=== PATIENT | male | born 1950 | race Caucasian/White ===

== ENCOUNTER → 2017-11-11 13:17 | Outpatient (CLI) | payer MEDICARE, SELFPAY ==
--- NOTE | 2017-11-11 13:42 | RAD_ITS ---
STUDY: X-RAY CHEST REASON FOR EXAM: Male, 67 years old. Persistent cough. TECHNIQUE: Frontal and lateral views of the chest. COMPARISON: 08/29/2015. FINDINGS: There is increased interstitial prominence bilaterally, particularly in the mid and lower lung diaz. There is no demonstrated focal pulmonary infiltrate. there are small bilateral pleural effusions. Normal size heart. Normal mediastinum and gurvinder. Normal visualized pulmonary arteries. Normal visualized aortic arch and descending thoracic aorta. There are no visualized acute osseous abnormalities. There is no demonstrated abnormality of the visualized soft tissue structures of the upper abdomen. RAD/Chest PA and Lateral IMPRESSION: Increased interstitial prominence bilaterally, probably representing an inflammatory or atypical infectious process. CHF is thought to be less likely, but is not excluded. Small bilateral pleural effusions. Electronically Signed: Juan Jay MD at 3:32 EDT , Service support ,
== END ==
DX: R05 Cough (principal)
CPT/HCPCS: 71046

== ENCOUNTER 2017-11-16 13:56 | Inpatient (IN) | payer MEDICARE, SELFPAY ==
[2017-11-16] VITALS (13 sets, daily range): BP systolic 132–160; BP diastolic 77–107; PULSE 71–118; RESP 18–24; TEMP 36.1–36.8; O2SAT 94–98; BMI 46.3; BMI 46.4; BMI 45.1
--- NOTE | 2017-11-16 14:13 | EKG12_ITS ---
Test Reason : SOB Blood Pressure : / mmHG Vent. Rate : 095 BPM Atrial Rate : 089 BPM P-R Int : 000 ms QRS Dur : 080 ms QT Int : 462 ms P-R-T Axes : 000 042 092 degrees QTc Int : 580 ms Atrial fibrillation with premature ventricular or aberrantly conducted complexes Nonspecific ST and T wave abnormality Abnormal ECG Confirmed by CORONA RAMOS, JENNIFER ([id number]), assistant production editor MARIA A NOVOA ([id number] on 11/18/2017 2:12:11 PM Referred By: Jaclyn Trujillo Confirmed By:JENNIFER JETER MD
[2017-11-16 14:38] LABS: Absolute Lymphocyte Count 1.19 X10^3/ul (0.83-4.51); Absolute Neutrophil Count 4.2 X10^3/uL (2.0-7.7); Basophil# 0.03 X10^3/uL; Basophil% 0.5 % (0-1); Eosinophils% 3.3 % (0-5); Hematocrit 39.2 % (40-54); Hemoglobin 13.1 g/dl (13.0-16.5); Lymphocyte # 1.19 X10^3/ul (4.0); Lymphocyte % 19.8 % (19-41); Mean Corp Hgb Conc 33.4 g/gl (32-36); Mean Corpuscular Volume 89.7 fL (80-94); Mean Platelet Vol. 8.9 fl (6.2-12.0); Monocyte# 0.36 X10^3/uL; Neutrophil # 4.22 X10^3/uL (2.7-7.7); Neutrophil % 70.4 % (47-70); POSITIVE COUNT NO; POSITIVE DIFFERENTIAL NO; POSITIVE MORPHOLOGY NO; Platelet Count 245 K/mm3 (150-450); RBC Distribution Width CV 13.6 % (11.6-14.6); RBC Distribution Width SD 44.6 fl (35.1-43.9); Red Blood Count 4.37 M/mm3 (4.6-6.2)
[2017-11-16 14:44] LABS: Prothrombin Time (Protime)PT. 13.4 SECONDS (11.7-14.9)
--- NOTE | 2017-11-16 14:44 | RAD_ITS ---
STUDY: X-RAY CHEST REASON FOR EXAM: Male, 67 years old. Shortness of breath and cough TECHNIQUE: PA and lateral views of the chest. COMPARISON: 11/11/2017 FINDINGS: Cardiac monitoring leads overlie the chest. The interstitial markings again appear prominent, and may represent mild interstitial edema. There is a small left pleural effusion. There is mild cardiac enlargement. Normal mediastinum and gurvinder. Normal visualized pulmonary arteries. There is atherosclerotic calcification of the aortic arch with tortuosity. There are diffuse degenerative changes of the visualized thoracic spine. Normal visualized ribs, clavicles, and shoulders. There is no demonstrated abnormality of the visualized soft tissue structures of the upper abdomen. RAD/Chest PA and Lateral IMPRESSION: Mild interstitial edema. Small left pleural effusion. Electronically Signed: Rosalio Fierro DO at 15:07 EDT Tel , Service support ,
[2017-11-16 14:45] LABS: Partial Thromboplast Time 29.7 Seconds (24.1-36.2)
[2017-11-16 14:54] LABS: ALB/GLOB Ratio 0.8 RATIO (0.9-2.4); AST(SGOT) 18 U/L (15-37); Alanine Aminotransfer ALT/SGPT 19 U/L (16-61); Albumin, Serum 2.8 g/dL (3.2-5.0); Alkaline Phosphatase 66 U/L (45-117); Anion Gap 9 (5-15); BUN 6 mg/dL (7-18); Calcium,Total 8.1 mg/dL (8.5-10.1); Chloride 103 mmol/L (98-107); Creatinine, Serum 0.67 mg/dL (0.70-1.30); EST Glomerular Filtration Rate 126 mL/min (>60); Est Glom Filt Rate - Afr Amer 152 mL/min (>60); Estimated Creatinine Clearance 76.52 ml/min; Globulin 3.6 g/dL (2.2-4.2); Glucose 219 mg/dL (74-106); Potassium 3.3 mmol/L (3.5-5.1); Protein, Total 6.4 g/dL (6.4-8.2); Sodium Level 137 mmol/L (136-145)
[2017-11-16 15:03] LABS: Lactic Acid 1.4 mmol/L (0.4-2.0)
--- NOTE | 2017-11-16 15:24 | CM.ED ---
CM INITIAL ASSESSMENT: Patient is in the ED at this time. at bedside. Home: Patient lives in a one-story home with , Natalia. HHS/Aides: Denies. DME: Patient states he occasionally uses a cane. He states that he has a rope from the front of the house to the back of the house that he uses to balance as he walks. Patient's states this rope is very secure and that the home is not large. Patient feels he may benefit from a shower chair. He states he had a fall, in June 2017, after showering while drying his feet. Oxygen: Patient states he uses a BiPAP machine at night. No oxygen during the day. Pharmacy: [facility] Advance Directives: Patient denies having advance directives. He does state interest in having a social media analyst assist with this process. PCP: Jaclyn Arvizu at [facility] Specialists: None. Patient states he saw Dr. Stacy 5 or 6 years ago for removal of a portion of his kidney due to cancer. Patient admits that he stopped talking medications and seeing his doctor due to cost and convenience. He states that they always told him his insurance wouldn't cover the visit and he always had to wait an hour. Patient states Nathalie, at [facility], recently assisted him with applying for further insurance. ED registration searched to see if patient has any active form of medicaid and nothing appeared. I left a voicemail with the [facility] requesting that Nathalie call me back regarding insurance application. Social work referral made for assistance with advance directives. DC Plan: Anticipate return to home, with . Case management and social work will continue to follow for safe and effective discharging needs.
--- NOTE | 2017-11-16 15:37 | NURSING ---
DR ROSETTE JORGENSEN
--- NOTE | 2017-11-16 15:39 | NURSING ---
DR DINERO IN WITH PATIENT
--- NOTE | 2017-11-16 15:40 | ED.VISSUMM ---
- ER Visit Summary Date of Service: 11/16/17 Chief Complaint: Shortness of breath History of Present Illness: The patient is a 67 M presenting for evaluation secondary to shortness of breath. Patient states that over the course of the last month he has been feeling ill. This is been associated with nausea vomiting and diarrhea and progressively worsening shortness of breath. Patient states that he has a cough that is productive of sputum and runny nose. Patient states that over the last 3-4 days been getting significantly worse and he has exertional dyspnea even with walking short distances. Denies any presence of chest pain. Patient does have an underlying history of diabetes hypertension and a cardiac arrhythmia, but took himself off of all of his medications a year ago. Patient was being seen at the [facility], and was recommended to come to the emergency department. Physical Examination: Vital signs notable for tachycardia with a rate of 118, respiratory rate 22, pulse ox 95% on room air. Obese male no acute distress. Moist mucous membranes. Neck supple. Heart was tachycardic and regular no murmurs. Lungs sounds were clear without any rhonchi rales or wheezes, but there was tachypnea noted. Abdomen was soft and nontender. There is trace peripheral edema bilaterally with chronic skin changes noted over the anterior portion of the patient's tibias bilaterally. No lateralizing neurological deficits. Test Results: Atrial fibrillation with a rate of 95 nonspecific T-wave flattening and frequent PVCs noted. CBC unremarkable, chemistry shows hyperglycemia to 19 with a potassium 3.3, troponin negative, lactic acid negative. BNP is pending. Chest x-ray shows bilateral interstitial infiltrates unchanged from last week Emergency Department Course and Treatment: Patient presented for evaluation secondary to shortness of breath. Patient's workup shows evidence of atrial fibrillation with frequent ventricular ectopy. Chest x-ray shows interstitial infiltrates. Troponin was found to be negative. Patient was ambulated on room air in the emergency department and was significantly symptomatic and desaturated to 88%. Also while in the emergency department on telemetry the patient had a 4 beat run of nonsustained ventricular tachycardia. He denies any chest pain. Patient really gives more of an infectious prodrome to all of this, and I believe that he likely has an element of an atypical pneumonia. Patient was administered aspirin, he also was administered Rocephin and azithromycin in the emergency department. Patient will be admitted to the PCU Disposition: Admission Impression: 1. Atypical pneumonia 2. Nonsustained ventricular tachycardia 3. Hypoxia This note was generated with [employer] dictation software. It may contain incorrect words, spelling, and punctuation that were not noted in review of the chart prior to signing ED Disposition - Plan for ED Patient: Chief Complaint: Shortness of Breath Referrals: Roula Dubon [Primary Care Provider] -
[2017-11-16] MEDS: Aspirin 81 MG TAB.CHEW 324 MG PO (15:52)
[2017-11-16] MEDS: Ceftriaxone 1 GM/50 ML BAG IV (15:52)
[2017-11-16 15:53] LABS: BNP,B-Type NATRIURETIC PEPTIDE 193.5 pg/mL (0-100)
--- NOTE | 2017-11-16 16:00 | PCM.HP.STD ---
Problem List (1) Acute respiratory failure with hypoxia Status: Acute (2) COPD with acute exacerbation Status: Acute (3) CHF exacerbation Status: Acute (4) PVC's (premature ventricular contractions) Status: Acute (5) Diabetes mellitus type 2, uncontrolled, without complications Status: Chronic (6) HTN (hypertension) Status: Chronic (7) History of atrial fibrillation Status: Chronic (8) Morbid obesity Status: Chronic (9) HOLGER (obstructive sleep apnea) Status: Chronic History of Present Illness Date of Admission: 11/16/17 Chief Complaint: shortness of breath. The patient is a 67 year old M presents with shortness of breath is been going on for months. Patient has dyspnea on exertion. Patient has been coughing but is nonproductive. Given that it has been going on for so long patient has not gotten better patient sought attention in the emergency room. Emergency room their concern about pneumonia based on his chest x-ray and patient received Rocephin and azithromycin. BNP came back at 195. Patient did have some PVCs and did have 4 beat run of sustained ventricular tachycardia. Patient was noted to be 88% on room air. Patient is not on oxygen at home. [] Past Medical History Past Medical History (Chronic Problems): Chronic Problems HOLGER (obstructive sleep apnea) (Chronic) Morbid obesity (Chronic) HTN (hypertension) (Chronic) Diabetes mellitus type 2, uncontrolled, without complications (Chronic) History of atrial fibrillation (Chronic) Allergies No Known Allergies Allergy (Verified 11/16/17 13:58) Home Medications: Ambulatory Orders Medication Instructions Recorded NK [NK] 11/16/17 Surgical History: tonsillectomy Psychiatric History: No pertinent psych hx Lives: Spouse/ Significant Other Smoking Status: Former smoker Tobacco Use: Non-smoker Alcohol: Rare Drugs: None - *Family History Paternal History Items: Diabetes Review of Systems Constitutional: Denies: Chills, Fever, Weight Change Eyes: Denies: Blurred vision, Double vision HEENT: Denies: Head Aches, Sinus Congestion, Sinus Drainage Cardiovascular: Reports: Edema - Improved from baseline. Patient has had a history of requiring lymphedema wraps.. Denies: Chest Pain Respiratory: Reports: Cough, Shortness of breath upon exertion. Denies: Sputum production Gastrointestinal: Denies: Abdominal Pain, Nausea, Vomiting Genitourinary: Denies: Dysuria Musculoskeletal: Denies: Joint Pain, Joint Tenderness Skin: Reports: - - Venous stasis dermatitis of lower extremities. Denies: Dryness, Jaundice Neurological: Denies: Numbness, Tingling, Focal weakness Psychiatric: Denies: Anxiety, Depression Hematologic/ Lymphatic: Denies: Easy Bruising, Easy Bleeding, Hx of blood clot VTE Information - Inpt Only VTE Present on Admission: No VTE Pharm Prophylaxis ordered?: Yes Patient Problems: Active and Suspected Problems Acute respiratory failure with hypoxia (Acute) COPD with acute exacerbation (Acute) CHF exacerbation (Acute) PVC's (premature ventricular contractions) (Acute) - Physical Exam General: Alert, Cooperative, No apparent distress HEENT: Atraumatic, Normocephalic Neck: No Nodes, Thyroid Normal Size and Texture Lungs: Clear to auscultation, No rhonchi, No wheeze, Diminished Cardiovascular: Regular rate, Regular Rhythm, Normal S1, Normal S2, No murmurs Abdomen: Bowel Sounds Present, Soft, Non Tender, Non-Distended, No Hepato-splenomegaly Extremities: No Calf Tenderness, Edema - Trace Skin: - - Venous stasis dermatitis of bilateral lower extremities with some superficial wounds without cellulitis on the anterior shins. Musculoskeletal: No Tenderness to Palpation of Joints or Extremities, No Muscle Wasting Neurological: Neuro grossly intact, Sensory exam intact to light touch and pain Psych/Mental Status: Normal Affect, Appropriate Vital Signs Temp Pulse Resp BP Pulse Ox 36.6 C 102 H 24 H 132/107 H 96 11/16/17 14:25 11/16/17 15:29 11/16/17 15:29 11/16/17 15:29 11/16/17 15:29 Oxygen Flow Rate (L/min) 2 Oxygen Delivery Method Nasal Cannula Weight: 155.129 kg Body Mass Index (BMI) 46.3 Laboratory Tests Past 24 Hrs 11/16/17 11/16/17 11/16/17 14:25 14:25 14:25 WBC 6.0 RBC 4.37 L Hgb 13.1 Hct 39.2 L MCV 89.7 MCH 30.0 MCHC 33.4 RDW 13.6 RDW Differential 44.6 H Plt Count 245 MPV 8.9 Immature Gran % (Auto) 0.000 Neut % (Auto) 70.4 H Lymph % (Auto) 19.8 [place] % (Auto) 6.0 Eos % (Auto) 3.3 Baso % (Auto) 0.5 Absolute Neuts (auto) 4.2 Absolute Lymphs (auto) 1.19 Total Counted Not Reportable PT 13.4 INR 1.0 APTT 29.7 Sodium 137 Potassium 3.3 L Chloride 103 Carbon Dioxide 25.0 Anion Gap 9 BUN 6 L Creatinine 0.67 L Estim Creat Clear Calc 76.52 Est GFR (MDRD) Af Amer 152 Est GFR (MDRD) Non-Af 126 BUN/Creatinine Ratio 9.0 L Glucose 219 H Lactic Acid Calcium 8.1 L Total Bilirubin 0.60 AST 18 ALT 19 Alkaline Phosphatase 66 Troponin I < 0.02 B-Natriuretic Peptide Total Protein 6.4 Albumin 2.8 L Globulin 3.6 Albumin/Globulin Ratio 0.8 L 11/16/17 11/16/17 14:25 14:25 WBC RBC Hgb Hct MCV MCH MCHC RDW RDW Differential Plt Count MPV Immature Gran % (Auto) Neut % (Auto) Lymph % (Auto) [place] % (Auto) Eos % (Auto) Baso % (Auto) Absolute Neuts (auto) Absolute Lymphs (auto) Total Counted PT INR APTT Sodium Potassium Chloride Carbon Dioxide Anion Gap BUN Creatinine Estim Creat Clear Calc Est GFR (MDRD) Af Amer Est GFR (MDRD) Non-Af BUN/Creatinine Ratio Glucose Lactic Acid 1.4 Calcium Total Bilirubin AST ALT Alkaline Phosphatase Troponin I B-Natriuretic Peptide 193.5 H Total Protein Albumin Globulin Albumin/Globulin Ratio EKG reviewed and showed normal sinus rhythm with no acute changes Chest x-ray reviewed and showed flattening of the diaphragms and appears to be some new pleural effusion. Assessment/Plan Active and Suspected Problems Acute respiratory failure with hypoxia (Acute) COPD with acute exacerbation (Acute) CHF exacerbation (Acute) PVC's (premature ventricular contractions) (Acute) 1. Acute hypoxic respiratory failure Is likely multifactorial, due to the patient's underlying sleep apnea, obesity hypoventilation, I feel the patient also has component of heart failure. Unclear the patient has right heart failure or not. Treat the underlying processes. Patient had been seeing Dr. thomas but due to personality conflicts he has not seen him for a year or 2. I recommend patient follow-up with pulmonology to have a pulmonary function test to see if patient does have underlying COPD which I am suspicious for given his flattening of diaphragms on the chest x-rays 2. Acute heart failure Unclear which type benefits preserved versus reduced ejection fraction Will check an echocardiogram to further elucidate this Patient will be on Lasix Hold off on beta blockers in acute heart failure. Concerned the patient may have some right heart failure as well in the echocardiogram could shed more light on that. The patient does have right heart failure that certainly complicating patient's overall picture. 3. PVCs Asymptomatic Potassium is low and that will be replaced. Will check a magnesium level. Patient will be monitored on the progressive care unit for now. 4. Obstructive sleep apnea Continue with BiPAP as patient takes at home. Patient stating that his not getting the pressure that he was before with his BiPAP. We will have respiratory evaluate and see if it is the machine itself or possibly his mask. 5. Diabetes mellitus type II Patient has taken himself off of medication Patient will be on sliding scale insulin 6. DVT prophylaxis: Patient is moderate risk. Patient will be on Lovenox. 7. Morbid obesity: Complicating care. Code Visit Inpatient E&M: 41060 Init Hosp L3
--- NOTE | 2017-11-16 16:02 | CM.ED ---
Nathalie, from [facility], returned my call and states that she did give the patient supplemental insurance information but states that no applications were completed with her. Nathalie states that, together with his , they make too much money to have medicaid.
--- NOTE | 2017-11-16 16:03 | NURSING ---
Lili ACUTE HYPOXIC RESP FAILURE ROSETTE
--- NOTE | 2017-11-16 16:09 | HP.PCM_ITS ---
Problem List (1) Acute respiratory failure with hypoxia Status: Acute (2) COPD with acute exacerbation Status: Acute (3) CHF exacerbation Status: Acute (4) PVC's (premature ventricular contractions) Status: Acute (5) Diabetes mellitus type 2, uncontrolled, without complications Status: Chronic (6) HTN (hypertension) Status: Chronic (7) History of atrial fibrillation Status: Chronic (8) Morbid obesity Status: Chronic (9) HOLGER (obstructive sleep apnea) Status: Chronic History of Present Illness Date of Admission: 11/16/17 Chief Complaint: shortness of breath. The patient is a 67 year old M presents with shortness of breath is been going on for months. Patient has dyspnea on exertion. Patient has been coughing but is nonproductive. Given that it has been going on for so long patient has not gotten better patient sought attention in the emergency room. Emergency room their concern about pneumonia based on his chest x-ray and patient received Rocephin and azithromycin. BNP came back at 195. Patient did have some PVCs and did have 4 beat run of sustained ventricular tachycardia. Patient was noted to be 88% on room air. Patient is not on oxygen at home. [] Past Medical History Past Medical History (Chronic Problems): Chronic Problems HOLGER (obstructive sleep apnea) (Chronic) Morbid obesity (Chronic) HTN (hypertension) (Chronic) Diabetes mellitus type 2, uncontrolled, without complications (Chronic) History of atrial fibrillation (Chronic) Allergies No Known Allergies Allergy (Verified 11/16/17 13:58) Home Medications: Ambulatory Orders Medication Instructions Recorded NK [NK] 11/16/17 Surgical History: tonsillectomy Psychiatric History: No pertinent psych hx Lives: Spouse/ Significant Other Smoking Status: Former smoker Tobacco Use: Non-smoker Alcohol: Rare Drugs: None - *Family History Paternal History Items: Diabetes Review of Systems Constitutional: Denies: Chills, Fever, Weight Change Eyes: Denies: Blurred vision, Double vision HEENT: Denies: Head Aches, Sinus Congestion, Sinus Drainage Cardiovascular: Reports: Edema - Improved from baseline. Patient has had a history of requiring lymphedema wraps.. Denies: Chest Pain Respiratory: Reports: Cough, Shortness of breath upon exertion. Denies: Sputum production Gastrointestinal: Denies: Abdominal Pain, Nausea, Vomiting Genitourinary: Denies: Dysuria Musculoskeletal: Denies: Joint Pain, Joint Tenderness Skin: Reports: - - Venous stasis dermatitis of lower extremities. Denies: Dryness, Jaundice Neurological: Denies: Numbness, Tingling, Focal weakness Psychiatric: Denies: Anxiety, Depression Hematologic/ Lymphatic: Denies: Easy Bruising, Easy Bleeding, Hx of blood clot VTE Information - Inpt Only VTE Present on Admission: No VTE Pharm Prophylaxis ordered?: Yes Patient Problems: Active and Suspected Problems Acute respiratory failure with hypoxia (Acute) COPD with acute exacerbation (Acute) CHF exacerbation (Acute) PVC's (premature ventricular contractions) (Acute) - Physical Exam General: Alert, Cooperative, No apparent distress HEENT: Atraumatic, Normocephalic Neck: No Nodes, Thyroid Normal Size and Texture Lungs: Clear to auscultation, No rhonchi, No wheeze, Diminished Cardiovascular: Regular rate, Regular Rhythm, Normal S1, Normal S2, No murmurs Abdomen: Bowel Sounds Present, Soft, Non Tender, Non-Distended, No Hepato- splenomegaly Extremities: No Calf Tenderness, Edema - Trace Skin: - - Venous stasis dermatitis of bilateral lower extremities with some superficial wounds without cellulitis on the anterior shins. Musculoskeletal: No Tenderness to Palpation of Joints or Extremities, No Muscle Wasting Neurological: Neuro grossly intact, Sensory exam intact to light touch and pain Psych/Mental Status: Normal Affect, Appropriate Vital Signs Temp Pulse Resp BP Pulse Ox 36.6 C 102 H 24 H 132/107 H 96 11/16/17 14:25 11/16/17 15:29 11/16/17 15:29 11/16/17 15:29 11/16/17 15:29 Oxygen Flow Rate (L/min) 2 Oxygen Delivery Method Nasal Cannula Weight: 155.129 kg Body Mass Index (BMI) 46.3 Laboratory Tests Past 24 Hrs 11/16/17 11/16/17 11/16/17 14:25 14:25 14:25 WBC 6.0 RBC 4.37 L Hgb 13.1 Hct 39.2 L MCV 89.7 MCH 30.0 MCHC 33.4 RDW 13.6 RDW Differential 44.6 H Plt Count 245 MPV 8.9 Immature Gran % (Auto) 0.000 Neut % (Auto) 70.4 H Lymph % (Auto) 19.8 [place] % (Auto) 6.0 Eos % (Auto) 3.3 Baso % (Auto) 0.5 Absolute Neuts (auto) 4.2 Absolute Lymphs (auto) 1.19 Total Counted Not Reportable PT 13.4 INR 1.0 APTT 29.7 Sodium 137 Potassium 3.3 L Chloride 103 Carbon Dioxide 25.0 Anion Gap 9 BUN 6 L Creatinine 0.67 L Estim Creat Clear Calc 76.52 Est GFR (MDRD) Af Amer 152 Est GFR (MDRD) Non-Af 126 BUN/Creatinine Ratio 9.0 L Glucose 219 H Lactic Acid Calcium 8.1 L Total Bilirubin 0.60 AST 18 ALT 19 Alkaline Phosphatase 66 Troponin I < 0.02 B-Natriuretic Peptide Total Protein 6.4 Albumin 2.8 L Globulin 3.6 Albumin/Globulin Ratio 0.8 L 11/16/17 11/16/17 14:25 14:25 WBC RBC Hgb Hct MCV MCH MCHC RDW RDW Differential Plt Count MPV Immature Gran % (Auto) Neut % (Auto) Lymph % (Auto) [place] % (Auto) Eos % (Auto) Baso % (Auto) Absolute Neuts (auto) Absolute Lymphs (auto) Total Counted PT INR APTT Sodium Potassium Chloride Carbon Dioxide Anion Gap BUN Creatinine Estim Creat Clear Calc Est GFR (MDRD) Af Amer Est GFR (MDRD) Non-Af BUN/Creatinine Ratio Glucose Lactic Acid 1.4 Calcium Total Bilirubin AST ALT Alkaline Phosphatase Troponin I B-Natriuretic Peptide 193.5 H Total Protein Albumin Globulin Albumin/Globulin Ratio EKG reviewed and showed normal sinus rhythm with no acute changes Chest x-ray reviewed and showed flattening of the diaphragms and appears to be some new pleural effusion. Assessment/Plan Active and Suspected Problems Acute respiratory failure with hypoxia (Acute) COPD with acute exacerbation (Acute) CHF exacerbation (Acute) PVC's (premature ventricular contractions) (Acute) 1. Acute hypoxic respiratory failure * Is likely multifactorial, due to the patient's underlying sleep apnea, obesity hypoventilation, I feel the patient also has component of heart failure. Unclear the patient has right heart failure or not. * Treat the underlying processes. * Patient had been seeing Dr. thomas but due to personality conflicts he has not seen him for a year or 2. I recommend patient follow-up with pulmonology to have a pulmonary function test to see if patient does have underlying COPD which I am suspicious for given his flattening of diaphragms on the chest x-rays 2. Acute heart failure * Unclear which type benefits preserved versus reduced ejection fraction * Will check an echocardiogram to further elucidate this * Patient will be on Lasix * Hold off on beta blockers in acute heart failure. * Concerned the patient may have some right heart failure as well in the echocardiogram could shed more light on that. The patient does have right heart failure that certainly complicating patient's overall picture. 3. PVCs * Asymptomatic * Potassium is low and that will be replaced. Will check a magnesium level. * Patient will be monitored on the progressive care unit for now. 4. Obstructive sleep apnea * Continue with BiPAP as patient takes at home. Patient stating that his not getting the pressure that he was before with his BiPAP. We will have respiratory evaluate and see if it is the machine itself or possibly his mask. 5. Diabetes mellitus type II * Patient has taken himself off of medication * Patient will be on sliding scale insulin 6. DVT prophylaxis: Patient is moderate risk. Patient will be on Lovenox. 7. Morbid obesity: Complicating care. Code Visit Inpatient E&M: 70730 Init Hosp L3
--- NOTE | 2017-11-16 17:23 | ECHOD_ITS ---
Reason For Study: CHF Procedure This was a 2D Doppler, Color Flow transthoracic echocardiogram. The exam was of poor technical quality due to body habitus. The study was technically difficult. Contrast injection was performed. Left Ventricle Normal LV size. Left ventricular systolic function is normal. The estimated ejection fraction is 65 %. Unable to assess diastolic dysfunction due to arrhythmia. No regional wall motion abnormalities noted. Right Ventricle Normal RV size. Normal systolic function. Atria The left atrium is mildly enlarged. The right atrium is mildly enlarged. No doppler evidence for ASD. Mitral Valve There is mild mitral annular calcification. Normal mitral valve. Trivial mitral valve insufficiency. Tricuspid Valve The tricuspid valve is not well visualized. Trivial tricuspid valve insufficiency. Unable to estimate RV systolic pressure/pulmonary artery pressure due to technically difficult study. Aortic Valve The aortic valve is not well visualized. Pulmonic Valve The pulmonic valve is not well visualized. Great Vessels The aortic root is not well visualized. Pericardium/Pleural Trivial pericardial effusion. There are no echocardiographic indications of cardiac tamponade. Medication Diluted definity 5ml given slow IV push to enhance endocardial definition. MMode/2D Measurements & Calculations LVIDd: 4.7 cm IVSd: 0.94 cm LVOT diam: 2.1 cm LVIDs: 3.5 cm LVPWd: 1.0 cm LVOT area: 3.6 cm2 RVDd: 4.4 cm FS: 25.1 % Ao root diam: 3.5 cm LAV(MOD-bp): 98.0 ml LA A4 area: 27.3 cm2 LA dimension: 4.6 cm LAV(MOD-bp) Indexed: 37.1 ml/m2 LAV(MOD-sp2): 106.6 ml LAV(MOD-sp4): 83.5 ml Doppler Measurements & Calculations MV E max angel: 114.0 cm/sec Ao V2 max: 138.6 cm/sec LV V1 max: 83.2 cm/sec Ao max P.8 mmHg LV V1 max P.8 mmHg FELIX(V,D): 2.1 cm2 Interpretation Summary The study was technically difficult. Contrast injection was performed. Left ventricular systolic function is normal. The estimated ejection fraction is 65 %. The left atrium is mildly enlarged. The right atrium is mildly enlarged. There is mild mitral annular calcification. Trivial mitral valve insufficiency. Trivial tricuspid valve insufficiency. Trivial pericardial effusion. There are no echocardiographic indications of cardiac tamponade. Unable to estimate RV systolic pressure/pulmonary artery pressure due to technically difficult study. Unable to assess diastolic dysfunction due to arrhythmia. Ordering Physician: Peter Aguirre Referring Physician: Jaclyn Trujillo Performed By: Dejah Wilcox, MARIA LCS, RVT
[2017-11-16] MEDS: predniSONE 20 MG Tablet 40 MG PO (18:10)
[2017-11-16 19:02] LABS: Magnesium 1.2 mg/dL (1.6-2.6); Thyroid Stim Hormone (TSH) 0.43 uIU/mL (0.358-3.74)
[2017-11-16] MEDS: Ipratropium/Albuterol Sulfate 3 ML AMPUL.NEB INHALATION (21:30)
[2017-11-16 23:16] LABS: Bedside Glucose 247 mg/dL (70-110)
[2017-11-17] VITALS (14 sets, daily range): BP systolic 141–160; BP diastolic 71–98; PULSE 62–126; RESP 16–18; TEMP 36.3–36.9; O2SAT 94–97
[2017-11-17] MEDS: Magnesium Oxide 400 MG Tablet PO (03:20)
[2017-11-17 06:10] LABS: Anion Gap 9 (5-15); BUN 7 mg/dL (7-18); BUN/Creat Ratio 9.9 RATIO (10-20); Calcium,Total 8.3 mg/dL (8.5-10.1); Chloride 102 mmol/L (98-107); Creatinine, Serum 0.71 mg/dL (0.70-1.30); EST Glomerular Filtration Rate 117 mL/min (>60); Est Glom Filt Rate - Afr Amer 142 mL/min (>60); Estimated Creatinine Clearance 76.52 ml/min; Glucose 254 mg/dL (74-106); Potassium 4.2 mmol/L (3.5-5.1); Sodium Level 138 mmol/L (136-145)
[2017-11-17 06:56] LABS: Bedside Glucose 253 mg/dL (70-110)
[2017-11-17] MEDS: predniSONE 20 MG Tablet 40 MG PO (07:55)
[2017-11-17] MEDS: Furosemide 40 MG/4 ML Vial IV (10:20)
[2017-11-17] MEDS: Enoxaparin 40 MG/0.4 ML Syringe SC (10:21)
[2017-11-17] MEDS: 0.9% NaCl Peripheral Flush Adult/Peds IV (10:21)
[2017-11-17 12:25] LABS: Bedside Glucose 292 mg/dL (70-110)
--- NOTE | 2017-11-17 12:25 | PCM.PROGNOTE ---
<Gerson Silverio - Last Filed: 11/17/17 12:25> Patient Problems: Active and Suspected Problems Acute respiratory failure with hypoxia (Acute) COPD with acute exacerbation (Acute) CHF exacerbation (Acute) PVC's (premature ventricular contractions) (Acute) Subjective: Pt reports improvement in SOB overnight. He denies swelling of his LE. He denies PND and orthopnea. He does report compliance at home with CPAP. 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 He admits to hx of Afib. The only medication he takes at home is sometimes he takes aspirin. 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 He also had right renal cancer, and had a partial nephrectomy. He reports no ongoing kidney issues. He denies CP or palp. No dizziness or LH. He states he used to be a smoker. He started at some point when he was a kid and smoked until sometime in his 30s. - Physical Exam General: Alert, Oriented x3, Cooperative HEENT: Atraumatic, PERRLA, EOMI, Normocephalic Neck: Supple, No JVD, Negative Carotid Bruits Lungs: Diminished, Rales - faint @ bases Cardiovascular: Regular rate, No murmurs Abdomen: Bowel Sounds Present, Soft, Non Tender Extremities: No edema, Capillary Refill Less than 3 Seconds Skin: No rashes, No breakdown Musculoskeletal: No Tenderness to Palpation of Joints or Extremities Neurological: Cranial nerves II-XII grossly intact Psych/Mental Status: Normal Affect, Appropriate Vital Signs Temp Pulse Resp BP Pulse Ox 98.4 F 108 H 18 141/93 H 94 11/17/17 09:26 11/17/17 11:04 11/17/17 09:26 11/17/17 09:26 11/17/17 11:01 Oxygen Flow Rate (L/min) 2 Oxygen Delivery Method Room Air Weight: 150.9 kg Body Mass Index (BMI) 45.1 Intake and Output for Last 24 Hours 11/15/17 11/16/17 11/17/17 23:59 23:59 23:59 Intake Total 623 / 623 220 / 220 Balance 623 / 623 220 / 220 Laboratory Tests Past 24 Hrs 11/17/17 11/17/17 05:35 05:35 Sodium 138 Potassium 4.2 Chloride 102 Carbon Dioxide 27.0 Anion Gap 9 BUN 7 Creatinine 0.71 Estim Creat Clear Calc 76.52 Est GFR (MDRD) Af Amer 142 Est GFR (MDRD) Non-Af 117 BUN/Creatinine Ratio 9.9 L Glucose 254 H Hemoglobin A1c Pending Calcium 8.3 L POC Glucose 11/17/17 11/17/17 11/16/17 12:22 06:46 23:03 POC Glucose 292 H 253 H 247 H Medical Necessity - Tobacco Use Smoking Status: Former smoker Tobacco Use: Non-smoker Assessment/Plan Active and Suspected Problems Acute respiratory failure with hypoxia (Acute) COPD with acute exacerbation (Acute) CHF exacerbation (Acute) PVC's (premature ventricular contractions) (Acute) 1. Acute CHF exacerbation - echo pending, type unclear. No prior hx. On IV lasix and improving. I have placed him on low dose ANUSHA-I and Beta enrike. He is mildly tachy. AF with PVCs on EKG/tele. Echo is pending. BNP was 193.5. TSH normal. CXR with chronic changes, mild interstitial edema, and small left pleural effusion. 2. COPD - no wheezing appreciated. Former smoker. No dx of COPD. Continue prednisone as there are significant chronic changes on CXR and part of this may be due to underlying COPD. He will need PFTs after DC and an outpatient rescue inhaler. Plan to continue prednisone for 5 days. 3. HOLGER - compliant with CPAP at home 4. Afib - states he has a hx of this but it is not treated and he does not follow cardiology. Mildly tachy this am. Start lopressor. Chadvasc score is 5, so he would benefit from outpatient anticoagulation. He will need outpatient follow up with cardiology. 5. Hypokalemia - improved. 6. Hyperglycemia - suspect DMt2 - A1C pending. Add sliding scale insulin. Will have diabetic education while here. Plan to DC on metformin and have him follow up with BRITTANY Hemphill. 7. Hx Renal cancer s/p partial nephrectomy (right) - renal function currently stable. 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 DVT ppx: lovenox DC planning: PTOT This patient was seen by Gerson Silverio PA-C under the supervision of Doctor Jeffrey. <Gael Murphy - Last Filed: 11/17/17 17:59> Subjective: Seen and examined Shortness of breath has improved. Denies chest pain - Physical Exam Lungs: Diminished, Rales Cardiovascular: Normal S1, Normal S2, No murmurs, Irregular Rate Vital Signs Temp Pulse Resp BP Pulse Ox 98.2 F 63 18 151/71 H 94 11/17/17 15:36 11/17/17 17:16 11/17/17 15:36 11/17/17 17:16 11/17/17 15:36 Oxygen Flow Rate (L/min) 2 Oxygen Delivery Method Room Air Weight: 332 lb 10.841 oz Body Mass Index (BMI) 45.1 Intake and Output for Last 24 Hours 11/15/17 11/16/17 11/17/17 23:59 23:59 23:59 Intake Total 623 / 623 1190 / 1190 Balance 623 / 623 1190 / 1190 Laboratory Tests Past 24 Hrs 11/17/17 11/17/17 05:35 05:35 Sodium 138 Potassium 4.2 Chloride 102 Carbon Dioxide 27.0 Anion Gap 9 BUN 7 Creatinine 0.71 Estim Creat Clear Calc 76.52 Est GFR (MDRD) Af Amer 142 Est GFR (MDRD) Non-Af 117 BUN/Creatinine Ratio 9.9 L Glucose 254 H Hemoglobin A1c 12.5 H Calcium 8.3 L POC Glucose 11/17/17 11/17/17 11/17/17 17:03 12:22 06:46 POC Glucose 298 H 292 H 253 H 11/16/17 23:03 POC Glucose 247 H Assessment/Plan This patient was seen in conjunction with Gerson SERRANO. I have independently interviewed and examined the patient and reviewed pertinent history, examination findings, laboratory and plan of management. I have reviewed the note and agree with the documented findings with the few additional points. In brief, patient is admitted for acute CHF exacerbation. On heart failure regimen. 2D echo was ordered. Patient also has other comorbidities including obstructive sleep apnea, COPD admission I have discussed my assessment with Gerson SERRANO and orders have been reviewed. Laboratory Results 11/16/17 14:25: Magnesium 1.2 L, TSH 0.43 11/16/17 23:03: POC Glucose 247 H 11/17/17 05:35: Sodium 138, Potassium 4.2, Chloride 102, Carbon Dioxide 27.0, Anion Gap 9, BUN 7, Creatinine 0.71, Estim Creat Clear Calc 76.52, Est GFR (MDRD) Af Amer 142, Est GFR (MDRD) Non-Af 117, BUN/Creatinine Ratio 9.9 L, Glucose 254 H, Calcium 8.3 L 11/17/17 05:35: Hemoglobin A1c 12.5 H 11/17/17 06:46: POC Glucose 253 H 11/17/17 12:22: POC Glucose 292 H 11/17/17 17:03: POC Glucose 298 H Code Visit Inpatient E&M: 10608 Subs Hosp L3
--- NOTE | 2017-11-17 12:34 | PN_ITS ---
<Gerson Silverio - Last Filed: 11/17/17 12:25> Patient Problems: Active and Suspected Problems Acute respiratory failure with hypoxia (Acute) COPD with acute exacerbation (Acute) CHF exacerbation (Acute) PVC's (premature ventricular contractions) (Acute) Subjective: Pt reports improvement in SOB overnight. He denies swelling of his LE. He denies PND and orthopnea. He does report compliance at home with CPAP. 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 He admits to hx of Afib. The only medication he takes at home is sometimes he takes aspirin. 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 He also had right renal cancer, and had a partial nephrectomy. He reports no ongoing kidney issues. He denies CP or palp. No dizziness or LH. He states he used to be a smoker. He started at some point when he was a kid and smoked until sometime in his 30s. - Physical Exam General: Alert, Oriented x3, Cooperative HEENT: Atraumatic, PERRLA, EOMI, Normocephalic Neck: Supple, No JVD, Negative Carotid Bruits Lungs: Diminished, Rales - faint @ bases Cardiovascular: Regular rate, No murmurs Abdomen: Bowel Sounds Present, Soft, Non Tender Extremities: No edema, Capillary Refill Less than 3 Seconds Skin: No rashes, No breakdown Musculoskeletal: No Tenderness to Palpation of Joints or Extremities Neurological: Cranial nerves II-XII grossly intact Psych/Mental Status: Normal Affect, Appropriate Vital Signs Temp Pulse Resp BP Pulse Ox 98.4 F 108 H 18 141/93 H 94 11/17/17 09:26 11/17/17 11:04 11/17/17 09:26 11/17/17 09:26 11/17/17 11:01 Oxygen Flow Rate (L/min) 2 Oxygen Delivery Method Room Air Weight: 150.9 kg Body Mass Index (BMI) 45.1 Intake and Output for Last 24 Hours 11/15/17 11/16/17 11/17/17 23:59 23:59 23:59 Intake Total 623 / 623 220 / 220 Balance 623 / 623 220 / 220 Laboratory Tests Past 24 Hrs 11/17/17 11/17/17 05:35 05:35 Sodium 138 Potassium 4.2 Chloride 102 Carbon Dioxide 27.0 Anion Gap 9 BUN 7 Creatinine 0.71 Estim Creat Clear Calc 76.52 Est GFR (MDRD) Af Amer 142 Est GFR (MDRD) Non-Af 117 BUN/Creatinine Ratio 9.9 L Glucose 254 H Hemoglobin A1c Pending Calcium 8.3 L POC Glucose 11/17/17 11/17/17 11/16/17 12:22 06:46 23:03 POC Glucose 292 H 253 H 247 H Medical Necessity - Tobacco Use Smoking Status: Former smoker Tobacco Use: Non-smoker Assessment/Plan Active and Suspected Problems Acute respiratory failure with hypoxia (Acute) COPD with acute exacerbation (Acute) CHF exacerbation (Acute) PVC's (premature ventricular contractions) (Acute) 1. Acute CHF exacerbation - echo pending, type unclear. No prior hx. On IV lasix and improving. I have placed him on low dose ANUSHA-I and Beta enrike. He is mildly tachy. AF with PVCs on EKG/tele. Echo is pending. BNP was 193.5. TSH normal. CXR with chronic changes, mild interstitial edema, and small left pleural effusion. 2. COPD - no wheezing appreciated. Former smoker. No dx of COPD. Continue prednisone as there are significant chronic changes on CXR and part of this may be due to underlying COPD. He will need PFTs after DC and an outpatient rescue inhaler. Plan to continue prednisone for 5 days. 3. HOLGER - compliant with CPAP at home 4. Afib - states he has a hx of this but it is not treated and he does not follow cardiology. Mildly tachy this am. Start lopressor. Chadvasc score is 5, so he would benefit from outpatient anticoagulation. He will need outpatient follow up with cardiology. 5. Hypokalemia - improved. 6. Hyperglycemia - suspect DMt2 - A1C pending. Add sliding scale insulin. Will have diabetic education while here. Plan to DC on metformin and have him follow up with BRITTANY Hemphill. 7. Hx Renal cancer s/p partial nephrectomy (right) - renal function currently stable. 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 DVT ppx: lovenox DC planning: PTOT This patient was seen by Gerson Silverio PA-C under the supervision of Doctor Jeffrey. <Gael Murphy - Last Filed: 11/17/17 17:59> Subjective: Seen and examined Shortness of breath has improved. Denies chest pain - Physical Exam Lungs: Diminished, Rales Cardiovascular: Normal S1, Normal S2, No murmurs, Irregular Rate Vital Signs Temp Pulse Resp BP Pulse Ox 98.2 F 63 18 151/71 H 94 11/17/17 15:36 11/17/17 17:16 11/17/17 15:36 11/17/17 17:16 11/17/17 15:36 Oxygen Flow Rate (L/min) 2 Oxygen Delivery Method Room Air Weight: 332 lb 10.841 oz Body Mass Index (BMI) 45.1 Intake and Output for Last 24 Hours 11/15/17 11/16/17 11/17/17 23:59 23:59 23:59 Intake Total 623 / 623 1190 / 1190 Balance 623 / 623 1190 / 1190 Laboratory Tests Past 24 Hrs 11/17/17 11/17/17 05:35 05:35 Sodium 138 Potassium 4.2 Chloride 102 Carbon Dioxide 27.0 Anion Gap 9 BUN 7 Creatinine 0.71 Estim Creat Clear Calc 76.52 Est GFR (MDRD) Af Amer 142 Est GFR (MDRD) Non-Af 117 BUN/Creatinine Ratio 9.9 L Glucose 254 H Hemoglobin A1c 12.5 H Calcium 8.3 L POC Glucose 11/17/17 11/17/17 11/17/17 17:03 12:22 06:46 POC Glucose 298 H 292 H 253 H 11/16/17 23:03 POC Glucose 247 H Assessment/Plan This patient was seen in conjunction with Gerson SERRANO. I have independently interviewed and examined the patient and reviewed pertinent history, examination findings, laboratory and plan of management. I have reviewed the note and agree with the documented findings with the few additional points. In brief, patient is admitted for acute CHF exacerbation. On heart failure regimen. 2D echo was ordered. Patient also has other comorbidities including obstructive sleep apnea, COPD admission I have discussed my assessment with Gerson SERRANO and orders have been reviewed. Laboratory Results 11/16/17 14:25: Magnesium 1.2 L, TSH 0.43 11/16/17 23:03: POC Glucose 247 H 11/17/17 05:35: Sodium 138, Potassium 4.2, Chloride 102, Carbon Dioxide 27.0, Anion Gap 9, BUN 7, Creatinine 0.71, Estim Creat Clear Calc 76.52, Est GFR (MDRD ) Af Amer 142, Est GFR (MDRD) Non-Af 117, BUN/Creatinine Ratio 9.9 L, Glucose 254 H, Calcium 8.3 L 11/17/17 05:35: Hemoglobin A1c 12.5 H 11/17/17 06:46: POC Glucose 253 H 11/17/17 12:22: POC Glucose 292 H 11/17/17 17:03: POC Glucose 298 H Code Visit Inpatient E&M: 31054 Subs Hosp L3
[2017-11-17 13:00] LABS: Hemoglobin A1c 12.5 % (4.2-6.3)
[2017-11-17] MEDS: Metoprolol Tartrate 25 MG Tablet 12.5 MG PO (17:16)
[2017-11-17 17:56] LABS: Bedside Glucose 298 mg/dL (70-110)
[2017-11-17 22:25] LABS: Bedside Glucose 254 mg/dL (70-110)
[2017-11-18] VITALS (9 sets, daily range): BP systolic 128–145; BP diastolic 64–92; PULSE 55–109; RESP 16; TEMP 36.6–37; O2SAT 92–97
[2017-11-18 07:01] LABS: Bedside Glucose 276 mg/dL (70-110)
[2017-11-18] MEDS: Magnesium Oxide 400 MG Tablet PO (08:11)
[2017-11-18] MEDS: predniSONE 20 MG Tablet 40 MG PO (08:12)
--- NOTE | 2017-11-18 10:03 | CASEMGMT ---
Addendum entered by Chloé Merritt 11/18/17 13:31: SW called [facility] and patient does have prescription coverage. His cost for Eliquis is $47, his Albuterol inhaler is $54.97, and his Symbicort inhaler is $47. All of the other medications that were sent were $1 or around there. The total cost for his meds is $155.97. SW spoke with patient and let him know he has prescription coverage and the total for all of his medications at [facility] right now $155.97. He said he could manage that cost. Plan: d/c home. He has prescription coverage, he must not of been aware of it. Chloé PETERSON Original Note: GLO spoke patient, introduced self and role at [facility]. Patient said he has not been getting his medications because he cannot afford them. He said he does not know if he has prescription coverage. He was on Levemir and it was $800. He said he gets $1525 per month and his gets around $800. GLO told him he is going to be d/c on several meds, but they will mostly be around $4 each. He said he can afford that. GLO told him SW will come back when his is here so SW can go over some possible assistance. Chloé PETERSON
[2017-11-18] MEDS: Furosemide 40 MG/4 ML Vial IV (11:29)
[2017-11-18] MEDS: Metoprolol Tartrate 25 MG Tablet 12.5 MG PO (11:30)
[2017-11-18] MEDS: Enoxaparin 40 MG/0.4 ML Syringe SC (11:31)
[2017-11-18] MEDS: 0.9% NaCl Peripheral Flush Adult/Peds IV (11:31)
--- NOTE | 2017-11-18 11:32 | PCM.DC ---
- Discharge Diagnoses Current Active Problems: Current Active and Chronic Problems Acute respiratory failure with hypoxia (Acute) COPD with acute exacerbation (Acute) CHF exacerbation (Acute) PVC's (premature ventricular contractions) (Acute) You will use the following diet at home:: Calorie/Carbohydrate Controlled (specify 1200, 1400, etc) - 1800 milton/day, Cardiac - <2g sodium daily Your food should be the consistency of: Regular Your liquids should be the consistency of: Regular/Thin Discharge Activity: Return to Normal Activity Allergies/Adverse Reactions: Allergies No Known Allergies Allergy (Verified 11/16/17 13:58) Medications to take at Discharge Albuterol IH (ProAir) [Proair Hfa] 1 puff INHALATION Q6H PRN PRN #1 inhaler 11/18/17 Apixaban [Eliquis] 5 mg PO BID #60 tab 11/18/17 Budesonide/Formoterol 80-4.5 [Symbicort 80-4.5 Mcg Inhaler] 2 puff INHALATION BID #1 inhaler 11/18/17 Furosemide [Lasix] 40 mg PO DAILY #30 tab 11/18/17 Lisinopril [Zestril] 5 mg PO DAILY #30 tab 11/18/17 Metformin HCl 500 mg PO BID #60 tab 11/18/17 Metoprolol Tartrate [Lopressor (beta enrike)] 12.5 mg PO BID #60 tab 11/18/17 Potassium Chloride [K-Dur] 20 meq PO DAILY #30 tab 11/18/17 Prednisone [Deltasone] 40 mg PO DAILY 3 Days #6 tab 11/18/17 The following prescriptions were given: Albuterol IH (ProAir) [Proair Hfa] 1 puff INHALATION Q6H PRN PRN #1 inhaler PRN Reason: Sob &/Or Wheezing Apixaban [Eliquis] 5 mg PO BID #60 tab Budesonide/Formoterol 80-4.5 [Symbicort 80-4.5 Mcg Inhaler] 2 puff INHALATION BID #1 inhaler Furosemide [Lasix] 40 mg PO DAILY #30 tab Lisinopril [Zestril] 5 mg PO DAILY #30 tab Metformin HCl 500 mg PO BID #60 tab Metoprolol Tartrate [Lopressor (beta enrike)] 12.5 mg PO BID #60 tab Potassium Chloride [K-Dur] 20 meq PO DAILY #30 tab Prednisone [Deltasone] 40 mg PO DAILY 3 Days #6 tab Primary Care Physician: Roula Dubon [Primary Care Provider] - Please follow up with your Primary Care Physician in: 1-2 weeks Please Follow Up With: Corey Montero MD When: 2 weeks Please Follow Up With: Rochelle Hemphill NP-C When: 2 weeks Proposed Discharge Date: 11/18/17
[2017-11-18] MEDS: Lisinopril 5 MG Tablet PO (11:42)
[2017-11-18 12:00] LABS: Bedside Glucose 351 mg/dL (70-110)
--- NOTE | 2017-11-18 15:32 | PCM.DC.SUM ---
<Gerson Silverio - Last Filed: 11/18/17 15:32> Discharge Date and Diagnosis - Problem List Patient Problems: Active and Suspected Problems Acute respiratory failure with hypoxia (Acute) COPD with acute exacerbation (Acute) CHF exacerbation (Acute) PVC's (premature ventricular contractions) (Acute) Date of Admission: 11/16/17 Date of Discharge: 11/18/17 - Primary Discharge Diagnosis Active and Suspected Problems Acute diastolic CHF exacerbation Acute COPD exaceration HOLGER Atrial fibrillation Hypokalemia DMt2, untreated Hx renal CA s/p partial nephrectomy (right) Noncompliance with medical therapy - Secondary Discharge Diagnosis Chronic Problems HOLGER (obstructive sleep apnea) (Chronic) Morbid obesity (Chronic) HTN (hypertension) (Chronic) Diabetes mellitus type 2, uncontrolled, without complications (Chronic) History of atrial fibrillation (Chronic) Hospital Course and Treatment Imaging Results: Echo: Interpretation Summary The study was technically difficult. Contrast injection was performed. Left ventricular systolic function is normal. The estimated ejection fraction is 65 %. The left atrium is mildly enlarged. The right atrium is mildly enlarged. There is mild mitral annular calcification. Trivial mitral valve insufficiency. Trivial tricuspid valve insufficiency. Trivial pericardial effusion. There are no echocardiographic indications of cardiac tamponade. Unable to estimate RV systolic pressure/pulmonary artery pressure due to technically difficult study. Unable to assess diastolic dysfunction due to arrhythmia. RAD/Chest PA and Lateral IMPRESSION: Mild interstitial edema. Small left pleural effusion. Operations: None Procedures: 2-D Echocardiogram Summary of Care Provided: Physical exam on day of discharge: General: Resting comfortably NAD Psych: A/Ox3 normal affect HEENT: PEARRLA AT PA, buffalo hump is present Neck: Supple NT CV: RRR no m/t/r/g/h Resp: Faint crackles bilateral lower diaz posteriorly Abd: [id number] Soft NT no guarding or rigidity, morbidly obese Ext: DP2+= no edema, anterior lower extremities, distal, with chronic venous changes and abrasions Skin: W/D normal turgor Lymph/Heme: No active bleeding or adenopathy Neuro: CN2-12 intact Hospital course: The patient is a 67 year old M with a history of diabetes, hypertension, atrial fibrillation, COPD, obstructive sleep apnea on CPAP at home, former smoker, morbid obesity who presented to the emergency room with increased shortness of breath especially with exertion and nonproductive cough. He had an elevated BNP and some congestion on his chest x-ray, frequent PVCs and 4 beats of V. tach on the monitor. He was felt to be an an acute exacerbation of congestive heart failure and possibly an acute COPD exacerbation. He was a former smoker and smoked heavily from childhood into his adult years, quit in his 30s. He was placed on IV Lasix, steroids, aerosol therapy, and admitted to the cardiac telemetry unit. It was discovered that the patient had a history of atrial fibrillation and diabetes, he had been taking no medications at all at home. He used to be prescribed many things but had taken himself off of these as he did not want to pay for them anymore. Telemetry demonstrated atrial fibrillation, without rapid ventricular response. He did have frequent PVCs and intermittent tachycardia at points, which improved with low-dose beta-enrike therapy. We obtained an echocardiogram which demonstrated a preserved ejection fraction at 65%. An A1c was checked which demonstrated very uncontrolled diabetes at 12.5. TSH was normal, troponin was negative. Multiple additions were made to his home-going medications. He was placed on Lasix, potassium, metoprolol, lisinopril, rescue inhaler, Symbicort, Eliquis (CHADVASC score 5), total of 5 days of prednisone, and Metformin. Patient was discussed with Dr. Montero from cardiology who agreed to see him as an outpatient. He was also advised to follow-up with his former PCP, and I advised him to follow-up with the endocrine nurse practitioner here, BRITTANY Hemphill. I advised him to have his BMP checked in 5 days as he is going home on Lasix and potassium. He was able to be weaned off oxygen. He remained in stable condition and was discharged home. This patient was seen by Gerson Silverio PA-C under the supervision of Doctor Murphy. [] Discharge Diet: Low fat/ Low Cholesterol, 1800 Calorie Control Diet, 2000 mg Sodium Diet Discharge Activity: Return to Normal Activity Home Medications: Medications to take at Discharge Albuterol IH (ProAir) [Proair Hfa] 1 puff INHALATION Q6H PRN PRN #1 inhaler 11/18/17 Apixaban [Eliquis] 5 mg PO BID #60 tab 11/18/17 Budesonide/Formoterol 80-4.5 [Symbicort 80-4.5 Mcg Inhaler] 2 puff INHALATION BID #1 inhaler 11/18/17 Furosemide [Lasix] 40 mg PO DAILY #30 tab 11/18/17 Lisinopril [Zestril] 5 mg PO DAILY #30 tab 11/18/17 Metformin HCl 500 mg PO BID #60 tab 11/18/17 Metoprolol Tartrate [Lopressor (beta enrike)] 12.5 mg PO BID #60 tab 11/18/17 Potassium Chloride [K-Dur] 20 meq PO DAILY #30 tab 11/18/17 Prednisone [Deltasone] 40 mg PO DAILY 3 Days #6 tab 11/18/17 Following Prescrptions Were Given to Patient: Albuterol IH (ProAir) [Proair Hfa] 1 puff INHALATION Q6H PRN PRN #1 inhaler PRN Reason: Sob &/Or Wheezing Apixaban [Eliquis] 5 mg PO BID #60 tab Budesonide/Formoterol 80-4.5 [Symbicort 80-4.5 Mcg Inhaler] 2 puff INHALATION BID #1 inhaler Furosemide [Lasix] 40 mg PO DAILY #30 tab Lisinopril [Zestril] 5 mg PO DAILY #30 tab Metformin HCl 500 mg PO BID #60 tab Metoprolol Tartrate [Lopressor (beta enrike)] 12.5 mg PO BID #60 tab Potassium Chloride [K-Dur] 20 meq PO DAILY #30 tab Prednisone [Deltasone] 40 mg PO DAILY 3 Days #6 tab Primary Care Physician: Roula Dubon [Primary Care Provider] - Please follow up with your Primary Care Physician in: 1-2 weeks Please Follow Up With: Corey Montero MD When: 2 weeks Please Follow Up With: Rochelle Hemphill NP-C When: 2 weeks (soonest avilable) Please Follow Up With: Roula Reyes When: 1-2 weeks Disposition: Home Minutes spent on discharge:: 35 Patient Condition:: Stable Medical Necessity - Tobacco Use Smoking Status: Former smoker Tobacco Use: Non-smoker Meaningful Use Info Meaningful Use Diagnoses (Choose all that apply): CHF - CHF ANUSHA/ARB ordered at discharge?: Yes Documented LVEF (%): 65 <Gael Murphy - Last Filed: 11/18/17 15:56> Discharge Date and Diagnosis - Primary Discharge Diagnosis Active and Suspected Problems Acute respiratory failure with hypoxia (Acute) COPD with acute exacerbation (Acute) CHF exacerbation (Acute) PVC's (premature ventricular contractions) (Acute) - Secondary Discharge Diagnosis Chronic Problems HOLGER (obstructive sleep apnea) (Chronic) Morbid obesity (Chronic) HTN (hypertension) (Chronic) Diabetes mellitus type 2, uncontrolled, without complications (Chronic) History of atrial fibrillation (Chronic) Hospital Course and Treatment Summary of Care Provided: [] This patient was seen in conjunction with Gerson SERRANO. I have independently interviewed and examined the patient and reviewed pertinent history, examination findings, laboratory and plan of management. I have reviewed the note and agree with the documented findings with the few additional points. In brief, patient is admitted for acute CHF exacerbation. On heart failure regimen. 2D echo was done and reviewed. EF 65%. Patient also has other comorbidities including obstructive sleep apnea, COPD admission. Patient was on heart failure regimen including Lasix, metoprolol, Eliquis as well as COPD exacerbation on bronchodilator, prednisone. With heart failure, patient was advised to follow with Dr. Montero and discussed with Dr. Montero regarding his clinical course. He agreed to see the patient as an outpatient discharge meds reconciliation done. Discharge instructions reviewed. Total time spent, exact 35 minutes on discharge meds reconciliation, examination, review of imaging and blood test and discussion with the patient on follow-up instructions. I have discussed my assessment with Gerson SERRANO and orders have been reviewed. Code Visit Inpatient E&M: 77743 Disch Hosp
--- NOTE | 2017-11-18 15:44 | DS.PCM_ITS ---
<Gerson Silverio - Last Filed: 11/18/17 15:32> Discharge Date and Diagnosis - Problem List Patient Problems: Active and Suspected Problems Acute respiratory failure with hypoxia (Acute) COPD with acute exacerbation (Acute) CHF exacerbation (Acute) PVC's (premature ventricular contractions) (Acute) Date of Admission: 11/16/17 Date of Discharge: 11/18/17 - Primary Discharge Diagnosis Active and Suspected Problems Acute diastolic CHF exacerbation Acute COPD exaceration HOLGER Atrial fibrillation Hypokalemia DMt2, untreated Hx renal CA s/p partial nephrectomy (right) Noncompliance with medical therapy - Secondary Discharge Diagnosis Chronic Problems HOLGER (obstructive sleep apnea) (Chronic) Morbid obesity (Chronic) HTN (hypertension) (Chronic) Diabetes mellitus type 2, uncontrolled, without complications (Chronic) History of atrial fibrillation (Chronic) Hospital Course and Treatment Imaging Results: Echo: Interpretation Summary The study was technically difficult. Contrast injection was performed. Left ventricular systolic function is normal. The estimated ejection fraction is 65 %. The left atrium is mildly enlarged. The right atrium is mildly enlarged. There is mild mitral annular calcification. Trivial mitral valve insufficiency. Trivial tricuspid valve insufficiency. Trivial pericardial effusion. There are no echocardiographic indications of cardiac tamponade. Unable to estimate RV systolic pressure/pulmonary artery pressure due to technically difficult study. Unable to assess diastolic dysfunction due to arrhythmia. RAD/Chest PA and Lateral IMPRESSION: Mild interstitial edema. Small left pleural effusion. Operations: None Procedures: 2-D Echocardiogram Summary of Care Provided: Physical exam on day of discharge: General: Resting comfortably NAD Psych: A/Ox3 normal affect HEENT: PEARRLA AT PR, buffalo hump is present Neck: Supple NT CV: RRR no m/t/r/g/h Resp: Faint crackles bilateral lower diaz posteriorly Abd: [id number] Soft NT no guarding or rigidity, morbidly obese Ext: DP2+= no edema, anterior lower extremities, distal, with chronic venous changes and abrasions Skin: W/D normal turgor Lymph/Heme: No active bleeding or adenopathy Neuro: CN2-12 intact Hospital course: The patient is a 67 year old M with a history of diabetes, hypertension, atrial fibrillation, COPD, obstructive sleep apnea on CPAP at home, former smoker, morbid obesity who presented to the emergency room with increased shortness of breath especially with exertion and nonproductive cough. He had an elevated BNP and some congestion on his chest x-ray, frequent PVCs and 4 beats of V. tach on the monitor. He was felt to be an an acute exacerbation of congestive heart failure and possibly an acute COPD exacerbation. He was a former smoker and smoked heavily from childhood into his adult years, quit in his 30s. He was placed on IV Lasix, steroids, aerosol therapy, and admitted to the cardiac telemetry unit. It was discovered that the patient had a history of atrial fibrillation and diabetes, he had been taking no medications at all at home. He used to be prescribed many things but had taken himself off of these as he did not want to pay for them anymore. Telemetry demonstrated atrial fibrillation , without rapid ventricular response. He did have frequent PVCs and intermittent tachycardia at points, which improved with low-dose beta-enrike therapy. We obtained an echocardiogram which demonstrated a preserved ejection fraction at 65%. An A1c was checked which demonstrated very uncontrolled diabetes at 12.5. TSH was normal, troponin was negative. Multiple additions were made to his home-going medications. He was placed on Lasix, potassium, metoprolol, lisinopril, rescue inhaler, Symbicort, Eliquis ( CHADVASC score 5), total of 5 days of prednisone, and Metformin. Patient was discussed with Dr. Montero from cardiology who agreed to see him as an outpatient. He was also advised to follow-up with his former PCP, and I advised him to follow-up with the endocrine nurse practitioner here, BRITTANY Hemphill. I advised him to have his BMP checked in 5 days as he is going home on Lasix and potassium. He was able to be weaned off oxygen. He remained in stable condition and was discharged home. This patient was seen by Gerson Silverio PA-C under the supervision of Doctor Murphy. [] Discharge Diet: Low fat/ Low Cholesterol, 1800 Calorie Control Diet, 2000 mg Sodium Diet Discharge Activity: Return to Normal Activity Home Medications: Medications to take at Discharge Albuterol IH (ProAir) [Proair Hfa] 1 puff INHALATION Q6H PRN PRN #1 inhaler 03/30 Apixaban [Eliquis] 5 mg PO BID #60 tab 11/18/17 Budesonide/Formoterol 80-4.5 [Symbicort 80-4.5 Mcg Inhaler] 2 puff INHALATION BID #1 inhaler 11/18/17 Furosemide [Lasix] 40 mg PO DAILY #30 tab 11/18/17 Lisinopril [Zestril] 5 mg PO DAILY #30 tab 11/18/17 Metformin HCl 500 mg PO BID #60 tab 11/18/17 Metoprolol Tartrate [Lopressor (beta enrike)] 12.5 mg PO BID #60 tab 11/18/17 Potassium Chloride [K-Dur] 20 meq PO DAILY #30 tab 11/18/17 Prednisone [Deltasone] 40 mg PO DAILY 3 Days #6 tab 11/18/17 Following Prescrptions Were Given to Patient: Albuterol IH (ProAir) [Proair Hfa] 1 puff INHALATION Q6H PRN PRN #1 inhaler PRN Reason: Sob &/Or Wheezing Apixaban [Eliquis] 5 mg PO BID #60 tab Budesonide/Formoterol 80-4.5 [Symbicort 80-4.5 Mcg Inhaler] 2 puff INHALATION BID #1 inhaler Furosemide [Lasix] 40 mg PO DAILY #30 tab Lisinopril [Zestril] 5 mg PO DAILY #30 tab Metformin HCl 500 mg PO BID #60 tab Metoprolol Tartrate [Lopressor (beta enrike)] 12.5 mg PO BID #60 tab Potassium Chloride [K-Dur] 20 meq PO DAILY #30 tab Prednisone [Deltasone] 40 mg PO DAILY 3 Days #6 tab Primary Care Physician: Roula Dubon [Primary Care Provider] - Please follow up with your Primary Care Physician in: 1-2 weeks Please Follow Up With: Corey Montero MD When: 2 weeks Please Follow Up With: Rochelle Hemphill NP-C When: 2 weeks (soonest avilable) Please Follow Up With: Roula Reyes When: 1-2 weeks Disposition: Home Minutes spent on discharge:: 35 Patient Condition:: Stable Medical Necessity - Tobacco Use Smoking Status: Former smoker Tobacco Use: Non-smoker Meaningful Use Info Meaningful Use Diagnoses (Choose all that apply): CHF - CHF ANUSHA/ARB ordered at discharge?: Yes Documented LVEF (%): 65 <Gael Murphy - Last Filed: 11/18/17 15:56> Discharge Date and Diagnosis - Primary Discharge Diagnosis Active and Suspected Problems Acute respiratory failure with hypoxia (Acute) COPD with acute exacerbation (Acute) CHF exacerbation (Acute) PVC's (premature ventricular contractions) (Acute) - Secondary Discharge Diagnosis Chronic Problems HOLGER (obstructive sleep apnea) (Chronic) Morbid obesity (Chronic) HTN (hypertension) (Chronic) Diabetes mellitus type 2, uncontrolled, without complications (Chronic) History of atrial fibrillation (Chronic) Hospital Course and Treatment Summary of Care Provided: [] This patient was seen in conjunction with Gerson SERRANO. I have independently interviewed and examined the patient and reviewed pertinent history, examination findings, laboratory and plan of management. I have reviewed the note and agree with the documented findings with the few additional points. In brief, patient is admitted for acute CHF exacerbation. On heart failure regimen. 2D echo was done and reviewed. EF 65%. Patient also has other comorbidities including obstructive sleep apnea, COPD admission. Patient was on heart failure regimen including Lasix, metoprolol, Eliquis as well as COPD exacerbation on bronchodilator, prednisone. With heart failure, patient was advised to follow with Dr. Montero and discussed with Dr. Montero regarding his clinical course. He agreed to see the patient as an outpatient discharge meds reconciliation done. Discharge instructions reviewed. Total time spent, exact 35 minutes on discharge meds reconciliation, examination , review of imaging and blood test and discussion with the patient on follow-up instructions. I have discussed my assessment with Gerson SERRANO and orders have been reviewed. Code Visit Inpatient E&M: 16871 Disch Hosp
--- NOTE | 2017-11-23 15:22 | CASEMGMT ---
JAKY LVEI DC phone call. Intro role of CM to pt. He states he is feeling much improved. No questions re: prescriptions or dc instructions. Pt has not made f/u appt with Dr. Montero. JAKY LEVI offered to assist and pt is agreeable. JAKY LEVI inquired re: suggestions- pt voiced that everyone was so nice and helpful. JAKY LEVI thanked him for using WC, and let him know either Dr. Montero's office adult protective caseworker CM will call him with appt. -JAKY LEVI called to Dr. Montero's payroll secretary- message left requesting appt be made for pt and to notify him of date/time. Call back information for JAKY LEVI also given if she needed to contact me. Shiela STARKEY BSN CM
== END 2017-11-18 15:54 | disposition home or self-care (01) | DRG 291 ==
LOC: ED 14:31 → PCU 16:06
PROVIDERS: Physician Assistant; Emergency Provider Emergency Medicine; Visit Provider Internal Medicine
DX: I11.0 Hypertensive heart disease with heart failure (principal); J96.01 Acute respiratory failure with hypoxia; J44.1 Chronic obstructive pulmonary disease with (acute) exacerbation; Z68.42 Body mass index [BMI] 45.0-49.9, adult; I47.2 Ventricular tachycardia; I50.31 Acute diastolic (congestive) heart failure; I49.3 Ventricular premature depolarization; E11.65 Type 2 diabetes mellitus with hyperglycemia; I48.91 Unspecified atrial fibrillation; E87.6 Hypokalemia; G47.33 Obstructive sleep apnea (adult) (pediatric); E66.01 Morbid (severe) obesity due to excess calories; Z79.01 Long term (current) use of anticoagulants; Z79.84 Long term (current) use of oral hypoglycemic drugs; Z79.52 Long term (current) use of systemic steroids; Z79.899 Other long term (current) drug therapy; Z91.19 Patient's noncompliance with other medical treatment and regimen; Z87.891 Personal history of nicotine dependence; Z90.5 Acquired absence of kidney; Z85.528 Personal history of other malignant neoplasm of kidney
CPT/HCPCS: 36415; 71046; 80048; 80053; 82962; 83036; 83605; 83735; 83880; 84443; 84484; 85025; 85610; 85730; 87040; 93005; 93306; 94640; 97802; 99285; J7050; Q9957; A4216; C8929; J1940

== ENCOUNTER → 2018-01-29 13:48 | Outpatient (CLI) | payer MEDICARE, SELFPAY ==
--- NOTE | 2018-01-29 13:55 | CT_ITS ---
STUDY: CT ABDOMEN AND PELVIS WITH CONTRAST REASON FOR EXAM: Male, 67 years old. General abdominal pain. History of diabetes, hypertension, partial right nephrectomy for cancer. RADIATION DOSAGE (If Supplied By Facility): CTDIvol = ( 20.39 ) mGy, DLP = ( 1389.93 ) mGycm TECHNIQUE: Transaxial images were obtained from the dome of the diaphragm to the symphysis pubis with oral contrast. 100mL ml of Isovue 300 contrast was administered. Sagittal and coronal images were reconstructed. Individualized dose optimization techniques were used for this CT. COMPARISON: CT abdomen and pelvis February 08, 2013. FINDINGS: The visualized lung bases are unremarkable. The heart size is within normal limits. There are atherosclerotic calcifications of the coronary arteries and distal descending thoracic aorta. Normal liver. The patent portal vein diameter 16.5 mm. Normal gallbladder and extrahepatic biliary system. The diameter of the common bile duct is 6 mm. Normal spleen. Normal pancreas. Normal bilateral adrenal glands. Normal right kidney. There is irregular, incompletely defined soft tissue stranding with occasional coarse calcifications in the lateral right perirenal soft tissues, likely postsurgical scarring. Normal left kidney. No hydronephrosis. Normal visualized stomach. Normal small intestine. There are several colonic diverticula consistent with diverticulosis. There is non-visualization of the appendix. There is diffuse atherosclerotic calcification of the abdominal aorta and iliofemoral arteries, without a demonstrated aneurysm. Normal inferior vena cava. Normal retroperitoneum. Normal urinary bladder. Mildly enlarged prostate gland measuring 4.2 x 3.8 x 5.0 cm (R42 cc). Normal abdominal wall. There are multilevel degenerative changes of the visualized spine, with disc height narrowing most severe at L2-3 and L4-5. Moderately defined 3.1 x 2.5 x 2.1 cm lucency with coarsened trabeculae in the T11 vertebra is consistent with a hemangioma. There is a 10 degree levoscoliosis centered at L2-3. Degenerative arthrosis of the bilateral sacroiliac joints also evident. CT/Abdomen/Pelvis WITH Contrast IMPRESSION: 1. Incompletely defined, irregular, chronic appearing soft tissue stranding with occasional coarse calcifications is now more prominent in the right perirenal soft tissues, presumably postsurgical scarring. No hydronephrosis. 2. There are several distal colonic diverticula without acute diverticulitis. No sign of bowel obstruction. The appendix is not visualized. 3. Atherosclerotic vascular calcifications noted. The aortic calcification, by itself, portends significant risk for future cardiovascular event, Abdominal Aortic Calcific Deposits Are an Important Predictor of Vascular Morbidity and Mortality; Ken Porter, et al. Circulation, 2001;103:[id number]. No demonstrated aneurysm. 4. Mildly enlarged prostate gland. 5. Stable degenerative changes of the spine and sacroiliac joints. Stable probable hemangioma in the T11 vertebra. Electronically Signed: Nitish Mejía MD at 19:58 EDT , Service support ,
== END ==
DX: R10.84 Generalized abdominal pain (principal)
CPT/HCPCS: 74177; Q9967

== ENCOUNTER → 2018-04-01 06:01 | Outpatient (CLI) | payer MEDICARE, SELFPAY ==
--- NOTE | 2018-04-01 20:47 | STRESSREP_ITS ---
Stress Test Report Date: 04/01/2018 Procedure: Pharmacologic stress nuclear imaging study Indications: Atrial fibrillation; shortness of breath/dyspnea Consent: Per the patient Procedure: The patient underwent pharmacologic (Regadenoson) evaluation with a peak heart rate of 110 beats per minute (72 predicted maximal heart rate) and a peak blood pressure of 134/80 mmHg. The baseline ECG demonstrated atrial fibrillation. The peak pharmacologic ECG demonstrated no obvious ECG changes. There were occasional PVCs pretest, during infusion, and recovery. There was no complaint of chest discomfort during pharmacologic infusion or recovery. The examination was discontinued secondary to completion of protocol. Impression: 1. Pharmacologic (Regadenoson) evaluation 2. Peak pharmacologic ECG with no obvious ECG changes. 3. There were occasional PVCs pretest, during infusion, and recovery 4. Nuclear images pending Myocardial perfusion imaging study: Technique: The patient was injected with 14.9 millicuries of technetium 99m Cardiolite and subsequently rest SPECT Cardiolite nuclear imaging was obtained in the horizontal long, vertical long, and short axis views. The patient underwent pharmacologic (Regadenoson) evaluation with a peak heart rate of 110 beats per minute (72 % percent predicted maximal heart rate) and a peak blood pressure of 134/80 mmHg. The patient was injected with 44.5 millicuries of technetium 99m Cardiolite and subsequently stress SPECT Cardiolite nuclear imaging was obtained in the horizontal long, vertical long, and short axis views. A gated Cardiolite study at peak stress was obtained. Interpretation: Rest and stress SPECT Cardiolite nuclear imaging status post realignment, normalization, and attenuation correction demonstrate at rest relative uniform tracer uptake. Status post stress there is notation of diminished tracer uptake in portions of the basal anterolateral segments extending toward the mid anterolateral segments as well as the distal anterior/anterior apical segments. There are similar type findings on the resting and stress polar map images. There is end systolic thickening and brightening. The gated Cardiolite study demonstrates myocardial thickening and inward wall motion. The reported LVEF is 48 %. Impression: 1. Rest and stress SPECT Cardiolite nuclear imaging demonstrate myocardial perfusion changes concerning for stress-induced myocardial ischemia involving portions of the basal to mid anterolateral segments and the distal anterior/ anterior apical segments. 2. The gated Cardiolite study reports an LVEF of 48 %. This note was generated with [employer] software. It may contain incorrect words, spelling, and punctuation that were not noted in checking the note before signing.
== END ==
PROVIDERS: Visit Provider Internal Medicine Cardiovascular Disease
DX: I48.1 Persistent atrial fibrillation (principal); I11.0 Hypertensive heart disease with heart failure; I50.32 Chronic diastolic (congestive) heart failure; I49.3 Ventricular premature depolarization
CPT/HCPCS: 78452; 93017; A9500; A4216; J2785

== ENCOUNTER → 2018-04-06 10:46 | Outpatient (CLI) | payer MEDICARE, SELFPAY ==
[2018-04-06 12:22] LABS: Hematocrit 41.3 % (40-54); Hemoglobin 13.9 g/dl (13.0-16.5); Mean Corp Hgb Conc 33.7 g/gl (32-36); Mean Corpuscular Hgb 30.3 pg (27.0-32.0); Mean Corpuscular Volume 90.2 fL (80-94); Mean Platelet Vol. 9.4 fl (6.2-12.0); Platelet Count 235 K/mm3 (150-450); RBC Distribution Width CV 12.8 % (11.6-14.6); RBC Distribution Width SD 41.9 fl (35.1-43.9); Red Blood Count 4.58 M/mm3 (4.6-6.2); White Blood Count 7.8 K/mm3 (4.4-11.0)
[2018-04-06 12:25] LABS: Scan Indicated on CBC? Y/N NO
[2018-04-06 12:32] LABS: International Normalized Ratio 1.3; Prothrombin Time (Protime)PT. 16.1 SECONDS (11.7-14.9)
[2018-04-06 12:33] LABS: Partial Thromboplast Time 34.5 Seconds (24.1-36.2)
[2018-04-06 12:43] LABS: Anion Gap 6 (5-15); BUN 13 mg/dL (7-18); BUN/Creat Ratio 13.7 RATIO (10-20); Calcium,Total 9.2 mg/dL (8.5-10.1); Chloride 98 mmol/L (98-107); Creatinine, Serum 0.95 mg/dL (0.70-1.30); EST Glomerular Filtration Rate 84 mL/min (>60); Est Glom Filt Rate - Afr Amer 101 mL/min (>60); Glucose 200 mg/dL (74-106); Potassium 3.9 mmol/L (3.5-5.1); Sodium Level 134 mmol/L (136-145)
== END ==
PROVIDERS: Referring Provider Internal Medicine Cardiovascular Disease; Visit Provider Internal Medicine Cardiovascular Disease
DX: I48.1 Persistent atrial fibrillation (principal); I10 Essential (primary) hypertension; R06.02 Shortness of breath; R94.39 Abnormal result of other cardiovascular function study
CPT/HCPCS: 36415; 80048; 85027; 85610; 85730

== ENCOUNTER 2018-04-20 07:56 | Day surgery (SDC) | payer MEDICARE, SELFPAY ==
[2018-04-19 08:00] VITALS: BMI 40.9
--- NOTE | 2018-04-20 08:27 | HP.PCM_ITS ---
History and Physical Date of Admission: 04/20/18 HPI HPI Details: MINOO CHEN, is a 68 M who presents to the catheterization lab for a left heart catheterization. He has a history of atrial fibrillation, a report of CHF, shortness of breath/dyspnea, and COPD. After last office visit he underwent a nuclear stress test to further assess coronary artery disease in the setting of congestive heart failure and ongoing dyspnea on exertion. This test was concerning for stress-induced myocardial ischemia. Because of this, he will undergo a left heart catheterization for further evaluation. Pt. denies chest, arm, jaw, or neck discomfort. His exercise tolerance is stable. Pt. denies symptoms of CHF, palpitations, lightheadedness, dizziness, near syncope, or syncopal episodes. Pt. denies edema or claudication issues. Pt. denies orthopnea, PND, fever, chills, blood in urine, blood in stool, myalgia, or unexplainable fatigue. He denies ongoing chest discomfort at this time. He is somewhat chronically short of breath and dyspneic especially with activity. He denies any acute symptoms of orthopnea or PND. He does have chronic lower extremity discoloration with trace bilateral ankle edema. There is been no near syncope or syncope. He states he has not necessarily been noting his ongoing heart rate or heartbeat abnormality. Intake Vital Signs 04/20/18 Height 6 ft 04/20/18 Weight: 302 lb 04/20/18 Body Mass Index (BMI) 40.9 04/20/18 Blood Pressure 142/71 H 04/20/18 Blood Pressure Location Rt brachial 04/20/18 Blood Pressure Position Semi-Fowlers 04/20/18 Respiratory Rate 18 04/20/18 Pulse Rate 55 L 04/20/18 Pulse Source Monitor 04/20/18 Pulse Ox 96 04/20/18 Oxygen Delivery Method room air Intake Visit Reasons: Amb Documentation Allergies No Known Allergies Allergy (Verified 03/12/18 09:44) Medications Albuterol IH (ProAir) [Proair Hfa] 1 puff INHALATION Q6H PRN PRN #1 inhaler 11/18/17 [Rx Confirmed 04/19/18] Apixaban [Eliquis] 5 mg PO BID #60 tab 11/18/17 [Rx Confirmed 04/20/18] Budesonide/Formoterol 80-4.5 [Symbicort 80-4.5 Mcg Inhaler] 2 puff INHALATION BID #1 inhaler 11/18/17 [Rx Confirmed 04/19/18] Furosemide [Lasix] 40 mg PO DAILY #30 tab 11/18/17 [Rx Confirmed 04/19/18] Lisinopril [Zestril] 5 mg PO DAILY #30 tab 11/18/17 [Rx Confirmed 04/19/18] Metoprolol Tartrate [Lopressor (beta enrike)] 12.5 mg PO BID #60 tab 11/18/17 [Rx Confirmed 04/19/18] Potassium Chloride [K-Dur] 20 meq PO DAILY #30 tab 11/18/17 [Rx Confirmed 04/19/18] glimepiride 2 mg tablet 2 mg PO QAM 03/12/18 [History Confirmed 04/19/18] metformin 500 mg tablet 1,000 mg PO BID tab 03/12/18 [History Confirmed 04/20/18] rosuvastatin 5 mg tablet 5 mg PO DAILY 03/12/18 [History Confirmed 04/19/18] aspirin 81 mg tablet,delayed release 81 mg PO DAILY 04/05/18 [History Confirmed 04/19/18] clopidogrel 75 mg tablet 75 mg PO DAILY #30 tab 04/06/18 [Rx Confirmed 04/19/18] PFSH Medical History Pure hypercholesterolemia (Chronic) Essential (primary) hypertension (Chronic) SOB (shortness of breath) on exertion (Acute) Abnormal stress test (Acute) Chronic diastolic heart failure (Chronic) Persistent atrial fibrillation (Chronic) COPD with acute exacerbation (Acute) PVC's (premature ventricular contractions) (Acute) HOLGER (obstructive sleep apnea) (Chronic) Morbid obesity (Chronic) Diabetes mellitus type 2, uncontrolled, without complications (Chronic) Acute respiratory failure with hypoxia (Resolved) CHF exacerbation (Resolved) Family History Mother CHF (congestive heart failure) Father Cancer Lung Social History Smoking Status: Former smoker alcohol intake: current details: Rare ROS Const Const: Positive for fatigue and weakness; negative for difficulty sleeping, frequent falls, excessive sweating or headache(s) Eyes Eyes: Negative for loss of peripheral vision, transient loss of vision, blurry vision, tunnel vision or double vision ENT ENT: Positive for balance problems; negative for headache(s) or dizziness Cardio Chest Pain: No Palpitations: No Edema: None Muscle aches with walking: None Resp Respiratory: Positive for SOB with activity; negative for SOB at rest, SOB orthopnea\SOB lying down, paroxysmal nocturnal dyspnea or Cough GI GI: Negative nausea, heartburn, black,tarry stools or vomiting : Negative for hematuria Musc Musc: Positive for balance problems and joint pain; negative for muscle aches/ myalgia or muscle weakness Skin Skin: Negative non-healing lesions, unusual bruising or rash Neuro Neuro: Positive for weakness; negative for frequent falls, headache(s), blurry vision, double vision, dizziness, lightheadedness, near syncope or syncope Claude Hematologic/Lymphatic: Negative for easy bruising or easy bleeding Endo Endo: Positive for fatigue; negative for excessive sweating Psych Psych: Negative for anxiety or depression Allergy Allergy/Immunology: Negative for rash Cardiology Exam Const Appearance: cooperative, comfortable, no acute distress and well groomed Nutritional Appearance: obese Orientation: alert, awake and oriented x3 Head Head: normal to inspection, normocephalic and atraumatic Ears: hearing grossly normal bilaterally Nose: external nose normal Face and Sinus: face symmetric Mouth: oral mucosae normal Eyes Eyelids: eyelids normal Conjunctivae: conjunctivae normal Pupils: PERRL EOM: EOM intact bilaterally Neck Neck: normal visual inspection, full ROM and no JVD Carotids: normal carotid upstroke Chest Chest inspection: normal inspection of the chest, symmetric chest movement and normal respiratory effort Auscultation: Bilateral: Clear to Auscultation Cardio Rhythm: irregular rhythm Heart sounds: S1 normal and S2 normal; negative rub, gallop or murmur Distant heart tones GI GI: obese and normal to inspection Neuro General: alert, awake, oriented x3 and moves all extremities Skin Skin: other (Bilateral lower extremity skin discoloration) Extremities Pulses: Normal: Right Posterior Tibial Pulse, Left Posterior Tibial Pulse, Right Radial Pulse, Left Radial Pulse Lower Extremity Edema: Trace: Bilateral Psych Psychological: normal affect Supplemental Info Transthoracic echocardiogram performed on 11/16/2017 showed his LVEF at 65% with mild biatrial enlargement, mild mitral calcification, trivial MR/TR, a trivial pericardial effusion with no cardiac tamponade physiology, unable to estimate RV systolic pressure due to a technically difficult study and unable to estimate diastolic dysfunction due to underlying arrhythmia. Stress test from March 2018 showed peak pharmacologic ECG with no obvious ECG changes and nuclear images demonstrate myocardial perfusion changes concerning for myocardial ischemia involving portions of the basal to mid anterolateral segments in the distal anterior/anterior apical segments with ejection fraction of 48%. He had a stress echocardiogram performed on 07/28/2011. This was a pharmacologic stress echocardiogram. Based upon the report it stated that he had a normal resting echo with Definity enhancement with an EF of 55% with a post stress echo with an EF of 75% with no ischemia noted, no ST or T-wave changes noted, and atrial fibrillation was noted. He believes he had additional noninvasive studies performed in the past. Based upon review of past medical records it appears he had a transthoracic echocardiogram on 03/17/2011. At that time his left ventricle was thought to be normal with an LVEF of 55% with mild biatrial enlargement and mild TR with an estimated RV systolic pressure of 35 mmHg. Assessment & Plan 1. Abnormal stress test R94.39 KAYDEN Grimm Patient's stress test in March 2018 was considered positive. He will undergo a left heart catheterization for further evaluation. Further recommendations will be made based on results of this test 2. Chronic diastolic heart failure I50.32 Plan KAYDEN Spencer His echocardiogram in November 2017 showed ejection fraction of 65% and was unable to estimate diastolic dysfunction due to underlying arrhythmia. He will continue current beta-enrike, ANUSHA inhibitor, and diuretic. We will continue to monitor this through history, exam, and repeat echocardiogram as needed. 3. Persistent atrial fibrillation I48.1 KAYDEN Grimm Patient's heart rate remains well controlled. He will continue with beta- enrike and factor Xa inhibitor. We will continue to monitor. 4. Essential (primary) hypertension I10 KAYDEN Grimm Patient's blood pressure is well-controlled today in the office. We will continue to monitor this. We will not make any medication regimen changes. 5. Pure hypercholesterolemia E78.00 KAYDEN Grimm He will continue with current statin medication. Plan Detail Additional Comments - KAYDEN Li Thank you for allowing us to participate in the patients plan of care, if you have any questions please do not hesitate to call. This note was generated using a voice recognition system and there may be incorrect words, spelling or punctuation that were not noted when reviewing the office note prior to saving. Coding Diagnoses Abnormal stress test R94.39 Chronic diastolic heart failure I50.32 Persistent atrial fibrillation I48.1 Essential (primary) hypertension I10 Pure hypercholesterolemia E78.00 Coding Diagnoses Abnormal stress test R94.39 Chronic diastolic heart failure I50.32 Persistent atrial fibrillation I48.1 Essential (primary) hypertension I10 Pure hypercholesterolemia E78.00
--- NOTE | 2018-04-20 17:20 | CL.D_ITS ---
Patient Name: MINOO CHEN Study Date: 04/20/2018 Performing: Corey Montero MD Ht: 72 inches 183 cm : 1950 Wt: 302.4 lbs 137 kg Age: 68 Gender: male BSA: 2.54 PROCEDURE(S) PERFORMED [id number]/COR CLINICAL PROFILE AND INDICATIONS Indications: Suspected CAD Heart Failure: None Stress/Imaging Stress Test w/SPECT MPI: Yes Result: PositiveStress Test with SPECT MPI: Positive Angina Classification Anginal Classification w/in 2 Weeks: CCS III CAD Presentations: Other: shortness of breath / dyspnea on exertion CONCLUSIONS [place] Multivessel CAD S/P LCA Intracoronary NTG (200 mcg x 1): no angiograhically significant change of the LCA system RECOMMENDATIONS Risk factor modification Medical therapy Surgery consult for coronary revascularization DESCRIPTION OF PROCEDURE The patient arrived to the procedure lab. The risks and benefits of the procedure as well as a full d escription of our services here and current unavailability of surgical backup were fully explained to the patient and/or their significant other prior to the catheterization. The Timeout was completed, verifying the correct patient and procedure. The patient's procedural site was prepped and draped in the usual fashion. Local anesthetic was given subcutaneously to right radial region with Lidocaine 2% . Using a modified Seldinger technique, arterial access was obtained via the right radial artery, a 6 Fr sheath was inserted. Left Coronary Artery selective angiography was performed in multiple views u sing a 5 Fr. 4.0 Burke catheter. Right Coronary Artery selective angiography was then performed in mu ltiple views using a 5 Fr. 4.0 Burke catheter.The arterial sheath was pulled and a TR Band was applie d for hemostasis. 16cc air inserted into band. CORONARY ANGIOGRAPHY DOMINANCE: Right Dominant LEFT HEART ASSESSMENT Left Ventricular Ejection Fraction: Not assessed LEFT MAIN: proximal: 50-75 % Stenosis LEFT ANTERIOR DECENDING ARTERY: Mild luminal irregularities PROX LAD: Mild calcification CIRCUMFLEX ARTERY: PROX CIRC: Mild calcification MID CIRC: Mild luminal irregularities OM 1: Proximal - Diffuse: Irregular: 50 % Stenosis, Mid - Diffuse: Irregular: 90 % Stenosis OM 3: Proximal - Eccentric: 50 % Stenosis, Mid - Eccentric: 85 % Stenosis RIGHT CORONARY ARTERY: Mild luminal irregularities PROX RCA: Mild calcification RT PDA: Distal - 75 % Stenosis COMPLICATIONS No Complications PROCEDURE MEDICATIONS Fentanyl 50 mcg IV Versed 1 mg IV Oxygen: 2 L/min via nasal cannula Nitro 200 mcg IC 04/20/2018 10:48:54 Plavix 75 mg PO 04/20/2018 08:17:12 SUMMARY OF HEMODYNAMIC DATA Time AIR REST ECG 10:11:23 AO 103/62 (77) SA 10:34:52 Signed By Corey Montero MD On 04/20/2018 15:41:33 Corey Montero MD
== END 2018-04-20 14:00 | disposition hospice, home (50) ==
LOC: CLSP 07:57
PROVIDERS: Referring Provider Internal Medicine Cardiovascular Disease; Visit Provider Internal Medicine Cardiovascular Disease
DX: I25.10 Atherosclerotic heart disease of native coronary artery without angina pectoris (principal); I11.0 Hypertensive heart disease with heart failure; I50.32 Chronic diastolic (congestive) heart failure; I48.1 Persistent atrial fibrillation; E11.65 Type 2 diabetes mellitus with hyperglycemia; I49.3 Ventricular premature depolarization; J44.9 Chronic obstructive pulmonary disease, unspecified; E78.00 Pure hypercholesterolemia, unspecified; G47.33 Obstructive sleep apnea (adult) (pediatric); R94.39 Abnormal result of other cardiovascular function study; E66.01 Morbid (severe) obesity due to excess calories; Z79.01 Long term (current) use of anticoagulants; Z79.84 Long term (current) use of oral hypoglycemic drugs; Z79.02 Long term (current) use of antithrombotics/antiplatelets; Z79.82 Long term (current) use of aspirin; Z79.899 Other long term (current) drug therapy
CPT/HCPCS: 93454; 99152; 99153; J7040; Q9967; C1769; C1894

== ENCOUNTER → 2018-04-23 08:58 | Outpatient (CLI) | payer MEDICARE, SELFPAY ==
[2018-04-23 10:19] LABS: Anion Gap 9 (5-15); BUN 11 mg/dL (7-18); BUN/Creat Ratio 12.8 RATIO (10-20); Calcium,Total 8.7 mg/dL (8.5-10.1); Chloride 100 mmol/L (98-107); Creatinine, Serum 0.86 mg/dL (0.70-1.30); EST Glomerular Filtration Rate 94 mL/min (>60); Est Glom Filt Rate - Afr Amer 114 mL/min (>60); Glucose 195 mg/dL (74-106); Potassium 3.7 mmol/L (3.5-5.1); Sodium Level 138 mmol/L (136-145)
== END ==
PROVIDERS: Referring Provider Internal Medicine Cardiovascular Disease; Visit Provider Internal Medicine Cardiovascular Disease
DX: E11.65 Type 2 diabetes mellitus with hyperglycemia (principal)
CPT/HCPCS: 36415; 80048

== ENCOUNTER 2018-10-01 15:23 | Emergency (ER) | payer MEDICARE, SELFPAY ==
[2018-10-01 15:25] VITALS: BP 136/77; PULSE 87; RESP 18; TEMP 35.9; O2SAT 99; BMI 39.3
--- NOTE | 2018-10-01 15:40 | CT_ITS ---
STUDY: CT BRAIN WITHOUT CONTRAST REASON FOR EXAM: Male, 68 years old. Headache RADIATION DOSAGE (If Supplied By Facility): CTDIvol = ( 44.99 ) mGy, DLP = ( 863.60 ) mGycm TECHNIQUE: Transaxial CT imaging of the brain was performed without administration of intravenous contrast material. Individualized dose optimization techniques were used for this CT. COMPARISON: None. FINDINGS: Normal soft tissue structures. Normal calvarium. There is mild cerebral atrophy with widening of the extra-axial spaces and ventricular dilatation. Normal white matter tracts of the cerebral hemispheres. Normal basal ganglia and thalami. Normal brainstem. Normal cerebellum. There is no intracranial hemorrhage. There are no findings of an acute ischemic infarction. Mild mucosal thickening and mucous retention in the left maxillary sinus. Opacification of numerous ethmoid air cells bilaterally. Mucosal thickening in the inferior frontal sinuses, left greater than right. Clear sphenoid sinus. Normal temporal bones. CT/Brain/Head without Contrast IMPRESSION: Mild involutional changes with no acute intracranial findings. Negative for hemorrhage, hematoma or mass density. Incidental sinus findings as described above. Substantial sinus disease in the frontal, ethmoid and left maxillary sinus. Electronically Signed: Desire Eid MD at 16:26 EDT , Service support ,
--- NOTE | 2018-10-01 15:41 | EKG12_ITS ---
Test Reason : DIZZY Blood Pressure : / mmHG Vent. Rate : 114 BPM Atrial Rate : 102 BPM P-R Int : 000 ms QRS Dur : 082 ms QT Int : 346 ms P-R-T Axes : 000 040 075 degrees QTc Int : 476 ms Atrial fibrillation with rapid ventricular response with premature ventricular or aberrantly conducte d complexes Abnormal ECG Confirmed by JO RAMOS, ALEX ([id number]), newspaper editor managing FAVIOLA CUNHA ([id number]) on 10/04/2018 11:18:39 AM Referred By: ROSIO Confirmed By:ALEX OSORIO MD
--- NOTE | 2018-10-01 15:41 | RAD_ITS ---
STUDY: X-RAY CHEST REASON FOR EXAM: Male, 68 years old. Cough. Chest discomfort. TECHNIQUE: PA and lateral views of the chest. COMPARISON: November 16, 2017. FINDINGS: Lungs well-expanded. There is chronic interstitial coarsening without new infiltrate or mass. There is no demonstrated pleural abnormality. Normal size heart. Normal mediastinum and gurvinder. Normal visualized pulmonary arteries. Normal visualized aortic arch and descending thoracic aorta. There are diffuse degenerative changes of the visualized thoracic spine. Normal visualized ribs, clavicles, and shoulders. There is no demonstrated abnormality of the visualized soft tissue structures of the upper abdomen. RAD/Chest PA and Lateral IMPRESSION: 1. Resolution of left pleural effusion seen on the prior study. 2. No acute cardiopulmonary disease or other interval change. Electronically Signed: Pollo Cavanaugh DO at 17:00 EDT Tel [phone], Service support ,
--- NOTE | 2018-10-01 15:46 | ED.DCSUM_ITS ---
History of Present Illness Chief Complaint: Dizziness Informant: Patient, Family Onset: Weeks Context: - - Onset abrupt Timing: Continuous Quality: Read narrative Location: Read narrative Current Severity: Mild Maximum Severity: Moderate Worsened by: Difficulty swallowing with gagging and vomiting Relieved by: Nothing Associated Symptoms: Weight loss, headache, dysphasia, disc comfort xiphoid region Narrative: Patient is an elderly male who is not a good informant. has noted significant change in the last 3 weeks which include change in mental status and memory, difficulty with swallowing and gagging and vomiting, 20 pound weight l oss, decreased appetite and generalized weakness with difficulty maintaining balance more so than normal past 3 weeks. He denies night sweats. He denies visual, ocular or auditory symptoms. He denies exertional chest discomfort. He does report exertional shortness of breath, which is a chronic issue for the past several years. states he has history of COPD. She states he is not very active. He does have peripheral arterial disease as a complication of diabetes. He denies change in color, consistency or caliber of his stool. informed him that/reminded him he had one loose stool prior to arrival. No blood or mucus noted. He denies dysuria, frequency, urgency or hematuria. Prior similar symptoms: No Recent Illness/Hospitalization: No - Past Medical History (1) Atherosclerotic heart disease of [place] coronary artery without angina pectoris Status: Chronic (2) Pure hypercholesterolemia Status: Chronic (3) Essential (primary) hypertension Status: Chronic (4) Chronic diastolic heart failure Status: Chronic (5) Persistent atrial fibrillation Status: Chronic (6) COPD with acute exacerbation Status: Acute (7) HOLGER (obstructive sleep apnea) Status: Chronic (8) Morbid obesity Status: Chronic (9) Diabetes mellitus type 2, uncontrolled, without complications Status: Chronic Past Medical History - Allergies and Home Meds Allergies/Adverse Reactions: Allergies No Known Allergies Allergy (Verified 10/01/18 15:29) Primary Care Physician: Roula Dubon [Primary Care Provider] - Prior records reviewed: Yes Surgical History: tonsillectomy Lives: Spouse/ Significant Other Smoking Status: Current every day smoker - Patient and states he does not smoke. He chews. Alcohol: None - Family History Paternal Family History: Family History (Last Reviewed 03/12/18 @ 09:44 by Deandra Blount) Mother CHF (congestive heart failure) Father Cancer Family History: Reports: Diabetes Review of Systems General: Reports: Malaise, Weight loss. Denies: Chills, Fever, Subjective Eyes: Denies: Visual changes - bilaterally, Diplopia ENT: Denies: Bilateral ear pain Cardiovascular: Reports: Chest pain - Points to the subxiphoid region. Respiratory: Reports: Dyspnea, Cough, Dyspnea on exertion Gastrointestinal: Reports: Abdominal pain - Reports right upper quadrant pain. Did not recall if he had a cholecystectomy. Large scar was noted., Nausea, - - informed me that he has no appetite and is not been eating much last 2-3 weeks. Genitourinary: Denies: Dysuria, Hematuria, Frequency Musculoskeletal: Reports: Swelling. Denies: Myalgias, Arthralgias, Neck pain, Back pain, Extremity Pain Skin: Denies: Rash Neurological: Reports: Headache, Weakness, Parasthesia - Lower extremity chronic Endocrine: Denies: Polyuria, Polydipsia Hematologic: Denies: Easy bruising Allergy: Denies: Uticaria Physical Exam Vital Signs/Narrative: Vital Signs Temp Pulse Resp BP Pulse Ox 10/01/18 15:25 96.6 F L 87 18 136/77 H 99 Inital Vital Signs reviewed: Yes General: Well nourished, Well developed, Obese, No Acute Distress Head: Normocephalic, Atraumatic. Negative for: Trauma, Tenderness Eyes: Perrl, EOMI. Negative for: Pale conjunctiva, Scleral icterus ENT: Moist mucous membranes, No rhinorrhea, TM's clear Neck: Supple, Nontender, No lymphadenopathy, No JVD Cardiovascular: Regular rate, Regular rhythm, No murmurs, Normal S1, Normal S2 Respiratory: No distress, CTA bilaterally, Chest nontender. Negative for: Rales, Rhonchi, Wheezing, Decreased Air Movement Abdomen: Soft, Nondistended, Normal bowel sounds, No masses, Tender - Tenderness right side of the abdomen. There is no guarding rebound tenderness. Scar noted secondary to cholecystectomy and appendectomy.. Negative for: Nontender - Great, Guarding, Rebound tenderness, Hyperactive bowel sounds, Hepatomegaly, Splenomegaly, Mass, Pulsatile mass Back: Nontender, Normal Inspection Extremities: Nontender, Edema, - - Is evidence of venous stasis dermatitis. There is an abrasion noted mid anterior left leg. Neurological: Alert, Oriented x3, Cranial nerves II-XII grossly intact, Normal Strength, Normal Sensation, Normal DTR, - - Patient had minimal slurring of words during the history and physical. informed me that he has been forgetful. Psychological: Normal affect Diagnostic/Tx/Re-eval Chest X-Ray - ED: 2 View, Read by ED Physician, Normal, Heart, Mediastinum, Bony Structures, No Acute Disease, Chronic Changes CT of the head without contrast reviewed by me. There is no evidence of epidural, subdural, subarachnoid hemorrhage or intraparenchymal bleed. There is mild atrophy noted. Awaiting formal interpretation by radiologist. 10/01/18 15:40 Brain/Head without Contrast [CT] Stat 10/01/18 15:41 Chest PA and Lateral [RAD] Stat Laboratory Results 10/01/18 15:57 WBC 8.5 RBC 4.69 Hgb 14.8 Hct 43.1 MCV 91.9 MCH 31.6 MCHC 34.3 RDW 13.2 RDW Differential 43.6 Plt Count 309 MPV 9.1 Immature Gran % (Auto) 0.200 Neut % (Auto) 66.4 Lymph % (Auto) 21.3 Major % (Auto) 7.7 Eos % (Auto) 3.9 Baso % (Auto) 0.5 Absolute Neuts (auto) 5.7 Absolute Lymphs (auto) 1.82 Total Counted Not Reportable CT report was read. Disagree with substantial sinus disease. There is minimal sinus disease noted. Electrolyte panel was remarkable for potassium of 3.1. states he would go to physical therapy at [facility]. Will write prescription for a walker. - Rhythm Strip Rhythm Strip: A-fib Rate: 110 Ectopy: PVC(s) - EKG Initial EKG Interpretation: Atrial Fibrillation - Ventricular rate 114. There are either premature ventricular beats or aberrant beats noted. QRS duration normal. QT interval normal. Norris is normal. The EKG is unchanged from November 16, 2017. Prior: Unchanged - Medical Decision Making With history of a abrupt change 3 weeks ago with mild headache, problems with balance, trouble with speech, swallowing suspect possible stroke. With 20 pound weight loss and history of smoking need to rule out malignancy. Since he is diabetic will obtain basic metabolic panel to assess electrolytes, glucose and renal function. CT of the head was obtained to evaluate for intracranial process. Because of chest pain and shortness of breath chest x-ray was obtained to evaluate for CAD CHF, pneumonia versus other cause. I was informed by nursing staff that patient passed his dysphagia screening test. ED Disposition - Plan for ED Patient: Disposition: Home or Assisted Living Diagnosis: HOLGER (obstructive sleep apnea) Instructions: ED Weakness UKO, ED Potassium Deficiency, ED Failure To Thrive Prescriptions: Potassium [place] Effervescent [Potassium Chl 25 Meq Eff (For Liquid)] 25 meq PO DAILY #30 tablet.eff Referrals: Free Mayi,Roula Reyes [Primary Care Provider] - 5-7 Days
[2018-10-01 16:13] LABS: Absolute Lymphocyte Count 1.82 X10^3/ul (0.83-4.51); Absolute Neutrophil Count 5.7 X10^3/uL (2.0-7.7); Basophil# 0.04 X10^3/uL; Basophil% 0.5 % (0-1); Eosinophil# 0.33 X10^3/uL; Eosinophils% 3.9 % (0-5); Hematocrit 43.1 % (40-54); Hemoglobin 14.8 g/dl (13.0-16.5); Lymphocyte # 1.82 X10^3/ul (4.0); Lymphocyte % 21.3 % (19-41); Mean Corp Hgb Conc 34.3 g/gl (32-36); Mean Corpuscular Hgb 31.6 pg (27.0-32.0); Mean Corpuscular Volume 91.9 fL (80-94); Mean Platelet Vol. 9.1 fl (6.2-12.0); Monocyte# 0.66 X10^3/uL; Monocyte% 7.7 % (0-10); Neutrophil # 5.67 X10^3/uL (2.7-7.7); Neutrophil % 66.4 % (47-70); Platelet Count 309 K/mm3 (150-450); RBC Distribution Width CV 13.2 % (11.6-14.6); RBC Distribution Width SD 43.6 fl (35.1-43.9); Red Blood Count 4.69 M/mm3 (4.6-6.2); White Blood Count 8.5 K/mm3 (4.4-11.0)
[2018-10-01 16:14] LABS: POSITIVE COUNT NO; POSITIVE DIFFERENTIAL NO; POSITIVE MORPHOLOGY NO
[2018-10-01 16:29] LABS: ALB/GLOB Ratio 0.9 RATIO (0.9-2.4); AST(SGOT) 16 U/L (15-37); Alanine Aminotransfer ALT/SGPT 20 U/L (16-61); Albumin, Serum 3.7 g/dL (3.2-5.0); Alkaline Phosphatase 75 U/L (45-117); Anion Gap 9 (5-15); BUN 8 mg/dL (7-18); BUN/Creat Ratio 7.5 RATIO (10-20); Calcium,Total 8.9 mg/dL (8.5-10.1); Chloride 100 mmol/L (98-107); Creatinine, Serum 1.06 mg/dL (0.70-1.30); EST Glomerular Filtration Rate 73 mL/min (>60); Est Glom Filt Rate - Afr Amer 89 mL/min (>60); Estimated Creatinine Clearance 69.06 ml/min; Globulin 4.1 g/dL (2.2-4.2); Glucose 164 mg/dL (74-106); Potassium 3.1 mmol/L (3.5-5.1); Protein, Total 7.8 g/dL (6.4-8.2); Sodium Level 136 mmol/L (136-145)
[2018-10-01 17:25] VITALS: PULSE 100; RESP 13; O2SAT 97
--- NOTE | 2018-10-01 18:35 | CASEMGMT ---
RN CM Assessment Introduced role of RN CM to patient and Natalia Fitch at bedside.? Patient is alert, oriented and able?to participate in RN CM Assessment. ?Care providers, pharmacy, and demographics verified. Presentation: Change in mental status last 3 wks, 20 lb loss in past couple weeks, decreased appetite, Generalized Weakness with falls. Re-Admit: No Barriers/Issues: Patient has made hanging ropes throughout the house to help him with balance. Does not want HH PT. States if feels need will s/w Luis Manuel who is in charge of Outpatient PT at [facility]. Cannot have things delivered to physical address at [facility]. Located at: [address] [place] [address], [phone] [facility], [address]. Pt ok with ordering walker. Per if she can strip picker from [employer] as they cannot deliver mail, etc to physical address and not sure about DME delivery. PCP: Millicent Arvizu NP at [facility] Specialists: None Preferred Pharmacy: [facility] Insurance: [facility] Rx Benefit:?Yes ?LNOK: Natalia Avalos Living Arrangements:? Lives with in a SS Home , 2 steps to bathroom, 1 step to bedroom. ADL?s: Ambulates with cane, Independent with ADL's. Transportation: Patient drives, to drive on [place]. DME: Cane, [facility], [employer] HHC: None SNF: None Goal: Home with no help. Ok with walker order. DC PLAN: Pending UA results, Home vs admission. GLO Nguyen made aware regarding walker to assist with order if needed. If DC from ED to home will try to coordinate walker and call [employer] in network to inquire about picking up. ALYSE Fuller
[2018-10-01 19:00] VITALS: BP 125/76; PULSE 87; O2SAT 99
--- NOTE | 2018-10-01 19:59 | CM.ED ---
SOCIAL WORK NOTE [facility] TO [facility] RADHA CISNEROS, SYSTEMS CONSULTANT, CAMOUFLAGE SPECIALIST.
[2018-10-01 20:19] VITALS: BP 128/78; PULSE 87; RESP 16; O2SAT 97
== END 2018-10-01 20:22 | disposition home or self-care (01) ==
PROVIDERS: Emergency Provider Emergency Medicine
DX: G47.33 Obstructive sleep apnea (adult) (pediatric) (principal); R07.9 Chest pain, unspecified; R10.11 Right upper quadrant pain; R13.10 Dysphagia, unspecified; I11.0 Hypertensive heart disease with heart failure; I50.32 Chronic diastolic (congestive) heart failure; I48.1 Persistent atrial fibrillation; I49.3 Ventricular premature depolarization; I25.10 Atherosclerotic heart disease of native coronary artery without angina pectoris; J44.1 Chronic obstructive pulmonary disease with (acute) exacerbation; E11.65 Type 2 diabetes mellitus with hyperglycemia; E78.00 Pure hypercholesterolemia, unspecified; I73.9 Peripheral vascular disease, unspecified; E66.01 Morbid (severe) obesity due to excess calories; Z79.01 Long term (current) use of anticoagulants; Z79.84 Long term (current) use of oral hypoglycemic drugs; Z79.82 Long term (current) use of aspirin; Z79.899 Other long term (current) drug therapy; Z90.49 Acquired absence of other specified parts of digestive tract
CPT/HCPCS: 70450; 71046; 80053; 81001; 85025; 93005; 99284; A4216

== ENCOUNTER → 2019-02-11 14:16 | Outpatient (CLI) | payer MEDICARE, SELFPAY ==
[2018-10-08 13:28] VITALS: BMI 39.3
--- NOTE | 2019-02-11 14:21 | RAD_ITS ---
STUDY: X-RAY - UNILATERAL RIBS ( RIGHT ) WITH CHEST REASON FOR EXAM: Male, 68 years old. Fall. Pain. TECHNIQUE - RIBS: 3 view(s) of the ribs. TECHNIQUE - CHEST: 10/01/2018 COMPARISON: None. FINDINGS - RIBS: Normal visualized ribs without a demonstrated fracture. FINDINGS - CHEST: The lungs are clear and expanded. There is no demonstrated pleural abnormality. Normal size heart. Normal mediastinum and gurvinder. Normal visualized pulmonary arteries. Normal visualized aortic arch and descending thoracic aorta. Normal visualized thoracic spine. There is degenerative osteoarthritis of the bilateral shoulders. There is no demonstrated abnormality of the visualized soft tissue structures of the upper abdomen. RAD/Ribs Uni Min 3V w/PA Chest IMPRESSION: RIBS: Normal x-ray examination of the ribs. CHEST: No acute chest disease. Electronically Signed: Luis Manuel Brewster MD at 18:40 EDT , Service support ,
== END ==
PROVIDERS: Referring Provider Nurse Practitioner Family; Visit Provider Nurse Practitioner Family
DX: R07.81 Pleurodynia (principal)
CPT/HCPCS: 71101

== ENCOUNTER 2019-05-04 10:01 | Emergency (ER) | payer MEDICARE, SELFPAY ==
[2018-10-08 13:28] VITALS: BMI 39.3
[2019-05-04 10:02] VITALS: BP 159/97; PULSE 66; RESP 16; TEMP 36.7; O2SAT 100; BMI 35.9
--- NOTE | 2019-05-04 10:31 | CT_ITS ---
STUDY: CT BRAIN WITHOUT CONTRAST REASON FOR EXAM: Male, 69 years old. Abrasions to the back of head following a fall. RADIATION DOSAGE (If Supplied By Facility): CTDIvol = ( 44.99 ) mGy, DLP = ( 812.98 ) mGycm TECHNIQUE: Transaxial CT imaging of the brain was performed without administration of intravenous contrast material. Individualized dose optimization techniques were used for this CT. COMPARISON: Comparison is made with prior study dated October 01, 2018. FINDINGS: Normal soft tissue structures. Normal calvarium. There is mild cerebral atrophy with widening of the extra-axial spaces and ventricular dilatation. Normal white matter tracts of the cerebral hemispheres. Normal basal ganglia and thalami. Normal brainstem. Normal cerebellum. There is no intracranial hemorrhage. There are no findings of an acute ischemic infarction. Atherosclerotic calcification of the cavernous aspects of the carotid arteries bilaterally. Partial opacification of the left maxillary sinus as well as the ethmoid sinuses. Nasal septal deviation towards the left side of the midline. CT/Brain/Head without Contrast IMPRESSION: Chronic involutional changes of the brain. Sinusitis. Electronically Signed: Ryan Sood, at 12:05 EDT , Service support ,
[2019-05-04 10:54] LABS: Absolute Lymphocyte Count 1.33 X10^3/uL (0.83-4.51); Basophil# 0.07 X10^3/uL; Basophil% 0.8 % (0-1); Eosinophil# 0.38 X10^3/uL; Eosinophils% 4.6 % (0-5); Hemoglobin 13.7 g/dL (13.0-16.5); Lymphocyte # 1.33 X10^3/ul (4.0); Lymphocyte % 15.9 % (19-41); Mean Corp Hgb Conc 33.4 g/dL (32-36); Mean Corpuscular Hgb 32.2 pg (27.0-32.0); Mean Corpuscular Volume 96.5 fL (80-94); Mean Platelet Vol. 8.7 fl (6.2-12.0); NRBC Flagged by Analyzer 0 % (0-5); Neutrophil # 6.03 X10^3/uL (2.7-7.7); Neutrophil % 72.3 % (47-70); Platelet Count 250 K/mm3 (150-450); RBC Distribution Width CV 13.8 % (11.6-14.6); RBC Distribution Width SD 48.8 fl (35.1-43.9); Red Blood Count 4.25 M/mm3 (4.6-6.2); White Blood Count 8.3 K/mm3 (4.4-11.0)
[2019-05-04 11:01] VITALS: BP 174/80; PULSE 67; RESP 18; O2SAT 98
[2019-05-04 11:11] LABS: Anion Gap 5 (5-15); BUN 13 mg/dL (7-18); BUN/Creat Ratio 17.7 RATIO (10-20); Calcium,Total 9.6 mg/dL (8.5-10.1); Chloride 102 mmol/L (98-107); Creatinine, Serum 0.73 mg/dL (0.70-1.30); EST Glomerular Filtration Rate 112 mL/min (>60); Est Glom Filt Rate - Afr Amer 135 mL/min (>60); Estimated Creatinine Clearance 74.37 ml/min; Glucose 124 mg/dL (74-106); Potassium 3.7 mmol/L (3.5-5.1); Sodium Level 136 mmol/L (136-145)
--- NOTE | 2019-05-04 12:03 | ED.DCSUM_ITS ---
- ER Visit Summary Date of Service: 05/04/19 Chief Complaint: [Fall] History of Present Illness: The patient is a 69 M [presents to the emergency department after sustaining a fall while at the doctor's office. Patient went to see the physician and as he was walking with his walker his knees gave out and he went down to the ground skinning his elbows and striking his head. No loss of consciousness. Patient denies any neck pain. Patient has been ambulatory since the fall. Patient states that this is been an ongoing issue with some weakness in his legs and is being evaluated by neurology currently. Patient has some x-rays that he needs to have done as ordered by neurology as well as some blood work. Patient was referred to the ER because of the fall to make sure he did not have any significant injuries. Patient does have history of diabetes and hypertension as well as history of CHF. Patient is on Eliquis.] Physical Examination: [HEENT-PERRLA, EOMI. Cranial nerves II through XII grossly intact. TMs clear. Mucous membranes moist. No adenopathy. No external evidence of trauma to his head. Patient has no C-spine tenderness on palpation. Cardiovascular-regular rate and rhythm without murmur or ectopy Lungs-clear to auscultation, chest wall stable without crepitus or subcu emphysema Abdomen-normoactive bowel sounds, soft, nontender, no rebound or rigidity, no peritoneal signs. Extremities-intact ?4, normal range of motion, normal pulses. Evaluation of the elbows reveals superficial skin abrasions. No bony tenderness on exam. Normal range of motion at the elbows. Neurovascular intact distally.] Test Results: [BC with differential obtained was normal. Chemistries unremarkable. CT scan of the brain without contrast showed no acute injury.] Emergency Department Course and Treatment: [] Treatment Plan: [Patient will go to the lab outpatient services to have his blood drawn for the other lab work that his neurologist wanted and also will go to outpatient x-ray as well. Patient had x-rays of his C-spine and lumbar spine ordered by neurology.] Disposition: [Discharged home in stable condition] Impression: [Chemical fall Closed head injury Contusion to bilateral elbows with abrasions] This note was generated with [employer] dictation software. It may contain incorrect words, spelling, and punctuation that were not noted in review of the chart prior to signing ED Disposition - Plan for ED Patient: Referrals: Jaclyn Trujillo, ELECTRONIC SCALE ASSEMBLER AND TESTER-C [Primary Care Provider] -
--- NOTE | 2019-05-04 12:07 | DCINST.ED_ITS ---
ED Disposition - Plan for ED Patient: Instructions: FALL, Mechanical, Skin Avulsion, HEAD INJURY, No Wake-Up (Adult), CONTUSION, Elbow Referrals: Jaclyn Trujillo DEPUTY COURT-C [Primary Care Provider] - 5-7 Days
--- NOTE | 2019-05-04 12:07 | ED.DEP ---
ED Disposition - Plan for ED Patient: Instructions: FALL, Mechanical, Skin Avulsion, HEAD INJURY, No Wake-Up (Adult), CONTUSION, Elbow Referrals: Jaclyn Trujillo SALARY MANAGER-C [Primary Care Provider] - 5-7 Days
[2019-05-04 12:45] VITALS: BP 166/85; PULSE 67; RESP 17; O2SAT 98
== END 2019-05-04 12:49 | disposition home or self-care (01) ==
PROVIDERS: Emergency Provider Emergency Medicine; Family Provider Nurse Practitioner Family; PCP Nurse Practitioner Family
DX: S09.90XA Unspecified injury of head, initial encounter (principal); S50.02XA Contusion of left elbow, initial encounter; S50.01XA Contusion of right elbow, initial encounter; W18.00XA Striking against unspecified object with subsequent fall, initial encounter; Y93.01 Activity, walking, marching and hiking; Y92.531 Health care provider office as the place of occurrence of the external cause; Y99.9 Unspecified external cause status; I11.0 Hypertensive heart disease with heart failure; I50.9 Heart failure, unspecified; E11.9 Type 2 diabetes mellitus without complications; Z79.01 Long term (current) use of anticoagulants; Z79.84 Long term (current) use of oral hypoglycemic drugs; Z79.82 Long term (current) use of aspirin; Z79.899 Other long term (current) drug therapy
CPT/HCPCS: 70450; 80048; 85025; 99285

== ENCOUNTER 2019-10-12 11:54 | Outpatient (RCR) | payer MEDICARE, SELFPAY | END 2019-10-12 19:00 | disposition home or self-care (01) | LOC: PT 11:54 | PROVIDERS: PCP Nurse Practitioner Family; Referring Provider Nurse Practitioner Family; Visit Provider Nurse Practitioner Family | DX: R69 Illness, unspecified (principal) ==

== ENCOUNTER 2020-01-14 17:32 | Observation (INO) | payer MEDICARE, SELFPAY ==
[2020-01-14 17:34] VITALS: BP 144/106; PULSE 83; RESP 18; TEMP 37; O2SAT 99; BMI 43.5
--- NOTE | 2020-01-14 18:00 | RAD_ITS ---
STUDY: X-RAY - PELVIS AND LEFT HIP REASON FOR EXAM: Male, 69 years old. Fall x 2 today, bilateral knee pain and left hip pain TECHNIQUE: 3 views of the pelvis and hip. COMPARISON: None. FINDINGS: There is a non-specific bowel gas pattern. Normal visualized soft tissue structures. There are degenerative changes in the lower lumbar spine. Normal bilateral iliac wings, sacroiliac joints and visualized sacrum. Normal bilateral superior and inferior pubic rami. Normal pubic symphysis. Normal bilateral ischial tuberosities. There is no demonstrated fracture of the femoral head or neck. Normal acetabulum. Normal hip joint. RAD/HIP, UNI W/ Pelvis 2-3 Views IMPRESSION: No demonstrated definite fracture. If symptoms persist, CT scan of the pelvis is recommended to rule out occult fracture. Electronically Signed: Julián Villarreal MD at 18:56 EDT Tel , Service support ,
--- NOTE | 2020-01-14 18:01 | ED.DCSUM_ITS ---
History of Present Illness Chief Complaint: Fall Informant: Patient, Family Narrative: Patient is a 69-year-old male who presents to the emergency department after 2 falls today. He states that his knee gives keep giving out on him. He has had chronic issues with this. He did start to go to physical therapy for this issue. He is only gone 1 time so far. He states that the day he fell over and was not able to get up with his knee pain and left hip pain now. He denies hitting his head or losing consciousness. He is on anticoagulation with Eliquis. Denies any neck pain. Denies any chest pain or shortness of breath. No pain in his upper extremities. He does have a small skin tear to the left elbow. Bleeding controlled prior to arrival in emergency department. Patient normally has to ambulate with walker. He states that is getting more difficulty recently to get around. Past Medical History - Allergies and Home Meds Allergies/Adverse Reactions: Allergies No Known Allergies Allergy (Verified 01/14/20 17:34) Primary Care Physician: Jaclyn Trujillo NP-C [Primary Care Provider] - Prior records reviewed: Yes Past Medical History: - - CAD, A. fib on anticoagulation, hypertension, diabetes, COPD Surgical History: tonsillectomy Lives: Spouse/ Significant Other Smoking Status: Former smoker - Family History Paternal Family History: Family History (Last Reviewed 10/08/18 @ 13:24 by Viv Bajwa) Mother CHF (congestive heart failure) Father Cancer Family History: Reports: Diabetes Review of Systems All systems negative except as indicated General: Denies: Chills, Fever, Sweats Eyes: Denies: Visual changes - bilaterally, Diplopia ENT: Denies: Rhinorrhea, Sore throat Cardiovascular: Denies: Chest pain, Palpitations Respiratory: Denies: Dyspnea, Cough, Dyspnea on exertion Gastrointestinal: Denies: Abdominal pain, Nausea, Vomiting, Diarrhea, Melena, Hematochezia Genitourinary: Denies: Dysuria, Hematuria, Frequency Musculoskeletal: Reports: Extremity Pain - Left hip pain and bilateral knee pain. Denies: Neck pain, Back pain Skin: Reports: Abrasions - Elbow. Denies: Rash, Wounds Neurological: Denies: Headache, Numbness Physical Exam Vital Signs/Narrative: Vital Signs Temp Pulse Resp BP Pulse Ox 01/14/20 17:34 98.6 F 83 18 144/106 H 99 General: Obese, No Acute Distress Head: Normocephalic, Atraumatic. Negative for: Trauma Eyes: Perrl, EOMI ENT: Moist mucous membranes, No rhinorrhea Neck: Supple, Nontender Cardiovascular: Regular rate, Regular rhythm, No murmurs Respiratory: No distress, CTA bilaterally, Chest nontender Abdomen: Soft, Nontender, Nondistended, Normal bowel sounds Back: Nontender, Normal Inspection. Negative for: Spinal tenderness Extremities: Nontender, No edema, Tenderness - Bilateral knees, compression of the left hip. Neurovascular intact of all 4 extremities. Skin: Normal color, - - Small skin abrasion to left elbow Neurological: Alert, Oriented x3, Cranial nerves II-XII grossly intact, Normal Strength, Normal Sensation Psychological: Normal affect, Normal Mood Diagnostic/Tx/Re-eval - Medical Decision Making Patient presents to emerge department after having repeated falls. States that his knees have been giving out on him. He is now complaining of bilateral knee pain and left hip pain. Will obtain x-rays at this time. He is currently undergoing physical therapy but does not sound like patient is thriving at home currently. X-rays of the knee showed arthritis but no fracture. The hips also did not show fracture. Patient is still refusing to put any weight on it so we will obtain a CT scan of the bony pelvis. Patient is not stable enough to go home given the fact he cannot walk. The does not feel comfortable taking him home. I do feel he be better served in the hospital setting for rehab evaluation. Patient understands and is agreeable with this. The patient is unable to put any weight on his lower extremities so we performed a CT scan of the bony pelvis. This did not show any evidence of a fracture but there are arthritic changes. Contact the hospitalist for potential placement for rehab. ED Disposition - Plan for ED Patient: Disposition: [facility] Diagnosis: Ambulatory dysfunction, Frequent falls, Degenerative arthritis of knee, bilateral Referrals: Jaclyn Trujillo NP-C [Primary Care Provider] -
--- NOTE | 2020-01-14 18:03 | RAD_ITS ---
STUDY: X-RAY - RIGHT KNEE REASON FOR EXAM: Male, 69 years old. Fall x 2 today, bilateral knee pain and left hip pain TECHNIQUE: 3 view(s) of the knee. COMPARISON: None. FINDINGS: Normal visualized distal femur. Normal visualized proximal tibia and fibula. Normal proximal tibiofibular articulation. There is no demonstrated fracture. There is moderate degenerative arthrosis of the medial femorotibial compartment with moderate joint space narrowing. There is moderate degenerative arthrosis of the lateral femorotibial compartment with moderate joint space narrowing. There is moderate degenerative arthrosis of the patellofemoral articulation. There is a soft tissue prominence in the suprapatellar region suggesting a small volume joint effusion. The soft tissue structures are unremarkable. RAD/Knee 3 Views IMPRESSION: Degenerative arthrosis. No demonstrated acute fracture. Probable small joint effusion. Electronically Signed: Julián Villarreal MD at 18:52 EDT Tel , Service support ,
--- NOTE | 2020-01-14 18:30 | RAD_ITS ---
STUDY: X-RAY - LEFT KNEE REASON FOR EXAM: Male, 69 years old. Fall x 2 today, bilateral knee pain and left hip pain TECHNIQUE: 3 view(s) of the knee. COMPARISON: None. FINDINGS: Normal visualized distal femur. Normal visualized proximal tibia and fibula. Normal proximal tibiofibular articulation. There is no demonstrated fracture. There is moderate degenerative arthrosis of the medial femorotibial compartment with moderate joint space narrowing. There is mild degenerative arthrosis of the lateral femorotibial compartment. There is moderate degenerative arthrosis of the patellofemoral articulation. The soft tissue structures are unremarkable. RAD/Knee 3 Views IMPRESSION: Degenerative arthrosis. No demonstrated acute osseous injury. Electronically Signed: Julián Villarreal MD at 18:53 EDT Tel , Service support ,
--- NOTE | 2020-01-14 19:07 | CT_ITS ---
STUDY: CT PELVIS WITHOUT CONTRAST REASON FOR EXAM: Male, 69 years old. Status post fall 2 days ago, left hip pain. RADIATION DOSAGE (If Supplied By Facility): CTDIvol = ( 41.66 ) mGy, DLP = ( 1706.40 ) mGycm TECHNIQUE: Transaxial imaging of the pelvis was performed with oral contrast, and without intravenous administration of contrast material. Individualized dose optimization techniques were used for this CT. COMPARISON: None. FINDINGS: Normal urinary bladder. Normal visualized small intestine. Diverticulosis of the sigmoid colon without evidence for acute diverticulitis. There is no pelvic fluid. There is no pelvic mass lesion or lymphadenopathy. There is diffuse atherosclerotic calcification of the pelvic arteries. There is diffuse demineralization of the osseous structures. There is mild narrowing of hip joints bilaterally. There is no evidence of acute fracture or dislocation. Motion artifacts are seen. The symphysis pubis is intact. Degenerative changes in the lower lumbar spine are seen. CT/Pelvis without IV Contrast IMPRESSION: 1. Demineralization of the osseous structures. 2. No demonstrated acute fracture or dislocation. Electronically Signed: Julián Villarreal MD at 20:16 EDT Tel , Service support ,
[2020-01-14 19:14] VITALS: BP 155/92; PULSE 80; RESP 18; O2SAT 98
--- NOTE | 2020-01-14 20:27 | HP.PCM_ITS ---
Problem List (1) Ambulatory dysfunction Status: Acute (2) Frequent falls Status: Acute (3) Degenerative arthritis of knee, bilateral Status: Acute (4) Atherosclerotic heart disease of [place] coronary artery without angina pectoris Status: Chronic (5) Pure hypercholesterolemia Status: Chronic (6) Essential (primary) hypertension Status: Chronic (7) Chronic diastolic heart failure Status: Chronic (8) Persistent atrial fibrillation Status: Chronic (9) HOLGER (obstructive sleep apnea) Status: Chronic (10) Morbid obesity Status: Chronic (11) Diabetes mellitus type 2, uncontrolled, without complications Status: Chronic History of Present Illness Date of Admission: 01/14/20 Chief Complaint: Multiple Falls The patient is a 69 year old M with the significance of congestive heart failure; obstructive sleep apnea; diabetes mellitus; morbid obesity; atrial fibrillation who presented to the emergency department with a fall. On the day of presentation patient fell 2 times. Also about 2 weeks ago he fell. Patient complains of pain in his bilateral knees and in his left hip. With his fall he sustained an injury in his left elbow and his left knee. Outpatient patient was prescribed physical therapy. He has had 1 session of physical therapy. Reportedly at emergency department patient was unable to get up. Patient lives at home with his . His is unable to take of patient so a decision was made for patient to stay at the hospital. Past Medical History Past Medical History (Chronic Problems): Chronic Problems (Last Reviewed 01/15/20 @ 01:[address] Matty Sprague MD) Atherosclerotic heart disease of [place] coronary artery without angina pectoris (Chronic) Pure hypercholesterolemia (Chronic) Essential (primary) hypertension (Chronic) Chronic diastolic heart failure (Chronic) Persistent atrial fibrillation (Chronic) HOLGER (obstructive sleep apnea) (Chronic) Morbid obesity (Chronic) Diabetes mellitus type 2, uncontrolled, without complications (Chronic) Medical History: Medical History (Last Reviewed 01/15/20 @ 03:[address] Matty Sprague MD) Atherosclerotic heart disease of [place] coronary artery without angina pectoris (Chronic) I25.10 Pure hypercholesterolemia (Chronic) E78.00 Essential (primary) hypertension (Chronic) I10 SOB (shortness of breath) on exertion (Inactive) R06.02 Abnormal stress test (Inactive) R94.39 Chronic diastolic heart failure (Chronic) I50.32 Persistent atrial fibrillation (Chronic) I48.1 COPD with acute exacerbation (Inactive) J44.1 PVC's (premature ventricular contractions) (Inactive) I49.3 HOLGER (obstructive sleep apnea) (Chronic) G47.33 Morbid obesity (Chronic) E66.01 Diabetes mellitus type 2, uncontrolled, without complications (Chronic) E11.65 Abdominal pain R10.9 Arthritis M19.90 Depression F32.9 Gout M10.9 Nausea & vomiting R11.2 Weight loss R63.4 Acute respiratory failure with hypoxia (Resolved) J96.01 CHF exacerbation (Resolved) I50.9 Allergies No Known Allergies Allergy (Verified 01/14/20 17:34) Home Medications: Ambulatory Orders Medication Instructions Recorded glimepiride 2 mg tablet 4 mg PO BIDCM 03/12/18 metformin 500 mg tablet 1,000 mg PO BID tab 03/12/18 rosuvastatin 5 mg tablet 5 mg PO QHS 03/12/18 aspirin 81 mg tablet,delayed 81 mg PO DAILY 04/05/18 release Cholecalciferol (Vitamin D3) 5,000 unit PO TU 05/04/19 [Vitamin D3] Metoprolol Tartrate [Lopressor 12.5 mg PO BID 05/04/19 (beta enrike)] Apixaban [Eliquis] 5 mg PO BID 01/14/20 Furosemide [Lasix] 40 mg PO DAILY 01/14/20 Lisinopril [Zestril] 5 mg PO DAILY 01/14/20 Potassium Chloride [K-Dur] 20 meq PO DAILY 01/14/20 Surgical History: Surgical History (Last Reviewed 01/15/20 @ 03:[address] Matty Sprague MD) History of appendectomy Z90.49 History of exploratory laparotomy Z98.890 History of kidney surgery Z98.890 Surgical History: tonsillectomy Psychiatric History: No pertinent psych hx Lives: Spouse/ Significant Other Smoking Status: Former smoker Tobacco Use: Chew - *Family History Paternal Family History: Family History (Last Reviewed 01/15/20 @ 03:[address] Matty Sprague MD) Mother CHF (congestive heart failure) Father Cancer History Items: Diabetes Review of Systems Constitutional: Denies: Chills, Fever, Weight Change HEENT: Denies: Head Aches, Sinus Congestion, Sinus Drainage Cardiovascular: Denies: Chest Pain, Palpitations Respiratory: Denies: Cough, Shortness of breath at rest, Sputum production Gastrointestinal: Denies: Abdominal Pain, Nausea, Vomiting Genitourinary: Denies: Dysuria Musculoskeletal: Reports: Joint Pain. Denies: Joint Tenderness Skin: Reports: Wounds - Left elbow. Denies: Rash Neurological: Denies: Numbness, Tingling, Focal weakness Psychiatric: Denies: Anxiety, Depression, Homicidal Ideations, Suicidal Ideations Hematologic/ Lymphatic: Denies: Easy Bruising, Easy Bleeding VTE Information - Inpt Only VTE Present on Admission: No VTE Mechan Device Prophylaxis: None VTE Pharm Prophylaxis ordered?: No Reason prophylaxis not ordered:: Treatment Not Indicated - On home Eliquis for A. fib; continued. Patient Problems: Active and Suspected Problems (Last Reviewed 01/15/20 @ 01:[address] Matty Sprague MD) Ambulatory dysfunction (Acute) Frequent falls (Acute) Degenerative arthritis of knee, bilateral (Acute) - Physical Exam Vitals/I&O's: Vital Signs Temp Pulse Resp BP Pulse Ox 98.6 F 80 18 155/92 H 98 01/14/20 17:34 01/14/20 19:14 01/14/20 19:14 01/14/20 19:14 01/14/20 19:14 Oxygen Delivery Method Room Air Weight: 141.6 kg Body Mass Index (BMI) 43.5 General: Alert, Oriented x3, Cooperative HEENT: Atraumatic, PERRLA, EOMI, Normocephalic Neck: Supple, Trachea Midline Lungs: Clear to auscultation, Normal air movement, No rhonchi, No wheeze, No rales Cardiovascular: Normal S1, Normal S2, No murmurs Abdomen: Bowel Sounds Present, Soft, Non Tender Extremities: No edema, Capillary Refill Less than 3 Seconds Skin: Skin Tear - Laceration of left lateral elbow., - - Excoriation on lateral side of left knee Musculoskeletal: No Tenderness to Palpation of Joints or Extremities Neurological: Cranial nerves II-XII grossly intact Psych/Mental Status: Normal Affect, Appropriate Assessment/Plan All Active Problems (Last Reviewed 01/15/20 @ 01:[address] Matty Sprague MD) Ambulatory dysfunction (Acute) Frequent falls (Acute) Degenerative arthritis of knee, bilateral (Acute) Acute respiratory failure with hypoxia (Resolved) CHF exacerbation (Resolved) The patient is a 69 year old M with the significance of congestive heart failure; obstructive sleep apnea; diabetes mellitus; morbid obesity; atrial fibrillation who presented to the emergency department with multiple falls and difficulty to get around.. Multiple falls and debility PT and OT to work with patient. Case management consult Anticipate patient will need to go to residential home facility for rehab. Atrial fibrillation Metoprolol and Eliquis continued History of CAD. Stable Aspirin continued Crestor continued. Lisinopril continued. Metoprolol continued. Congestive heart failure Echocardiogram on 11/17/2017: Estimated ejection fraction was 65%. Diastolic dysfunction was unable to be assessed because of arrhythmia. Home Lasix and potassium continued. Check BMP in a.m. Hypertension On presentation blood pressure was now within goal Lisinopril and metoprolol continued. Lasix continued Trend blood pressure and adjust blood pressure medications. Laceration to left elbow Bactroban to wound Dry dressing; change twice daily. Diabetes mellitus Continue glimepiride and metformin BMP in a.m. Morbid obesity BMI: 39.8. Complicates care. Recommend lifestyle modification DVT prophylaxis Not indicated. Patient on Eliquis for A. fib and Eliquis has been continued. OBSV E&M: 38480 Initial observation care L3
[2020-01-14 21:33] VITALS: BP 153/68; PULSE 77; RESP 18; TEMP 37.7; O2SAT 95
[2020-01-14 21:53] VITALS: BMI 39.7
[2020-01-14 22:02] VITALS: BP 136/54; PULSE 61; RESP 20; TEMP 37.5; O2SAT 93
[2020-01-14 22:05] VITALS: BMI 39.8
[2020-01-14] MEDS: Mupirocin Ointment 22gm Tube 1 APPLIC TOPICAL (23:20)
[2020-01-15] VITALS (7 sets, daily range): BP systolic 117–131; BP diastolic 47–65; PULSE 65–81; RESP 18–20; TEMP 36.4–37.8; O2SAT 96–97
[2020-01-15 06:56] LABS: Absolute Lymphocyte Count 1.14 X10^3/uL (0.83-4.51); Absolute Neutrophil Count 6.4 X10^3/uL (2.0-7.7); Basophil# 0.04 X10^3/uL; Basophil% 0.5 % (0-1); Eosinophil# 0.37 X10^3/uL; Eosinophils% 4.4 % (0-5); Hematocrit 34.1 % (40-54); Hemoglobin 11.3 g/dL (13.0-16.5); Lymphocyte # 1.14 X10^3/ul (4.0); Lymphocyte % 13.5 % (19-41); Mean Corp Hgb Conc 33.1 g/dL (32-36); Mean Corpuscular Hgb 31.7 pg (27.0-32.0); Mean Corpuscular Volume 95.8 fL (80-94); Mean Platelet Vol. 9.3 fl (6.2-12.0); Monocyte# 0.51 X10^3/uL; NRBC Flagged by Analyzer 0 % (0-5); Neutrophil # 6.36 X10^3/uL (2.7-7.7); Platelet Count 198 K/mm3 (150-450); RBC Distribution Width CV 13.4 % (11.6-14.6); RBC Distribution Width SD 46.8 fl (35.1-43.9); Red Blood Count 3.56 M/mm3 (4.6-6.2); White Blood Count 8.5 K/mm3 (4.4-11.0)
[2020-01-15 07:23] LABS: Anion Gap 8 (5-15); BUN 13 mg/dL (7-18); BUN/Creat Ratio 18.5 RATIO (10-20); Calcium,Total 8.4 mg/dL (8.5-10.1); Chloride 103 mmol/L (98-107); EST Glomerular Filtration Rate 118 mL/min (>60); Est Glom Filt Rate - Afr Amer 142 mL/min (>60); Estimated Creatinine Clearance 74.37 ml/min; Glucose 148 mg/dL (74-106); Potassium 3.8 mmol/L (3.5-5.1); Sodium Level 136 mmol/L (136-145)
--- NOTE | 2020-01-15 07:34 | PN_ITS ---
Patient Problems: Active and Suspected Problems (Last Reviewed 01/15/20 @ 03:[address] Matty Sprague MD) Ambulatory dysfunction (Acute) Frequent falls (Acute) Degenerative arthritis of knee, bilateral (Acute) Reason for Visit: Follow-up physical deconditioning Subjective: Patient is a 69-year-old gentleman admitted with multiple falls Objective: GENERAL: cooperative HEENT: Atraumatic; EYES; Anicteric, Normal Conjunctiva NECK; supple, normal thyroid, RESPIRATORY: Diminished to auscultation CARDIOVASCULAR: Regular S1 S2, GI: soft, normoactive bowel sounds, : No Renal angle tenderness; EXTREMITIES: Left Elbow laceration MUSCULOSKELETAL: no muscle waisting NEURO: Awake; no lateralizing signs. SKIN: No Rash PSYCH; Flat affect Vitals/I&O's: Vital Signs Temp Pulse Resp BP Pulse Ox 99.9 F H 67 18 131/56 H 96 01/15/20 04:00 01/15/20 04:00 01/15/20 04:00 01/15/20 04:00 01/15/20 04:00 Oxygen Delivery Method CPAP Weight: 133 kg Body Mass Index (BMI) 39.7 Intake and Output for Last 24 Hours 01/13/20 01/14/20 01/15/20 23:59 23:59 23:59 Intake Total 100 / 100 Output Total 400 / 400 Balance -300 / -300 Laboratory Results 01/15/20 05:30: Sodium 136, Potassium 3.8, Chloride 103, Carbon Dioxide 25.0, Anion Gap 8, BUN 13, Creatinine 0.70, Estim Creat Clear Calc 74.37, Est GFR (MDRD) Af Amer 142, Est GFR (MDRD) Non-Af 118, BUN/Creatinine Ratio 18.5, Glucose 148 H, Calcium 8.4 L 01/15/20 05:30: WBC 8.5, RBC 3.56 L, Hgb 11.3 L, Hct 34.1 L, MCV 95.8 H, MCH 31.7, MCHC 33.1, RDW Std Deviation 46.8 H, RDW Coeff of Shantell 13.4, Plt Count 198, MPV 9.3, Immature Gran % (Auto) 0.600, Neut % (Auto) 75.0 H, Lymph % (Auto) 13.5 L, [place] % (Auto) 6.0, Eos % (Auto) 4.4, Baso % (Auto) 0.5, Absolute Neuts (auto) 6.4, Absolute Lymphs (auto) 1.14, Nucleated RBC % 0 Current Medications Acetaminophen (Tylenol) 650 mg PO Q6H PRN PRN PRN Reason: Pain Score 1-10/Temp > 100.7 F Apixaban (Eliquis) 5 mg PO BID [facility] Aspirin (Ecotrin) 81 mg PO DAILY [facility] Atorvastatin Calcium (Lipitor) 10 mg PO QHS [facility] Cholecalciferol (Vitamin D (25mcg)) 5,000 unit PO TU [facility] Dextrose (D50w Syringe) 0 gm IV X1 PRN; Protocol PRN Reason: Hypoglycemia Furosemide (Lasix) 40 mg PO DAILY [facility] Glimepiride (Amaryl) 4 mg PO BIDCM [facility] Glucagon () 1 mg IM .X1 PRN PRN Reason: Hypoglycemia Lisinopril (Zestril) 5 mg PO DAILY [facility] Metformin HCl (Glucophage) 1,000 mg PO BIDCM [facility] Metoprolol Tartrate (Lopressor (Beta Paulette)) 12.5 mg PO BID [facility] Mupirocin (Bactroban) 1 applic TOPICAL BID [facility]; Protocol Last Admin: 01/14/20 23:20 Dose: 1 applicatio Documented by: Ondansetron HCl (Zofran) 4 mg IV Q8H PRN PRN PRN Reason: NAUSEA/VOMITING Potassium Chloride (K-Dur) 20 meq PO DAILY [facility] Sodium Chloride () 10 - 40 ml IV UD PRN PRN Reason: SALINE FLUSH STROKE Vital Signs/Narrative: Vital Signs Temp Pulse Resp BP Pulse Ox 01/15/20 04:00 99.9 F H 67 18 131/56 H 96 Medical Necessity - Tobacco Use Smoking Status: Former smoker Tobacco Use: Chew Assessment/Plan All Active Problems (Last Reviewed 01/15/20 @ 03:[address] Matty Sprague MD) Ambulatory dysfunction (Acute) Frequent falls (Acute) Degenerative arthritis of knee, bilateral (Acute) Acute respiratory failure with hypoxia (Resolved) CHF exacerbation (Resolved) 69-year-old gentleman admitted with multiple falls and failure to thrive 1. Physical deconditioning (with multiple falls and physical debility) - Requested for PT OT eval and social work coordinator to assist with discharge planning 3. Paroxysmal A. fib ?Rate controlled with metoprolol and systemic anticoagulation with Eliquis 3. Coronary artery disease per history ?Patient is on recommended medications 4. Chronic congestive heart failure with preserved ejection fraction ?EF on an echo obtained on 818 demonstrated EF of 65% currently compensated 5. Hypertension - Blood pressure controlled, home medications continued with dose adjustment as needed 6. Morbid obesity with BMI of 39.8 ?Weight loss advised 7. Diabetes mellitus type II - Controlled; patient's oral hypoglycemics held. Placed on Accu-Cheks a.c. and at bedtime and covered with sliding scale insulin 8. DVT prophylaxis ?Patient is on Eliquis Advance planning; did discuss with the patient regarding advanced directives as well as CODE STATUS. Did explain the various scenarios involved ( FULL CODE, DNR CCA, DNR CCA with no intubation, and DNR CC and what each meant) patient elected to remain full code with CPR and intubation if indicated. Order was placed. Time spent on discussion 18 minutes. OBSV E&M: 51432 Subsequent observation care L3 Procedures: 50537 Advncd Care Plan 30 Min
[2020-01-15] MEDS: Aspirin E.C. 81 MG Tablet PO (09:19)
[2020-01-15] MEDS: APIXABAN 5 MG TABLET PO ×2 (09:19→22:26)
[2020-01-15] MEDS: Metoprolol Tartrate 25 MG Tablet 12.5 MG PO ×2 (09:19→22:27)
[2020-01-15] MEDS: Lisinopril 5 MG Tablet PO (09:19)
[2020-01-15] MEDS: Furosemide 40 MG Tablet PO (09:19)
[2020-01-15] MEDS: Mupirocin Ointment 22gm Tube 1 APPLIC TOPICAL ×2 (09:20→22:26)
[2020-01-15] MEDS: 0.9% Saline Lock 10 ML Syringe IV (09:38)
[2020-01-15] MEDS: Ondansetron 4 MG/2 ML Vial IV (09:38)
[2020-01-15] MEDS: Insulin Lispro 100 UNIT/ML INSULN.PEN SC ×3 (12:02→22:28)
[2020-01-15 12:15] LABS: Bedside Glucose 196 mg/dL (70-110)
[2020-01-15 16:26] LABS: Bedside Glucose 168 mg/dL (70-110)
[2020-01-15] MEDS: Acetaminophen 325 MG Tablet 650 MG PO (22:27)
[2020-01-15] MEDS: Atorvastatin Calcium 10 MG Tablet PO (22:27)
[2020-01-15 23:00] LABS: Bedside Glucose 151 mg/dL (70-110)
[2020-01-16] VITALS (7 sets, daily range): BP systolic 106–125; BP diastolic 49–65; PULSE 49–72; RESP 16–20; TEMP 36.3–36.9; O2SAT 92–99
[2020-01-16 06:35] LABS: Bedside Glucose 132 mg/dL (70-110)
[2020-01-16] MEDS: APIXABAN 5 MG TABLET PO ×2 (09:08→21:26)
[2020-01-16] MEDS: Aspirin E.C. 81 MG Tablet PO (09:08)
[2020-01-16] MEDS: Furosemide 40 MG Tablet PO (09:09)
[2020-01-16] MEDS: Mupirocin Ointment 22gm Tube 1 APPLIC TOPICAL ×2 (09:10→21:26)
[2020-01-16] MEDS: Metoprolol Tartrate 25 MG Tablet 12.5 MG PO (09:10)
[2020-01-16] MEDS: Lisinopril 5 MG Tablet PO (09:10)
--- NOTE | 2020-01-16 10:44 | CASEMGMT ---
Intro role of CM to patient and VILLAGOME[employer] form explained re: Observation status for treatment of debility/falls. Explained hospitalization will be paid per? insurance policy for Outpatient billing?and condition will continue to be evaluated for Inpt necessity. Also let pt know that [facility] sends paper in the billing packet with their phone number if questions arise. Pt verbalizes understanding and does not have further questions. Form signed and placed in chart, copy to pt. PINEDA STARKEY BSN CM
[2020-01-16] MEDS: Insulin Lispro 100 UNIT/ML INSULN.PEN SC ×2 (11:59→17:03)
[2020-01-16] MEDS: Acetaminophen 325 MG Tablet 650 MG PO (12:01)
[2020-01-16 12:11] LABS: Bedside Glucose 192 mg/dL (70-110)
--- NOTE | 2020-01-16 13:10 | CASEMGMT ---
JAKY LEVI Face to Face with patient for initial transition planning/care coordination assessment. RN AMITA introduced self and role at [facility]. Patient lying in bed, alert and oriented, at bedside. Patient willing to participate in assessment and is able to answer all questions appropriately. Care providers, pharmacy, and demographics verified. Patient wishes to discharge to SNF, RN AMITA provided list of in-network facilities to review. Patient states he has no further needs or concerns at this time. CM to follow for discharge planning needs that may arise. PCP: Cassandra Specialists: Winston ground operations crew member Preferred Pharmacy: [facility] Insurance: [employer] [facility] Prescription Benefit: yes Living Will/HPOA: yes, Natalia Robbie LNOK: Living Arrangements: Patient lives with in 1 story home with 1 step to enter the home. Patient normally independent at home but has been requiring more assistance at home and falling. Transportation: DME/HHC: Patient states he has shower chair, raised toilet, cane, walker, and Cpap at home. Patient reviewing list of SNF for choices. SW updated regarding request for SNF. Disposition Plan: SNF pending acceptance and precert. Bruna REIS, RN, CM
--- NOTE | 2020-01-16 14:26 | CASEMGMT ---
Addendum entered by Merle Gomes 01/16/20 15:03: TCU can take pt and will start precert. SW let pt's know. ALBINO Hurd Original Note: As per CM, pt wants referral to TCU. SW called TCU, message left, awaiting return call. JADE HurdS
--- NOTE | 2020-01-16 16:33 | PN_ITS ---
Patient Problems: Active and Suspected Problems (Last Reviewed 01/15/20 @ 03:[address] Matty Sprague MD) Ambulatory dysfunction (Acute) Frequent falls (Acute) Degenerative arthritis of knee, bilateral (Acute) Subjective: Feeling better today. No issues overnight Vitals/I&O's: Vital Signs Temp Pulse Resp BP Pulse Ox 98.1 F 49 L 16 106/49 L 98 01/16/20 15:22 01/16/20 15:22 01/16/20 15:22 01/16/20 15:22 01/16/20 15:22 Oxygen Flow Rate (L/min) 0 Oxygen Delivery Method CPAP Weight: 293 lb 3.437 oz Body Mass Index (BMI) 39.7 Intake and Output for Last 24 Hours 01/14/20 01/15/20 01/16/20 23:59 23:59 23:59 Intake Total 340 / 840 1740 / 1740 Output Total 950 / 1250 900 / 900 Balance -610 / -410 840 / 840 General: Alert, Oriented x3, Cooperative, No apparent distress HEENT: Atraumatic, PERRLA, EOMI, Normocephalic Oral: Moist Mucosa Neck: Supple, No JVD Lungs: Clear to auscultation, Normal air movement, No rhonchi, No wheeze, No rales, Diminished Cardiovascular: Regular rate, Regular Rhythm, Normal S1, Normal S2, No murmurs Abdomen: Soft, Non Tender, Non-Distended, No Hepato-splenomegaly, Obese Extremities: No edema, Capillary Refill Less than 3 Seconds Skin: No rashes, No breakdown Neurological: Neuro grossly intact, Sensory exam intact to light touch and pain Psych/Mental Status: Normal Affect, Appropriate Laboratory Results 01/15/20 22:25: POC Glucose 151 H 01/16/20 06:32: POC Glucose 132 H 01/16/20 11:58: POC Glucose 192 H Current Medications Acetaminophen (Tylenol) 650 mg PO Q6H PRN PRN PRN Reason: Pain Score 1-10/Temp > 100.7 F Last Admin: 01/16/20 12:01 Dose: 650 mg Documented by: Apixaban (Eliquis) 5 mg PO BID [facility] Last Admin: 01/16/20 09:08 Dose: 5 mg Documented by: Aspirin (Ecotrin) 81 mg PO DAILY [facility] Last Admin: 01/16/20 09:08 Dose: 81 mg Documented by: Atorvastatin Calcium (Lipitor) 10 mg PO QHS [facility] Last Admin: 01/15/20 22:27 Dose: 10 mg Documented by: Cholecalciferol (Vitamin D (25mcg)) 5,000 unit PO TU [facility] Dextrose (D50w Syringe) 0 gm IV X1 PRN; Protocol PRN Reason: Hypoglycemia Dextrose (D50w Syringe) 0 gm IV X1 PRN; Protocol PRN Reason: Hypoglycemia Furosemide (Lasix) 40 mg PO DAILY [facility] Last Admin: 01/16/20 09:09 Dose: 40 mg Documented by: Glucagon () 1 mg IM .X1 PRN PRN Reason: Hypoglycemia Insulin Human Lispro (Humalog Kwikpen (Bkc)) 0 unit SC [facility]; Protocol Last Admin: 01/16/20 11:59 Dose: 2 units Documented by: Lisinopril (Zestril) 5 mg PO DAILY [facility] Last Admin: 01/16/20 09:10 Dose: 5 mg Documented by: Metoprolol Tartrate (Lopressor (Beta Paulette)) 12.5 mg PO BID [facility] Last Admin: 01/16/20 09:10 Dose: 12.5 mg Documented by: Mupirocin (Bactroban) 1 applic TOPICAL BID [facility]; Protocol Last Admin: 01/16/20 09:10 Dose: 1 applicatio Documented by: Ondansetron HCl (Zofran) 4 mg IV Q6H PRN PRN PRN Reason: NAUSEA/VOMITING Potassium Chloride (K-Dur) 20 meq PO DAILY [facility] Last Admin: 01/16/20 09:08 Dose: 20 meq Documented by: Sodium Chloride () 10 - 40 ml IV UD PRN PRN Reason: SALINE FLUSH Last Admin: 01/15/20 09:38 Dose: 10 ml Documented by: STROKE Vital Signs/Narrative: Vital Signs Temp Pulse Resp BP Pulse Ox 01/16/20 15:22 98.1 F 49 L 16 106/49 L 98 Medical Necessity - Tobacco Use Smoking Status: Former smoker Tobacco Use: Chew Assessment/Plan All Active Problems (Last Reviewed 01/15/20 @ 03:[address] Matty Sprague MD) Ambulatory dysfunction (Acute) Frequent falls (Acute) Degenerative arthritis of knee, bilateral (Acute) Acute respiratory failure with hypoxia (Resolved) CHF exacerbation (Resolved) 1. Physical debility with multiple falls as well and inability to complete ADLs -He had 2 falls in 1 day at home that were secondary to his just legs giving out. Also his is unable to take care of him as he is not able to assist her with any of his activities of daily living -Continue with PT/OT -Case management consult for possible placement 2. Paroxysmal A. fib/CAD/chronic diastolic CHF/HTN/HLD/morbid obesity -BMI of 39.8, had extensive discussion on lifestyle modifications -Blood pressure is stable, will continue with his home medications -Echo in February 2018 with an EF of 65%. At that time he also had a stress test and a heart cath with findings consistent with coronary artery disease -Continue with Eliquis, aspirin, Lasix lisinopril, metoprolol, Crestor 3. DM 2 -We will hold his metformin and glimepiride and place him on a sliding scale insulin -Accu-Cheks AC at bedtime DVT: Eliquis OBSV E&M: 69899 Subsequent observation care L2
[2020-01-16 21:11] LABS: Bedside Glucose 157 mg/dL (70-110)
[2020-01-16] MEDS: Atorvastatin Calcium 10 MG Tablet PO (21:28)
[2020-01-17 04:35] VITALS: BP 147/60; PULSE 58; RESP 16; TEMP 36.6; O2SAT 96
[2020-01-17 05:13] LABS: Absolute Lymphocyte Count 1.14 X10^3/uL (0.83-4.51); Absolute Neutrophil Count 5.1 X10^3/uL (2.0-7.7); Basophil# 0.04 X10^3/uL; Basophil% 0.5 % (0-1); Eosinophils% 10.4 % (0-5); Hematocrit 32.2 % (40-54); Hemoglobin 10.7 g/dL (13.0-16.5); Lymphocyte # 1.14 X10^3/ul (4.0); Lymphocyte % 14.9 % (19-41); Mean Corp Hgb Conc 33.2 g/dL (32-36); Mean Corpuscular Hgb 31.8 pg (27.0-32.0); Mean Corpuscular Volume 95.5 fL (80-94); Mean Platelet Vol. 9.1 fl (6.2-12.0); Monocyte% 7.8 % (0-10); NRBC Flagged by Analyzer 0 % (0-5); Neutrophil # 5.05 X10^3/uL (2.7-7.7); Platelet Count 160 K/mm3 (150-450); RBC Distribution Width CV 13.4 % (11.6-14.6); RBC Distribution Width SD 46.1 fl (35.1-43.9); Red Blood Count 3.37 M/mm3 (4.6-6.2); White Blood Count 7.7 K/mm3 (4.4-11.0)
[2020-01-17 05:25] LABS: Anion Gap 6 (5-15); BUN 14 mg/dL (7-18); BUN/Creat Ratio 15.9 RATIO (10-20); Calcium,Total 8.3 mg/dL (8.5-10.1); Chloride 98 mmol/L (98-107); Creatinine, Serum 0.88 mg/dL (0.70-1.30); EST Glomerular Filtration Rate 90 mL/min (>60); Est Glom Filt Rate - Afr Amer 109 mL/min (>60); Estimated Creatinine Clearance 84.51 ml/min; Glucose 129 mg/dL (74-106); Potassium 3.8 mmol/L (3.5-5.1); Sodium Level 131 mmol/L (136-145)
[2020-01-17 06:58] VITALS: O2SAT 93
[2020-01-17 07:05] LABS: Bedside Glucose 133 mg/dL (70-110)
[2020-01-17 07:45] LABS: Bedside Glucose 124 mg/dL (70-110)
--- NOTE | 2020-01-17 10:06 | CASEMGMT ---
Addendum entered by Merle Gomes 01/17/20 10:34: Physician states pt can go to TCU today. SW called pt's to let her know(w/pt's permission) once the covid test comes back negative, pt can go to TCU today. SW also let pt know that once the covid test comes back negative he can be discharged today. ALBINO Hurd Original Note: Pt is approved to go to TCU today. SW will notify physician and COVID test will be ordered. SW let pt know, texted physician to see if pt is ready. ALBINO Hurd
--- NOTE | 2020-01-17 10:22 | PCM.TXEXTCAR ---
- Diet 01/14/20 21:44 Diet: Calorie Controlled Food consistency:: Regular Liquid Consistency:: Regular/Thin How many daily calories?: 1800 calorie - Routine Orders/Code Status Code Status: Full Code - Wound(s) Left Elbow Wound Type: Abrasion Left Knee Wound Type: Abrasion - Therapies Physical Therapy: Eval and Treat Occupational Therapy: Eval and Treat - Allergies/Procedures Done in Hospital Allergies/Adverse Reactions: Allergies No Known Allergies Allergy (Verified 01/14/20 17:34) Procedures: None - Type of Care/Length of Stay Estimated LOS: Convalescent Care Less Than 30 days Type of Care Needed: Skilled Rehab Potential: Good Prognosis: Good - Additional Orders/Day of Discharge Day of Discharge: 01/17/20 - Follow Up Care Primary Care Physician: Jaclyn Trujillo NP-C [Primary Care Provider] - Please follow up with your Primary Care Physician in: 2-4 weeks
--- NOTE | 2020-01-17 10:23 | PCM.DC.SUM ---
Discharge Date and Diagnosis - Problem List Patient Problems: Active and Suspected Problems (Last Reviewed 01/15/20 @ 03:[address] Matty Sprague MD) Ambulatory dysfunction (Acute) Frequent falls (Acute) Degenerative arthritis of knee, bilateral (Acute) Date of Admission: 01/14/20 Date of Discharge: 01/17/20 - Primary Discharge Diagnosis Acute Problems: Active Problems (Last Reviewed 01/15/20 @ 03:[address] Matty Sprague MD) Ambulatory dysfunction (Acute) Frequent falls (Acute) Degenerative arthritis of knee, bilateral (Acute) - Secondary Discharge Diagnosis Chronic Problems: Chronic Problems (Last Reviewed 01/15/20 @ 03:[address] Matty Sprague MD) Atherosclerotic heart disease of [place] coronary artery without angina pectoris (Chronic) Pure hypercholesterolemia (Chronic) Essential (primary) hypertension (Chronic) Chronic diastolic heart failure (Chronic) Persistent atrial fibrillation (Chronic) HOLGER (obstructive sleep apnea) (Chronic) Morbid obesity (Chronic) Diabetes mellitus type 2, uncontrolled, without complications (Chronic) Hospital Course and Treatment Imaging Results: XR Pelvis and L Hip: IMPRESSION: No demonstrated definite fracture. If symptoms persist, CT scan of the pelvis is recommended to rule out occult fracture. XR R Knee: IMPRESSION: Degenerative arthrosis. No demonstrated acute fracture. Probable small joint effusion. XR L Knee: IMPRESSION: Degenerative arthrosis. No demonstrated acute osseous injury. CT Pelvis: IMPRESSION: 1. Demineralization of the osseous structures. 2. No demonstrated acute fracture or dislocation. Consults: None Operations: None Procedures: None Summary of Care Provided: Per HPI: The patient is a 69 year old M with the significance of congestive heart failure; obstructive sleep apnea; diabetes mellitus; morbid obesity; atrial fibrillation who presented to the emergency department with a fall. On the day of presentation patient fell 2 times. Also about 2 weeks ago he fell. Patient complains of pain in his bilateral knees and in his left hip. With his fall he sustained an injury in his left elbow and his left knee. Outpatient patient was prescribed physical therapy. He has had 1 session of physical therapy. Reportedly at emergency department patient was unable to get up. Patient lives at home with his . His is unable to take of patient so a decision was made for patient to stay at the hospital. Hospital Course: 1. Physical debility with multiple falls as well as inability to complete [id number] male presented to the hospital after multiple falls in 1 day. He has been getting weaker and had a fall 2 weeks prior to the day of presentation. He had some pain in both of his knees and his left hip. Imaging was unremarkable for any significant damage. PT/OT evaluated him and felt that he met the requirements for group home facility placement. He will transfer to transitional care unit today as a COVID test was negative. I discussed the plan for discharge today and he expressed understanding of the risks and benefits of going to the group home facility today. 2. Paroxysmal A. fib, CAD, chronic diastolic CHF, HTN, HLD, morbid obesity, DM 2 were all monitored and his home medications were continued where appropriate. These complicate his care Patient Problems: Active and Suspected Problems (Last Reviewed 01/15/20 @ 03:[address] Matty Sprague MD) Ambulatory dysfunction (Acute) Frequent falls (Acute) Degenerative arthritis of knee, bilateral (Acute) - Physical Exam Vitals/I&O's: Vital Signs Temp Pulse Resp BP Pulse Ox 97.9 F 58 L 16 147/60 H 93 01/17/20 04:35 01/17/20 04:35 01/17/20 04:35 01/17/20 04:35 01/17/20 06:58 Oxygen Flow Rate (L/min) 0 Oxygen Delivery Method Room Air Weight: 293 lb 3.437 oz Body Mass Index (BMI) 39.7 Intake and Output for Last 24 Hours 01/15/20 01/16/20 01/17/20 23:59 23:59 23:59 Intake Total 340 / 840 2140 / 2140 1300 / 1300 Output Total 950 / 1250 1300 / 1300 1000 / 1000 Balance -610 / -410 840 / 840 300 / 300 General: Alert, Oriented x3, Cooperative, No apparent distress HEENT: Atraumatic, PERRLA, EOMI, Normocephalic Oral: Moist Mucosa Neck: Supple, No JVD Lungs: Clear to auscultation, Normal air movement, No rhonchi, No wheeze, No rales, Diminished Cardiovascular: Regular rate, Regular Rhythm, Normal S1, Normal S2, No murmurs Abdomen: Soft, Non Tender, Non-Distended, No Hepato-splenomegaly, Obese Extremities: No edema, Capillary Refill Less than 3 Seconds Skin: No rashes, No breakdown Neurological: Neuro grossly intact, Sensory exam intact to light touch and pain Psych/Mental Status: Normal Affect, Appropriate Laboratory Results 01/16/20 11:58: POC Glucose 192 H 01/16/20 17:00: POC Glucose 157 H 01/16/20 21:25: POC Glucose 124 H 01/17/20 05:06: WBC 7.7, RBC 3.37 L, Hgb 10.7 L, Hct 32.2 L, MCV 95.5 H, MCH 31.8, MCHC 33.2, RDW Std Deviation 46.1 H, RDW Coeff of Shantell 13.4, Plt Count 160, MPV 9.1, Immature Gran % (Auto) 0.400, Neut % (Auto) 66.0, Lymph % (Auto) 14.9 L, [place] % (Auto) 7.8, Eos % (Auto) 10.4 H, Baso % (Auto) 0.5, Absolute Neuts (auto) 5.1, Absolute Lymphs (auto) 1.14, Nucleated RBC % 0 01/17/20 05:06: Sodium 131 L, Potassium 3.8, Chloride 98, Carbon Dioxide 27.0, Anion Gap 6, BUN 14, Creatinine 0.88, Estim Creat Clear Calc 84.51, Est GFR (MDRD) Af Amer 109, Est GFR (MDRD) Non-Af 90, BUN/Creatinine Ratio 15.9, Glucose 129 H, Calcium 8.3 L 01/17/20 06:43: POC Glucose 133 H Current Medications Acetaminophen (Tylenol) 650 mg PO Q6H PRN PRN PRN Reason: Pain Score 1-10/Temp > 100.7 F Last Admin: 01/16/20 12:01 Dose: 650 mg Documented by: Apixaban (Eliquis) 5 mg PO BID [facility] Last Admin: 01/16/20 21:26 Dose: 5 mg Documented by: Aspirin (Ecotrin) 81 mg PO DAILY [facility] Last Admin: 01/16/20 09:08 Dose: 81 mg Documented by: Atorvastatin Calcium (Lipitor) 10 mg PO QHS [facility] Last Admin: 01/16/20 21:28 Dose: 10 mg Documented by: Cholecalciferol (Vitamin D (25mcg)) 5,000 unit PO [facility] Dextrose (D50w Syringe) 0 gm IV X1 PRN; Protocol PRN Reason: Hypoglycemia Dextrose (D50w Syringe) 0 gm IV X1 PRN; Protocol PRN Reason: Hypoglycemia Diclofenac Epolamine (Flector) 2 patch TOPICAL BID [facility]; Protocol Furosemide (Lasix) 40 mg PO DAILY [facility] Last Admin: 01/16/20 09:09 Dose: 40 mg Documented by: Glucagon () 1 mg IM .X1 PRN PRN Reason: Hypoglycemia Insulin Human Lispro (Humalog Kwikpen (Bkc)) 0 unit SC [facility]; Protocol Last Admin: 01/17/20 06:58 Dose: Not Given Documented by: Lisinopril (Zestril) 5 mg PO DAILY [facility] Last Admin: 01/16/20 09:10 Dose: 5 mg Documented by: Metoprolol Tartrate (Lopressor (Beta Paulette)) 12.5 mg PO BID [facility] Last Admin: 01/16/20 21:30 Dose: Not Given Documented by: Mupirocin (Bactroban) 1 applic TOPICAL BID [facility]; Protocol Last Admin: 01/16/20 21:26 Dose: 1 applicatio Documented by: Ondansetron HCl (Zofran) 4 mg IV Q6H PRN PRN PRN Reason: NAUSEA/VOMITING Potassium Chloride (K-Dur) 20 meq PO DAILY [facility] Last Admin: 01/16/20 09:08 Dose: 20 meq Documented by: Sodium Chloride () 10 - 40 ml IV UD PRN PRN Reason: SALINE FLUSH Last Admin: 01/15/20 09:38 Dose: 10 ml Documented by: Home Medications: Medications to take at Discharge glimepiride 2 mg tablet 4 mg PO BIDCM 03/12/18 metformin 500 mg tablet 1,000 mg PO BID tab 03/12/18 rosuvastatin 5 mg tablet 5 mg PO QHS 03/12/18 aspirin 81 mg tablet,delayed release 81 mg PO DAILY 04/05/18 Cholecalciferol (Vitamin D3) [Vitamin D3] 5,000 unit PO TU 05/04/19 Metoprolol Tartrate [Lopressor (beta paulette)] 12.5 mg PO BID 05/04/19 Apixaban [Eliquis] 5 mg PO BID 01/14/20 Furosemide [Lasix] 40 mg PO DAILY 01/14/20 Lisinopril [Zestril] 5 mg PO DAILY 01/14/20 Potassium Chloride [K-Dur] 20 meq PO DAILY 01/14/20 Primary Care Physician: Jaclyn Trujillo NP-C [Primary Care Provider] - Please follow up with your Primary Care Physician in: 2-4 weeks Disposition: Residential facility Minutes spent on discharge:: 35 Patient Condition:: Stable Medical Necessity - Tobacco Use Smoking Status: Former smoker Tobacco Use: Chew Meaningful Use Info Meaningful Use Diagnoses (Choose all that apply): None applicable OBSV E&M: 00603 Observation care discharge
[2020-01-17 10:33] VITALS: BP 132/61; PULSE 56; RESP 18; TEMP 36.6; O2SAT 98
[2020-01-17 10:38] VITALS: PULSE 66
[2020-01-17] MEDS: Metoprolol Tartrate 25 MG Tablet 12.5 MG PO (10:38)
[2020-01-17] MEDS: Furosemide 40 MG Tablet PO (10:39)
[2020-01-17] MEDS: Lisinopril 5 MG Tablet PO (10:39)
[2020-01-17] MEDS: Aspirin E.C. 81 MG Tablet PO (10:39)
[2020-01-17] MEDS: APIXABAN 5 MG TABLET PO (10:39)
[2020-01-17] MEDS: Mupirocin Ointment 22gm Tube 1 APPLIC TOPICAL (10:40)
[2020-01-17] MEDS: Insulin Lispro 100 UNIT/ML INSULN.PEN SC (11:28)
[2020-01-17 11:50] LABS: Bedside Glucose 174 mg/dL (70-110)
--- NOTE | 2020-01-17 13:21 | CASEMGMT ---
Covid test came back negative. Pt can go to TCU today. GLO faxed discharge instructions to TCU. SW let Ekaterina in TCU know that the Covid test came back negative. GLO let bedside RN know pt can go to TCU today. SW let pt and know pt can go to TCU today, they are in agreement w/plan. No further needs, pt to TCU today. ALBINO Hurd
[2020-01-17 14:35] VITALS: BP 125/67; PULSE 54; RESP 16; TEMP 36.5; O2SAT 95
--- NOTE | 2020-01-18 11:47 | CASEMGMT ---
RN CM NOTE: Pt was discharged to TCU yesterday 01/17/20 but then left AMA to home. Phone call placed to pt at this time to inquire how he has been doing since returning home and to inquire if RN CM can provide any assistance. No answer. VM message left for pt to return call to RN CM if any assistance is needed. Phone number provided. Xochilt REIS RN CM
== END 2020-01-17 15:05 | disposition skilled nursing facility (03) ==
LOC: ED 20:41 → MS3 21:31
PROVIDERS: Internal Medicine; Admitting Provider Hospitalist; Emergency Provider Emergency Medicine; PCP Nurse Practitioner Family; Visit Provider Family Medicine
DX: M17.0 Bilateral primary osteoarthritis of knee (principal); R29.6 Repeated falls; S51.012A Laceration without foreign body of left elbow, initial encounter; J44.9 Chronic obstructive pulmonary disease, unspecified; E11.65 Type 2 diabetes mellitus with hyperglycemia; E66.01 Morbid (severe) obesity due to excess calories; G47.33 Obstructive sleep apnea (adult) (pediatric); I48.19 Other persistent atrial fibrillation; I11.0 Hypertensive heart disease with heart failure; I50.32 Chronic diastolic (congestive) heart failure; I25.10 Atherosclerotic heart disease of native coronary artery without angina pectoris; F17.220 Nicotine dependence, chewing tobacco, uncomplicated; Z68.41 Body mass index [BMI] 40.0-44.9, adult; Z79.899 Other long term (current) drug therapy; Z79.82 Long term (current) use of aspirin; Z79.01 Long term (current) use of anticoagulants; Z79.84 Long term (current) use of oral hypoglycemic drugs; W19.XXXA Unspecified fall, initial encounter; Y93.9 Activity, unspecified; Y92.9 Unspecified place or not applicable; E78.5 Hyperlipidemia, unspecified
CPT/HCPCS: 36415; 72192; 73502; 73562; 80048; 82962; 85025; 87635; 94799; 96374; 97116; 97162; 97166; 97530; 99218; 99285; G2023; A4216; G0378; J2405; U0003

== ENCOUNTER 2020-01-17 15:05 | Inpatient (IN) | payer MEDICARE, SELFPAY ==
--- NOTE | 2020-01-17 15:32 | CASEMGMT ---
Social Work Upon setting up bipap, nursing found a bag of chewing tobacco. Pt states he chews several times a day. Nursing explained to pt TCU is a tobacco-free facility and would need to be locked up at nurse's station. Pt became extremely upset, yelling at staff and demanding to have bag of tobacco. Pt yelled, give me my tobacco or I'm getting the hell out of here. Met with pt and explained TCU policy. Pt stated that he would leave. Explained AMA rights - provided AMA for pt signature and gave copy to pt. Pt agreeable to AMA. Inquired if pt could get transported home. Pt responded, just wheel me downstairs and I will find a ride. Nursing assisted pt to wheelchair. Spoke with physician and notified of above. Pt inquired about [facility]. SW stated unsure if [facility] is tobacco free facility, but offered to inquire. Pt stated no, just call and see if they have a bed for me, don't tell them about the chew. Informed pt SW would provide all information to [facility]. Pt responded, then forget it. Pt discharged from unit. Alysia Rivero, [employer]
--- NOTE | 2020-01-17 15:41 | NURSING ---
pt assisted x3 staff members from bed to WC. stood for approx 30 seconds then sat in WC. RN taking pt to main entrance via WC for family to pickling operator.
--- NOTE | 2020-01-17 16:43 | PCM.HP.STD ---
Problem List (1) Debility Status: Acute (2) Tobacco dependence due to chewing tobacco Status: Acute History of Present Illness Date of Admission: 01/17/20 The patient is a 69 year old M [] Past Medical History Past Medical History (Chronic Problems): Chronic Problems (Last Reviewed 01/15/20 @ 03:[address] Matty Sprague MD) Atherosclerotic heart disease of [place] coronary artery without angina pectoris (Chronic) Pure hypercholesterolemia (Chronic) Essential (primary) hypertension (Chronic) Chronic diastolic heart failure (Chronic) Persistent atrial fibrillation (Chronic) HOLGER (obstructive sleep apnea) (Chronic) Morbid obesity (Chronic) Diabetes mellitus type 2, uncontrolled, without complications (Chronic) Medical History: Medical History (Last Reviewed 01/15/20 @ 03:[address] Matty Sprague MD) Atherosclerotic heart disease of [place] coronary artery without angina pectoris (Chronic) I25.10 Pure hypercholesterolemia (Chronic) E78.00 Essential (primary) hypertension (Chronic) I10 SOB (shortness of breath) on exertion (Inactive) R06.02 Abnormal stress test (Inactive) R94.39 Chronic diastolic heart failure (Chronic) I50.32 Persistent atrial fibrillation (Chronic) I48.1 COPD with acute exacerbation (Inactive) J44.1 PVC's (premature ventricular contractions) (Inactive) I49.3 HOLGER (obstructive sleep apnea) (Chronic) G47.33 Morbid obesity (Chronic) E66.01 Diabetes mellitus type 2, uncontrolled, without complications (Chronic) E11.65 Abdominal pain R10.9 Arthritis M19.90 Depression F32.9 Gout M10.9 Nausea & vomiting R11.2 Weight loss R63.4 Acute respiratory failure with hypoxia (Resolved) J96.01 CHF exacerbation (Resolved) I50.9 Allergies No Known Allergies Allergy (Verified 01/14/20 17:34) Home Medications: Ambulatory Orders Medication Instructions Recorded glimepiride 2 mg tablet 4 mg PO BIDCM 03/12/18 metformin 500 mg tablet 1,000 mg PO BID tab 03/12/18 rosuvastatin 5 mg tablet 5 mg PO QHS 03/12/18 aspirin 81 mg tablet,delayed 81 mg PO DAILY 04/05/18 release Cholecalciferol (Vitamin D3) 5,000 unit PO TU 05/04/19 [Vitamin D3] Metoprolol Tartrate [Lopressor 12.5 mg PO BID 05/04/19 (beta enrike)] Apixaban [Eliquis] 5 mg PO BID 01/14/20 Furosemide [Lasix] 40 mg PO DAILY 01/14/20 Lisinopril [Zestril] 5 mg PO DAILY 01/14/20 Potassium Chloride [K-Dur] 20 meq PO DAILY 01/14/20 Surgical History: Surgical History (Last Reviewed 01/15/20 @ 03:[address] Matty Sprague MD) History of appendectomy Z90.49 History of exploratory laparotomy Z98.890 History of kidney surgery Z98.890 Surgical History: tonsillectomy Psychiatric History: No pertinent psych hx Smoking Status: Former smoker - *Family History Paternal Family History: Family History (Last Reviewed 01/15/20 @ 03:[address] Matty Sprague MD) Mother CHF (congestive heart failure) Father Cancer History Items: Diabetes VTE Information - Inpt Only VTE Present on Admission: No VTE Mechan Device Prophylaxis: Knee High GERALDINE Hose VTE Pharm Prophylaxis ordered?: No - Physical Exam Vitals/I&O's: Body Mass Index (BMI) 39.7 Current Medications Non-Formulary Medication (Cholecalciferol (Vitamin D3) [Vitamin D3]) 5,000 unit PO [facility] [place]/Plan All Active Problems (Last Reviewed 01/15/20 @ 03:[address] Matty Sprague MD) Ambulatory dysfunction (Acute) Frequent falls (Acute) Degenerative arthritis of knee, bilateral (Acute) Debility (Acute) Tobacco dependence due to chewing tobacco (Acute) Acute respiratory failure with hypoxia (Resolved) CHF exacerbation (Resolved) Resident arrived on TCU, nursing staff found chewing tobacco hidden in his CPAP machine, Resident was notified the chewing tobacco would be in lock box for safe keeping, he refused to have chewing tobacco locked up and left against medical advice. Resident was not seen.
--- NOTE | 2020-01-17 16:47 | DCINST_ITS ---
Allergies/Adverse Reactions: Allergies No Known Allergies Allergy (Verified 01/14/20 17:34) Medications to take at Discharge glimepiride 2 mg tablet 4 mg PO BIDCM 03/12/18 metformin 500 mg tablet 1,000 mg PO BID tab 03/12/18 rosuvastatin 5 mg tablet 5 mg PO QHS 03/12/18 aspirin 81 mg tablet,delayed release 81 mg PO DAILY 04/05/18 Cholecalciferol (Vitamin D3) [Vitamin D3] 5,000 unit PO TU 05/04/19 Metoprolol Tartrate [Lopressor (beta enrike)] 12.5 mg PO BID 05/04/19 Apixaban [Eliquis] 5 mg PO BID 01/14/20 Furosemide [Lasix] 40 mg PO DAILY 01/14/20 Lisinopril [Zestril] 5 mg PO DAILY 01/14/20 Potassium Chloride [K-Dur] 20 meq PO DAILY 01/14/20 Primary Care Physician: Jaclyn Trujillo NP-C [Primary Care Provider] - Please follow up with your Primary Care Physician in: 1 week. Test Results: Test results from this visit will be discussed in further detail at your follow- up appointment, if applicable. Proposed Discharge Date: 01/17/20
--- NOTE | 2020-01-17 16:48 | DS.PCM_ITS ---
Discharge Date and Diagnosis Date of Admission: 01/17/20 Date of Discharge: 01/17/20 - Secondary Discharge Diagnosis Chronic Problems: Chronic Problems (Last Reviewed 01/15/20 @ 03:[address] Matty Sprague MD) Atherosclerotic heart disease of [place] coronary artery without angina pectoris (Chronic) Pure hypercholesterolemia (Chronic) Essential (primary) hypertension (Chronic) Chronic diastolic heart failure (Chronic) Persistent atrial fibrillation (Chronic) HOLGER (obstructive sleep apnea) (Chronic) Morbid obesity (Chronic) Diabetes mellitus type 2, uncontrolled, without complications (Chronic) Hospital Course and Treatment Operations: None Procedures: None Summary of Care Provided: The patient is a 69 year old Male Resident arrived on TCU, nursing staff found chewing tobacco hidden in his CPAP machine, Resident was notified the chewing tobacco would be in lock box for safe keeping, he refused to have chewing tobacco locked up and left against medical advice. Resident not seen. - Physical Exam Vitals/I&O's: Body Mass Index (BMI) 39.7 Current Medications Non-Formulary Medication (Cholecalciferol (Vitamin D3) [Vitamin D3]) 5,000 unit PO TU [facility] Medications: Medications to take at Discharge glimepiride 2 mg tablet 4 mg PO BIDCM 03/12/18 metformin 500 mg tablet 1,000 mg PO BID tab 03/12/18 rosuvastatin 5 mg tablet 5 mg PO QHS 03/12/18 aspirin 81 mg tablet,delayed release 81 mg PO DAILY 04/05/18 Cholecalciferol (Vitamin D3) [Vitamin D3] 5,000 unit PO TU 05/04/19 Metoprolol Tartrate [Lopressor (beta enrike)] 12.5 mg PO BID 05/04/19 Apixaban [Eliquis] 5 mg PO BID 01/14/20 Furosemide [Lasix] 40 mg PO DAILY 01/14/20 Lisinopril [Zestril] 5 mg PO DAILY 01/14/20 Potassium Chloride [K-Dur] 20 meq PO DAILY 01/14/20 Primary Care Physician: Jaclyn Trujillo NP-C [Primary Care Provider] - Please follow up with your Primary Care Physician in: 1 week. Medical Necessity - Tobacco Use Smoking Status: Former smoker Meaningful Use Info Meaningful Use Diagnoses (Choose all that apply): None applicable
== END 2020-01-17 15:43 | disposition left against medical advice (07) | DRG 292 ==
PROVIDERS: Admitting Provider Family Medicine Geriatric Medicine; PCP Nurse Practitioner Family; Visit Provider Family Medicine Geriatric Medicine
DX: I11.0 Hypertensive heart disease with heart failure (principal); I48.19 Other persistent atrial fibrillation; G47.33 Obstructive sleep apnea (adult) (pediatric); E66.01 Morbid (severe) obesity due to excess calories; E11.65 Type 2 diabetes mellitus with hyperglycemia; I25.10 Atherosclerotic heart disease of native coronary artery without angina pectoris; E78.00 Pure hypercholesterolemia, unspecified; I50.32 Chronic diastolic (congestive) heart failure; F17.220 Nicotine dependence, chewing tobacco, uncomplicated; Z68.39 Body mass index [BMI] 39.0-39.9, adult; J44.9 Chronic obstructive pulmonary disease, unspecified; M19.90 Unspecified osteoarthritis, unspecified site

== ENCOUNTER 2020-01-24 11:59 | Observation (INO) | payer MEDICARE, SELFPAY ==
[2020-01-24] VITALS (9 sets, daily range): BP systolic 121–150; BP diastolic 51–90; PULSE 65–112; RESP 16–20; TEMP 36.6–37.1; O2SAT 96–100; BMI 38.0; BMI 37.7
--- NOTE | 2020-01-24 13:49 | RAD_ITS ---
STUDY: X-RAY CHEST REASON FOR EXAM: Male, 69 years old. Pt with generalized weakness. States had called dr for order for therapy [facility]. pt unsure if plan was to admit. TECHNIQUE: Single AP portable view of the chest. COMPARISON: Comparison is made with prior study dated October 01, 2018. FINDINGS: EKG electrodes are seen. The lungs are clear and expanded. There is no demonstrated pleural abnormality. There is borderline cardiomegaly. Normal mediastinum and gurvinder. Normal visualized pulmonary arteries. There is atherosclerotic calcification of the aortic arch with tortuosity. Normal visualized thoracic spine. Normal visualized ribs, clavicles, and shoulders. There is no demonstrated abnormality of the visualized soft tissue structures of the upper abdomen. RAD/Chest 1 View (Portable) IMPRESSION: No acute abnormality is seen. Electronically Signed: Ryan Sood, at 14:29 EDT , Service support ,
--- NOTE | 2020-01-24 13:49 | EKG12_ITS ---
Test Reason : WEAKNESS Blood Pressure : / mmHG Vent. Rate : 088 BPM Atrial Rate : 065 BPM P-R Int : 000 ms QRS Dur : 082 ms QT Int : 376 ms P-R-T Axes : 000 059 040 degrees QTc Int : 454 ms Atrial fibrillation with premature ventricular or aberrantly conducted complexes Low voltage QRS Abnormal ECG Confirmed by JO RAMOS, ALEX ([id number]), senior technical editor FAVIOLA CUNHA ([id number]) on 01/26/2020 9:38:47 AM Referred By: LÁZARO Confirmed By:ALEX OSORIO MD
--- NOTE | 2020-01-24 13:52 | ED.DCSUM_ITS ---
History of Present Illness Chief Complaint: Weakness Informant: Patient Narrative: Patient is a 69-year-old male with a past medical history of A. fib on Eliquis, HOLGER who presents to the emergency department for generalized weakness. States that he had 2 falls last week. He has not been able to get out of the bed over the past week. He lives at home with his . States that he just feels too weak to get out of bed. No unilateral weakness. Denies any chest pain, shortness of breath or heart racing. Denies any abdominal pain or nausea/vomiting. States he has not been eating over the past week. Has only had one bowel movement recently. No urinary symptoms. Denies any headache, vision changes. Denies hitting his head during his falls. He is complaining of some right sided lower back pain since his fall. No midline spine tenderness. Does not know any aggravating or relieving factors. Past Medical History - Allergies and Home Meds Allergies/Adverse Reactions: Allergies No Known Allergies Allergy (Verified 01/24/20 12:04) Prior records reviewed: Yes Past Medical History: - - CHF, diabetes, HOLGER, atrial fibrillation, hypertension Surgical History: tonsillectomy Lives: Spouse/ Significant Other Smoking Status: Former smoker Drugs: None - Family History Paternal Family History: Family History (Last Reviewed 01/15/20 @ 03:[address] Matty Sprague MD) Mother CHF (congestive heart failure) Father Cancer Family History: Reports: Diabetes Review of Systems All systems negative except as indicated General: Denies: Chills, Fever, Sweats Eyes: Denies: Visual changes - bilaterally, Diplopia ENT: Denies: Rhinorrhea, Sore throat Cardiovascular: Denies: Chest pain, Palpitations Respiratory: Denies: Dyspnea, Cough, Dyspnea on exertion Gastrointestinal: Denies: Abdominal pain, Nausea, Vomiting, Diarrhea, Melena, Hematochezia Genitourinary: Denies: Dysuria, Hematuria, Frequency Musculoskeletal: Reports: Back pain. Denies: Extremity Pain Skin: Denies: Rash, Wounds Neurological: Reports: Weakness - Generalized. Denies: Headache, Numbness Physical Exam Vital Signs/Narrative: Vital Signs Temp Pulse Resp BP Pulse Ox 01/24/20 12:04 98.8 F 106 H 18 147/57 H 99 01/24/20 12:01 98.8 F 106 H 18 147/57 H 99 Inital Vital Signs reviewed: Yes General: Well nourished, Well developed, Obese, No Acute Distress Head: Normocephalic, Atraumatic Eyes: Perrl, EOMI ENT: Moist mucous membranes, No rhinorrhea Neck: Supple, Nontender Cardiovascular: Regular rate, Regular rhythm, No murmurs Respiratory: No distress, CTA bilaterally, Chest nontender Abdomen: Soft, Nontender, Nondistended, Normal bowel sounds Back: Nontender, Normal Inspection. Negative for: Spinal tenderness Extremities: Nontender, No edema. Negative for: Tenderness, Edema, Calf Tenderness Skin: Normal color, No rash Neurological: Alert, Oriented x3, Cranial nerves II-XII grossly intact, Normal Strength, Normal Sensation, - - Patient has weakness of the lower extremities bilaterally. Unable to hold up the legs against gravity. Psychological: Normal affect, Normal Mood Diagnostic/Tx/Re-eval - Medical Decision Making Patient presents to emergency department for frequent falls and generalized weakness. Sounds like patient is unable to take care of himself at home. He was recently admitted to the hospital but left AGAINST MEDICAL ADVICE as he could not chew tobacco. Patient's liver did not reveal any significant abnormality to explain his generalized weakness at this time. But given patient unable to care for himself will bring him to the hospital for further evaluation and management. He otherwise has been stable throughout ED stay. He is agreeable to staying in the hospital at this time. ED Disposition - Plan for ED Patient: Disposition: Acute Care Hospital [facility] Diagnosis: Generalized weakness, Ambulatory dysfunction, Hyperglycemia
--- NOTE | 2020-01-24 13:54 | CM.ED ---
Social Work Consult: Senior Care Placement Informant: Dr. Mccormick From chart review: Patient discharged from TCU on 01/17/2020 AMA due to having tobacco on person. Patient was educated that [facility] is a smoke free campus, patient did not want to stay and left AMA. Patient admitting diagnosis to TCU was debility/falls/weakness. Information obtained from: Chart, nursing staff, patient. Marital/Social History: to Natalia Avalos. Patient is own person. Patient denies having a HCPOA and declines information on this. Patient states my is the boss. Living Situation: Lives with spouse in a 1-story home with a threshold to enter. ADL's/Mobility: Patient states to be bed bound for the past week. Patient states to use urinal and trash can for bowel movements. DME: C-Pap through [employer]. Cane. Walker. PCP: Dr. Trujillo. Pharmacy: [facility] in [place]. Mental Health Treatment/History: Denies. States just naturally crazy. Denies any history of inpatient psychiatric placement. Denies any suicidal/homicidal thoughts/plans/intents. Patient states to want to get well again. Substance Abuse/Use: Patient reports I use to chew tobacco now and then. Patient states to have stopped using chew tobacco this morning. Support/Resources: Spouse as main support. No home health services or active community services. Assessment: Met with patient in room. Introduced self as well as social service liaison role. Patient agreeable to speaking with this social service liaison. Patient states to have came to the hospital for intermediate placement. Patient states to have called patient primary care physician and was directed to come to the hospital. Patient states to be unable to care for self at home and patient spouse is not able to meet patient current needs. Patient states I need to get therapy. Patient states to have weak legs. Patient states facility of choice is [facility] ([facility]). Educated patient on pre-cert process. Patient voicing understanding to this. [facility] confirming to accept patient insurance. No patient information provided at this point. Updated Dr. Mccormick to patient need for SNF placement and pre-cert. Plan is for admission as precert with patient insurance take multiple days. PLAN: Admit to [facility]. SOUMYA Carrillo
[2020-01-24 14:09] LABS: Basophil# 0.07 X10^3/uL; Basophil% 1.2 % (0-1); Hematocrit 42.4 % (40-54); Hemoglobin 14.1 g/dL (13.0-16.5); Lymphocyte % 21.5 % (19-41); Mean Corp Hgb Conc 33.3 g/dL (32-36); Mean Corpuscular Hgb 31.8 pg (27.0-32.0); Mean Corpuscular Volume 95.7 fL (80-94); Mean Platelet Vol. 8.9 fl (6.2-12.0); Monocyte# 0.32 X10^3/uL; Monocyte% 5.3 % (0-10); NRBC Flagged by Analyzer 0 % (0-5); Neutrophil # 4.04 X10^3/uL (2.7-7.7); Neutrophil % 66.7 % (47-70); Platelet Count 337 K/mm3 (150-450); RBC Distribution Width CV 13.1 % (11.6-14.6); RBC Distribution Width SD 46.1 fl (35.1-43.9); Red Blood Count 4.43 M/mm3 (4.6-6.2); White Blood Count 6.1 K/mm3 (4.4-11.0)
[2020-01-24 14:21] LABS: Anion Gap 7 (5-15); BUN 8 mg/dL (7-18); Calcium,Total 9.2 mg/dL (8.5-10.1); Chloride 98 mmol/L (98-107); Creatinine, Serum 0.89 mg/dL (0.70-1.30); EST Glomerular Filtration Rate 90 mL/min (>60); Est Glom Filt Rate - Afr Amer 108 mL/min (>60); Estimated Creatinine Clearance 83.56 ml/min; Glucose 234 mg/dL (74-106); Magnesium 1.9 mg/dL (1.6-2.6); Potassium 3.4 mmol/L (3.5-5.1); Sodium Level 135 mmol/L (136-145)
--- NOTE | 2020-01-24 15:01 | HP.PCM_ITS ---
History of Present Illness Date of Admission: 01/24/20 Chief Complaint: weakness The patient is a 69 year old M with an extensive past medical history as outlined was admitted through the ED on 01/24/2020 with a complaint of weakness. Patient has had 2 falls in the last week was actually in the hospital last week and was told he needed therapy. He signed out AGAINST MEDICAL ADVICE because he was not allowed to chew his tobacco in the hospital. However since he went home, weakness has been getting worse and he is unable to get out of bed or do anything for himself. He denied any focal weakness, any fever or chills, any nausea vomiting, shortness of breath or palpitations and has not been eating well because he has been lying in bed. Review systems otherwise negative. In the ED, vitals were temperature of 98.6 Fahrenheit with blood pressure of 150/51, pulse rate of 98 and respiratory rate of 16. Was saturating at 99% was on his CPAP at time of review. Chemistry showed sodium of 135 with potassium of 3.4 and creatinine of 0.89. Hemoglobin was 14.1 and WBC 6.1 with platelets of 337. Initial troponin was negative. Chest x-ray showed no acute abnormalities. He has been admitted to manage for debility and progressive weakness due to mechanical falls. [] Past Medical History Past Medical History (Chronic Problems): Chronic Problems (Last Reviewed 01/15/20 @ 03:[address] Matty Sprague MD) Atherosclerotic heart disease of [place] coronary artery without angina pectoris (Chronic) Pure hypercholesterolemia (Chronic) Essential (primary) hypertension (Chronic) Chronic diastolic heart failure (Chronic) Persistent atrial fibrillation (Chronic) HOLGER (obstructive sleep apnea) (Chronic) Morbid obesity (Chronic) Diabetes mellitus type 2, uncontrolled, without complications (Chronic) Medical History: Medical History (Last Reviewed 01/15/20 @ 03:[address] Matty Sprague MD) Atherosclerotic heart disease of [place] coronary artery without angina pectoris (Chronic) I25.10 Pure hypercholesterolemia (Chronic) E78.00 Essential (primary) hypertension (Chronic) I10 SOB (shortness of breath) on exertion (Inactive) R06.02 Abnormal stress test (Inactive) R94.39 Chronic diastolic heart failure (Chronic) I50.32 Persistent atrial fibrillation (Chronic) I48.1 COPD with acute exacerbation (Inactive) J44.1 PVC's (premature ventricular contractions) (Inactive) I49.3 HOLGER (obstructive sleep apnea) (Chronic) G47.33 Morbid obesity (Chronic) E66.01 Diabetes mellitus type 2, uncontrolled, without complications (Chronic) E11.65 Abdominal pain R10.9 Arthritis M19.90 Depression F32.9 Gout M10.9 Nausea & vomiting R11.2 Weight loss R63.4 Acute respiratory failure with hypoxia (Resolved) J96.01 CHF exacerbation (Resolved) I50.9 Allergies No Known Allergies Allergy (Verified 01/24/20 12:04) Home Medications: Ambulatory Orders Medication Instructions Recorded glimepiride 2 mg tablet 4 mg PO BIDCM 03/12/18 rosuvastatin 5 mg tablet 5 mg PO QHS 03/12/18 Metoprolol Tartrate [Lopressor 12.5 mg PO BID 05/04/19 (beta enrike)] Apixaban [Eliquis] 5 mg PO BID 01/14/20 Furosemide [Lasix] 40 mg PO DAILY 01/14/20 Lisinopril [Zestril] 5 mg PO DAILY 01/14/20 Potassium Chloride [K-Dur] 20 meq PO DAILY 01/14/20 Aspirin E.C. [Ecotrin] 81 mg PO DAILY@0800 01/24/20 Ergocalciferol [Vitamin D] 50,000 unit PO TU 01/24/20 Metformin HCl 1,000 mg PO BID 01/24/20 Surgical History: Surgical History (Last Reviewed 01/15/20 @ 03:[address] Matty Sprague MD) History of appendectomy Z90.49 History of exploratory laparotomy Z98.890 History of kidney surgery Z98.890 Surgical History: tonsillectomy Psychiatric History: No pertinent psych hx Lives: Spouse/ Significant Other Smoking Status: Former smoker Tobacco Use: Cigarettes, Chew Drugs: None - *Family History Paternal Family History: Family History (Last Reviewed 01/15/20 @ 03:[address] Matty Sprague MD) Mother CHF (congestive heart failure) Father Cancer History Items: Diabetes Review of Systems Constitutional: Denies: Chills, Fever, Malaise, Weakness, Weight Change Eyes: Denies: Blurred vision HEENT: Denies: Head Aches, Sinus Congestion, Sinus Drainage Cardiovascular: Denies: Chest Pain, Chest Pressure, Chest Tightness, Heaviness, Light Headedness, Orthopnea, Palpitations Respiratory: Denies: Cough, Shortness of Breath, Shortness of breath at rest, Shortness of breath upon exertion, Sputum production Gastrointestinal: Denies: Abdominal Pain, Nausea, Vomiting Genitourinary: Denies: Dysuria Musculoskeletal: Reports: Back Pain. Denies: Joint Pain, Joint Tenderness Skin: Denies: Rash, Wounds Neurological: Reports: - - weakness. Denies: Focal weakness, Numbness, Tingling Psychiatric: Denies: Anxiety, Depression, Homicidal Ideations, Suicidal Ideations Hematologic/ Lymphatic: Denies: Easy Bruising, Easy Bleeding VTE Information - Inpt Only VTE Present on Admission: Yes - Physical Exam Vitals/I&O's: Vital Signs Temp Pulse Resp BP Pulse Ox 98.8 F 106 H 18 147/57 H 99 01/24/20 12:04 01/24/20 12:04 01/24/20 12:04 01/24/20 12:04 01/24/20 12:04 Oxygen Delivery Method Room Air Weight: 280 lb Body Mass Index (BMI) 38.0 General: Alert, Oriented x3, Cooperative, No apparent distress, - - morbid obesity HEENT: Atraumatic, PERRLA, EOMI, Normocephalic Oral: Moist Mucosa Neck: Supple, No JVD, Negative Carotid Bruits Lungs: Clear to auscultation, Normal air movement, No rhonchi, No wheeze, No rales, - - on CPAP at time of review Cardiovascular: Normal S1, Normal S2, No murmurs, Irregular Rate - afib, rate controlled Abdomen: Bowel Sounds Present, Soft, Non Tender, Non-Distended, No Hepato- splenomegaly Extremities: No clubbing, No cyanosis, No edema, Capillary Refill Less than 3 Seconds Skin: No rashes, No breakdown, - - erythematous hyperpigmentation on both shins, appears to be stasis dermatitis Musculoskeletal: No Tenderness to Palpation of Joints or Extremities Lymphatic: No Cervical, Supraclavicular, or Inguinal Adenopathy Neurological: Cranial nerves II-XII grossly intact, Neuro grossly intact, Motor Exam 5/5 strength throughout Psych/Mental Status: Normal Affect, Appropriate, Alert and oriented to time, place, person, mood and affect Laboratory Results 01/24/20 11:46: WBC 6.1, RBC 4.43 L, Hgb 14.1, Hct 42.4, MCV 95.7 H, MCH 31.8, MCHC 33.3, RDW Std Deviation 46.1 H, RDW Coeff of [place] 13.1, Plt Count 337, MPV 8.9, Immature Gran % (Auto) 0.300, Neut % (Auto) 66.7, Lymph % (Auto) 21.5, Gaines % (Auto) 5.3, Eos % (Auto) 5.0, Baso % (Auto) 1.2 H, Absolute Neuts (auto) 4.0, Absolute Lymphs (auto) 1.30, Nucleated RBC % 0 01/24/20 11:46: Sodium 135 L, Potassium 3.4 L, Chloride 98, Carbon Dioxide 30.0, Anion Gap 7, BUN 8, Creatinine 0.89, Estim Creat Clear Calc 83.56, Est GFR (MDRD) Af Amer 108, Est GFR (MDRD) Non-Af 90, BUN/Creatinine Ratio 9.0 L, Glucose 234 H, Calcium 9.2, Magnesium 1.9, Troponin I < 0.015 Assessment/Plan All Active Problems (Last Reviewed 01/15/20 @ 03:[address] Matty Sprague MD) Ambulatory dysfunction (Acute) Frequent falls (Acute) Degenerative arthritis of knee, bilateral (Acute) Debility (Acute) Tobacco dependence due to chewing tobacco (Acute) Acute respiratory failure with hypoxia (Resolved) CHF exacerbation (Resolved) 69 y/o admitted with a complaint of progressive weakness 1. Debility due to mechanical falls * admit to med surg with telemetry * PT/OT consult * fall precautions * counseled he will likely need placement, and he is agreeable * 2. Hypokalemia: K is 3.4. Will replace and monitor 3. COPD: Not in exacerbation. On breathing treatments with bronchodilators.: On metoprolol and lisinopril.: 4. Chronic heart failure with preserved ejection fraction: Not in exacerbation. On Lasix 40 mg daily with potassium supplementation of 20 mEq daily. 5. Type 2 diabetes mellitus: On glimepiride and metformin. Insulin sliding scale. Accu-Cheks AC at bedtime. 6. Benign essential hypertension 7. Obstructive sleep apnea: On CPAP 8. A. fib: On metoprolol also on Eliquis. Currently rate controlled. 9. CAD: On aspirin and rosuvastatin. 10. Hyperlipidemia: On rosuvastatin DVT prophylaxis: On Eliquis. CODE STATUS: Full code * Patient counseled extensively about different types of CODE STATUS including full code, DNR CCA and DNR CCA. Patient elects to be full code. Total [id number] time 17 minutes. OBSV E&M: 77066 Initial observation care L2 Procedures: 63444 Advncd Care Plan 30 Min
--- NOTE | 2020-01-24 15:48 | NURSING ---
MED SURG WEAKNESS [facility]RETEL
[2020-01-24] MEDS: metFORMIN HCl 1,000 MG Tablet 1000 MG PO (18:19)
[2020-01-24] MEDS: Glimepiride 4 MG Tablet PO (18:19)
[2020-01-24 18:26] LABS: Bedside Glucose 142 mg/dL (70-110)
[2020-01-24 19:01] LABS: Bacteria 0 SEEN /hpf (None Seen); Red Blood Cells-Urine 0 SEEN /hpf (0-5)
[2020-01-24 19:03] LABS: Color, Urine Yellow (Yellow); Glucose, Dipstick 100 mg/dl (Normal); Ketone-Dipstick 5 mg/dl (Negative); Leukocyte Esterase-Dipstick 25 /ul (Negative); Nitrite-Dipstick Negative (Negative); Occult Blood-Urine Negative /ul (Negative); Protein-Dipstick 30 mg/dl (Negative); Urine Clarity Clear (Clear); Urine Urobilinogen 4 mg/dl (Normal)
[2020-01-24 19:12] LABS: Urine Bilirubin Dipstick 1 mg/dL (Negative)
[2020-01-24 19:14] LABS: Mucous, Urine 2+ /hpf (<or=2+); Squamous Epithelial Cells - UA 0-5 SEEN /hpf (0-5); White Blood Cells 0-5 SEEN /hpf (0-5)
[2020-01-24 21:41] LABS: Bedside Glucose 136 mg/dL (70-110)
[2020-01-24] MEDS: Glucerna Shake 120 ML LIQUID PO (21:42)
[2020-01-24] MEDS: Atorvastatin Calcium 10 MG Tablet PO (21:43)
[2020-01-24] MEDS: Metoprolol Tartrate 25 MG Tablet 12.5 MG PO (21:43)
[2020-01-24] MEDS: APIXABAN 5 MG TABLET PO (21:43)
[2020-01-25] VITALS (7 sets, daily range): BP systolic 117–149; BP diastolic 72–101; PULSE 65–94; RESP 18; TEMP 36.4–37; O2SAT 94–100
[2020-01-25 06:46] LABS: Absolute Lymphocyte Count 1.94 X10^3/uL (0.83-4.51); Absolute Neutrophil Count 3.8 X10^3/uL (2.0-7.7); Basophil# 0.06 X10^3/uL; Basophil% 0.9 % (0-1); Eosinophil# 0.47 X10^3/uL; Eosinophils% 6.8 % (0-5); Hematocrit 36.5 % (40-54); Hemoglobin 12.4 g/dL (13.0-16.5); Lymphocyte # 1.94 X10^3/ul (4.0); Lymphocyte % 28.2 % (19-41); Mean Corpuscular Hgb 31.9 pg (27.0-32.0); Mean Corpuscular Volume 93.8 fL (80-94); Mean Platelet Vol. 8.6 fl (6.2-12.0); Monocyte# 0.59 X10^3/uL; Monocyte% 8.6 % (0-10); NRBC Flagged by Analyzer 0 % (0-5); Neutrophil # 3.79 X10^3/uL (2.7-7.7); Neutrophil % 55.1 % (47-70); Platelet Count 290 K/mm3 (150-450); RBC Distribution Width CV 13.1 % (11.6-14.6); RBC Distribution Width SD 44.8 fl (35.1-43.9); Red Blood Count 3.89 M/mm3 (4.6-6.2); White Blood Count 6.9 K/mm3 (4.4-11.0)
[2020-01-25 06:55] LABS: Bedside Glucose 80 mg/dL (70-110)
[2020-01-25 07:14] LABS: Anion Gap 4 (5-15); BUN 10 mg/dL (7-18); BUN/Creat Ratio 15.3 RATIO (10-20); Calcium,Total 8.9 mg/dL (8.5-10.1); Chloride 103 mmol/L (98-107); Creatinine, Serum 0.65 mg/dL (0.70-1.30); EST Glomerular Filtration Rate 128 mL/min (>60); Est Glom Filt Rate - Afr Amer 154 mL/min (>60); Estimated Creatinine Clearance 74.37 ml/min; Glucose 82 mg/dL (74-106); Potassium 3.8 mmol/L (3.5-5.1); Sodium Level 135 mmol/L (136-145)
[2020-01-25] MEDS: Aspirin E.C. 81 MG Tablet PO (08:22)
[2020-01-25] MEDS: APIXABAN 5 MG TABLET PO ×2 (08:22→20:37)
[2020-01-25] MEDS: Glimepiride 4 MG Tablet PO (08:22)
[2020-01-25] MEDS: Lisinopril 5 MG Tablet PO (08:22)
[2020-01-25] MEDS: metFORMIN HCl 1,000 MG Tablet 1000 MG PO (08:22)
[2020-01-25] MEDS: Furosemide 40 MG Tablet PO (08:22)
[2020-01-25] MEDS: Metoprolol Tartrate 25 MG Tablet 12.5 MG PO ×2 (08:23→20:37)
[2020-01-25] MEDS: Glucerna Shake 120 ML LIQUID PO ×2 (08:27→13:22)
--- NOTE | 2020-01-25 09:26 | CASEMGMT ---
Addendum entered by Bruna Branham 01/25/20 14:51: GLO received call from Kavita at [facility] stating insurance is now showing active and they will submit for pre-cert. Kavita states that days 21-100 pt will have a copay of $172 a day until pt's deductible is met. GLO in to speak with pt. GLO updated self and role at [facility]. Pt is alert and orientated x3. GLO updated pt that [facility] is able to accept and will submit for pre-cert. GLO updated pt on copay amount for days 21-100 until deductible is met. Pt states understanding. Plan: [facility] pending pre-cert Addendum entered by Bruna Branham 01/25/20 14:32: GLO received call from Kavita at [facility] stating her business office ran pt's insurance and it is showing inactive. GLO updated Kavita that [facility] verified pt's insurance and it is showing active. GLO faxed eligible document to [facility]. Addendum entered by Bruna Branham 01/25/20 13:33: PT/OT evaluations are available. GLO placed a call to Kavita at [facility] and provided referral. GLO faxed referral to [facility]. Original Note: Social Work Note Pt is requesting [facility] for short term rehabilitation at discharge. Pt will need PT/OT for referral. GLO will fax referral to [facility] once PT/OT evaluates pt. Plan: [facility] pending acceptance and pre-cert Bruna Branham FRAMING MANAGER, CONTACT CENTER DIRECTOR
--- NOTE | 2020-01-25 12:31 | PCM.PN.HOSP ---
Patient Problems: Active and Suspected Problems (Last Reviewed 01/15/20 @ 03:[address] Matty Sprague MD) Ambulatory dysfunction (Acute) Generalized weakness (Acute) Hyperglycemia (Acute) Reason for Visit: Patient has bilateral lower extremity weakness and generalized weakness. Objective: Patient has generalized weakness in bilateral lower extremity in particular. Baseline uses cane. He also complains of mild right-sided lower back pain in ER but better now Had recent 2 fall last week Physical exam: General: Alert, Oriented x3, Cooperative HEENT: Atraumatic, PERRLA, EOMI, Normocephalic Oral: No Gingival or Mucosal Lesions/ Ulcerations Neck: Supple, No JVD, Negative Carotid Bruits Lungs: Air entry diminished in bilateral lung bases. No crepitation/rhonchi Cardiovascular: Regular rate, Regular Rhythm, Normal S1, Normal S2, No murmurs Abdomen: Bowel Sounds Present, Soft, Non Tender, Non-Distended : No renal angle tenderness. No suprapubic tenderness. Extremities: No edema, Capillary Refill Less than 3 Seconds Skin: No rashes, No breakdown Musculoskeletal: No Tenderness to Palpation of Joints or Extremities. Bilateral hip and knee joints arthritis Neurological: Cranial nerves II-XII grossly intact, Deep Tendon Reflexes 2+/4 and Symmetrical, Neuro grossly intact. Bilateral lower extremity weakness, power 3/5 at bilateral hip and knee joints. Psych/Mental Status: Normal Affect, Appropriate Vitals/I&O's: Vital Signs Temp Pulse Resp BP Pulse Ox 97.6 F L 82 18 146/87 H 100 01/25/20 08:25 01/25/20 08:25 01/25/20 08:25 01/25/20 08:25 01/25/20 08:25 Oxygen Delivery Method CPAP Weight: 277 lb 12.519 oz Body Mass Index (BMI) 37.7 Intake and Output for Last 24 Hours 01/23/20 01/24/20 01/25/20 23:59 23:59 23:59 Intake Total 250 / 590 840 / 840 Output Total 725 / 725 Balance 250 / 365 115 / 115 Laboratory Results 01/24/20 11:46: WBC 6.1, RBC 4.43 L, Hgb 14.1, Hct 42.4, MCV 95.7 H, MCH 31.8, MCHC 33.3, RDW Std Deviation 46.1 H, RDW Coeff of Shantell 13.1, Plt Count 337, MPV 8.9, Immature Gran % (Auto) 0.300, Neut % (Auto) 66.7, Lymph % (Auto) 21.5, Thomas % (Auto) 5.3, Eos % (Auto) 5.0, Baso % (Auto) 1.2 H, Absolute Neuts (auto) 4.0, Absolute Lymphs (auto) 1.30, Nucleated RBC % 0 01/24/20 11:46: Sodium 135 L, Potassium 3.4 L, Chloride 98, Carbon Dioxide 30.0, Anion Gap 7, BUN 8, Creatinine 0.89, Estim Creat Clear Calc 83.56, Est GFR (MDRD) Af Amer 108, Est GFR (MDRD) Non-Af 90, BUN/Creatinine Ratio 9.0 L, Glucose 234 H, Calcium 9.2, Magnesium 1.9, Troponin I < 0.015 01/24/20 17:11: POC Glucose 142 H 01/24/20 18:50: Urine Color Yellow, Urine Clarity Clear, Urine pH 6.0, Ur Specific Franklin 1.020, Urine Protein 30 H, Urine Glucose (UA) 100 H, Urine Ketones 5 H, Urine Occult Blood Negative, Urine Nitrite Negative, Urine Bilirubin 1 H, Urine Urobilinogen 4 H, Ur Leukocyte Esterase 25 H, Urine RBC 0 SEEN, Urine WBC 0-5 SEEN, Ur Squamous Epith Cells 0-5 SEEN, Urine Bacteria 0 SEEN, Urine Mucus 2+ 01/24/20 19:00: COVID-19 (ROSALINDA) Negative 01/24/20 21:38: POC Glucose 136 H 01/25/20 06:38: WBC 6.9, RBC 3.89 L, Hgb 12.4 L, Hct 36.5 L, MCV 93.8, MCH 31.9, MCHC 34.0, RDW Std Deviation 44.8 H, RDW Coeff of Shantell 13.1, Plt Count 290, MPV 8.6, Immature Gran % (Auto) 0.400, Neut % (Auto) 55.1, Lymph % (Auto) 28.2, Thomas % (Auto) 8.6, Eos % (Auto) 6.8 H, Baso % (Auto) 0.9, Absolute Neuts (auto) 3.8, Absolute Lymphs (auto) 1.94, Nucleated RBC % 0 01/25/20 06:38: Sodium 135 L, Potassium 3.8, Chloride 103, Carbon Dioxide 28.0, Anion Gap 4 L, BUN 10, Creatinine 0.65 L, Estim Creat Clear Calc 74.37, Est GFR (MDRD) Af Amer 154, Est GFR (MDRD) Non-Af 128, BUN/Creatinine Ratio 15.3, Glucose 82, Calcium 8.9 01/25/20 06:50: POC Glucose 80 Current Medications Acetaminophen (Tylenol) 650 mg PO Q6H PRN PRN PRN Reason: Pain Score 1-10/Temp > 100.7 F Apixaban (Eliquis) 5 mg PO BID [facility] Last Admin: 01/25/20 08:22 Dose: 5 mg Documented by: Aspirin (Ecotrin) 81 mg PO DAILY@0800 [facility] Last Admin: 01/25/20 08:22 Dose: 81 mg Documented by: Atorvastatin Calcium (Lipitor) 10 mg PO QHS [facility] Last Admin: 01/24/20 21:43 Dose: 10 mg Documented by: Dextrose (D50w Syringe) 0 gm IV X1 PRN; Protocol PRN Reason: Hypoglycemia Ergocalciferol (Vitamin D) 50,000 unit PO Tu@1000 [facility] Last Admin: 01/24/20 18:19 Dose: 50,000 unit Documented by: Furosemide (Lasix) 40 mg PO DAILY [facility] Last Admin: 01/25/20 08:22 Dose: 40 mg Documented by: Glimepiride (Amaryl) 4 mg PO BIDCM [facility] Last Admin: 01/25/20 08:22 Dose: 4 mg Documented by: Glucagon () 1 mg IM .X1 PRN PRN Reason: Hypoglycemia Sodium Chloride () 250 mls @ 15 mls/hr IV .[id number] PRN PRN Reason: Saline Flush Sodium Chloride () 250 mls @ 15 mls/hr IV .[id number] PRN PRN Reason: Additional IVPB Infusion Insulin Human Lispro (Humalog Kwikpen (Bkc)) 0 unit SC ACHS [facility]; Protocol Last Admin: 01/25/20 11:14 Dose: Not Given Documented by: Lisinopril (Zestril) 5 mg PO DAILY [facility] Last Admin: 07/15/20 08:22 Dose: 5 mg Documented by: [facility] Last Admin: 01/25/20 08:22 Dose: 1,000 mg Documented by: Metoprolol Tartrate (Lopressor (Beta Paulette)) 12.5 mg PO BID [facility] Last Admin: 01/25/20 08:23 Dose: 12.5 mg Documented by: Nutritional Formula (Lactose Free) (Glucerna Shake) 120 ml PO 4X/DAY [facility] Last Admin: 01/25/20 08:27 Dose: 120 ml Documented by: Ondansetron HCl (Zofran) 4 mg IV Q8H PRN PRN PRN Reason: NAUSEA/VOMITING Potassium Chloride (K-Dur) 20 meq PO DAILY [facility] Last Admin: 01/25/20 08:22 Dose: 20 meq Documented by: Sodium Chloride () 10 - 40 ml IV UD PRN PRN Reason: SALINE FLUSH Medical Necessity - Tobacco Use Smoking Status: Former smoker Tobacco Use: Chew Assessment/Plan All Active Problems (Last Reviewed 01/15/20 @ 03:[address] Matty Sprague MD) Ambulatory dysfunction (Acute) Frequent falls (Acute) Degenerative arthritis of knee, bilateral (Acute) Debility (Acute) Tobacco dependence due to chewing tobacco (Acute) Generalized weakness (Acute) Hyperglycemia (Acute) Acute respiratory failure with hypoxia (Resolved) CHF exacerbation (Resolved) 69 y/o admitted with a complaint of progressive weakness along with bilateral lower extremity weakness, recurrent fall: 1. Debility due to mechanical falls and bilateral lower extremity weakness, chronic in nature: Patient is being admitted on MedSurg. Fall precaution. PT and OT and SNF placement. 2. Hypokalemia: K is 3.4. Repeat K normal, 3.8. 3. COPD: Not in exacerbation. On breathing treatments with bronchodilators. 4. Chronic heart failure with preserved ejection fraction: Not in exacerbation. On Lasix 40 mg daily with potassium supplementation of 20 mEq daily. On metoprolol and lisinopril. 5. Type 2 diabetes mellitus: On glimepiride and metformin. Insulin sliding scale. Accu-Chek before meals and at bedtime. Blood sugars running low, 80 mg. Glimepiride was decreased to 2 mg twice daily. 6. Benign essential hypertension 7. Obstructive sleep apnea: On CPAP 8. A. fib: On metoprolol also on Eliquis. Currently rate controlled. 9. CAD: On aspirin and rosuvastatin. 10. Hyperlipidemia: On rosuvastatin DVT prophylaxis: On Eliquis. Inpatient E&M: 52406 Subs Hosp L2
--- NOTE | 2020-01-25 14:52 | CASEMGMT ---
Intro role of CM to patient and [facility] form explained re: Observation status for treatment of debility, weakness, falls. Explained hospitalization will be paid per insurance policy for Outpatient billing and condition will continue to be evaluated for Inpatient necessity. Also let pt know that [facility] sends paper in the billing packet with their phone number if questions arise. Discussed Pharmacy section of [facility] form and self administered medication guideline. Pt verbalizes understanding and does not have further questions. Form signed and placed in chart, copy to pt. PINEDA STARKEY BSN CM
[2020-01-25] MEDS: metFORMIN HCl 850 MG Tablet PO (16:23)
[2020-01-25] MEDS: Glimepiride 2 MG Tablet PO (16:23)
[2020-01-25 17:05] LABS: Bedside Glucose 80 mg/dL (70-110)
[2020-01-25] MEDS: 0.9% Saline Lock 10 ML Syringe IV ×2 (18:34→20:29)
[2020-01-25] MEDS: Ondansetron 4 MG/2 ML Vial IV (18:34)
[2020-01-25] MEDS: Mag Hydrox/Al Hydrox/Simeth 30 ML UDC PO (20:29)
[2020-01-25] MEDS: proCHLORPERazine 10 MG/2 ML Vial 5 MG IV (20:29)
[2020-01-25] MEDS: Atorvastatin Calcium 10 MG Tablet PO (20:37)
[2020-01-25 23:11] LABS: Bedside Glucose 126 mg/dL (70-110)
[2020-01-26 03:12] VITALS: BP 135/83; PULSE 88; RESP 18; TEMP 36.4; O2SAT 98
[2020-01-26 03:19] VITALS: PULSE 88; RESP 18; O2SAT 98
[2020-01-26 06:36] LABS: Bedside Glucose 87 mg/dL (70-110)
[2020-01-26 09:12] VITALS: BP 115/67; PULSE 61; RESP 16; TEMP 36.8; O2SAT 98
[2020-01-26 09:18] VITALS: PULSE 61
[2020-01-26] MEDS: Lisinopril 5 MG Tablet PO (09:18)
[2020-01-26] MEDS: Metoprolol Tartrate 25 MG Tablet 12.5 MG PO (09:18)
[2020-01-26] MEDS: Furosemide 40 MG Tablet PO (09:18)
[2020-01-26] MEDS: Aspirin E.C. 81 MG Tablet PO (09:18)
[2020-01-26] MEDS: APIXABAN 5 MG TABLET PO (09:18)
[2020-01-26] MEDS: metFORMIN HCl 850 MG Tablet PO (09:23)
[2020-01-26] MEDS: Glimepiride 2 MG Tablet PO (09:23)
--- NOTE | 2020-01-26 09:42 | CASEMGMT ---
Addendum entered by Bruna Branham 01/26/20 15:08: GLO received call from Kavita at [facility] stating [facility] will be at [facility] in about 20 minutes to transport pt. GLO updated RN and pathology secretary/transcriptionist. SW in to update pt that [facility] will be transporting pt. Pt gave this worker permission to call his to update. GLO placed a call to pt's Natalia and updated her on discharge and transportation time to [facility] today. Natalia states understanding. Plan: [facility] skilled today with [facility] transporting pt at about 3:30pm Addendum entered by Bruna Branham 01/26/20 14:38: GLO in to speak with pt. SW updated pt that pre-cert has been obtained and pt is able to discharge today. SW informed pt that [facility] is checking to see if they can transport pt. GLO asked pt if [facility] cannot transport, will pt have anyone to transport? Pt states he has no one available to transport and then asked about stating at the unit at [facility] for therapy. GLO asked pt to clarify if he meant the unit that he just left AMA from, the [facility]. Pt states they made me mad because they just took my things away. SW informed pt that since pt left AMA, TCU will likely not take pt and TCU doesn't have any beds available at this time. Pt asked if he could be transported via cot. GLO explained that medically pt doesn't qualify for cot so that too would be private pay and be a bigger bill than wheelchair van transport. Pt then states his may be able to transport pt if he is assisted into and out of the vehicle. GLO waiting for call back from [facility]. Addendum entered by Bruna Branham 01/26/20 14:05: GLO received call from Kavita at [facility] stating their van is currently out for maintenance but states [facility] will be going to picker / packer van and if everything checks out ok with the van, [facility] should be able to transport. GLO attempted to update pt, pt currently working with OT. Addendum entered by Bruna Branham 01/26/20 13:55: GLO received call from Kavita at [facility] stating pre-cert has been obtained and pt is able to discharge today. Physician updated. GLO completed PAS/RR in HENS. Original in SNF folder and copy on pt's chart. GLO faxed completed discharge paperwork to Kavita at [facility] including transfer to extended care facility, signed medication list and any scripts. Original in SNF folder and copy on pt's chart. GLO spoke with RN. Pt can transport via wheelchair van and doesn't need to transport with oxygen. GLO placed a call to Kavita at [facility], asked if [facility] could transport pt as pt going via wheelchair van would be private pay. Kavita states she will see if she can get transportation arranged and then give this worker a call back. Original Note: Social Work Note GLO received message from Kavita at [facility] stating pre-cert was submitted yesterday and it is still pending. Kavita states Simontfrancis has been taking a day to day and half before returning pre-certs so she is not sure if she will get it today or not but will keep this worker updated. Plan: [facility] pending pre-cert Bruna Branham SAMPLING THEORY TEACHER, MANAGER OF ORGANIZATIONAL DEVELOPMENT
[2020-01-26 12:00] LABS: Bedside Glucose 151 mg/dL (70-110)
--- NOTE | 2020-01-26 12:53 | PCM.PN.HOSP ---
Patient Problems: Active and Suspected Problems (Last Reviewed 01/15/20 @ 03:[address] Matty Sprague MD) Ambulatory dysfunction (Acute) Generalized weakness (Acute) Hyperglycemia (Acute) Reason for Visit: Patient complain of bilateral knee pain, chronic degenerative joint disease. Vitals are in normal range. Bilateral lower extremity weakness. Patient was encouraged for incentive spirometry. Physical exam: General: Alert, Oriented x3, Cooperative HEENT: Atraumatic, PERRLA, EOMI, Normocephalic Oral: No Gingival or Mucosal Lesions/ Ulcerations Neck: Supple, No JVD, Negative Carotid Bruits Lungs: Air entry diminished in bilateral lung bases. No crepitation/rhonchi Cardiovascular: Regular rate, Regular Rhythm, Normal S1, Normal S2, No murmurs Abdomen: Bowel Sounds Present, Soft, Non Tender, Non-Distended : No renal angle tenderness. No suprapubic tenderness. Extremities: No edema, Capillary Refill Less than 3 Seconds Skin: No rashes, No breakdown Musculoskeletal: Mild bilateral knee tenderness. Bilateral hip and knee joints arthritis Neurological: Cranial nerves II-XII grossly intact, Deep Tendon Reflexes 2+/4 and Symmetrical, Neuro grossly intact. Bilateral lower extremity weakness, power 3/5 at bilateral hip and knee joints. Psych/Mental Status: Normal Affect, Appropriate Vitals/I&O's: Vital Signs Temp Pulse Resp BP Pulse Ox 98.2 F 61 16 115/67 98 01/26/20 09:12 01/26/20 09:18 01/26/20 09:12 01/26/20 09:12 01/26/20 09:12 Oxygen Delivery Method CPAP Weight: 277 lb 12.519 oz Body Mass Index (BMI) 37.7 Intake and Output for Last 24 Hours 01/24/20 01/25/20 01/26/20 23:59 23:59 23:59 Intake Total 250 / 590 1240 / 1440 250 / 250 Output Total 725 / 775 400 / 400 Balance 250 / 365 515 / 665 -150 / -150 Laboratory Results 01/25/20 16:17: POC Glucose 80 01/25/20 21:23: POC Glucose 126 H 01/26/20 06:31: POC Glucose 87 01/26/20 11:52: POC Glucose 151 H Current Medications Acetaminophen (Tylenol) 650 mg PO Q6H PRN PRN PRN Reason: Pain Score 1-10/Temp > 100.7 F Al Hydroxide/Mg Hydroxide (Mylanta Ii) 30 ml PO Q4H PRN PRN PRN Reason: DYSPEPSIA Last Admin: 01/25/20 20:29 Dose: 30 ml Documented by: Apixaban (Eliquis) 5 mg PO BID [facility] Last Admin: 01/26/20 09:18 Dose: 5 mg Documented by: Aspirin (Ecotrin) 81 mg PO DAILY@0800 [facility] Last Admin: 01/26/20 09:18 Dose: 81 mg Documented by: Atorvastatin Calcium (Lipitor) 10 mg PO QHS [facility] Last Admin: 01/25/20 20:37 Dose: 10 mg Documented by: Dextrose (D50w Syringe) 0 gm IV X1 PRN; Protocol PRN Reason: Hypoglycemia Ergocalciferol (Vitamin D) 50,000 unit PO Tu@1000 [facility] Last Admin: 01/24/20 18:19 Dose: 50,000 unit Documented by: Furosemide (Lasix) 40 mg PO DAILY [facility] Last Admin: 01/26/20 09:18 Dose: 40 mg Documented by: [facility] Last Admin: 01/26/20 09:23 Dose: 2 mg Documented by: Glucagon () 1 mg IM .X1 PRN PRN Reason: Hypoglycemia Sodium Chloride () 250 mls @ 15 mls/hr IV .[id number] PRN PRN Reason: Saline Flush Sodium Chloride () 250 mls @ 15 mls/hr IV .[id number] PRN PRN Reason: Additional IVPB Infusion Insulin Human Lispro (Humalog Kwikpen (Bkc)) 0 unit SC ACHS [facility]; Protocol Last Admin: 01/26/20 11:53 Dose: Not Given Documented by: Lisinopril (Zestril) 5 mg PO DAILY [facility] Last Admin: 01/26/20 09:18 Dose: 5 mg Documented by: Metformin [facility] ([facility]ucophage) [facility] Last Admin: 01/26/20 09:23 Dose: 850 mg Documented by: Metoprolol Tartrate (Lopressor (Beta Paulette)) 12.5 mg PO BID [facility] Last Admin: 01/26/20 09:18 Dose: 12.5 mg Documented by: Ondansetron HCl (Zofran) 4 mg IV Q6H PRN PRN PRN Reason: NAUSEA/VOMITING Potassium Chloride (K-Dur) 20 meq PO DAILY [facility] Last Admin: 01/26/20 09:18 Dose: 20 meq Documented by: Prochlorperazine Edisylate (Compazine Iv) 5 mg IV Q4H PRN PRN PRN Reason: NAUSEA/VOMITING Last Admin: 01/25/20 20:29 Dose: 5 mg Documented by: Sodium Chloride () 10 - 40 ml IV UD PRN PRN Reason: SALINE FLUSH Last Admin: 01/25/20 20:29 Dose: 10 ml Documented by: STROKE Vital Signs/Narrative: Vital Signs Temp Pulse Resp BP Pulse Ox 01/26/20 09:18 61 01/26/20 09:12 98.2 F 61 16 115/67 98 Medical Necessity - Tobacco Use Smoking Status: Former smoker Tobacco Use: Chew Assessment/Plan All Active Problems (Last Reviewed 01/15/20 @ 03:[address] Matty Sprague MD) Ambulatory dysfunction (Acute) Frequent falls (Acute) Degenerative arthritis of knee, bilateral (Acute) Debility (Acute) Tobacco dependence due to chewing tobacco (Acute) Generalized weakness (Acute) Hyperglycemia (Acute) Acute respiratory failure with hypoxia (Resolved) CHF exacerbation (Resolved) 69 y/o admitted with a complaint of progressive weakness along with bilateral lower extremity weakness, recurrent fall: 1. Debility due to mechanical falls and bilateral lower extremity weakness, chronic degenerative joint disease bilateral knees and hips : Patient is being admitted on MedSur. Fall precaution. PT and OT and SNF placement. Pre-CERT pending. 2. Hypokalemia: K is 3.4. Repeat K normal, 3.8. 3. COPD: Not in exacerbation. On breathing treatments with bronchodilators. Incentive spirometry. 4. Chronic heart failure with preserved ejection fraction: Not in exacerbation. On Lasix 40 mg daily with potassium supplementation of 20 mEq daily. On metoprolol and lisinopril. 5. Type 2 diabetes mellitus: On glimepiride and metformin. Insulin sliding scale. Accu-Chek before meals and at bedtime. Blood sugars running low, 80 mg. Glimepiride was decreased to 2 mg twice daily. 01/25: Glucose at 6:30 AM 87 mg percent. Decrease glimepiride to 2 mg daily. 6. Benign essential hypertension 7. Obstructive sleep apnea: On CPAP 8. A. fib: On metoprolol also on Eliquis. Currently rate controlled. 9. CAD: On aspirin and rosuvastatin. 10. Hyperlipidemia: On rosuvastatin DVT prophylaxis: On Eliquis. Inpatient E&M: 51390 Subs Hosp L2
--- NOTE | 2020-01-26 13:21 | PCM.TXEXTCAR ---
- Diet 01/25/20 14:04 Diet: Cardiac: Calorie-Controlled Food consistency:: Regular Liquid Consistency:: Regular/Thin Is pt able to select menu?: Yes How many daily calories?: 2199 calorie - Routine Orders/Code Status Suppository Type: Dulcolax 10mg Suppository Frequency: Daily PRN Code Status: Full Code - Wound(s) all extremitites Wound Type: scabs - Therapies Weight Bearing: Weight bearing as tolerated Extremity Affected:: Bilateral Lower Physical Therapy: Eval and Treat Occupational Therapy: Eval and Treat Speech Therapy: Eval and Treat - Allergies/Procedures Done in Hospital Allergies/Adverse Reactions: Allergies No Known Allergies Allergy (Verified 01/24/20 12:04) - Type of Care/Length of Stay Estimated LOS: Convalescent Care Less Than 30 days Type of Care Needed: Skilled Rehab Potential: Good Prognosis: Good - Additional Orders/Day of Discharge Day of Discharge: 01/26/20 - Dietary and Speech Recommendations Dietitian Recommendations/Changes: Will change diet to Cardiac/2199 Calorie Controlled diet. Will d/c natalie hilliard d/t adequate intakes and BMI 37.7. - Follow Up Care Primary Care Physician: Jaclyn Trujillo NP-C [Primary Care Provider] - Please follow up with your Primary Care Physician in: in 2 weeks
--- NOTE | 2020-01-26 13:34 | PCM.DC.SUM ---
Discharge Date and Diagnosis - Problem List Patient Problems: Active and Suspected Problems (Last Reviewed 01/15/20 @ 03:[address] Matty Sprague MD) Ambulatory dysfunction (Acute) Generalized weakness (Acute) Hyperglycemia (Acute) Date of Admission: 01/24/20 Date of Discharge: 01/26/20 - Primary Discharge Diagnosis Acute Problems: Active Problems (Last Reviewed 01/15/20 @ 03:[address] Matty Sprague MD) Ambulatory dysfunction (Acute) Generalized weakness (Acute) Hyperglycemia (Acute) - Secondary Discharge Diagnosis Chronic Problems: Chronic Problems (Last Reviewed 01/15/20 @ 03:[address] Matty Sprague MD) Atherosclerotic heart disease of [place] coronary artery without angina pectoris (Chronic) Pure hypercholesterolemia (Chronic) Essential (primary) hypertension (Chronic) Chronic diastolic heart failure (Chronic) Persistent atrial fibrillation (Chronic) HOLGER (obstructive sleep apnea) (Chronic) Morbid obesity (Chronic) Diabetes mellitus type 2, uncontrolled, without complications (Chronic) Hospital Course and Treatment Operations: None Summary of Care Provided: This is a 69 y/o gentleman admitted with a complaint of progressive weakness along with bilateral lower extremity weakness, recurrent fall: 1. Debility due to mechanical falls and bilateral lower extremity weakness, chronic degenerative joint disease bilateral knees and hips : Patient is being admitted on MedSur. Fall precaution. PT and OT and SNF placement. Patient is being discharged to SNF. 2. Hypokalemia: K is 3.4. Repeat K normal, 3.8. 3. COPD: Not in exacerbation. On breathing treatments with bronchodilators. Incentive spirometry. 4. Chronic heart failure with preserved ejection fraction: Not in exacerbation. On Lasix 40 mg daily with potassium supplementation of 20 mEq daily. On metoprolol and lisinopril. 5. Type 2 diabetes mellitus: On glimepiride and metformin. Insulin sliding scale. Accu-Chek before meals and at bedtime. Blood sugars running low, 80 mg. Glimepiride was decreased to 2 mg daily. Metformin decreased to 850 mg twice daily. 6. Benign essential hypertension: Blood pressure is controlled. 7. Obstructive sleep apnea: On CPAP 8. A. fib: On metoprolol also on Eliquis. Currently rate controlled. 9. CAD: On aspirin and rosuvastatin. 10. Hyperlipidemia: On rosuvastatin DVT prophylaxis: On Eliquis. [] Discharge medication reconciliation done. Discharge follow-up instructions completed. Discharge process discussed with the patient and all questions were answered to patient's satisfaction. Patient is discharged to SNF for PT, OT Total time spent, exact 35 minutes on discharge meds reconciliation, examination, coordination of care with nurses and ancillary staff, review of imaging and blood test and discussion with the patient on follow-up instructions Patient Problems: Active and Suspected Problems (Last Reviewed 01/15/20 @ 03:[address] Matty Sprague MD) Ambulatory dysfunction (Acute) Generalized weakness (Acute) Hyperglycemia (Acute) Subjective: Patient was seen and examined. Please see progress note of today for complete physical findings. - Physical Exam Vitals/I&O's: Vital Signs Temp Pulse Resp BP Pulse Ox 98.2 F 61 16 115/67 98 01/26/20 09:12 01/26/20 09:18 01/26/20 09:12 01/26/20 09:12 01/26/20 09:12 Oxygen Delivery Method CPAP Weight: 277 lb 12.519 oz Body Mass Index (BMI) 37.7 Intake and Output for Last 24 Hours 01/24/20 01/25/20 01/26/20 23:59 23:59 23:59 Intake Total 250 / 590 1240 / 1440 250 / 250 Output Total 725 / 775 400 / 400 Balance 250 / 365 515 / 665 -150 / -150 Laboratory Results 01/25/20 16:17: POC Glucose 80 01/25/20 21:23: POC Glucose 126 H 01/26/20 06:31: POC Glucose 87 01/26/20 11:52: POC Glucose 151 H Current Medications Acetaminophen (Tylenol) 650 mg PO Q6H PRN PRN PRN Reason: Pain Score 1-10/Temp > 100.7 F Al Hydroxide/Mg Hydroxide (Mylanta Ii) 30 ml PO Q4H PRN PRN PRN Reason: DYSPEPSIA Last Admin: 01/25/20 20:29 Dose: 30 ml Documented by: Apixaban (Eliquis) 5 mg PO BID [facility] Last Admin: 01/26/20 09:18 Dose: 5 mg Documented by: Aspirin (Ecotrin) 81 mg PO DAILY@0800 [facility] Last Admin: 01/26/20 09:18 Dose: 81 mg Documented by: Atorvastatin Calcium (Lipitor) 10 mg PO QHS [facility] Last Admin: 01/25/20 20:37 Dose: 10 mg Documented by: Dextrose (D50w Syringe) 0 gm IV X1 PRN; Protocol PRN Reason: Hypoglycemia Ergocalciferol (Vitamin D) 50,000 unit PO Tu@1000 [facility] Last Admin: 01/24/20 18:19 Dose: 50,000 unit Documented by: Furosemide (Lasix) 40 mg PO DAILY [facility] Last Admin: 01/26/20 09:18 Dose: 40 mg Documented by: Glimepiride (Amaryl) 2 mg PO DAILY@0800 [facility] Glucagon () 1 mg IM .X1 PRN PRN Reason: Hypoglycemia Sodium Chloride () 250 mls @ 15 mls/hr IV .[id number] PRN PRN Reason: Saline Flush Sodium Chloride () 250 mls @ 15 mls/hr IV .[id number] PRN PRN Reason: Additional IVPB Infusion Insulin Human Lispro (Humalog Kwikpen (Bkc)) 0 unit SC ACHS [facility]; Protocol Last Admin: 01/26/20 11:53 Dose: Not Given Documented by: Lisinopril (Zestril) 5 mg PO DAILY [facility] Last Admin: 01/26/20 09:18 Dose: 5 mg Documented by: [facility] Last Admin: 01/26/20 09:23 Dose: 850 mg Documented by: Metoprolol Tartrate (Lopressor (Beta Paulette)) 12.5 mg PO BID [facility] Last Admin: 01/26/20 09:18 Dose: 12.5 mg Documented by: Ondansetron HCl (Zofran) 4 mg IV Q6H PRN PRN PRN Reason: NAUSEA/VOMITING Potassium Chloride (K-Dur) 20 meq PO DAILY [facility] Last Admin: 01/26/20 09:18 Dose: 20 meq Documented by: Prochlorperazine Edisylate (Compazine Iv) 5 mg IV Q4H PRN PRN PRN Reason: NAUSEA/VOMITING Last Admin: 01/25/20 20:29 Dose: 5 mg Documented by: Sodium Chloride () 10 - 40 ml IV UD PRN PRN Reason: SALINE FLUSH Last Admin: 01/25/20 20:29 Dose: 10 ml Documented by: Home Medications: Medications to take at Discharge rosuvastatin 5 mg tablet 5 mg PO QHS 03/12/18 Metoprolol Tartrate [Lopressor (beta paulette)] 12.5 mg PO BID 05/04/19 Apixaban [Eliquis] 5 mg PO BID 01/14/20 Furosemide [Lasix] 40 mg PO DAILY 01/14/20 Lisinopril [Zestril] 5 mg PO DAILY 01/14/20 Potassium Chloride [K-Dur] 20 meq PO DAILY 01/14/20 Aspirin E.C. [Ecotrin] 81 mg PO DAILY@0800 01/24/20 Ergocalciferol [Vitamin D] 50,000 unit PO TU 01/24/20 Glimepiride [Amaryl] 2 mg PO DAILY #0 01/26/20 metFORMIN HCl [Glucophage] 850 mg PO BIDCM tab 01/26/20 Primary Care Physician: Jaclyn Trujillo NP-C [Primary Care Provider] - Please follow up with your Primary Care Physician in: in 2 weeks Medical Necessity - Tobacco Use Smoking Status: Former smoker Tobacco Use: Chew Meaningful Use Info Meaningful Use Diagnoses (Choose all that apply): None applicable Please cancel the billing charge for progress note of the same date. Inpatient E&M: 24810 Disch Hosp
[2020-01-26 15:16] VITALS: BP 122/64; PULSE 68; RESP 18; TEMP 36.8; O2SAT 97
[2020-01-27 07:18] LABS: Bedside Glucose 127 mg/dL (70-110)
== END 2020-01-26 15:33 | disposition skilled nursing facility (03) ==
LOC: ED 14:43 → MS3 15:55
PROVIDERS: Admitting Provider Student in an Organized Health Care Education/Training Program; Emergency Provider Emergency Medicine; PCP Nurse Practitioner Family; Visit Provider Internal Medicine
DX: M17.0 Bilateral primary osteoarthritis of knee (principal); E87.6 Hypokalemia; J44.9 Chronic obstructive pulmonary disease, unspecified; I50.32 Chronic diastolic (congestive) heart failure; I11.0 Hypertensive heart disease with heart failure; G47.33 Obstructive sleep apnea (adult) (pediatric); E78.5 Hyperlipidemia, unspecified; I25.10 Atherosclerotic heart disease of native coronary artery without angina pectoris; E11.65 Type 2 diabetes mellitus with hyperglycemia; F17.220 Nicotine dependence, chewing tobacco, uncomplicated; R29.6 Repeated falls; E66.01 Morbid (severe) obesity due to excess calories; I48.19 Other persistent atrial fibrillation; Z79.899 Other long term (current) drug therapy; Z79.82 Long term (current) use of aspirin; Z79.01 Long term (current) use of anticoagulants; Z79.84 Long term (current) use of oral hypoglycemic drugs; Z68.38 Body mass index [BMI] 38.0-38.9, adult
CPT/HCPCS: 36415; 71045; 80048; 81001; 82962; 83735; 84484; 85025; 87635; 93005; 96374; 96375; 97110; 97162; 97166; 97530; 97802; 99218; 99285; 99406; A4216; G0378; J2405; U0003

== ENCOUNTER 2020-04-12 13:03 | Inpatient (IN) | payer MEDICARE, SELFPAY ==
[2020-01-24 16:31] VITALS: BMI 37.7
[2020-04-12 13:05] VITALS: BP 88/53; PULSE 65; PULSE 79; RESP 17; RESP 18; TEMP 36.9; O2SAT 97; O2SAT 99; BMI 38.8
--- NOTE | 2020-04-12 13:24 | RAD_ITS ---
STUDY: X-RAY - RIGHT KNEE REASON FOR EXAM: Male, 69 years old. RIGHT KNEE PAIN TECHNIQUE: 3 view(s) of the knee. COMPARISON: None. FINDINGS: Normal visualized distal femur. Normal visualized proximal tibia and fibula. Normal proximal tibiofibular articulation. There is severe degenerative arthrosis of the medial femorotibial compartment with severe joint space narrowing. There is mild degenerative arthrosis of the lateral femorotibial compartment. There is moderate degenerative arthrosis of the patellofemoral articulation. The soft tissue structures are unremarkable. RAD/Knee 3 Views IMPRESSION: Degenerative arthrosis. Electronically Signed: Monty Randle MD at 14:40 EDT Tel , Service support ,
--- NOTE | 2020-04-12 13:25 | EKG12_ITS ---
Test Reason : WEAKNESS Blood Pressure : / mmHG Vent. Rate : 063 BPM Atrial Rate : 063 BPM P-R Int : 000 ms QRS Dur : 080 ms QT Int : 416 ms P-R-T Axes : 000 020 035 degrees QTc Int : 425 ms Atrial fibrillation with premature ventricular or aberrantly conducted complexes Low voltage QRS Abnormal ECG Confirmed by BOUBACAR RAMOS, MARIBEL ([id number]), deputy editor in chief FAVIOLA CUNHA ([id number]) on 04/16/2020 2:35:34 PM Referred By: LUIS ENRIQUE Confirmed By:CARLIE HAMLIN MD
--- NOTE | 2020-04-12 13:25 | ED.VIS.GEN ---
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 When asked why the patient states this is solely because of pain in both of his knees. He has been to the ER/hospital several times as well as his doctor, and states that he has mentioned this. He has never had x-rays of his knees, nor has he seen orthopedics for this. He states he feels well otherwise except for a cough that he noticed today. He denies any dyspnea, chest pain, treat fevers, chills, he has not left the house nor his bed for 2 months. Patient presents during the national coronavirus emergency declaration/pandemic. He denies any known contact with anyone infected with COVID-19. He denies traveling out of the immediate area recently. His has basically been caring for him. He is here seeking assisted living as well as help with his knees. - Past Medical History (1) Ambulatory dysfunction Status: Chronic (2) Debility Status: Chronic (3) Atherosclerotic heart disease of [place] coronary artery without angina pectoris Status: Chronic (4) Chronic diastolic heart failure Status: Chronic (5) Diabetes mellitus type 2, uncontrolled, without complications Status: Chronic (6) Essential (primary) hypertension Status: Chronic (7) Morbid obesity Status: Chronic (8) HOLGER (obstructive sleep apnea) Status: Chronic (9) Persistent atrial fibrillation Status: Chronic (10) Pure hypercholesterolemia Status: Chronic Past Medical History - Allergies and Home Meds Allergies/Adverse Reactions: Allergies No Known Allergies Allergy (Verified 04/12/20 13:04) Primary Care Physician: Jaclyn Trujillo NP, COLLIERY CLERK-C [Primary Care Provider] - Surgical History: tonsillectomy Lives: Spouse/ Significant Other Smoking Status: Former smoker - hasn't smoked since age 30 - Family History Paternal Family History: Family History (Last Reviewed 01/15/20 @ 03:[address] Matty Sprague MD) Mother CHF (congestive heart failure) Father Cancer Family History: Reports: Diabetes Review of Systems General: Denies: Chills, Fever, Sweats Eyes: Denies: Visual changes - bilaterally, Diplopia ENT: Denies: Rhinorrhea, Sore throat Cardiovascular: Denies: Chest pain, Palpitations Respiratory: Denies: Dyspnea, Cough, Dyspnea on exertion Gastrointestinal: Denies: Abdominal pain, Nausea, Vomiting, Diarrhea, Melena, Hematochezia Genitourinary: Denies: Dysuria, Hematuria, Frequency Musculoskeletal: Reports: Arthralgias - both knees, Swelling - chronic BLE, unchanged. Denies: Neck pain, Extremity Pain Skin: Denies: Rash, Abscess, Wounds Neurological: Denies: Headache, Weakness, Numbness Physical Exam Vital Signs/Narrative: Vital Signs Temp Pulse Resp BP Pulse Ox 04/12/20 13:05 98.5 F 79 18 88/53 L 99 Inital Vital Signs reviewed: Yes General: Well nourished, Well developed, Obese, No Acute Distress Head: Normocephalic, Atraumatic Eyes: Perrl, EOMI ENT: Moist mucous membranes, No rhinorrhea Neck: Supple, Nontender Cardiovascular: No murmurs, Irregular. Negative for: Tachycardia Respiratory: No distress, CTA bilaterally, Chest nontender Abdomen: Soft, Nontender, Nondistended, Normal bowel sounds Back: Nontender, Normal Inspection Extremities: Nontender, Edema - BLE 2+ to knees, symmetric, w/ changes consistent w/ chronic stasis dermatitis, - - No bony tenderness, no effusion, but limited range of motion both knees due to pain although short arc range of motion is intact and there is no excessive warmth or erythema over either knee or other lesions suggestive of infection. Negative for: Calf Tenderness Skin: Normal color, No rash Neurological: Alert, Oriented x3, Cranial nerves II-XII grossly intact, Normal Strength, Normal Sensation Psychological: Normal affect, Normal Mood Diagnostic/Tx/Re-eval Clinical Impression(s) from Imaging Studies Knee X-Ray 04/12/20 13:24 IMPRESSION: Degenerative arthrosis. Electronically Signed: Monty Randle MD at 14:40 EDT Tel , Service support , Knee X-Ray 04/12/20 13:27 IMPRESSION: Degenerative arthrosis. Electronically Signed: Monty Randle MD at 14:39 EDT Tel , Service support , Chest X-Ray 04/12/20 14:15 IMPRESSION: Hyperinflation. The lungs are clear. Electronically Signed: Ryan Sood, at 14:44 EDT , Service support , Laboratory Results 04/12/20 04/12/20 13:55 13:55 WBC 7.4 RBC 3.41 L Hgb 10.8 L Hct 33.5 L MCV 98.2 H MCH 31.7 MCHC 32.2 RDW Std Deviation 54.6 H RDW Coeff of [place] 15.1 H Plt Count 262 MPV 9.1 Immature Gran % (Auto) 0.300 Neut % (Auto) 59.1 Lymph % (Auto) 23.1 [place] % (Auto) 9.7 Eos % (Auto) 7.3 H Baso % (Auto) 0.5 Absolute Neuts (auto) 4.3 Absolute Lymphs (auto) 1.70 Nucleated RBC % 0 Sodium 138 Potassium 3.2 L Chloride 103 Carbon Dioxide 28.0 Anion Gap 7 BUN 9 Creatinine 0.77 Estim Creat Clear Calc 74.37 Est GFR (MDRD) Af Amer 127 Est GFR (MDRD) Non-Af 105 BUN/Creatinine Ratio 11.7 Glucose 134 H Calcium 8.6 Troponin I < 0.015 - Rhythm Strip Rhythm Strip: A-fib Rate: 63 Ectopy: PVC(s) - EKG Initial EKG Interpretation: No Acute Injury Pattern, Atrial Fibrillation Prior: Unchanged - Medical Decision Making Medical work-up is unremarkable except for mild hypokalemia which was treated here. Blood pressure initially was low, he was given 500 cc IV fluid bolus, on reevaluation his blood pressure remained over 100 currently 120/44. Chest x-ray on my interpretation one-view portable film, shows no acute disease. I did obtain x-rays of both of his knees. He may have limited options with regards to surgery, injections since he is anticoagulated at this time. Social work saw him as well, reporting that he is chronically in and out of nursing homes, and leaves basically because he signed himself out and then is regretful when he can take care of himself at home, similar to now. At this time, the patient will need admitted to the hospital for PT/OT evaluations in addition to routine care prior to being able to placed in a SNF. Plan is for admission for placement. ED Disposition - Plan for ED Patient: Disposition: Acute Care Hospital [facility] Diagnosis: Debility, Degenerative arthritis of knee, bilateral, Hypokalemia Referrals: Jaclyn Trujillo COLLIERY CLERK, COLLIERY CLERK-C [Primary Care Provider] -
--- NOTE | 2020-04-12 13:27 | RAD_ITS ---
STUDY: X-RAY - LEFT KNEE REASON FOR EXAM: Male, 69 years old. LEFT KNEE PAIN TECHNIQUE: 3 view(s) of the knee. COMPARISON: None. FINDINGS: Normal visualized distal femur. Normal visualized proximal tibia and fibula. Normal proximal tibiofibular articulation. There is severe degenerative arthrosis of the medial femorotibial compartment with severe joint space narrowing. There is mild degenerative arthrosis of the lateral femorotibial compartment. There is mild degenerative arthrosis of the patellofemoral articulation. The soft tissue structures are unremarkable. RAD/Knee 3 Views IMPRESSION: Degenerative arthrosis. Electronically Signed: Monty Randle MD at 14:39 EDT Tel , Service support ,
[2020-04-12 14:13] LABS: Absolute Neutrophil Count 4.3 X10^3/uL (2.0-7.7); Basophil# 0.04 X10^3/uL; Basophil% 0.5 % (0-1); Eosinophil# 0.54 X10^3/uL; Eosinophils% 7.3 % (0-5); Hematocrit 33.5 % (40-54); Hemoglobin 10.8 g/dL (13.0-16.5); Lymphocyte % 23.1 % (19-41); Mean Corp Hgb Conc 32.2 g/dL (32-36); Mean Corpuscular Hgb 31.7 pg (27.0-32.0); Mean Corpuscular Volume 98.2 fL (80-94); Mean Platelet Vol. 9.1 fl (6.2-12.0); Monocyte# 0.71 X10^3/uL; Monocyte% 9.7 % (0-10); NRBC Flagged by Analyzer 0 % (0-5); Neutrophil # 4.34 X10^3/uL (2.7-7.7); Neutrophil % 59.1 % (47-70); Platelet Count 262 K/mm3 (150-450); RBC Distribution Width CV 15.1 % (11.6-14.6); RBC Distribution Width SD 54.6 fl (35.1-43.9); Red Blood Count 3.41 M/mm3 (4.6-6.2); White Blood Count 7.4 K/mm3 (4.4-11.0)
--- NOTE | 2020-04-12 14:15 | RAD_ITS ---
STUDY: X-RAY CHEST REASON FOR EXAM: Male, 69 years old. INCREASING WEAKNESS, BILATERAL KNEE PAIN TECHNIQUE: Single AP portable view of the chest. COMPARISON: Comparison is made with prior study dated 01/24/2020. FINDINGS: Hyperinflation. Scattered calcified granulomas. The lungs are clear. There is no demonstrated pleural abnormality. Normal size heart. Normal mediastinum and gurvinder. Normal visualized pulmonary arteries. There is atherosclerotic tortuosity of the aortic arch and descending thoracic aorta. Normal visualized thoracic spine. Normal visualized ribs, clavicles, and shoulders. There is no demonstrated abnormality of the visualized soft tissue structures of the upper abdomen. RAD/Chest 1 View (Portable) IMPRESSION: Hyperinflation. The lungs are clear. Electronically Signed: Ryan Sood, at 14:44 EDT , Service support ,
[2020-04-12 14:20] LABS: Anion Gap 7 (5-15); BUN 9 mg/dL (7-18); BUN/Creat Ratio 11.7 RATIO (10-20); Calcium,Total 8.6 mg/dL (8.5-10.1); Chloride 103 mmol/L (98-107); Creatinine, Serum 0.77 mg/dL (0.70-1.30); EST Glomerular Filtration Rate 105 mL/min (>60); Est Glom Filt Rate - Afr Amer 127 mL/min (>60); Estimated Creatinine Clearance 74.37 ml/min; Glucose 134 mg/dL (74-106); Potassium 3.2 mmol/L (3.5-5.1); Sodium Level 138 mmol/L (136-145)
--- NOTE | 2020-04-12 14:53 | ED.RN ---
pt oes not know medication.
--- NOTE | 2020-04-12 14:59 | ED.RN ---
pt has pill bottles, [facility] pharmacist manager reviewing with pt.
--- NOTE | 2020-04-12 15:27 | HP.PCM_ITS ---
Problem List (1) Ambulatory dysfunction Status: Chronic (2) Frequent falls Status: Acute (3) Degenerative arthritis of knee, bilateral Status: Chronic (4) Debility Status: Chronic (5) Tobacco dependence due to chewing tobacco Status: Chronic (6) Generalized weakness Status: Chronic (7) Hypokalemia Status: Acute (8) Atherosclerotic heart disease of [place] coronary artery without angina pectoris Status: Chronic (9) Pure hypercholesterolemia Status: Chronic (10) Essential (primary) hypertension Status: Chronic (11) SOB (shortness of breath) on exertion Status: Inactive (12) Abnormal stress test Status: Inactive (13) Chronic diastolic heart failure Status: Chronic (14) Persistent atrial fibrillation Status: Chronic (15) COPD with acute exacerbation Status: Inactive (16) PVC's (premature ventricular contractions) Status: Inactive (17) HOLGER (obstructive sleep apnea) Status: Chronic (18) Morbid obesity Status: Chronic (19) Diabetes mellitus type 2, uncontrolled, without complications Status: Chronic History of Present Illness Date of Admission: 04/12/20 Chief Complaint: weakness The patient is a 69 year old M [] Past Medical History Past Medical History (Chronic Problems): Chronic Problems (Last Reviewed 04/12/20 @ 15:[address] Peter Aguirre DO) Ambulatory dysfunction (Chronic) Degenerative arthritis of knee, bilateral (Chronic) Debility (Chronic) Tobacco dependence due to chewing tobacco (Chronic) Generalized weakness (Chronic) Atherosclerotic heart disease of [place] coronary artery without angina pectoris (Chronic) Pure hypercholesterolemia (Chronic) Essential (primary) hypertension (Chronic) Chronic diastolic heart failure (Chronic) Persistent atrial fibrillation (Chronic) HOLGER (obstructive sleep apnea) (Chronic) Morbid obesity (Chronic) Diabetes mellitus type 2, uncontrolled, without complications (Chronic) Medical History: Medical History (Last Reviewed 04/12/20 @ 15:[address] Peter Aguirre DO) Atherosclerotic heart disease of [place] coronary artery without angina pectoris (Chronic) I25.10 Pure hypercholesterolemia (Chronic) E78.00 Essential (primary) hypertension (Chronic) I10 SOB (shortness of breath) on exertion (Inactive) R06.02 Abnormal stress test (Inactive) R94.39 Chronic diastolic heart failure (Chronic) I50.32 Persistent atrial fibrillation (Chronic) I48.1 COPD with acute exacerbation (Inactive) J44.1 PVC's (premature ventricular contractions) (Inactive) I49.3 HOLGER (obstructive sleep apnea) (Chronic) G47.33 Morbid obesity (Chronic) E66.01 Diabetes mellitus type 2, uncontrolled, without complications (Chronic) E11.65 Abdominal pain R10.9 Arthritis M19.90 Depression F32.9 Gout M10.9 Nausea & vomiting R11.2 Weight loss R63.4 Acute respiratory failure with hypoxia (Resolved) J96.01 CHF exacerbation (Resolved) I50.9 Allergies No Known Allergies Allergy (Verified 04/12/20 13:04) Home Medications: Ambulatory Orders Medication Instructions Recorded rosuvastatin 5 mg tablet 5 mg PO QHS 03/12/18 Metoprolol Tartrate [Lopressor 12.5 mg PO BID 05/04/19 (beta enrike)] Apixaban [Eliquis] 5 mg PO BID 01/14/20 Furosemide [Lasix] 40 mg PO DAILY 01/14/20 Lisinopril [Zestril] 5 mg PO DAILY 01/14/20 Potassium Chloride [K-Dur] 20 meq PO DAILY 01/14/20 Aspirin E.C. [Ecotrin] 81 mg PO DAILY@0800 01/24/20 Ergocalciferol [Vitamin D] 50,000 unit PO TU 01/24/20 Glimepiride [Amaryl] 2 mg PO DAILY #0 01/26/20 Acetaminophen [Tylenol Extra 1,500 mg PO DAILY PRN PRN 04/12/20 Strength] Metformin HCl 1,000 mg PO BID 04/12/20 Surgical History: Surgical History (Last Reviewed 04/12/20 @ 15:[address] Peter Aguirre DO) History of appendectomy Z90.49 History of exploratory laparotomy Z98.890 History of kidney surgery Z98.890 Surgical History: tonsillectomy Psychiatric History: No pertinent psych hx Lives: Spouse/ Significant Other Smoking Status: Current every day smoker - *Family History Paternal Family History: Family History (Last Reviewed 04/12/20 @ 15:[address] Peter Aguirre DO) Mother CHF (congestive heart failure) Father Cancer History Items: Diabetes Review of Systems Constitutional: Denies: Anorexia, Night Sweats Eyes: Denies: Blurred vision, Double vision HEENT: Reports: - - chronic rhinitis. Denies: Head Aches, Sinus Congestion, Sinus Drainage Cardiovascular: Denies: Chest Pain, Palpitations Respiratory: Denies: Cough, Shortness of breath at rest, Sputum production Gastrointestinal: Denies: Abdominal Pain, Nausea, Vomiting Genitourinary: Denies: Dysuria Musculoskeletal: Reports: Joint Pain Skin: Reports: Wounds Comment: All review of systems were negative except as mentioned above in the history of present illness and the other review of systems. VTE Information - Inpt Only VTE Present on Admission: No VTE Mechan Device Prophylaxis: None VTE Pharm Prophylaxis ordered?: No Patient Problems: Active and Suspected Problems (Last Reviewed 04/12/20 @ 15:[address] Peter Aguirre, DO) Hypokalemia (Acute) - Physical Exam Vitals/I&O's: Vital Signs Temp Pulse Resp BP Pulse Ox 36.9 C 79 18 88/53 L 99 04/12/20 13:05 04/12/20 13:05 04/12/20 13:05 04/12/20 13:05 04/12/20 13:05 Oxygen Delivery Method Room Air Weight: 130 kg Body Mass Index (BMI) 38.8 Intake and Output for Last 24 Hours 04/10/20 04/11/20 04/12/20 23:59 23:59 23:59 Intake Total 500 / 500 Balance 500 / 500 General: Alert, Cooperative, No apparent distress HEENT: Atraumatic, PERRLA, EOMI, Normocephalic Oral: Moist Mucosa, No Gingival or Mucosal Lesions/ Ulcerations Neck: No Nodes, Thyroid Normal Size and Texture Lungs: Clear to auscultation, Normal air movement, No rhonchi, No wheeze, No rales Cardiovascular: Regular rate, Regular Rhythm, Normal S1, Normal S2, No murmurs Abdomen: Bowel Sounds Present, Soft, Non Tender, Non-Distended, No Hepato- splenomegaly Extremities: No edema, No Calf Tenderness Skin: - - Stage II decubitus ulcer on the left buttocks. Psych/Mental Status: Normal Affect, Appropriate Laboratory Results 04/12/20 13:55: WBC 7.4, RBC 3.41 L, Hgb 10.8 L, Hct 33.5 L, MCV 98.2 H, MCH 31.7, MCHC 32.2, RDW Std Deviation 54.6 H, RDW Coeff of [place] 15.1 H, Plt Count 262, MPV 9.1, Immature Gran % (Auto) 0.300, Neut % (Auto) 59.1, Lymph % (Auto) 23.1, [place] % (Auto) 9.7, Eos % (Auto) 7.3 H, Baso % (Auto) 0.5, Absolute Neuts (auto) 4.3, Absolute Lymphs (auto) 1.70, Nucleated RBC % 0 04/12/20 13:55: Sodium 138, Potassium 3.2 L, Chloride 103, Carbon Dioxide 28.0, Anion Gap 7, BUN 9, Creatinine 0.77, Estim Creat Clear Calc 74.37, Est GFR (MDRD) Af Amer 127, Est GFR (MDRD) Non-Af 105, BUN/Creatinine Ratio 11.7, Glucose 134 H, Calcium 8.6, Troponin I < 0.015 Assessment/Plan All Active Problems (Last Reviewed 04/12/20 @ 15:[address] Peter Aguirre, DO) Frequent falls (Acute) Hypokalemia (Acute) Acute respiratory failure with hypoxia (Resolved) CHF exacerbation (Resolved) 1. Failure to thrive * Patient has had and inability to get up due to pain in his knees. Pain his knees is been longstanding and never been thoroughly evaluated. Patient essentially unable to care for himself at home. * Plan is for a physical and occupational therapy evaluation and then evaluation with case management in regards to possible placement. 2. Hypokalemia * Likely secondary to furosemide * Replaced in the emergency room * Check magnesium 3. Stage II decubitus ulcer * Present on arrival * Secondary to being essentially bedbound * Consult wound care 4. Diabetes mellitus type 2 * Continue with metformin and glimepiride * Sliding scale insulin 5. Atrial fibrillation * Continue with apixaban and metoprolol tartrate 6. Chronic heart failure with preserved ejection fraction * Compensated at this time * EF of 65% from echocardiogram on November 2017 * Continue with furosemide and lisinopril 7. VTE prophylaxis: Low risk as patient is observation status and already anticoagulated. 8. Advanced care planning: Discussed with the patient. Patient wishes to be full CODE STATUS at this time. OBSV E&M: 71066 Initial observation care L2
[2020-04-12 15:36] LABS: Bacteria 0 SEEN /hpf (None Seen); Mucous, Urine 0 SEEN /hpf (<or=2+); Red Blood Cells-Urine 0 SEEN /hpf (0-5); Squamous Epithelial Cells - UA 0 SEEN /hpf (0-5); White Blood Cells 0 SEEN /hpf (0-5)
[2020-04-12 15:53] VITALS: BMI 38.9
[2020-04-12 15:55] VITALS: BP 147/65; PULSE 76; RESP 18; TEMP 36.8; O2SAT 98
[2020-04-12 16:02] LABS: Color, Urine Yellow (Yellow); Glucose, Dipstick Normal (Normal); Ketone-Dipstick Negative (Negative); Leukocyte Esterase-Dipstick Negative /ul (Negative); Nitrite-Dipstick Negative (Negative); Occult Blood-Urine Negative /ul (Negative); Protein-Dipstick Negative (Negative); Urine Bilirubin Dipstick Negative (Negative); Urine Clarity Clear (Clear); Urine Urobilinogen Normal (Normal)
[2020-04-12 16:04] VITALS: BMI 38.2
[2020-04-12 16:05] VITALS: BP 129/64; PULSE 71; RESP 16; TEMP 36.8; O2SAT 99
[2020-04-12 16:29] LABS: Magnesium 1.4 mg/dL (1.6-2.6)
[2020-04-12 16:49] LABS: Hemoglobin A1c 5.5 % (3.8-5.6)
[2020-04-12 17:01] LABS: Bedside Glucose 115 mg/dL (70-110)
[2020-04-12] MEDS: metFORMIN HCl 1,000 MG Tablet 1000 MG PO (18:21)
[2020-04-12] MEDS: Acetaminophen 500 MG Tablet 1000 MG PO (20:12)
[2020-04-12] MEDS: oxyCODONE 5 MG Tablet PO (20:12)
[2020-04-12 20:13] VITALS: PULSE 95
[2020-04-12] MEDS: Metoprolol Tartrate 25 MG Tablet 12.5 MG PO (20:13)
[2020-04-12] MEDS: Atorvastatin Calcium 10 MG Tablet PO (20:14)
[2020-04-12] MEDS: APIXABAN 5 MG TABLET PO (20:15)
[2020-04-12 22:08] VITALS: BP 129/57; PULSE 95; RESP 18; TEMP 37.2; O2SAT 100
[2020-04-13] VITALS (7 sets, daily range): BP systolic 122–147; BP diastolic 58–95; PULSE 52–83; RESP 16–18; TEMP 36.4–36.9; O2SAT 98–100
[2020-04-13 03:41] LABS: Bedside Glucose 124 mg/dL (70-110)
[2020-04-13 06:40] LABS: Bedside Glucose 112 mg/dL (70-110)
--- NOTE | 2020-04-13 08:37 | NURSING ---
wound photo: left gluteal crease
[2020-04-13] MEDS: Aspirin E.C. 81 MG Tablet PO (08:41)
[2020-04-13] MEDS: Furosemide 40 MG Tablet PO (08:42)
[2020-04-13] MEDS: APIXABAN 5 MG TABLET PO ×2 (08:42→22:37)
[2020-04-13] MEDS: Metoprolol Tartrate 25 MG Tablet 12.5 MG PO ×2 (08:42→22:37)
[2020-04-13] MEDS: metFORMIN HCl 1,000 MG Tablet 1000 MG PO ×2 (08:42→16:40)
[2020-04-13] MEDS: Glimepiride 2 MG Tablet PO (08:42)
[2020-04-13] MEDS: Lisinopril 5 MG Tablet PO (08:43)
--- NOTE | 2020-04-13 09:03 | PN_ITS ---
Patient Problems: Active and Suspected Problems (Last Reviewed 04/12/20 @ 15:[address] Peter Aguirre, DO) Hypokalemia (Acute) Reason for Visit: debility Subjective: uneventful night. Vitals/I&O's: Vital Signs Temp Pulse Resp BP Pulse Ox 36.6 C 78 16 147/78 H 98 04/13/20 07:51 04/13/20 08:42 04/13/20 07:51 04/13/20 07:51 04/13/20 07:51 Oxygen Delivery Method CPAP Weight: 127.8 kg Body Mass Index (BMI) 38.2 Intake and Output for Last 24 Hours 04/11/20 04/12/20 04/13/20 23:59 23:59 23:59 Intake Total 500 / 500 Output Total 600 / 800 400 / 400 Balance -100 / -300 -400 / -400 General: Alert, No apparent distress HEENT: Atraumatic, Normocephalic Oral: Moist Mucosa, No Gingival or Mucosal Lesions/ Ulcerations Neck: No Nodes, Thyroid Normal Size and Texture Lungs: Clear to auscultation, Normal air movement, No rhonchi, No wheeze Cardiovascular: Regular rate, Regular Rhythm, Normal S1, Normal S2 Psych/Mental Status: Normal Affect, Appropriate Laboratory Results 04/12/20 13:55: WBC 7.4, RBC 3.41 L, Hgb 10.8 L, Hct 33.5 L, MCV 98.2 H, MCH 31.7, MCHC 32.2, RDW Std Deviation 54.6 H, RDW Coeff of [place] 15.1 H, Plt Count 262, MPV 9.1, Immature Gran % (Auto) 0.300, Neut % (Auto) 59.1, Lymph % (Auto) 23.1, [place] % (Auto) 9.7, Eos % (Auto) 7.3 H, Baso % (Auto) 0.5, Absolute Neuts (auto) 4.3, Absolute Lymphs (auto) 1.70, Nucleated RBC % 0 04/12/20 13:55: Sodium 138, Potassium 3.2 L, Chloride 103, Carbon Dioxide 28.0, Anion Gap 7, BUN 9, Creatinine 0.77, Estim Creat Clear Calc 74.37, Est GFR (MDRD) Af Amer 127, Est GFR (MDRD) Non-Af 105, BUN/Creatinine Ratio 11.7, Glucose 134 H, Calcium 8.6, Troponin I < 0.015 04/12/20 13:55: Hemoglobin A1c 5.5 04/12/20 13:55: Magnesium 1.4 L 04/12/20 15:25: Urine Color Yellow, Urine Clarity Clear, Urine pH 6.0, Ur Specific [place] 1.010, Urine Protein Negative, Urine Glucose (UA) Normal, Urine Ketones Negative, Urine Occult Blood Negative, Urine Nitrite Negative, Urine Bilirubin Negative, Urine Urobilinogen Normal, Ur Leukocyte Esterase Negative, Urine RBC 0 SEEN, Urine WBC 0 SEEN, Ur Squamous Epith Cells 0 SEEN, Urine Bacteria 0 SEEN, Urine Mucus 0 SEEN 04/12/20 16:51: POC Glucose 115 H 04/13/20 03:35: POC Glucose 124 H 04/13/20 06:38: POC Glucose 112 H Current Medications Acetaminophen (Tylenol) 1,000 mg PO TID PRN PRN Reason: PAIN 1-10/FEVER Last Admin: 04/12/20 20:12 Dose: 1,000 mg Documented by: Apixaban (Eliquis) 5 mg PO BID [facility] Last Admin: 04/13/20 08:42 Dose: 5 mg Documented by: Aspirin (Ecotrin) 81 mg PO DAILY@0800 [facility] Last Admin: 04/13/20 08:41 Dose: 81 mg Documented by: Atorvastatin Calcium (Lipitor) 10 mg PO QHS [facility] Last Admin: 04/12/20 20:14 Dose: 10 mg Documented by: Dextrose (D50w Syringe) 0 gm IV X1 PRN; Protocol PRN Reason: Hypoglycemia Ergocalciferol (Vitamin D) 50,000 unit PO [facility] Furosemide (Lasix) 40 mg PO DAILY [facility] Last Admin: 04/13/20 08:42 Dose: 40 mg Documented by: Glimepir[facility] (Amaryl) [facility] Last Admin: 04/13/20 08:42 Dose: 2 mg Documented by: Glucagon () 1 mg IM .X1 PRN PRN Reason: Hypoglycemia Influenza Virus Vaccine Quadrival (Flucelvax /Fluzone ) 0.5 ml IM .ONCE ONE Stop: 04/13/20 10:01 Last Admin: 04/13/20 08:47 Dose: 0.5 ml Documented by: Insulin Human Lispro (Humalog Kwikpen (Bkc)) 0 unit SC TIDAC [facility]; Protocol Last Admin: 04/13/20 06:40 Dose: Not Given Documented by: Lisinopril (Zestril) 5 mg PO DAILY [facility] Last Admin: 04/13/20 08:43 Dose: 5 mg Documented by: Metformin HCl (Glucophage) 1,[facility] Last Admin: 04/13/20 08:42 Dose: 1,000 mg Documented by: Metoprolol Tartrate (Lopressor (Beta Paulette)) 12.5 mg PO BID [facility] Last Admin: 04/13/20 08:42 Dose: 12.5 mg Documented by: Nutritional Formula (Lactose Free) (Ensure Enlive) 120 ml PO 4X/DAY [facility] Last Admin: 04/13/20 08:44 Dose: 120 ml Documented by: Ondansetron HCl (Zofran) 4 mg IV Q8H PRN PRN PRN Reason: NAUSEA/VOMITING Oxycodone HCl (Oxyir) 5 mg PO Q4H PRN PRN PRN Reason: Pain Score 6-10/10 Last Admin: 04/12/20 20:12 Dose: 5 mg Documented by: Potassium Chloride (K-Dur) 20 meq [facility] Last Admin: 04/13/20 08:42 Dose: 20 meq Documented by: Sodium Chloride () 10 - 40 ml IV UD PRN PRN Reason: SALINE FLUSH Sodium Chloride ([place] Nasal [place]) 2 spray NASAL TID PRN PRN PRN Reason: NASAL DRYNESS STROKE Vital Signs/Narrative: Vital Signs Temp Pulse Resp BP Pulse Ox 04/13/20 08:42 78 04/13/20 07:51 36.6 C 78 16 147/78 H 98 Medical Necessity - Tobacco Use Smoking Status: Former smoker Tobacco Use: Cigarettes Assessment/Plan All Active Problems (Last Reviewed 04/12/20 @ 15:[address] Peter Aguirre, DO) Frequent falls (Acute) Hypokalemia (Acute) Acute respiratory failure with hypoxia (Resolved) CHF exacerbation (Resolved) 1. Failure to thrive * Patient has had and inability to get up due to pain in his knees. Pain his knees is been longstanding and never been thoroughly evaluated. Patient essentially unable to care for himself at home. * Plan is for a physical and occupational therapy evaluation and then evaluation with case management in regards to possible placement. 2. Hypokalemia * Likely secondary to furosemide * Replaced in the emergency room * magnesium low, will replace 3. Stage II decubitus ulcer * Present on arrival * Secondary to being essentially bedbound * Consult wound care 4. Diabetes mellitus type 2 * Continue with metformin and glimepiride * Sliding scale insulin 5. Atrial fibrillation * Continue with apixaban and metoprolol tartrate 6. Chronic heart failure with preserved ejection fraction * Compensated at this time * EF of 65% from echocardiogram on November 2017 * Continue with furosemide and lisinopril 7. VTE prophylaxis: Low risk as patient is observation status and already anticoagulated. 8. Advanced care planning: Discussed with the patient. Patient wishes to be full CODE STATUS at this time. OBSV E&M: 70842 Subsequent observation care L2
[2020-04-13] MEDS: Magnesium Sulfate 4gm/100mL 4 GM/100 ML IV.SOLN. IV (09:11)
--- NOTE | 2020-04-13 10:42 | CASEMGMT ---
Addendum entered by Bruna Branham 04/13/20 12:55: PT/OT are available. SW faxed referral to [facility]. Original Note: Social Work Note SW reviewed chart. Pt is at [facility] For SNF placement. SW in to speak with pt. SW introduced self and role at [facility]. Pt is alert and orientated x3. Pt confirms that he recently went to [facility] but doesn't want to return there. SW provided pt with list of SNF that accept pt's insurance. SW informed pt that the only other SNF in [place] that accepts pt's insurance is [facility]. Pt agreeable to [facility]. SW placed a call to Estelita at [facility]. SW will fax referral to [facility] once PT/OT is available. Plan: SNF pending acceptance and pre-cert Bruna Branham TRIAL COURT JUDGE, WEATHER OBSERVER
[2020-04-13] MEDS: Insulin Lispro 100 UNIT/ML INSULN.PEN SC (11:39)
[2020-04-13 11:40] LABS: Bedside Glucose 173 mg/dL (70-110)
--- NOTE | 2020-04-13 12:00 | CASEMGMT ---
Social Work Note SW received call from Chintan with [facility]. Chintan states pt has active case with [facility] and would like to be notified when and where pt discharges. Bruna Branham PARTNER MANAGER, VETERINARIAN
[2020-04-13] MEDS: Glucerna Shake 120 ML LIQUID PO ×2 (12:57→16:40)
[2020-04-13] MEDS: Acetaminophen 500 MG Tablet 1000 MG PO (14:20)
--- NOTE | 2020-04-13 15:14 | CASEMGMT ---
Addendum entered by Bruna Branham 04/13/20 15:58: SW did inform pt that he could potentially return to [facility] if he wanted to, this worker would have to check to confirm, pt still agreeable to [facility]. Pt's Constantine on the phone, SW updated [facility] on discharge plan. [facility]ine agreeable to [facility]. Plan: [facility] pending pre-cert. Original Note: Social Work Note SW received call from Estelita at [facility] stating [facility] is able to accept pt and will submit for pre-cert. SW in to speak with pt. SW updated pt on acceptance to [facility] pending pre-cert. Pt states understanding, agreeable to [facility]. SW explained pre-cert process. SW faxed negative COVID test and COVID tool to [facility]. SW completed PAS/RR in [facility]. SW placed PAS/RR, green sheet, transport form, COVID screening tool on pt's chart in the event pre-cert is obtained. Plan: [facility] pending pre-cert Bruna Branham SHERIFF DEPUTY, MANUAL QA TESTER
--- NOTE | 2020-04-13 15:27 | CASEMGMT ---
JAKY LEVI in to discuss [employer] form with patient. JAKY LEVI explained [employer] form to patient, patient voiced understanding. Patient signed [employer] form, original filed in chart. JAKY LEVI provided patient with signed copy. Patient had no further questions or concerns at this time.
[2020-04-13 16:26] LABS: Bedside Glucose 88 mg/dL (70-110)
[2020-04-13] MEDS: Atorvastatin Calcium 10 MG Tablet PO (22:36)
[2020-04-13 22:55] LABS: Bedside Glucose 90 mg/dL (70-110)
[2020-04-14] VITALS (7 sets, daily range): BP systolic 115–151; BP diastolic 57–71; PULSE 53–86; RESP 18–20; TEMP 36.4–36.8; O2SAT 98–100
[2020-04-14 06:51] LABS: Bedside Glucose 100 mg/dL (70-110)
--- NOTE | 2020-04-14 09:20 | PCM.PN.HOSP ---
Patient Problems: Active and Suspected Problems (Last Reviewed 04/12/20 @ 15:[address] Peter Augirre, DO) Hypokalemia (Acute) Reason for Visit: FTT Subjective: No new events. Feeling well. Eating well. Vitals/I&O's: Vital Signs Temp Pulse Resp BP Pulse Ox 36.4 C L 53 L 18 151/57 H 100 04/14/20 06:37 04/14/20 06:37 04/14/20 06:37 04/14/20 06:37 04/14/20 06:37 Oxygen Delivery Method CPAP Weight: 127.8 kg Body Mass Index (BMI) 38.2 Intake and Output for Last 24 Hours 04/12/20 04/13/20 04/14/20 23:59 23:59 23:59 Intake Total 500 / 500 1317.50 / 1317.50 200 / 200 Output Total 600 / 800 1300 / 1300 120 / 120 Balance -100 / -300 17.50 / 17.50 80 / 80 General: Alert, No apparent distress HEENT: Atraumatic, Normocephalic Extremities: No Calf Tenderness Musculoskeletal: - - no knee effusions. Laboratory Results 04/13/20 10:35: COVID-19 (ROSALINDA) Not Detected 04/13/20 11:32: POC Glucose 173 H 04/13/20 16:21: POC Glucose 88 04/13/20 22:42: POC Glucose 90 04/14/20 06:40: POC Glucose 100 Current Medications Acetaminophen (Tylenol) 1,000 mg PO TID PRN PRN Reason: PAIN 1-10/FEVER Last Admin: 04/13/20 14:20 Dose: 1,000 mg Documented by: Apixaban (Eliquis) 5 mg PO BID [facility] Last Admin: 04/13/20 22:37 Dose: 5 mg Documented by: Aspirin (Ecotrin) 81 mg PO DAILY@0800 [facility] Last Admin: 04/13/20 08:41 Dose: 81 mg Documented by: Atorvastatin Calcium (Lipitor) 10 mg PO QHS [facility] Last Admin: 04/13/20 22:36 Dose: 10 mg Documented by: Dextrose (D50w Syringe) 0 gm IV X1 PRN; Protocol PRN Reason: Hypoglycemia Ergocalciferol (Vitamin D) 50,000 unit PO TU [facility] Furosemide (Lasix) 40 mg PO DAILY [facility] Last Admin: 10/02/20 08:42 Dose: 40 mg Documented by: [facility]l) [facility] Last Admin: 04/13/20 08:42 Dose: 2 mg Documented by: Glucagon () 1 mg IM .X1 PRN PRN Reason: Hypoglycemia Sodium Chloride () 250 mls @ 15 mls/hr IV .[id number] PRN PRN Reason: Saline Flush Last Infusion: 04/13/20 10:44 Dose: 0 mls/hr Documented by: Sodium Chloride () 250 mls @ 15 mls/hr IV .[id number] PRN PRN Reason: Additional IVPB Infusion Insulin Human Lispro (Humalog Kwikpen (Bkc)) [facility] Last Admin: 04/14/20 06:42 Dose: Not Given Documented by: Lisinopril (Zestril) 5 mg PO DAILY [facility] Last Admin: 04/13/20 08:43 Dose: 5 mg Documented by: Metformin HCl (Glucophage) [facility] Last Admin: 04/13/20 16:40 Dose: 1,000 mg Documented by: Metoprolol Tartrate (Lopressor (Beta Paulette)) 12.5 mg PO BID [facility] Last Admin: 04/13/20 22:37 Dose: 12.5 mg Documented by: Nutritional Formula (Lactose Free) (Glucerna Shake) 120 ml PO TIDCM [facility] Last Admin: 04/13/20 16:40 Dose: 120 ml Documented by: Ondansetron HCl (Zofran) 4 mg IV Q8H PRN PRN PRN Reason: NAUSEA/VOMITING Oxycodone HCl (Oxyir) 5 mg PO Q4H PRN PRN PRN Reason: Pain Score 6-10/10 Last Admin: 04/12/20 20:12 Dose: 5 mg Documented by: Potassium Chloride (K-Dur) [facility]q [facility] Last Admin: 04/13/20 16:40 Dose: 20 meq Documented by: Sodium Chloride () 10 - 40 ml IV UD PRN PRN Reason: SALINE FLUSH Sodium Chloride ([place] Nasal [place]) 2 spray NASAL TID PRN PRN PRN Reason: NASAL DRYNESS STROKE Vital Signs/Narrative: Vital Signs Temp Pulse Resp BP Pulse Ox 04/14/20 06:37 36.4 C L 53 L 18 151/57 H 100 Medical Necessity - Tobacco Use Smoking Status: Former smoker Tobacco Use: Cigarettes Assessment/Plan All Active Problems (Last Reviewed 04/12/20 @ 15:[address] Peter Aguirre, DO) Frequent falls (Acute) Hypokalemia (Acute) Acute respiratory failure with hypoxia (Resolved) CHF exacerbation (Resolved) 1. Failure to thrive Patient has had and inability to get up due to pain in his knees. Pain his knees is been longstanding and never been thoroughly evaluated. Patient essentially unable to care for himself at home. Plan is for a physical and occupational therapy evaluation and then evaluation with case management in regards to possible placement. 2. Hypokalemia Likely secondary to furosemide Replaced in the emergency room magnesium low, will replace 3. Stage II decubitus ulcer Present on arrival Secondary to being essentially bedbound Consult wound care 4. Diabetes mellitus type 2 controlled Continue with metformin and glimepiride Sliding scale insulin 5. Atrial fibrillation Continue with apixaban and metoprolol tartrate 6. Chronic heart failure with preserved ejection fraction Compensated at this time EF of 65% from echocardiogram on November 2017 Continue with furosemide and lisinopril 7. VTE prophylaxis: Low risk as patient is observation status and already anticoagulated. 8. Advanced care planning: Discussed with the patient. Patient wishes to be full CODE STATUS at this time. 9. Disposition: to SNF pending insurance authorization. Likely not until 04/16 or . Inpatient E&M: [id number] [facility] L1
[2020-04-14] MEDS: Metoprolol Tartrate 25 MG Tablet 12.5 MG PO ×2 (09:41→21:56)
[2020-04-14] MEDS: metFORMIN HCl 1,000 MG Tablet 1000 MG PO ×2 (09:41→17:28)
[2020-04-14] MEDS: APIXABAN 5 MG TABLET PO ×2 (09:42→21:56)
[2020-04-14] MEDS: Glimepiride 2 MG Tablet PO (09:42)
[2020-04-14] MEDS: Aspirin E.C. 81 MG Tablet PO (09:42)
[2020-04-14] MEDS: Furosemide 40 MG Tablet PO (09:42)
[2020-04-14] MEDS: Lisinopril 5 MG Tablet PO (09:44)
[2020-04-14] MEDS: Sodium Chloride 0.65% 1 SPRAY SPRAY.BTL 2 SPRAY NASAL (09:45)
[2020-04-14] MEDS: oxyCODONE 5 MG Tablet PO ×3 (10:05→21:57)
[2020-04-14 12:11] LABS: Bedside Glucose 100 mg/dL (70-110)
[2020-04-14] MEDS: Glucerna Shake 120 ML LIQUID PO ×2 (12:59→17:22)
[2020-04-14 17:55] LABS: Bedside Glucose 122 mg/dL (70-110)
[2020-04-14] MEDS: Atorvastatin Calcium 10 MG Tablet PO (21:56)
[2020-04-14 23:06] LABS: Bedside Glucose 105 mg/dL (70-110)
[2020-04-15 03:25] VITALS: BP 127/72; PULSE 67; RESP 16; TEMP 36.6; O2SAT 100
[2020-04-15 07:05] LABS: Bedside Glucose 88 mg/dL (70-110)
[2020-04-15] MEDS: Glucerna Shake 120 ML LIQUID PO ×3 (09:59→16:44)
[2020-04-15] MEDS: Aspirin E.C. 81 MG Tablet PO (09:59)
[2020-04-15] MEDS: Glimepiride 2 MG Tablet PO (09:59)
[2020-04-15] MEDS: metFORMIN HCl 1,000 MG Tablet 1000 MG PO ×2 (10:00→16:45)
[2020-04-15] MEDS: APIXABAN 5 MG TABLET PO ×2 (10:00→22:19)
[2020-04-15] MEDS: Furosemide 40 MG Tablet PO (10:01)
[2020-04-15 10:02] VITALS: PULSE 80
[2020-04-15] MEDS: Metoprolol Tartrate 25 MG Tablet 12.5 MG PO ×2 (10:02→22:18)
[2020-04-15] MEDS: Lisinopril 5 MG Tablet PO (10:02)
[2020-04-15] MEDS: oxyCODONE 5 MG Tablet PO ×3 (10:05→22:18)
[2020-04-15 10:06] VITALS: BP 113/60; PULSE 80; RESP 20; TEMP 36.4; O2SAT 100
[2020-04-15 12:10] LABS: Bedside Glucose 133 mg/dL (70-110)
--- NOTE | 2020-04-15 13:00 | PN_ITS ---
Patient Problems: Active and Suspected Problems (Last Reviewed 04/12/20 @ 15:[address] Peter Aguirre, DO) Hypokalemia (Acute) Reason for Visit: FTT Subjective: No new complaints. Vitals/I&O's: Vital Signs Temp Pulse Resp BP Pulse Ox 36.4 C L 80 20 H 113/60 100 04/15/20 10:06 04/15/20 10:06 04/15/20 10:06 04/15/20 10:06 04/15/20 10:06 Oxygen Delivery Method CPAP Weight: 127.8 kg Body Mass Index (BMI) 38.2 Intake and Output for Last 24 Hours 04/13/20 04/14/20 04/15/20 23:59 23:59 23:59 Intake Total 1317.50 / 1317.50 1180 / 1180 740 / 740 Output Total 1300 / 1300 1870 / 1870 825 / 825 Balance 17.50 / 17.50 -690 / -690 -85 / -85 General: Alert, No apparent distress HEENT: Atraumatic, Normocephalic Oral: Moist Mucosa, No Gingival or Mucosal Lesions/ Ulcerations Neck: No Nodes, Thyroid Normal Size and Texture Lungs: Clear to auscultation, Normal air movement, No rhonchi, No wheeze, No rales Cardiovascular: Regular rate, Regular Rhythm, Normal S1, Normal S2, No murmurs Abdomen: Bowel Sounds Present, Soft, Non Tender, Non-Distended, No Hepato- splenomegaly Extremities: No edema, No Calf Tenderness Skin: No rashes, No breakdown Psych/Mental Status: Normal Affect, Appropriate Laboratory Results 04/14/20 17:27: POC Glucose 122 H 04/14/20 21:55: POC Glucose 105 04/15/20 06:59: POC Glucose 88 04/15/20 12:06: POC Glucose 133 H Current Medications Acetaminophen (Tylenol) 1,000 mg PO TID PRN PRN Reason: PAIN 1-10/FEVER Last Admin: 04/13/20 14:20 Dose: 1,000 mg Documented by: Apixaban (Eliquis) 5 mg PO BID [facility] Last Admin: 04/15/20 10:00 Dose: 5 mg Documented by: Aspirin (Ecotrin) 81 mg PO DAILY@0800 [facility] Last Admin: 04/15/20 09:59 Dose: 81 mg Documented by: Atorvastatin Calcium (Lipitor) 10 mg PO QHS [facility] Last Admin: 04/14/20 21:56 Dose: 10 mg Documented by: Dextrose (D50w Syringe) 0 gm IV X1 PRN; Protocol PRN Reason: Hypoglycemia Ergocalciferol (Vitamin D) 50,000 unit PO [facility] Furosemide (Lasix) 40 mg PO DAILY [facility] Last Admin: 04/15/20 10:01 Dose: 40 mg Documented by: [facility]l) [facility] Last Admin: 04/15/20 09:59 Dose: 2 mg Documented by: Glucagon () 1 mg IM .X1 PRN PRN Reason: Hypoglycemia Sodium Chloride () 250 mls @ 15 mls/hr IV .[id number] PRN PRN Reason: Saline Flush Last Infusion: 04/14/20 13:10 Dose: Infused Documented by: Sodium Chloride () 250 mls @ 15 mls/hr IV .[id number] PRN PRN Reason: Additional IVPB Infusion Insulin Human Lispro (Humalog Kwikpen (Bkc)) [facility]; Protocol Last Admin: 04/15/20 12:06 Dose: Not Given Documented by: Lisinopril (Zestril) 5 mg PO DAILY [facility] Last Admin: 04/15/20 10:02 Dose: 5 mg Documented by: Metformin [facility] (Glucophage) [facility] Last Admin: 04/15/20 10:00 Dose: 1,000 mg Documented by: Metoprolol Tartrate (Lopressor (Beta Paulette)) 12.5 mg PO BID [facility] Last Admin: 04/15/20 10:02 Dose: 12.5 mg Documented by: Nutritional Formula (Lactose Free) (Glucerna Shake) 120 [facility] [place] Last Admin: 04/15/20 12:05 Dose: 120 ml Documented by: Ondansetron HCl (Zofran) 4 mg IV Q8H PRN PRN PRN Reason: NAUSEA/VOMITING Oxycodone HCl (Oxyir) 5 mg PO Q4H PRN PRN PRN Reason: Pain Score 6-10/10 Last Admin: 04/15/20 10:05 Dose: 5 mg Documented by: Potassium Chlor[facility] (K-Dur) [facility] Last Admin: 04/15/20 10:00 Dose: 20 meq Documented by: Sodium Chloride () 10 - 40 ml IV UD PRN PRN Reason: SALINE FLUSH Sodium Chloride ([place] Nasal [place]) 2 spray NASAL TID PRN PRN PRN Reason: NASAL DRYNESS Last Admin: 04/14/20 09:45 Dose: 2 spray Documented by: STROKE Vital Signs/Narrative: Vital Signs Temp Pulse Resp BP Pulse Ox 04/15/20 10:06 36.4 C L 80 20 H 113/60 100 04/15/20 10:02 80 Medical Necessity - Tobacco Use Smoking Status: Former smoker Tobacco Use: Cigarettes Assessment/Plan All Active Problems (Last Reviewed 04/12/20 @ 15:[address] Peter Aguirre, DO) Frequent falls (Acute) Hypokalemia (Acute) Acute respiratory failure with hypoxia (Resolved) CHF exacerbation (Resolved) 1. Failure to thrive * Patient has had and inability to get up due to pain in his knees. Pain his knees is been longstanding and never been thoroughly evaluated. Patient essentially unable to care for himself at home. * Plan is for a physical and occupational therapy evaluation and then evaluation with case management in regards to possible placement. 2. Hypokalemia * Likely secondary to furosemide * Replaced in the emergency room * magnesium low, will replace 3. Stage II decubitus ulcer * Present on arrival * Secondary to being essentially bedbound * wound care 4. Diabetes mellitus type 2 * controlled * Continue with metformin and glimepiride * Sliding scale insulin 5. Atrial fibrillation * Continue with apixaban and metoprolol tartrate 6. Chronic heart failure with preserved ejection fraction * Compensated at this time * EF of 65% from echocardiogram on November 2017 * Continue with furosemide and lisinopril 7. VTE prophylaxis: Low risk as patient is observation status and already anticoagulated. 8. Advanced care planning: Discussed with the patient. Patient wishes to be full CODE STATUS at this time. 9. Disposition: to SNF pending insurance authorization. Likely not until 04/16 or . 10. Knee pain: due to osteoarthritis. Therapy. Outpt orthopaedics evaluation. Inpatient E&M: 20916 Subs Hosp L2
[2020-04-15 16:40] LABS: Bedside Glucose 95 mg/dL (70-110)
[2020-04-15 16:46] VITALS: BP 159/70; PULSE 67; RESP 20; TEMP 36.8; O2SAT 99
--- NOTE | 2020-04-15 17:36 | NURSING ---
This nurse asked pt twice to get oob into chair. Nope, I'm having pain in my knee. This nurse offered pain medication and pt agreeable. After given, pt continued to refuse to get up oob into chair.
[2020-04-15 22:09] VITALS: BP 128/68; PULSE 81; RESP 18; TEMP 36.9; O2SAT 97
[2020-04-15 22:18] VITALS: BP 128/68; PULSE 81
[2020-04-15] MEDS: Atorvastatin Calcium 10 MG Tablet PO (22:19)
[2020-04-15 22:26] LABS: Bedside Glucose 99 mg/dL (70-110)
[2020-04-16] VITALS (7 sets, daily range): BP systolic 118–133; BP diastolic 51–76; PULSE 56–74; RESP 16–18; TEMP 36.6–37.1; O2SAT 95–100
[2020-04-16 06:42] LABS: Anion Gap 3 (5-15); BUN 12 mg/dL (7-18); BUN/Creat Ratio 15.5 RATIO (10-20); Calcium,Total 9.1 mg/dL (8.5-10.1); Chloride 99 mmol/L (98-107); Creatinine, Serum 0.78 mg/dL (0.70-1.30); EST Glomerular Filtration Rate 105 mL/min (>60); Est Glom Filt Rate - Afr Amer 127 mL/min (>60); Estimated Creatinine Clearance 73.29 ml/min; Glucose 105 mg/dL (74-106); Magnesium 1.7 mg/dL (1.6-2.6); Potassium 4.2 mmol/L (3.5-5.1); Sodium Level 133 mmol/L (136-145)
[2020-04-16 07:01] LABS: Bedside Glucose 117 mg/dL (70-110)
[2020-04-16] MEDS: Metoprolol Tartrate 25 MG Tablet 12.5 MG PO (08:50)
[2020-04-16] MEDS: Lisinopril 5 MG Tablet PO (08:50)
[2020-04-16] MEDS: Aspirin E.C. 81 MG Tablet PO (08:51)
[2020-04-16] MEDS: Furosemide 40 MG Tablet PO (08:52)
[2020-04-16] MEDS: metFORMIN HCl 1,000 MG Tablet 1000 MG PO ×2 (08:52→17:27)
[2020-04-16] MEDS: APIXABAN 5 MG TABLET PO ×2 (08:52→21:15)
[2020-04-16] MEDS: Glimepiride 2 MG Tablet PO (08:52)
[2020-04-16] MEDS: Glucerna Shake 120 ML LIQUID PO ×3 (08:53→17:30)
--- NOTE | 2020-04-16 10:09 | TREXTCAR_ITS ---
- Diet 04/13/20 11:53 Diet: Cardiac: Calorie-Controlled Food consistency:: Regular Liquid Consistency:: Regular/Thin Is pt able to select menu?: No Diet Comments: Does not like chicken How many daily calories?: 1800 calorie - Wound(s) R [place] Wound Type: Pressure Injury left gluteal crease Wound Type: Pressure Injury Dressing Change: Mepilex - Allergies/Procedures Done in Hospital Allergies/Adverse Reactions: Allergies No Known Allergies Allergy (Verified 04/12/20 13:04) - Dietary and Speech Recommendations Dietitian Recommendations/Changes: Will change medpass from ensure enlive to glucerna shake tid d/t skin status 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 Will change diet to Cardiac/ 1800 [place] d/t pmhx - Follow Up Care Primary Care Physician: Jaclyn Trujillo PAINTER FOREMAN, PAINTER FOREMAN-C [Primary Care Provider] -
[2020-04-16] MEDS: oxyCODONE 5 MG Tablet PO ×3 (11:01→21:16)
[2020-04-16 11:25] LABS: Bedside Glucose 137 mg/dL (70-110)
--- NOTE | 2020-04-16 13:01 | CASEMGMT ---
Addendum entered by Bruna Branham 04/16/20 16:18: GLO updated that peer to peer denial was upheld. GLO placed a call to Estelita at [facility] and updated her. Estelita states [facility] would not take pending medicaid for pt. SW in to speak with pt. SW updated pt on denial and options are 1. Pay privately for SNF 2. Do pending medicaid 3. Home with assistance. Pt states he would like to try pending Medicaid. GOL explained that this worker cannot guarantee medicaid will become approved for pt and if not, pt will be responsible for private pay at SNF. GLO also updated pt that [facility] will not take pending medicaid and likely the only SNF that will take pending medicaid in [place] is [facility]. Pt agreeable to [facility] with pending Medicaid. Pt completed Medicaid application. SW faxed application [facility]. GLO placed a call to Flower Jon at [facility] and left message regarding application and pending medicaid. GLO placed a call to Kavita at [facility] and spoke to Kavita regarding referral. Kavita states [facility] would likely take pt back under pending medicaid. SW faxed initial referral to [facility]. Physician updated. Plan: SNF pending Pending Medicaid and LOC. Bruna PETERSON, PRODUCTION REPAIRER Addendum entered by Bruna Branham 04/16/20 14:57: GLO received call from Estelita at [facility] stating [facility] denied pt and requesting peer to peer. Peer to peer number [phone], reference number is [id number]. GLO updated physician, physician agreeable to doing peer to peer. GLO called [facility] and scheduled peer to peer. GLO placed a call to Estelita at [facility] and left message that physician will do peer to peer. Plan: [facility] pending peer to peer Original Note: Social Work Note GLO faxed updated clinicals to Estelita at [facility]. GLO placed a call to Estelita aCpone states pre-cert is still pending. Plan: [facility] pending pre-cert Bruna PETERSON, PRODUCTION REPAIRER
--- NOTE | 2020-04-16 15:18 | PCM.DC ---
- Discharge Diagnoses Current Active Problems: Current Active and Chronic Problems (Last Reviewed 04/12/20 @ 15:[address] Peter Aguirre, DO) Degenerative arthritis of knee, bilateral (Chronic) Debility (Chronic) Hypokalemia (Acute) You will use the following diet at home:: Calorie/Carbohydrate Controlled (specify 1200, 1400, etc), Cardiac Your food should be the consistency of: Regular Discharge Activity: May Not Drive Weight Bearing Status: Weight bearing as tolerated Call your doctor if you observe: Fever of 101 or Higher, Coldness, Increased Pain, Numbness or Tingling, Inability to urinate, Inability to have a bowel movement, Shortness of breath, Dizziness, Fainting spells, Swelling in the ankles, Chest pain, Prolonged hiccoughing, Increased palpitations (irregular heartbeat), Calf discomfort, Uncontrolled pain Allergies/Adverse Reactions: Allergies No Known Allergies Allergy (Verified 04/12/20 13:04) Medications to take at Discharge rosuvastatin 5 mg tablet 5 mg PO QHS 03/12/18 Metoprolol Tartrate [Lopressor (beta enrike)] 12.5 mg PO BID 05/04/19 Apixaban [Eliquis] 5 mg PO BID 01/14/20 Furosemide [Lasix] 40 mg PO DAILY 01/14/20 Lisinopril [Zestril] 5 mg PO DAILY 01/14/20 Potassium Chloride [K-Dur] 20 meq PO DAILY 01/14/20 Aspirin E.C. [Ecotrin] 81 mg PO DAILY@0800 01/24/20 Ergocalciferol [Vitamin D] 50,000 unit PO TU 01/24/20 Glimepiride [Amaryl] 2 mg PO DAILY #0 01/26/20 Acetaminophen [Tylenol Extra Strength] 1,500 mg PO DAILY PRN PRN 04/12/20 Metformin HCl 1,000 mg PO BID 04/12/20 Primary Care Physician: Jaclyn Trujillo CHILD SUPPORT AGENT, CHILD SUPPORT AGENT-C [Primary Care Provider] - Please follow up with your Primary Care Physician in: in 2 weeks Test Results: Test results from this visit will be discussed in further detail at your follow-up appointment, if applicable. Please Follow Up With: Corey Montero MD When: as scheduled
--- NOTE | 2020-04-16 15:57 | PCM.PN.HOSP ---
Patient Problems: Active and Suspected Problems (Last Reviewed 04/12/20 @ 15:[address] Peter Aguirre, DO) Hypokalemia (Acute) Reason for Visit: I had peer to peer conversation and SNF placement is resected. I was told that patient had 2 to 3 weeks of SNF stay after discharge from previous admission in January 2020 but unclear whether he was discharged because his insurance coverage ran out or he signed AMA. Vitals, heart rate and blood pressure control. Patient uses obstructive sleep apnea and COPD and uses BiPAP at night. Physical exam General: Alert, Oriented x3, Cooperative HEENT: Atraumatic, PERRLA, EOMI, Normocephalic Oral: No Gingival or Mucosal Lesions/ Ulcerations Neck: Supple, No JVD, Negative Carotid Bruits Lungs: Air entry diminished in bilateral lung . No crepitation/rhonchi. No tachypnea or hypoxia Cardiovascular: Regular rate, Regular Rhythm, Normal S1, Normal S2, No murmurs Abdomen: Bowel Sounds Present, Soft, Non Tender, Non-Distended : No renal angle tenderness. No suprapubic tenderness. Extremities: No edema, Capillary Refill Less than 3 Seconds Skin: No rashes, No breakdown Musculoskeletal: No Tenderness to Palpation of Joints or Extremities. Bilateral lower extremity weakness, right more than left, chronic in nature. Chronic bilateral degenerative joint disease of knees and hips. Neurological: Cranial nerves II-XII grossly intact, Deep Tendon Reflexes 2+/4 and Symmetrical, Neuro grossly intact Psych/Mental Status: Normal Affect, Appropriate. . Vitals/I&O's: Vital Signs Temp Pulse Resp BP Pulse Ox 98.3 F 74 16 133/56 H 95 04/16/20 15:18 04/16/20 15:18 04/16/20 15:18 04/16/20 15:18 04/16/20 15:18 Oxygen Delivery Method Room Air Weight: 281 lb 12.012 oz Body Mass Index (BMI) 38.2 Intake and Output for Last 24 Hours 04/14/20 04/15/20 04/16/20 23:59 23:59 23:59 Intake Total 1180 / 1180 1500 / 1500 700 / 700 Output Total 1870 / 1870 1875 / 1875 1150 / 1150 Balance -690 / -690 -375 / -375 -450 / -450 Laboratory Results 04/15/20 16:37: POC Glucose 95 04/15/20 22:12: POC Glucose 99 04/16/20 05:08: Sodium 133 L, Potassium 4.2, Chloride 99, Carbon Dioxide 31.0, Anion Gap 3 L, BUN 12, Creatinine 0.78, Estim Creat Clear Calc 73.29, Est GFR (MDRD) Af Amer 127, Est GFR (MDRD) Non-Af 105, BUN/Creatinine Ratio 15.5, Glucose 105, Calcium 9.1, Magnesium 1.7 04/16/20 06:33: POC Glucose 117 H 04/16/20 10:59: POC Glucose 137 H Current Medications Acetaminophen (Tylenol) 1,000 mg PO TID PRN PRN Reason: PAIN 1-10/FEVER Last Admin: 04/13/20 14:20 Dose: 1,000 mg Documented by: Apixaban (Eliquis) 5 mg PO BID [facility] Last Admin: 04/16/20 08:52 Dose: 5 mg Documented by: Aspirin (Ecotrin) 81 mg PO DAILY@0800 [facility] Last Admin: 04/16/20 08:51 Dose: 81 mg Documented by: Atorvastatin Calcium (Lipitor) 10 mg PO QHS [facility] Last Admin: 04/15/20 22:19 Dose: 10 mg Documented by: Dextrose (D50w Syringe) 0 gm IV X1 PRN; Protocol PRN Reason: Hypoglycemia Ergocalciferol (Vitamin D) 50,[address] [facility] Furosemide (Lasix) 40 mg PO DAILY [facility] Last Admin: 04/16/20 08:52 Dose: 40 mg Documented by: [facility] (Amaryl) [facility] Last Admin: 04/16/20 08:52 Dose: 2 mg Documented by: Glucagon () 1 mg IM .X1 PRN PRN Reason: Hypoglycemia Sodium Chloride () 250 mls @ 15 mls/hr IV .[id number] PRN PRN Reason: Saline Flush Last Infusion: 04/14/20 13:10 Dose: Infused Documented by: Sodium Chloride () 250 mls @ 15 mls/hr IV .[id number] PRN PRN Reason: Additional IVPB Infusion Insulin Human Lispro (Humalog Kwikpen (Bkc)) 0 unit SC TIDAC [facility]; Protocol Last Admin: 04/16/20 10:59 Dose: Not Given Documented by: Lisinopril (Zestril) 5 mg PO DAILY [facility] Last Admin: 04/16/20 08:50 Dose: 5 mg Documented by: Metformin [facility] (Glucophage) [facility] Last Admin: 04/16/20 08:52 Dose: 1,000 mg Documented by: Metoprolol Tartrate (Lopressor (Beta Paulette)) 12.5 mg PO BID [facility] Last Admin: 04/16/20 08:50 Dose: 12.5 mg Documented by: Nutritional Formula (Lactose Free) (Glucerna Shake) 120 ml PO TIDCM [facility] Last Admin: 04/16/20 11:01 Dose: 120 ml Documented by: Ondansetron HCl (Zofran) 4 mg IV Q8H PRN PRN PRN Reason: NAUSEA/VOMITING Oxycodone HCl (Oxyir) 5 mg PO Q4H PRN PRN PRN Reason: Pain Score 6-10/10 Last Admin: 04/16/20 11:01 Dose: 5 mg Documented by: Potassium Chloride (K-Dur) [facility] Last Admin: 04/16/20 08:50 Dose: 20 meq Documented by: Sodium Chloride () 10 - 40 ml IV UD PRN PRN Reason: SALINE FLUSH Sodium Chloride ([place] Nasal [place]) 2 spray NASAL TID PRN PRN PRN Reason: NASAL DRYNESS Last Admin: 04/14/20 09:45 Dose: 2 spray Documented by: STROKE Vital Signs/Narrative: Vital Signs Temp Pulse Resp BP Pulse Ox 04/16/20 15:18 98.3 F 74 16 133/56 H 95 Medical Necessity - Tobacco Use Smoking Status: Former smoker Tobacco Use: Cigarettes Assessment/Plan All Active Problems (Last Reviewed 04/12/20 @ 15:[address] Peter Aguirre, DO) Frequent falls (Acute) Hypokalemia (Acute) Acute respiratory failure with hypoxia (Resolved) CHF exacerbation (Resolved) This 70-year-old gentleman with multiple comorbidities admitted with generalized weakness, inability to ambulate and failure to thrive 1. Failure to thrive: Patient failed get up and go test mainly secondary to pain in the knees. Continue PT and OT. Discussed with telephonic case manager and his Medicaid is pending approval and then will go to SNF. 2. Hypokalemia: Resolved. Magnesium 1.7. Continue potassium and magnesium supplement along with furosemide. Looks like 3. Stage II decubitus ulcer, present on arrival: Wound care. Nutritional care. Basic nursing wound care protocol. 4. Diabetes mellitus type 2: Blood sugar is controlled. Continue with metformin and glimepiride. Sliding scale insulin 5. Atrial fibrillation Continue with apixaban and metoprolol tartrate 6. Chronic heart failure with preserved ejection fraction Compensated at this time EF of 65% from echocardiogram on November 2017 Continue with furosemide and lisinopril 7. VTE prophylaxis: Low risk as patient is observation status and already anticoagulated. 8. Advanced care planning: full CODE STATUS 9. Disposition: to SNF pending insurance authorization of Medicaid. laundry manager is working on it. Inpatient E&M: [id number] Subs Hosp L2
[2020-04-16 16:35] LABS: Bedside Glucose 134 mg/dL (70-110)
[2020-04-16] MEDS: Acetaminophen 500 MG Tablet 1000 MG PO (17:31)
[2020-04-16] MEDS: Atorvastatin Calcium 10 MG Tablet PO (21:15)
[2020-04-16 21:16] LABS: Bedside Glucose 134 mg/dL (70-110)
[2020-04-16] MEDS: Magnesium Chloride 64 MG Delay Rel.Tablet 128 MG PO (21:16)
[2020-04-17] VITALS (8 sets, daily range): BP systolic 111–158; BP diastolic 65–86; PULSE 55–95; RESP 16–20; TEMP 36.2–37.1; O2SAT 93–98
[2020-04-17] MEDS: Ondansetron 4 MG/2 ML Vial IV (04:28)
[2020-04-17] MEDS: 0.9% Saline Lock 10 ML Syringe IV ×2 (04:28→06:55)
[2020-04-17 06:40] LABS: Bedside Glucose 157 mg/dL (70-110)
[2020-04-17] MEDS: proMETHazine 25 MG/ML Syringe 12.5 MG IV (06:56)
--- NOTE | 2020-04-17 08:53 | CASEMGMT ---
Addendum entered by Bruna Branham 04/17/20 10:32: SW received call from Kavita at [facility] stating they are able to accept pt. SW completed LOC and faxed to [facility]. Plan: [facility] pending LOC Original Note: Social Work Note SW received message from Flower Jon at [facility] stating pt already had pending medicaid application and pending medicaid number [id number]. SW placed a call to Kavita at [facility] and left message informing her pt already has pending medicaid number and asked to confirm if [facility] is able to accept pt again. SW waiting for call back. Plan: [facility] pending LOC Bruna Branahm PARALEGAL INSTRUCTOR, PHYSICIAN INTERNIST
--- NOTE | 2020-04-17 09:26 | RAD_ITS ---
STUDY: X-RAY - ABDOMEN/PELVIS REASON FOR EXAM: Male, 70 years old. bowel, ileus, -- vomiting TECHNIQUE: 7 views COMPARISON: None. FINDINGS: Normal visualized lung bases. There is dilated small bowel loops with distended stomach there is fecal retention at the rectum. This may be an ileus versus possible obstruction. Follow-up is needed.. There is no demonstrated free abdominal air. Normal soft tissue structures. Degenerative vertebral changes. RAD/Abd Inc Decub and/or Erect IMPRESSION: Ileus versus obstruction and follow-up is needed. Electronically Signed: Barney Serrato DO at 11:12 EDT Tel [phone], Service support ,
[2020-04-17 10:11] LABS: Absolute Lymphocyte Count 0.91 X10^3/uL (0.83-4.51); Absolute Neutrophil Count 6.4 X10^3/uL (2.0-7.7); Basophil# 0.03 X10^3/uL; Basophil% 0.4 % (0-1); Eosinophil# 0.18 X10^3/uL; Eosinophils% 2.2 % (0-5); Hematocrit 38.8 % (40-54); Hemoglobin 12.5 g/dL (13.0-16.5); Lymphocyte # 0.91 X10^3/ul (4.0); Mean Corp Hgb Conc 32.2 g/dL (32-36); Mean Corpuscular Volume 96.3 fL (80-94); Mean Platelet Vol. 8.7 fl (6.2-12.0); Monocyte# 0.65 X10^3/uL; Monocyte% 7.9 % (0-10); NRBC Flagged by Analyzer 0 % (0-5); Neutrophil # 6.44 X10^3/uL (2.7-7.7); Platelet Count 293 K/mm3 (150-450); RBC Distribution Width CV 14.6 % (11.6-14.6); RBC Distribution Width SD 52.4 fl (35.1-43.9); Red Blood Count 4.03 M/mm3 (4.6-6.2); White Blood Count 8.3 K/mm3 (4.4-11.0)
[2020-04-17] MEDS: APIXABAN 5 MG TABLET PO ×2 (10:20→23:20)
[2020-04-17] MEDS: Lisinopril 5 MG Tablet PO (10:20)
[2020-04-17] MEDS: Metoprolol Tartrate 25 MG Tablet 12.5 MG PO ×2 (10:21→23:21)
[2020-04-17] MEDS: Furosemide 40 MG Tablet PO (10:21)
[2020-04-17 10:34] LABS: Anion Gap 4 (5-15); BUN 14 mg/dL (7-18); Calcium,Total 9.8 mg/dL (8.5-10.1); Chloride 99 mmol/L (98-107); Creatinine, Serum 0.88 mg/dL (0.70-1.30); EST Glomerular Filtration Rate 91 mL/min (>60); Est Glom Filt Rate - Afr Amer 110 mL/min (>60); Estimated Creatinine Clearance 83.28 ml/min; Glucose 163 mg/dL (74-106); Potassium 4.3 mmol/L (3.5-5.1); Sodium Level 135 mmol/L (136-145)
[2020-04-17 11:01] LABS: Bedside Glucose 155 mg/dL (70-110)
--- NOTE | 2020-04-17 11:48 | PCM.PN.HOSP ---
Patient Problems: Active and Suspected Problems (Last Reviewed 04/12/20 @ 15:[address] Peter Aguirre, DO) Hypokalemia (Acute) Reason for Visit: Follow-up for nausea, vomiting. Failure to thrive and multiple comorbidities Objective: As per the nursing staff patient had intermittent 2-3 times vomiting along with nausea. Patient did not had good bowel movement with complete emptying since Thursday about 3 days. Physical exam General: Alert, Oriented x3, Cooperative HEENT: Atraumatic, PERRLA, EOMI, Normocephalic Oral: No Gingival or Mucosal Lesions/ Ulcerations Neck: Supple, No JVD, Negative Carotid Bruits Lungs: Air entry diminished in bilateral lung bases. No crepitation/rhonchi Cardiovascular: Regular rate, Regular Rhythm, Normal S1, Normal S2, No murmurs Abdomen: Bowel Sounds hypoactive. Soft, Non Tender, mild abdominal distention of central abdomen. No rebound tenderness. : No renal angle tenderness. No suprapubic tenderness. Extremities: No edema, Capillary Refill Less than 3 Seconds Skin: Mckeon pigmentation of bilateral lower legs suggestive of venous hypertension and chronic venous insufficiency, present since admission. Stage II decubitus ulcer, present on arrival Musculoskeletal: Weakness of bilateral lower extremities, right more than left. Patient needs 2 people assistance to stand up and transfer. No Tenderness to Palpation of Joints or Extremities Neurological: Cranial nerves II-XII grossly intact, Deep Tendon Reflexes 2+/4 and Symmetrical, Neuro grossly intact Psych/Mental Status: Normal Affect, Appropriate. Vitals/I&O's: Vital Signs Temp Pulse Resp BP Pulse Ox 97.1 F L 88 16 111/69 96 04/17/20 11:20 04/17/20 11:20 04/17/20 11:20 04/17/20 11:20 04/17/20 11:20 Oxygen Delivery Method CPAP Weight: 281 lb 12.012 oz Body Mass Index (BMI) 38.2 Intake and Output for Last 24 Hours 04/15/20 04/16/20 04/17/20 23:59 23:59 23:59 Intake Total 1500 / 1500 1150 / 1350 200 / 200 Output Total 1875 / 1875 1900 / 2225 1675 / 1675 Balance -375 / -375 -750 / -875 -1475 / -1475 Laboratory Results 04/16/20 16:29: POC Glucose 134 H 04/16/20 21:08: POC Glucose 134 H 04/17/20 06:31: POC Glucose 157 H 04/17/20 10:01: WBC 8.3, RBC 4.03 L, Hgb 12.5 L, Hct 38.8 L, MCV 96.3 H, MCH 31.0, MCHC 32.2, RDW Std Deviation 52.4 H, RDW Coeff of Shantell 14.6, Plt Count 293, MPV 8.7, Immature Gran % (Auto) 0.500, Neut % (Auto) 78.0 H, Lymph % (Auto) 11.0 L, [place] % (Auto) 7.9, Eos % (Auto) 2.2, Baso % (Auto) 0.4, Absolute Neuts (auto) 6.4, Absolute Lymphs (auto) 0.91, Nucleated RBC % 0 04/17/20 10:01: Sodium 135 L, Potassium 4.3, Chloride 99, Carbon Dioxide 32.0, Anion Gap 4 L, BUN 14, Creatinine 0.88, Estim Creat Clear Calc 83.28, Est GFR (MDRD) Af Amer 110, Est GFR (MDRD) Non-Af 91, BUN/Creatinine Ratio 16.0, Glucose 163 H, Calcium 9.8, Magnesium 2.0 04/17/20 10:52: POC Glucose 155 H Current Medications Acetaminophen (Tylenol) 1,000 mg PO TID PRN PRN Reason: PAIN 1-10/FEVER Last Admin: 04/16/20 17:31 Dose: 1,000 mg Documented by: Apixaban (Eliquis) 5 mg PO BID [facility] Last Admin: 04/17/20 10:20 Dose: 5 mg Documented by: Aspirin (Ecotrin) 81 mg PO DAILY@0800 [facility] Last Admin: 04/17/20 09:37 Dose: Not Given Documented by: Atorvastatin Calcium (Lipitor) 10 mg PO QHS [facility] Last Admin: 04/16/20 21:15 Dose: 10 mg Documented by: Bisacodyl (Dulcolax) 10 mg RECTAL DAILY [facility] Dextrose (D50w Syringe) 0 gm IV X1 PRN; Protocol PRN Reason: Hypoglycemia Ergocalciferol (Vitamin D) 50,000 unit PO TU [facility] Last Admin: 10/06/20 09:38 Dose: Not Given Documented by: Furosemide (Lasix) 40 mg PO DAILY [facility] Last Admin: 04/17/20 10:21 Dose: 40 mg Documented by: Glimepiride (Amaryl) 2 mg PO DAILY[facility]ETT Last Admin: 04/17/20 09:37 Dose: Not Given Documented by: Glucagon () 1 mg IM .X1 PRN PRN Reason: Hypoglycemia Sodium Chloride () 250 mls @ 15 mls/hr IV .[id number] PRN PRN Reason: Saline Flush Last Infusion: 04/14/20 13:10 Dose: Infused Documented by: Sodium Chloride () 250 mls @ 15 mls/hr IV .[id number] PRN PRN Reason: Additional IVPB Infusion Insulin Human Lispro (Humalog Kwikpen (Bkc)) 0 unit SC TIDAC [facility]; Protocol Last Admin: 04/17/20 11:22 Dose: Not Given Documented by: Lisinopril (Zestril) 5 mg PO DAILY [facility] Last Admin: 04/17/20 10:20 Dose: 5 mg Documented by: Magnesium Chloride (Mag64) 128 mg PO BID [facility] Last Admin: 04/17/20 09:38 Dose: Not Given Documented by: Magnesium Citrate (Citrate Of Magnesia) 150 ml PO X1 ONE Stop: 04/17/20 11:47 Metformin HCl (Glucophage) 1,000 mg PO BID[facility] Last Admin: 04/17/20 09:38 Dose: Not Given Documented by: Metoprolol Tartrate (Lopressor (Beta Paulette)) 12.5 mg PO BID [facility] Last Admin: 04/17/20 10:21 Dose: 12.5 mg Documented by: Nutritional Formula (Lactose Free) (Glucerna Shake) 120 ml PO TIDCM [facility] Last Admin: 04/17/20 09:37 Dose: Not Given Documented by: Ondansetron HCl (Zofran) 4 mg IV Q8H PRN PRN PRN Reason: NAUSEA/VOMITING Last Admin: 04/17/20 04:28 Dose: 4 mg Documented by: Oxycodone HCl (Oxyir) 5 mg PO Q4H PRN PRN PRN Reason: Pain Score 6-10/10 Last Admin: 04/16/20 21:16 Dose: 5 mg Documented by: Potassium Chloride (K-Dur) 20 meq PO BID[facility] Last Admin: 04/17/20 09:38 Dose: Not Given Documented by: Senna/Docusate Sodium (Senokot-S, [place]-Colace) 2 tablet PO BID [facility] Sodium Chloride () 10 - 40 ml IV UD PRN PRN Reason: SALINE FLUSH Last Admin: 04/17/20 06:55 Dose: 20 ml Documented by: Sodium Chloride ([place] Nasal [place]) 2 spray NASAL TID PRN PRN PRN Reason: NASAL DRYNESS Last Admin: 04/14/20 09:45 Dose: 2 spray Documented by: STROKE Vital Signs/Narrative: Vital Signs Temp Pulse Resp BP Pulse Ox 04/17/20 11:20 97.1 F L 88 16 111/69 96 04/17/20 10:21 95 04/17/20 08:19 98.4 F 95 16 151/86 H 98 Medical Necessity - Tobacco Use Smoking Status: Former smoker Tobacco Use: Cigarettes Assessment/Plan All Active Problems (Last Reviewed 04/12/20 @ 15:[address] Peter Aguirre, DO) Frequent falls (Acute) Hypokalemia (Acute) Acute respiratory failure with hypoxia (Resolved) CHF exacerbation (Resolved) This 70-year-old gentleman with multiple comorbidities admitted with generalized weakness, inability to ambulate and failure to thrive 1. Small bowel ileus with colonic fecal retention: Abdominal x-ray was done which showed dilated small bowel loops and distended stomach and fecal retention at rectum. No free air. Patient put on oral laxatives and rectal suppositories. Soapsuds enema ordered. If there is no relief of constipation or further worsening, will consult surgery and patient will need abdominal CT with oral contrast. 2. Failure to thrive: Patient failed get up and go test mainly secondary to pain in the knees. Continue PT and OT. Discussed with director case and his Medicaid is pending approval and then will go to SNF. 3. Hypokalemia: Resolved. Magnesium 1.7. Continue potassium and magnesium supplement along with furosemide. Looks like 4. Stage II decubitus ulcer, present on arrival: Wound care. Nutritional care. Basic nursing wound care protocol. 5. Diabetes mellitus type 2: Blood sugar is controlled. Continue with metformin and glimepiride. Sliding scale insulin 5. Atrial fibrillation Continue with apixaban and metoprolol tartrate 6. Chronic heart failure with preserved ejection fraction Compensated at this time EF of 65% from echocardiogram on November 2017 Continue with furosemide and lisinopril 7. VTE prophylaxis: Low risk as patient is observation status and already anticoagulated. 8. Advanced care planning: full CODE STATUS 9. Disposition: to SNF pending insurance authorization of Medicaid. power project manager is working on it. Clinical Impression(s) from Imaging Studies Knee X-Ray 04/12/20 13:24 IMPRESSION: Degenerative arthrosis. Electronically Signed: Monty Randle MD at 14:40 EDT Tel , Service support , Knee X-Ray 04/12/20 13:27 IMPRESSION: Degenerative arthrosis. Electronically Signed: Monty Randle MD at 14:39 EDT Tel , Service support , Chest X-Ray 04/12/20 14:15 IMPRESSION: Hyperinflation. The lungs are clear. Electronically Signed: Ryan Sood, at 14:44 EDT , Service support , Abdomen X-Ray 04/17/20 09:26 IMPRESSION: Ileus versus obstruction and follow-up is needed. Inpatient E&M: [id number] [facility] L2
[2020-04-17] MEDS: Magnesium Citrate 300 ML 150 ML PO (12:41)
[2020-04-17] MEDS: Bisacodyl 10 MG Suppository RECTAL (12:41)
[2020-04-17] MEDS: Senna/Docusate Sodium 1 Tablet 2 TABLET PO ×2 (12:41→23:20)
[2020-04-17] MEDS: Lactated Ringers 1,000 ML 60 ML IV (13:12)
--- NOTE | 2020-04-17 13:13 | PCM.CONS.GEN ---
Problem List (1) SBO (small bowel obstruction) Status: Acute Reason for Consult Date of Consultation: 04/17/20 Reason for Consultation: Small bowel obstruction versus ileus History of Present Illness: The patient is a 70 year old M reports that he has not been out of his bed for weeks to months. He reports that he has had weakness in his legs. He says over the last 3 days he has been having nausea and vomiting. He says he is passing flatus and had a bowel movement the day before yesterday. He is not describing any localized abdominal pain. He says he has had surgery for bowel blockage in the past that was done here. Past Medical History Past Medical History (Chronic Problems): Chronic Problems (Last Reviewed 04/12/20 @ 15:[address] Peter Aguirre DO) Ambulatory dysfunction (Chronic) Degenerative arthritis of knee, bilateral (Chronic) Debility (Chronic) Tobacco dependence due to chewing tobacco (Chronic) Generalized weakness (Chronic) Atherosclerotic heart disease of [place] coronary artery without angina pectoris (Chronic) Pure hypercholesterolemia (Chronic) Essential (primary) hypertension (Chronic) Chronic diastolic heart failure (Chronic) Persistent atrial fibrillation (Chronic) HOLGER (obstructive sleep apnea) (Chronic) Morbid obesity (Chronic) Diabetes mellitus type 2, uncontrolled, without complications (Chronic) Medical History: Medical History (Last Reviewed 04/12/20 @ 15:[address] Peter Aguirre DO) Atherosclerotic heart disease of [place] coronary artery without angina pectoris (Chronic) I25.10 Pure hypercholesterolemia (Chronic) E78.00 Essential (primary) hypertension (Chronic) I10 SOB (shortness of breath) on exertion (Inactive) R06.02 Abnormal stress test (Inactive) R94.39 Chronic diastolic heart failure (Chronic) I50.32 Persistent atrial fibrillation (Chronic) I48.1 COPD with acute exacerbation (Inactive) J44.1 PVC's (premature ventricular contractions) (Inactive) I49.3 HOLGER (obstructive sleep apnea) (Chronic) G47.33 Morbid obesity (Chronic) E66.01 Diabetes mellitus type 2, uncontrolled, without complications (Chronic) E11.65 Abdominal pain R10.9 Arthritis M19.90 Depression F32.9 Gout M10.9 Nausea & vomiting R11.2 Weight loss R63.4 Acute respiratory failure with hypoxia (Resolved) J96.01 CHF exacerbation (Resolved) I50.9 Allergies No Known Allergies Allergy (Verified 04/12/20 13:04) Home Medications: Ambulatory Orders Medication Instructions Recorded rosuvastatin 5 mg tablet 5 mg PO QHS 03/12/18 Metoprolol Tartrate [Lopressor 12.5 mg PO BID 05/04/19 (beta paulette)] Apixaban [Eliquis] 5 mg PO BID 01/14/20 Furosemide [Lasix] 40 mg PO DAILY 01/14/20 Lisinopril [Zestril] 5 mg PO DAILY 01/14/20 Potassium Chloride [K-Dur] 20 meq PO DAILY 01/14/20 Aspirin E.C. [Ecotrin] 81 mg PO DAILY@0800 01/24/20 Ergocalciferol [Vitamin D] 50,000 unit PO TU 01/24/20 Glimepiride [Amaryl] 2 mg PO DAILY #0 01/26/20 Acetaminophen [Tylenol Extra 1,500 mg PO DAILY PRN PRN 04/12/20 Strength] Metformin HCl 1,000 mg PO BID 04/12/20 Surgical History: Surgical History (Last Reviewed 04/12/20 @ 15:[address] Peter Aguirre DO) History of appendectomy Z90.49 History of exploratory laparotomy Z98.890 History of kidney surgery Z98.890 Surgical History: tonsillectomy Psychiatric History: No pertinent psych hx Lives: Spouse/ Significant Other Smoking Status: Former smoker Tobacco Use: Cigarettes - *Family History Paternal Family History: Family History (Last Reviewed 04/12/20 @ 15:[address] Peter Aguirre DO) Mother CHF (congestive heart failure) Father Cancer History Items: Diabetes Review of Systems Constitutional: Denies: Anorexia, Fever Cardiovascular: Denies: Chest Pain Respiratory: Denies: Cough Gastrointestinal: Reports: Nausea, Vomiting. Denies: Abdominal Pain, Constipation, Diarrhea, Hematemesis, Hematochezia Genitourinary: Denies: Incontinence Neurological: Denies: Headaches Psychiatric: Denies: Anxiety Hematologic/ Lymphatic: Denies: Anemia Patient Problems: Active and Suspected Problems (Last Reviewed 04/12/20 @ 15:[address] Peter Aguirre DO) Hypokalemia (Acute) SBO (small bowel obstruction) (Acute) - Physical Exam Vitals/I&O's: Vital Signs Temp Pulse Resp BP Pulse Ox 97.1 F L 88 16 111/69 96 04/17/20 11:20 04/17/20 11:20 04/17/20 11:20 04/17/20 11:20 04/17/20 11:20 Oxygen Delivery Method CPAP Weight: 281 lb 12.012 oz Body Mass Index (BMI) 38.2 Intake and Output for Last 24 Hours 04/15/20 04/16/20 04/17/20 23:59 23:59 23:59 Intake Total 1500 / 1500 1150 / 1350 200 / 200 Output Total 1875 / 1875 1900 / 2225 1675 / 1675 Balance -375 / -375 -750 / -875 -1475 / -1475 General: Alert, Oriented x3 Neck: No JVD Cardiovascular: Regular rate, Regular Rhythm Abdomen: Soft, Non Tender, Distended Laboratory Results 04/16/20 16:29: POC Glucose 134 H 04/16/20 21:08: POC Glucose 134 H 04/17/20 06:31: POC Glucose 157 H 04/17/20 10:01: WBC 8.3, RBC 4.03 L, Hgb 12.5 L, Hct 38.8 L, MCV 96.3 H, MCH 31.0, MCHC 32.2, RDW Std Deviation 52.4 H, RDW Coeff of Shantell 14.6, Plt Count 293, MPV 8.7, Immature Gran % (Auto) 0.500, Neut % (Auto) 78.0 H, Lymph % (Auto) 11.0 L, [place] % (Auto) 7.9, Eos % (Auto) 2.2, Baso % (Auto) 0.4, Absolute Neuts (auto) 6.4, Absolute Lymphs (auto) 0.91, Nucleated RBC % 0 04/17/20 10:01: Sodium 135 L, Potassium 4.3, Chloride 99, Carbon Dioxide 32.0, Anion Gap 4 L, BUN 14, Creatinine 0.88, Estim Creat Clear Calc 83.28, Est GFR (MDRD) Af Amer 110, Est GFR (MDRD) Non-Af 91, BUN/Creatinine Ratio 16.0, Glucose 163 H, Calcium 9.8, Magnesium 2.0 04/17/20 10:52: POC Glucose 155 H Current Medications Acetaminophen (Tylenol) 1,000 mg PO TID PRN PRN Reason: PAIN 1-10/FEVER Last Admin: 04/16/20 17:31 Dose: 1,000 mg Documented by: Apixaban (Eliquis) 5 mg PO BID [facility] Last Admin: 04/17/20 10:20 Dose: 5 mg Documented by: Aspirin (Ecotrin) 81 mg PO DAILY@0800 [facility] Last Admin: 04/17/20 09:37 Dose: Not Given Documented by: Bisacodyl (Dulcolax) 10 mg RECTAL DAILY [facility] Last Admin: 04/17/20 12:41 Dose: 10 mg Documented by: Dextrose (D50w Syringe) 0 gm IV X1 PRN; Protocol PRN Reason: Hypoglycemia Glucagon () 1 mg IM .X1 PRN PRN Reason: Hypoglycemia Sodium Chloride () 250 mls @ 15 mls/hr IV .[id number] PRN PRN Reason: Saline Flush Last Infusion: 04/14/20 13:10 Dose: Infused Documented by: Sodium Chloride () 250 mls @ 15 mls/hr IV .[id number] PRN PRN Reason: Additional IVPB Infusion Lactated Ringer's () 1,000 mls @ 60 mls/hr IV .[id number] [facility] Last Admin: 04/17/20 13:12 Dose: 60 mls/hr Documented by: Insulin Human Lispro (Humalog Kwikpen (Bkc)) 0 unit SC TIDAC [facility]; Protocol Last Admin: 04/17/20 11:22 Dose: Not Given Documented by: Metoprolol Tartrate (Lopressor (Beta Paulette)) 12.5 mg PO BID [facility] Last Admin: 04/17/20 10:21 Dose: 12.5 mg Documented by: Nutritional Formula (Lactose Free) (Glucerna Shake) 120 ml PO TIDCM [facility] Last Admin: 04/17/20 12:42 Dose: Not Given Documented by: Ondansetron HCl (Zofran) 4 mg IV Q8H PRN PRN PRN Reason: NAUSEA/VOMITING Last Admin: 04/17/20 04:28 Dose: 4 mg Documented by: Senna/Docusate Sodium (Senokot-S, [place]-Colace) 2 tablet PO BID [facility] Last Admin: 04/17/20 12:41 Dose: 2 tablet Documented by: Sodium Chloride () 10 - 40 ml IV UD PRN PRN Reason: SALINE FLUSH Last Admin: 04/17/20 06:55 Dose: 20 ml Documented by: Sodium Chloride ([place] Nasal [place]) 2 spray NASAL TID PRN PRN PRN Reason: NASAL DRYNESS Last Admin: 04/14/20 09:45 Dose: 2 spray Documented by: Assessment/Plan All Active Problems (Last Reviewed 04/12/20 @ 15:[address] Peter Aguirre, DO) Frequent falls (Acute) Hypokalemia (Acute) SBO (small bowel obstruction) (Acute) Acute respiratory failure with hypoxia (Resolved) CHF exacerbation (Resolved) 70-year-old male with ileus versus small bowel obstruction 1. Patient reports that he has been having nausea and vomiting for couple days with no focal abdominal pain. He is passing flatus. An x-ray which showed dilated loops of bowel which were nonspecific. I have recommended that the patient have a CT with p.o. and IV contrast. Continue n.p.o. until CT results are back. Dimitrios Barbosa MD Pager: [facility] [address] [place] [address], [address] [place] [address] Office:
--- NOTE | 2020-04-17 15:27 | CASEMGMT ---
Social Work Note SW received LOC. Pt is not medically cleared for discharge today. SW placed a call to Kavita at [facility] and updated her. SW updated pt on LOC and acceptance to [facility]. Pt states understanding. Plan: [facility] once medically cleared. LOC received. Bruna Branham [employer], RAISED PRINTER
[2020-04-17 16:10] LABS: Bedside Glucose 132 mg/dL (70-110)
--- NOTE | 2020-04-17 16:37 | CT_ITS ---
STUDY: CT ABDOMEN AND PELVIS WITH CONTRAST REASON FOR EXAM: Male, 70 years old. ABDOMINAL PAIN WITH VOMITING RADIATION DOSAGE (If Supplied By Facility): CTDIvol = ( 22.73 ) mGy, DLP = ( 2542.97 ) mGycm TECHNIQUE: Transaxial images were obtained from the dome of the diaphragm to the symphysis pubis without oral contrast. IV 100ML ISOVUE 370 was administered. Sagittal and coronal images were reconstructed. Individualized dose optimization techniques were used for this CT. COMPARISON: Prior study of 01/29/2018 FINDINGS: The visualized lung bases are unremarkable. The heart size is within normal limits. There is no pericardial effusion. Coronary arterial calcifications are present. Normal liver. Normal gallbladder and extrahepatic biliary system. Normal spleen. Normal pancreas. Normal bilateral adrenal glands. Normal right kidney. There is amorphous soft tissue density with calcification lateral to the right kidney and in the right paracolic gutter appearing stable in extent and size from the previous study. There is an interval increase in calcification in this focus. Normal left kidney. Normal visualized stomach. There is distention with air-fluid levels of multiple loops of left-sided small bowel . There are scattered colonic diverticuli with no evidence of associated diverticulitis. There is non-visualization of the appendix. There are calcified plaques of the abdominal aorta and common iliac arteries. Normal inferior vena cava. Normal retroperitoneum. Normal urinary bladder. The prostate is mildly enlarged and heterogeneous in density. Normal abdominal wall. There are diffuse degenerative changes of the visualized thoracolumbar spine. There is an hemangioma of the T11 body. There is moderately severe compression deformity with sclerosis of the L1 vertebral body, new in the interval. There is multilevel vacuum disc phenomenon. CT/Abdomen/Pelvis WITH Contrast IMPRESSION: 1. Amorphous soft tissue density with calcification lateral to the right kidney and in the right paracolic gutter appearing stable in extent and size from the previous study. There is an interval increase in associated calcification of this focus. 2. Distention with air-fluid levels in multiple loops of left-sided small bowel suggestive of obstruction. 3. Scattered colonic diverticulosis with no evidence of associated diverticulitis. 4. The prostate is mildly enlarged and heterogeneous in density. 5. Moderately severe compression deformity with sclerosis of the L1 vertebral body, new in the interval. Underlying neoplastic process should be considered and further evaluation of this is recommended. MRI may be helpful. 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 Electronically Signed: Jose A Lee MD at 17:12 EDT , Service support ,
[2020-04-17] MEDS: Acetaminophen 500 MG Tablet 1000 MG PO (23:19)
[2020-04-18] VITALS (9 sets, daily range): BP systolic 111–128; BP diastolic 54–74; PULSE 62–81; RESP 18; TEMP 36.6–37.2; O2SAT 94–98
[2020-04-18 00:10] LABS: Bedside Glucose 122 mg/dL (70-110)
[2020-04-18] MEDS: Lactated Ringers 1,000 ML 60 ML IV (06:50)
[2020-04-18 06:56] LABS: Absolute Lymphocyte Count 1.57 X10^3/uL (0.83-4.51); Absolute Neutrophil Count 3.3 X10^3/uL (2.0-7.7); Basophil# 0.03 X10^3/uL; Basophil% 0.5 % (0-1); Eosinophil# 0.51 X10^3/uL; Eosinophils% 8.4 % (0-5); Hematocrit 35.5 % (40-54); Hemoglobin 11.3 g/dL (13.0-16.5); Lymphocyte # 1.57 X10^3/ul (4.0); Lymphocyte % 25.8 % (19-41); Mean Corp Hgb Conc 31.8 g/dL (32-36); Mean Corpuscular Hgb 31.5 pg (27.0-32.0); Mean Corpuscular Volume 98.9 fL (80-94); Mean Platelet Vol. 9.1 fl (6.2-12.0); Monocyte% 11.5 % (0-10); NRBC Flagged by Analyzer 0 % (0-5); Neutrophil # 3.26 X10^3/uL (2.7-7.7); Neutrophil % 53.5 % (47-70); Platelet Count 280 K/mm3 (150-450); RBC Distribution Width CV 14.7 % (11.6-14.6); RBC Distribution Width SD 53.5 fl (35.1-43.9); Red Blood Count 3.59 M/mm3 (4.6-6.2); White Blood Count 6.1 K/mm3 (4.4-11.0)
[2020-04-18 07:01] LABS: Bedside Glucose 112 mg/dL (70-110)
[2020-04-18 07:23] LABS: Anion Gap 4 (5-15); BUN 14 mg/dL (7-18); BUN/Creat Ratio 15.4 RATIO (10-20); Calcium,Total 9.2 mg/dL (8.5-10.1); Chloride 101 mmol/L (98-107); Creatinine, Serum 0.91 mg/dL (0.70-1.30); EST Glomerular Filtration Rate 87 mL/min (>60); Est Glom Filt Rate - Afr Amer 105 mL/min (>60); Estimated Creatinine Clearance 80.54 ml/min; Glucose 96 mg/dL (74-106); Potassium 4.3 mmol/L (3.5-5.1); Sodium Level 136 mmol/L (136-145)
--- NOTE | 2020-04-18 07:48 | PN.SURG_ITS ---
Patient Problems: Active and Suspected Problems (Last Reviewed 04/12/20 @ 15:[address] Peter Aguirre, DO) Hypokalemia (Acute) SBO (small bowel obstruction) (Acute) Subjective: Patient reports he is still passing gas. No nausea vomiting overnight. No abdominal pain today. - Physical Exam Vitals/I&O's: Vital Signs Temp Pulse Resp BP Pulse Ox 97.8 F 81 18 111/60 94 04/18/20 06:27 04/18/20 06:27 04/18/20 06:27 04/18/20 06:27 04/18/20 06:27 Oxygen Delivery Method Room Air Weight: 281 lb 12.012 oz Body Mass Index (BMI) 38.2 Intake and Output for Last 24 Hours 04/16/20 04/17/20 04/18/20 23:59 23:59 23:59 Intake Total 1150 / 1350 322 / 322 837 / 837 Output Total 1900 / 2225 2495 / 2495 300 / 300 Balance -750 / -875 -2173 / -2173 537 / 537 General: Alert, Oriented x3 Lungs: Normal air movement Abdomen: Bowel Sounds Present, Soft, Non Tender, Non-Distended Laboratory Results 04/17/20 10:01: WBC 8.3, RBC 4.03 L, Hgb 12.5 L, Hct 38.8 L, MCV 96.3 H, MCH 31.0, MCHC 32.2, RDW Std Deviation 52.4 H, RDW Coeff of Shantell 14.6, Plt Count 293, MPV 8.7, Immature Gran % (Auto) 0.500, Neut % (Auto) 78.0 H, Lymph % (Auto) 11.0 L, [place] % (Auto) 7.9, Eos % (Auto) 2.2, Baso % (Auto) 0.4, Absolute Neuts (auto) 6.4, Absolute Lymphs (auto) 0.91, Nucleated RBC % 0 04/17/20 10:01: Sodium 135 L, Potassium 4.3, Chloride 99, Carbon Dioxide 32.0, Anion Gap 4 L, BUN 14, Creatinine 0.88, Estim Creat Clear Calc 83.28, Est GFR (MDRD) Af Amer 110, Est GFR (MDRD) Non-Af 91, BUN/Creatinine Ratio 16.0, Glucose 163 H, Calcium 9.8, Magnesium 2.0 04/17/20 10:52: POC Glucose 155 H 04/17/20 16:04: POC Glucose 132 H 04/17/20 23:39: POC Glucose 122 H 04/18/20 06:05: WBC 6.1, RBC 3.59 L, Hgb 11.3 L, Hct 35.5 L, MCV 98.9 H, MCH 31.5, MCHC 31.8 L, RDW Std Deviation 53.5 H, RDW Coeff of Shantell 14.7 H, Plt Count 280, MPV 9.1, Immature Gran % (Auto) 0.300, Neut % (Auto) 53.5, Lymph % (Auto) 25.8, [place] % (Auto) 11.5 H, Eos % (Auto) 8.4 H, Baso % (Auto) 0.5, Absolute Neuts (auto) 3.3, Absolute Lymphs (auto) 1.57, Nucleated RBC % 0 04/18/20 06:05: Sodium 136, Potassium 4.3, Chloride 101, Carbon Dioxide 31.0, Anion Gap 4 L, BUN 14, Creatinine 0.91, Estim Creat Clear Calc 80.54, Est GFR (MDRD) Af Amer 105, Est GFR (MDRD) Non-Af 87, BUN/Creatinine Ratio 15.4, Glucose 96, Calcium 9.2, Magnesium 2.0 04/18/20 06:47: POC Glucose 112 H Current Medications Acetaminophen (Tylenol) 1,000 mg PO TID PRN PRN Reason: PAIN 1-10/FEVER Last Admin: 04/17/20 23:19 Dose: 1,000 mg Documented by: Apixaban (Eliquis) 5 mg PO BID [facility] Last Admin: 04/17/20 23:20 Dose: 5 mg Documented by: Aspirin (Ecotrin) 81 mg PO DAILY@0800 [facility] Last Admin: 04/17/20 09:37 Dose: Not Given Documented by: Bisacodyl (Dulcolax) 10 mg RECTAL DAILY [facility] Last Admin: 04/17/20 12:41 Dose: 10 mg Documented by: Dextrose (D50w Syringe) 0 gm IV X1 PRN; Protocol PRN Reason: Hypoglycemia Glucagon () 1 mg IM .X1 PRN PRN Reason: Hypoglycemia Sodium Chloride () 250 mls @ 15 mls/hr IV .[id number] PRN PRN Reason: Saline Flush Last Infusion: 04/14/20 13:10 Dose: Infused Documented by: Sodium Chloride () 250 mls @ 15 mls/hr IV .[id number] PRN PRN Reason: Additional IVPB Infusion Lactated Ringer's () 1,000 mls @ 60 mls/hr IV .[id number] [facility] Last Admin: 04/18/20 06:50 Dose: 60 mls/hr Documented by: Insulin Human Lispro (Humalog Kwikpen (Bkc)) 0 unit SC TIDAC [facility]; Protocol Last Admin: 04/18/20 06:48 Dose: Not Given Documented by: Metoprolol Tartrate (Lopressor (Beta Paulette)) 12.5 mg PO BID [facility] Last Admin: 04/17/20 23:21 Dose: 12.5 mg Documented by: Nutritional Formula (Lactose Free) (Glucerna Shake) 120 ml PO TIDCM [facility] Last Admin: 04/17/20 16:09 Dose: Not Given Documented by: Ondansetron HCl (Zofran) 4 mg IV Q8H PRN PRN PRN Reason: NAUSEA/VOMITING Last Admin: 04/17/20 04:28 Dose: 4 mg Documented by: Senna/Docusate Sodium (Senokot-S, Elizabeth-Colace) 2 tablet PO BID [facility] Last Admin: 04/17/20 23:20 Dose: 2 tablet Documented by: Sodium Chloride () 10 - 40 ml IV UD PRN PRN Reason: SALINE FLUSH Last Admin: 04/17/20 06:55 Dose: 20 ml Documented by: Sodium Chloride ([place] Nasal [place]) 2 spray NASAL TID PRN PRN PRN Reason: NASAL DRYNESS Last Admin: 04/14/20 09:45 Dose: 2 spray Documented by: Medical Necessity - Tobacco Use Smoking Status: Former smoker Tobacco Use: Cigarettes Assessment/Plan All Active Problems (Last Reviewed 04/12/20 @ 15:[address] Peter Aguirre DO) Frequent falls (Acute) Hypokalemia (Acute) SBO (small bowel obstruction) (Acute) Acute respiratory failure with hypoxia (Resolved) CHF exacerbation (Resolved) 70-year-old male with possible ileus 1. Patient has CT scan yesterday which showed some mildly dilated loops of small bowel in the left abdomen. There were no transition signs. The patient also has a new L1 lesion with sclerosis. The patient had no nausea or vomiting overnight and I will try clear liquid diet today. Dimitrios Barbosa MD Pager: [facility] [address] [place] [address], [address] [place] [address] Office:
--- NOTE | 2020-04-18 08:17 | PCM.PN.HOSP ---
Patient Problems: Active and Suspected Problems (Last Reviewed 04/12/20 @ 15:[address] Peter Aguirre, DO) Hypokalemia (Acute) SBO (small bowel obstruction) (Acute) Reason for Visit: Follow-up for small bowel ileus,, chronic lower back pain and bilateral lower extremity weakness and other multiple comorbidities Objective: No fever or chills. Respiratory rate 17. Heart rate in 80s to 90s. Patient complain of sore throat. CT scan findings discussed with the patient including the L1 fracture and chronic degenerative changes and osteoporosis. Physical exam General: Alert, Oriented x3, Cooperative HEENT: Atraumatic, PERRLA, EOMI, Normocephalic Oral: No Gingival or Mucosal Lesions/ Ulcerations Neck: Supple, No JVD, Negative Carotid Bruits Lungs: Air entry diminished in bilateral lung bases. No crepitation/rhonchi Cardiovascular: Regular rate, Regular Rhythm, Normal S1, Normal S2, No murmurs Abdomen: Bowel Sounds hypoactive. Soft, Non Tender, mild abdominal distention of central abdomen. No rebound tenderness. : No renal angle tenderness. No suprapubic tenderness. Extremities: No edema, Capillary Refill Less than 3 Seconds Skin: Mckeon pigmentation of bilateral lower legs suggestive of venous hypertension and chronic venous insufficiency, present since admission. Stage II decubitus ulcer, present since admission. Musculoskeletal: Weakness of bilateral lower extremities, right more than left. Patient needs 2 people assistance to stand up and transfer. No Tenderness to Palpation of Joints or Extremities Neurological: Cranial nerves II-XII grossly intact, Deep Tendon Reflexes 2+/4 and Symmetrical, Neuro grossly intact Psych/Mental Status: Normal Affect, Appropriate. Vitals/I&O's: Vital Signs Temp Pulse Resp BP Pulse Ox 97.8 F 81 18 111/60 94 04/18/20 06:27 04/18/20 06:27 04/18/20 06:27 04/18/20 06:27 04/18/20 06:27 Oxygen Delivery Method Room Air Weight: 281 lb 12.012 oz Body Mass Index (BMI) 38.2 Intake and Output for Last 24 Hours 04/16/20 04/17/20 04/18/20 23:59 23:59 23:59 Intake Total 1150 / 1350 322 / 322 837 / 837 Output Total 1900 / 2225 2495 / 2495 300 / 300 Balance -750 / -875 -2173 / -2173 537 / 537 Laboratory Results 04/17/20 10:01: WBC 8.3, RBC 4.03 L, Hgb 12.5 L, Hct 38.8 L, MCV 96.3 H, MCH 31.0, MCHC 32.2, RDW Std Deviation 52.4 H, RDW Coeff of Shantell 14.6, Plt Count 293, MPV 8.7, Immature Gran % (Auto) 0.500, Neut % (Auto) 78.0 H, Lymph % (Auto) 11.0 L, [place] % (Auto) 7.9, Eos % (Auto) 2.2, Baso % (Auto) 0.4, Absolute Neuts (auto) 6.4, Absolute Lymphs (auto) 0.91, Nucleated RBC % 0 04/17/20 10:01: Sodium 135 L, Potassium 4.3, Chloride 99, Carbon Dioxide 32.0, Anion Gap 4 L, BUN 14, Creatinine 0.88, Estim Creat Clear Calc 83.28, Est GFR (MDRD) Af Amer 110, Est GFR (MDRD) Non-Af 91, BUN/Creatinine Ratio 16.0, Glucose 163 H, Calcium 9.8, Magnesium 2.0 04/17/20 10:52: POC Glucose 155 H 04/17/20 16:04: POC Glucose 132 H 04/17/20 23:39: POC Glucose 122 H 04/18/20 06:05: WBC 6.1, RBC 3.59 L, Hgb 11.3 L, Hct 35.5 L, MCV 98.9 H, MCH 31.5, MCHC 31.8 L, RDW Std Deviation 53.5 H, RDW Coeff of Shantell 14.7 H, Plt Count 280, MPV 9.1, Immature Gran % (Auto) 0.300, Neut % (Auto) 53.5, Lymph % (Auto) 25.8, [place] % (Auto) 11.5 H, Eos % (Auto) 8.4 H, Baso % (Auto) 0.5, Absolute Neuts (auto) 3.3, Absolute Lymphs (auto) 1.57, Nucleated RBC % 0 04/18/20 06:05: Sodium 136, Potassium 4.3, Chloride 101, Carbon Dioxide 31.0, Anion Gap 4 L, BUN 14, Creatinine 0.91, Estim Creat Clear Calc 80.54, Est GFR (MDRD) Af Amer 105, Est GFR (MDRD) Non-Af 87, BUN/Creatinine Ratio 15.4, Glucose 96, Calcium 9.2, Magnesium 2.0 04/18/20 06:47: POC Glucose 112 H Current Medications Acetaminophen (Tylenol) 1,000 mg PO TID PRN PRN Reason: PAIN 1-10/FEVER Last Admin: 04/17/20 23:19 Dose: 1,000 mg Documented by: Apixaban (Eliquis) 5 mg PO BID [facility] Last Admin: 04/17/20 23:20 Dose: 5 mg Documented by: Aspirin (Ecotrin) 81 mg PO DAILY@0800 [facility] Last Admin: 04/17/20 09:37 Dose: Not Given Documented by: Bisacodyl (Dulcolax) 10 mg RECTAL DAILY [facility] Last Admin: 04/17/20 12:41 Dose: 10 mg Documented by: Dextrose (D50w Syringe) 0 gm IV X1 PRN; Protocol PRN Reason: Hypoglycemia Glucagon () 1 mg IM .X1 PRN PRN Reason: Hypoglycemia Sodium Chloride () 250 mls @ 15 mls/hr IV .[id number] PRN PRN Reason: Saline Flush Last Infusion: 04/14/20 13:10 Dose: Infused Documented by: Sodium Chloride () 250 mls @ 15 mls/hr IV .[id number] PRN PRN Reason: Additional IVPB Infusion Lactated Ringer's () 1,000 mls @ 60 mls/hr IV .[id number] [facility] Last Admin: 04/18/20 06:50 Dose: 60 mls/hr Documented by: Insulin Human Lispro (Humalog Kwikpen (Bkc)) 0 unit SC TIDAC [facility]; Protocol Last Admin: 04/18/20 06:48 Dose: Not Given Documented by: Metoprolol Tartrate (Lopressor (Beta Paulette)) 12.5 mg PO BID [facility] Last Admin: 04/17/20 23:21 Dose: 12.5 mg Documented by: Nutritional Formula (Lactose Free) (Glucerna Shake) 120 ml PO TIDCM [facility] Last Admin: 04/17/20 16:09 Dose: Not Given Documented by: Ondansetron HCl (Zofran) 4 mg IV Q8H PRN PRN PRN Reason: NAUSEA/VOMITING Last Admin: 04/17/20 04:28 Dose: 4 mg Documented by: Senna/Docusate Sodium (Senokot-S, Elizabeth-Colace) 2 tablet PO BID [facility] Last Admin: 04/17/20 23:20 Dose: 2 tablet Documented by: Sodium Chloride () 10 - 40 ml IV UD PRN PRN Reason: SALINE FLUSH Last Admin: 04/17/20 06:55 Dose: 20 ml Documented by: Sodium Chloride ([place] Nasal [place]) 2 spray NASAL TID PRN PRN PRN Reason: NASAL DRYNESS Last Admin: 04/14/20 09:45 Dose: 2 spray Documented by: STROKE Vital Signs/Narrative: Vital Signs Temp Pulse Resp BP Pulse Ox 04/18/20 06:27 97.8 F 81 18 111/60 94 Medical Necessity - Tobacco Use Smoking Status: Former smoker Tobacco Use: Cigarettes Assessment/Plan All Active Problems (Last Reviewed 04/12/20 @ 15:[address] Peter Aguirre, DO) Frequent falls (Acute) Hypokalemia (Acute) SBO (small bowel obstruction) (Acute) Acute respiratory failure with hypoxia (Resolved) CHF exacerbation (Resolved) This 70-year-old gentleman with multiple comorbidities admitted with generalized weakness, inability to ambulate and failure to thrive 1. Small bowel ileus with colonic fecal retention: Abdominal x-ray was done which showed dilated small bowel loops and distended stomach and fecal retention at rectum. No free air. Patient put on oral laxatives and rectal suppositories and soapsuds enema. Patient had large bowel movement last night and abdominal distention has improved. No abdominal pain. Started on clear liquid diet. CT abdomen with oral and IV contrast individually reviewed. Shows distention of the multiple loops of small bowel with air-fluid levels. 2. Failure to thrive with chronic degenerative changes in the lumbar spine complicated with osteoporosis with disc height narrowing and severe compression deformity with sclerosis of L1 vertebral body. CT scan abdomen pelvis also mentioned is moderately severe compression deformity with sclerosis of L1 vertebral body, new in the interval as compared to the prior CT of January 2018. In the previous CT scan of January 2018 it is mentioned multilevel degenerative changes of the spine with disc height narrowing most severe at L2-L3 and L4-L5 and moderately defined 3.1 x 2.5 x 2.1 cm lucency with core central clearing T11 vertebra consistent with hemangioma. Continue PT and OT. Still needs two-person assistance for transfer. Patient will need outpatient referral to spine surgeon and pain management. Clinically patient is not medically or physically fit for any procedure. 3. Hypokalemia: Resolved. Magnesium 2.0. Continue potassium and magnesium supplement along with furosemide. 4. Stage II decubitus ulcer, present on arrival: Wound care. Nutritional care. Basic nursing wound care protocol. 5. Diabetes mellitus type 2: Blood sugar is controlled. Rip patient is on clear liquid diet. Oral hypoglycemic held. 5. Atrial fibrillation Continue with apixaban and metoprolol tartrate 6. Chronic heart failure with preserved ejection fraction Compensated at this time EF of 65% from echocardiogram on November 2017 Furosemide and lisinopril held. 7. VTE prophylaxis: Low risk as patient is observation status and already anticoagulated. 8. Advanced care planning: full CODE STATUS 9. Disposition: To SNF when medically stable Clinical Impression(s) from Imaging Studies Abdomen X-Ray 04/17/20 09:26 IMPRESSION: Ileus versus obstruction and follow-up is needed. Abdomen/Pelvis CT 04/17/20 16:37 IMPRESSION: 1. Amorphous soft tissue density with calcification lateral to the right kidney and in the right paracolic gutter appearing stable in extent and size from the previous study. There is an interval increase in associated calcification of this focus. 2. Distention with air-fluid levels in multiple loops of left-sided small bowel suggestive of obstruction. 3. Scattered colonic diverticulosis with no evidence of associated diverticulitis. 4. The prostate is mildly enlarged and heterogeneous in density. 5. Moderately severe compression deformity with sclerosis of the L1 vertebral body, new in the interval. Underlying neoplastic process should be considered and further evaluation of this is recommended. MRI may be helpful. 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 Knee X-Ray 04/12/20 13:24 IMPRESSION: Degenerative arthrosis. Electronically Signed: Monty Randle MD at 14:40 EDT Tel , Service support , Knee X-Ray 04/12/20 13:27 IMPRESSION: Degenerative arthrosis. Electronically Signed: Monty Randle MD at 14:39 EDT Tel , Service support , Chest X-Ray 04/12/20 14:15 IMPRESSION: Hyperinflation. The lungs are clear. Inpatient E&M: 14069 Subs Hosp L2
[2020-04-18] MEDS: BENZOCAINE/MENTHOL 1 LOZENGE MUCOUS MEM (09:10)
[2020-04-18] MEDS: Metoprolol Tartrate 25 MG Tablet 12.5 MG PO ×2 (09:10→22:51)
[2020-04-18] MEDS: Aspirin E.C. 81 MG Tablet PO (09:10)
[2020-04-18] MEDS: APIXABAN 5 MG TABLET PO ×2 (09:14→22:51)
[2020-04-18] MEDS: Senna/Docusate Sodium 1 Tablet 2 TABLET PO ×2 (09:15→22:52)
[2020-04-18] MEDS: Bisacodyl 10 MG Suppository RECTAL (09:16)
--- NOTE | 2020-04-18 10:15 | CASEMGMT ---
Social Work Physician stating pt is not ready for d/c today. [facility] call to Kavita at [facility] and informed d/c will not be today. Updated clinicals faxed to [facility]. Plan: [facility], when medically ready. ESTEBAN Whitaker
[2020-04-18] MEDS: NYSTATIN 500,000 UNIT/5 ML UDC 500000 UNIT PO ×4 (10:59→22:52)
[2020-04-18 12:10] LABS: Bedside Glucose 156 mg/dL (70-110)
[2020-04-18] MEDS: Glucerna Shake 120 ML LIQUID PO ×2 (12:47→18:18)
[2020-04-18] MEDS: Insulin Lispro 100 UNIT/ML INSULN.PEN SC (12:48)
[2020-04-18 16:20] LABS: Bedside Glucose 118 mg/dL (70-110)
[2020-04-18 23:01] LABS: Bedside Glucose 113 mg/dL (70-110)
[2020-04-18] MEDS: Acetaminophen 500 MG Tablet 1000 MG PO (23:06)
[2020-04-19] MEDS: Lactated Ringers 1,000 ML 50 ML IV (00:35)
[2020-04-19 05:15] VITALS: BP 123/62; PULSE 79; RESP 18; TEMP 36.4; O2SAT 96
[2020-04-19 05:44] VITALS: RESP 18; O2SAT 96
[2020-04-19 06:36] LABS: Absolute Lymphocyte Count 1.81 X10^3/uL (0.83-4.51); Absolute Neutrophil Count 3.4 X10^3/uL (2.0-7.7); Basophil# 0.04 X10^3/uL; Basophil% 0.6 % (0-1); Eosinophil# 0.58 X10^3/uL; Eosinophils% 8.9 % (0-5); Hematocrit 33.6 % (40-54); Hemoglobin 10.8 g/dL (13.0-16.5); Lymphocyte # 1.81 X10^3/ul (4.0); Lymphocyte % 27.7 % (19-41); Mean Corp Hgb Conc 32.1 g/dL (32-36); Mean Corpuscular Hgb 31.8 pg (27.0-32.0); Mean Corpuscular Volume 98.8 fL (80-94); Mean Platelet Vol. 8.9 fl (6.2-12.0); Monocyte# 0.72 X10^3/uL; NRBC Flagged by Analyzer 0 % (0-5); Neutrophil # 3.36 X10^3/uL (2.7-7.7); Neutrophil % 51.5 % (47-70); Platelet Count 252 K/mm3 (150-450); RBC Distribution Width CV 14.6 % (11.6-14.6); RBC Distribution Width SD 53.3 fl (35.1-43.9); White Blood Count 6.5 K/mm3 (4.4-11.0)
[2020-04-19 07:00] LABS: Bedside Glucose 112 mg/dL (70-110)
[2020-04-19 07:06] LABS: Anion Gap 4 (5-15); BUN 12 mg/dL (7-18); BUN/Creat Ratio 14.5 RATIO (10-20); Calcium,Total 9.2 mg/dL (8.5-10.1); Chloride 100 mmol/L (98-107); Creatinine, Serum 0.83 mg/dL (0.70-1.30); EST Glomerular Filtration Rate 97 mL/min (>60); Est Glom Filt Rate - Afr Amer 117 mL/min (>60); Glucose 94 mg/dL (74-106); Potassium 3.9 mmol/L (3.5-5.1); Sodium Level 136 mmol/L (136-145)
[2020-04-19] MEDS: Glucerna Shake 120 ML LIQUID PO ×2 (07:19→11:13)
[2020-04-19] MEDS: Aspirin E.C. 81 MG Tablet PO (07:19)
[2020-04-19 07:47] VITALS: BP 117/62; PULSE 70; RESP 18; TEMP 36.6; O2SAT 97
--- NOTE | 2020-04-19 07:58 | PN.SURG_ITS ---
Patient Problems: Active and Suspected Problems (Last Reviewed 04/12/20 @ 15:[address] Peter Aguirre, DO) Hypokalemia (Acute) SBO (small bowel obstruction) (Acute) Subjective: Patient reports he is passing flatus with no nausea or vomiting and tolerated clear liquids yesterday. He has no abdominal pain. - Physical Exam Vitals/I&O's: Vital Signs Temp Pulse Resp BP Pulse Ox 97.8 F 70 18 117/62 97 04/19/20 07:47 04/19/20 07:47 04/19/20 07:47 04/19/20 07:47 04/19/20 07:47 Oxygen Delivery Method CPAP Weight: 281 lb 12.012 oz Body Mass Index (BMI) 38.2 Intake and Output for Last 24 Hours 04/17/20 04/18/20 04/19/20 23:59 23:59 23:59 Intake Total 322 / 322 2097 / 2197 929.17 / 929.17 Output Total 2495 / 2495 1050 / 1225 350 / 350 Balance -2173 / -2173 1047 / 972 579.17 / 579.17 General: Alert, Oriented x3 Neck: No JVD Lungs: Normal air movement Abdomen: Soft, Non Tender, Non-Distended Laboratory Results 04/18/20 12:04: POC Glucose 156 H 04/18/20 16:12: POC Glucose 118 H 04/18/20 22:50: POC Glucose 113 H 04/19/20 06:00: WBC 6.5, RBC 3.40 L, Hgb 10.8 L, Hct 33.6 L, MCV 98.8 H, MCH 31.8, MCHC 32.1, RDW Std Deviation 53.3 H, RDW Coeff of Shantell 14.6, Plt Count 252, MPV 8.9, Immature Gran % (Auto) 0.300, Neut % (Auto) 51.5, Lymph % (Auto) 27.7, [place] % (Auto) 11.0 H, Eos % (Auto) 8.9 H, Baso % (Auto) 0.6, Absolute Neuts (auto) 3.4, Absolute Lymphs (auto) 1.81, Nucleated RBC % 0 04/19/20 06:00: Sodium 136, Potassium 3.9, Chloride 100, Carbon Dioxide 32.0, Anion Gap 4 L, BUN 12, Creatinine 0.83, Estim Creat Clear Calc 88.30, Est GFR (MDRD) Af Amer 117, Est GFR (MDRD) Non-Af 97, BUN/Creatinine Ratio 14.5, Glucose 94, Calcium 9.2 04/19/20 06:48: POC Glucose 112 H Current Medications Acetaminophen (Tylenol) 1,000 mg PO TID PRN PRN Reason: PAIN 1-10/FEVER Last Admin: 04/18/20 23:06 Dose: 1,000 mg Documented by: Apixaban (Eliquis) 5 mg PO BID [facility] Last Admin: 04/18/20 22:51 Dose: 5 mg Documented by: Aspirin (Ecotrin) 81 mg PO DAILY@0800 [facility] Last Admin: 04/19/20 07:19 Dose: 81 mg Documented by: Bisacodyl (Dulcolax) 10 mg RECTAL DAILY [facility] Last Admin: 04/18/20 09:16 Dose: 10 mg Documented by: Dextrose (D50w Syringe) 0 gm IV X1 PRN; Protocol PRN Reason: Hypoglycemia Furosemide (Lasix) 40 mg PO DAILY [facility] Glucagon () 1 mg IM .X1 PRN PRN Reason: Hypoglycemia Sodium Chloride () 250 mls @ 15 mls/hr IV .[id number] PRN PRN Reason: Saline Flush Last Infusion: 04/14/20 13:10 Dose: Infused Documented by: Sodium Chloride () 250 mls @ 15 mls/hr IV .[id number] PRN PRN Reason: Additional IVPB Infusion Lactated Ringer's () 1,000 mls @ 50 mls/hr IV .Q20H [facility] Last Admin: 04/19/20 00:35 Dose: 50 mls/hr Documented by: Insulin Human Lispro (Humalog Kwikpen (Bkc)) 0 unit SC TIDAC [facility]; Protocol Last Admin: 04/19/20 06:48 Dose: Not Given Documented by: Lisinopril (Zestril) 5 mg PO DAILY [facility] Metoprolol Tartrate (Lopressor (Beta Paulette)) 12.5 mg PO BID [facility] Last Admin: 04/18/20 22:51 Dose: 12.5 mg Documented by: Nutritional Formula (Lactose Free) (Glucerna Shake) 120 ml PO TIDCM [facility] Last Admin: 10/08/20 07:19 Dose: 120 ml Documented by: Nystatin (Nystatin) 500,000 unit PO 4X/DAY [facility] Last Admin: 04/18/20 22:52 Dose: 500,000 unit Documented by: Ondansetron HCl (Zofran) 4 mg IV Q8H PRN PRN PRN Reason: NAUSEA/VOMITING Last Admin: 04/17/20 04:28 Dose: 4 mg Documented by: Potassium Chloride (K-Dur) 20 meq PO DAILYCM [facility] Stop: 04/21/20 08:01 Last Admin: 04/19/20 07:19 Dose: 20 meq Documented by: Senna/Docusate Sodium (Senokot-S, [place]-Colace) 2 tablet PO BID [facility] Last Admin: 04/18/20 22:52 Dose: 2 tablet Documented by: Sodium Chloride () 10 - 40 ml IV UD PRN PRN Reason: SALINE FLUSH Last Admin: 04/17/20 06:55 Dose: 20 ml Documented by: Sodium Chloride ([place] Nasal [place]) 2 spray NASAL TID PRN PRN PRN Reason: NASAL DRYNESS Last Admin: 04/14/20 09:45 Dose: 2 spray Documented by: Throat Lozenges (Cepacol Sore Throat Lozenge) 1 lozenge MUCOUS MEM Q2H PRN PRN PRN Reason: sore throat Last Admin: 04/18/20 09:10 Dose: 1 lozenge Documented by: Medical Necessity - Tobacco Use Smoking Status: Former smoker Tobacco Use: Cigarettes Assessment/Plan All Active Problems (Last Reviewed 04/12/20 @ 15:[address] Peter Aguirre DO) Frequent falls (Acute) Hypokalemia (Acute) SBO (small bowel obstruction) (Acute) Acute respiratory failure with hypoxia (Resolved) CHF exacerbation (Resolved) 70-year-old male with nausea and vomiting 1. Patient's nausea and vomiting has resolved. His abdomen is soft and nontender. He tolerated clear liquids yesterday with no nausea. I will advance to regular diet and try that today. Dimitrios Barbosa MD Pager: [facility] [address] [place] [address], [address] [place] [address] Office:
--- NOTE | 2020-04-19 09:39 | TREXTCAR_ITS ---
- Diet 04/13/20 11:53 Diet: Cardiac: Calorie-Controlled Food consistency:: Regular Liquid Consistency:: Regular/Thin Is pt able to select menu?: No Diet Comments: Does not like chicken How many daily calories?: 1800 calorie - Routine Orders/Code Status Suppository Type: Dulcolax 10mg Suppository Frequency: Daily PRN - Wound(s) R [place] Wound Type: Pressure Injury left gluteal crease Wound Type: Pressure Injury Dressing Change: Mepilex - Therapies Weight Bearing: Weight bearing as tolerated Extremity Affected:: Bilateral Lower Physical Therapy: Eval and Treat Occupational Therapy: Eval and Treat Speech Therapy: Eval and Treat - Allergies/Procedures Done in Hospital Allergies/Adverse Reactions: Allergies No Known Allergies Allergy (Verified 04/12/20 13:04) - Type of Care/Length of Stay Estimated LOS: Convalescent Care Less Than 30 days Type of Care Needed: Skilled Rehab Potential: Good Prognosis: Good - Additional Orders/Day of Discharge Day of Discharge: 04/19/20 - Dietary and Speech Recommendations Dietitian Recommendations/Changes: Will change medpass from ensure enlive to glucerna shake tid d/t skin status and 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 Will change diet to Cardiac/ 1800 [place] d/t pmhx - Follow Up Care Primary Care Physician: Jaclyn Trujillo REGULATORY AFFAIRS STRATEGY SPECIALIST, REGULATORY AFFAIRS STRATEGY SPECIALIST-C [Primary Care Provider] - Please follow up with your Primary Care Physician in: in 2 weeks Please Follow Up With: Corey Montero MD When: as scheduled Please Follow Up With: Dimitrios Barbosa MD When: for ileus in 2 weeks. possible colonoscopy Please Follow Up With: Ciaran Hodge MD When: L1 FRACTURE and back pain Please Follow Up With: Jose Alejandro Dao DO When: in 3-4 weeks for L1 fracture
--- NOTE | 2020-04-19 09:40 | PCM.DC.SUM ---
Discharge Date and Diagnosis Date of Admission: 04/12/20 Date of Discharge: 04/19/20 - Primary Discharge Diagnosis Acute Problems: Active Problems (Last Reviewed 04/12/20 @ 15:[address] Peter Aguirre DO) Hypokalemia (Acute) Small bowel ileus chronic degenerative changes in the lumbar spine complicated with osteoporosis with disc height narrowing and severe compression deformity with sclerosis of L1 vertebral body most likely due to osteoporosis. - Secondary Discharge Diagnosis Chronic Problems: Chronic Problems (Last Reviewed 04/12/20 @ 15:[address] Peter Aguirre DO) Ambulatory dysfunction (Chronic) Degenerative arthritis of knee, bilateral (Chronic) Debility (Chronic) Tobacco dependence due to chewing tobacco (Chronic) Generalized weakness (Chronic) Atherosclerotic heart disease of [place] coronary artery without angina pectoris (Chronic) Pure hypercholesterolemia (Chronic) Essential (primary) hypertension (Chronic) Chronic diastolic heart failure (Chronic) Persistent atrial fibrillation (Chronic) HOLGER (obstructive sleep apnea) (Chronic) Morbid obesity (Chronic) Diabetes mellitus type 2, uncontrolled, without complications (Chronic) Hospital Course and Treatment Consultations 04/12/20 16:11 Consult: Onc/Wound/filament shaper Routine Comment: Operations: None Summary of Care Provided: [] This 70-year-old gentleman with multiple comorbidities admitted with generalized weakness, inability to ambulate and failure to thrive 1. Small bowel ileus with colonic fecal retention: Abdominal x-ray was done which showed dilated small bowel loops and distended stomach and fecal retention at rectum. No free air. Patient put on oral laxatives and rectal suppositories and soapsuds enema. Patient had large bowel movement for last 2 days and abdominal distention has improved. No abdominal pain. Patient tolerated regular diet. Discussed with the surgeon. CT abdomen with oral and IV contrast individually reviewed. Shows distention of the multiple loops of small bowel with air-fluid levels. 2. Failure to thrive with chronic degenerative changes in the lumbar spine complicated with osteoporosis with disc height narrowing and severe compression deformity with sclerosis of L1 vertebral body. CT scan abdomen pelvis also mentioned is moderately severe compression deformity with sclerosis of L1 vertebral body, new in the interval as compared to the prior CT of January 2018. In the previous CT scan of January 2018 it is mentioned multilevel degenerative changes of the spine with disc height narrowing most severe at L2-L3 and L4-L5 and moderately defined 3.1 x 2.5 x 2.1 cm lucency with core central clearing T11 vertebra consistent with hemangioma. Continue PT and OT. Still needs two-person assistance for transfer. Follow-up spine surgeon, Dr. Dao and pain management, Dr. CUEVAS as mentioned in discharge instruction. Clinically patient is not medically or physically fit for any procedure. 3. Hypokalemia: Resolved. Magnesium 2.0. Continue potassium and magnesium supplement along with furosemide. 4. Stage II decubitus ulcer, left gluteal crease present on arrival: Wound care. Nutritional care. Basic nursing wound care protocol. 5. Diabetes mellitus type 2: Blood sugar is controlled. 5. Atrial fibrillation Continue with apixaban and metoprolol tartrate 6. Chronic heart failure with preserved ejection fraction Compensated at this time EF of 65% from echocardiogram on November 2017 Furosemide and lisinopril resumed 7. VTE prophylaxis: Low risk as patient is observation status and already anticoagulated. 8. Advanced care planning: full CODE STATUS Discharge medication reconciliation done. Discharge follow-up instructions completed. Discharge process discussed with the patient and all questions were answered to patient's satisfaction. Discharge process discussed with the patient. Total time spent, exact 35 minutes on discharge meds reconciliation, examination, coordination of care with nurses and ancillary staff, review of imaging and blood test and discussion with the patient on follow-up instructions Subjective: Patient had large bowel movement yesterday. Patient tolerated regular diet today. Blood pressure and heart rate stable. Physical exam General: Alert, Oriented x3, Cooperative HEENT: Atraumatic, PERRLA, EOMI, Normocephalic Oral: Mild deep pharyngeal thrush, improving. Neck: Supple, No JVD, Negative Carotid Bruits Lungs: Air entry diminished in bilateral lung bases. No crepitation/rhonchi Cardiovascular: Regular rate, Regular Rhythm, Normal S1, Normal S2, No murmurs Abdomen: Bowel Sounds hypoactive. Soft, Non Tender, no distention. No rebound tenderness. : No renal angle tenderness. No suprapubic tenderness. Extremities: No edema, Capillary Refill Less than 3 Seconds Skin: Mckeon pigmentation of bilateral lower legs suggestive of venous hypertension and chronic venous insufficiency, present since admission. Stage II decubitus ulcer, left gluteal crease present since admission. Musculoskeletal: Weakness of bilateral lower extremities, right more than left. No Tenderness to Palpation of Joints or Extremities Neurological: Cranial nerves II-XII grossly intact, Deep Tendon Reflexes 2+/4 and Symmetrical, Neuro grossly intact Psych/Mental Status: Normal Affect, Appropriate. - Physical Exam Vitals/I&O's: Vital Signs Temp Pulse Resp BP Pulse Ox 98.3 F 74 16 133/56 H 95 04/16/20 15:18 04/16/20 15:18 04/16/20 15:18 04/16/20 15:18 04/16/20 15:18 Oxygen Delivery Method Room Air Weight: 281 lb 12.012 oz Body Mass Index (BMI) 38.2 Intake and Output for Last 24 Hours 04/14/20 04/15/20 04/16/20 23:59 23:59 23:59 Intake Total 1180 / 1180 1500 / 1500 700 / 700 Output Total 1870 / 1870 1875 / 1875 1150 / 1150 Balance -690 / -690 -375 / -375 -450 / -450 Laboratory Results 04/15/20 16:37: POC Glucose 95 04/15/20 22:12: POC Glucose 99 04/16/20 05:08: Sodium 133 L, Potassium 4.2, Chloride 99, Carbon Dioxide 31.0, Anion Gap 3 L, BUN 12, Creatinine 0.78, Estim Creat Clear Calc 73.29, Est GFR (MDRD) Af Amer 127, Est GFR (MDRD) Non-Af 105, BUN/Creatinine Ratio 15.5, Glucose 105, Calcium 9.1, Magnesium 1.7 04/16/20 06:33: POC Glucose 117 H 04/16/20 10:59: POC Glucose 137 H Current Medications Acetaminophen (Tylenol) 1,000 mg PO TID PRN PRN Reason: PAIN 1-10/FEVER Last Admin: 04/13/20 14:20 Dose: 1,000 mg Documented by: Apixaban (Eliquis) 5 mg PO BID [facility] Last Admin: 04/16/20 08:52 Dose: 5 mg Documented by: Aspirin (Ecotrin) 81 mg PO DAILY@0800 [facility] Last Admin: 04/16/20 08:51 Dose: 81 mg Documented by: Atorvastatin Calcium (Lipitor) 10 mg PO QHS [facility] Last Admin: 04/15/20 22:19 Dose: 10 mg Documented by: Dextrose (D50w Syringe) 0 gm IV X1 PRN; Protocol PRN Reason: Hypoglycemia Ergocalciferol (Vitamin D) 50,000 unit [place] [facility] [place] Furosemide (Lasix) 40 mg PO DAILY [facility] Last Admin: 04/16/20 08:52 Dose: 40 mg Documented by: [facility]l) [facility] Last Admin: 04/16/20 08:52 Dose: 2 mg Documented by: Glucagon () 1 mg IM .X1 PRN PRN Reason: Hypoglycemia Sodium Chloride () 250 mls @ 15 mls/hr IV .[id number] PRN PRN Reason: Saline Flush Last Infusion: 04/14/20 13:10 Dose: Infused Documented by: Sodium Chloride () 250 mls @ 15 mls/hr IV .[id number] PRN PRN Reason: Additional IVPB Infusion Insulin Human Lispro (Humalog Kwikpen (Bkc)) 0 unit SC TIDAC [facility]; Protocol Last Admin: 04/16/20 10:59 Dose: Not Given Documented by: Lisinopril (Zestril) 5 mg PO DAILY [facility] Last Admin: 04/16/20 08:50 Dose: 5 mg Documented by: Metformin HCl (Glucophage) [facility] Last Admin: 04/16/20 08:52 Dose: 1,000 mg Documented by: Metoprolol Tartrate (Lopressor (Beta Paulette)) 12.5 mg PO BID [facility] Last Admin: 04/16/20 08:50 Dose: 12.5 mg Documented by: Nutritional Formula (Lactose Free) (Glucerna Shake) 120 ml PO TIDCM [facility] Last Admin: 04/16/20 11:01 Dose: 120 ml Documented by: Ondansetron HCl (Zofran) 4 mg IV Q8H PRN PRN PRN Reason: NAUSEA/VOMITING Oxycodone HCl (Oxyir) 5 mg PO Q4H PRN PRN PRN Reason: Pain Score 6-10/10 Last Admin: 04/16/20 11:01 Dose: 5 mg Documented by: Potassium Chloride (K-Dur) [facility] Last Admin: 04/16/20 08:50 Dose: 20 meq Documented by: Sodium Chloride () 10 - 40 ml IV UD PRN PRN Reason: SALINE FLUSH Sodium Chloride (Rich Nasal [place]) 2 spray NASAL TID PRN PRN PRN Reason: NASAL DRYNESS Last Admin: 04/14/20 09:45 Dose: 2 spray Documented by: Discharge Activity: May Not Drive Weight Bearing Status: Weight bearing as tolerated Call your doctor if you observe: Fever of 101 or Higher, Coldness, Increased Pain, Numbness or Tingling, Inability to urinate, Inability to have a bowel movement, Shortness of breath, Dizziness, Fainting spells, Swelling in the ankles, Chest pain, Prolonged hiccoughing, Increased palpitations (irregular heartbeat), Calf discomfort, Uncontrolled pain Home Medications: Medications to take at Discharge rosuvastatin 5 mg tablet 5 mg PO QHS 03/12/18 Metoprolol Tartrate [Lopressor (beta paulette)] 12.5 mg PO BID 05/04/19 Apixaban [Eliquis] 5 mg PO BID 01/14/20 Furosemide [Lasix] 40 mg PO DAILY 01/14/20 Lisinopril [Zestril] 5 mg PO DAILY 01/14/20 Potassium Chloride [K-Dur] 20 meq PO DAILY 01/14/20 Aspirin E.C. [Ecotrin] 81 mg PO DAILY@0800 01/24/20 Ergocalciferol [Vitamin D] 50,000 unit PO TU 01/24/20 Glimepiride [Amaryl] 2 mg PO DAILY #0 01/26/20 Metformin HCl 1,000 mg PO BID 04/12/20 Acetaminophen [Tylenol] 1,000 mg PO TID PRN PRN tab 04/19/20 Bisacodyl [Dulcolax] 10 mg RECTAL DAILY PRN PRN suppos. 04/19/20 Nystatin 500,000 unit PO 4X/DAY udc 04/19/20 Polyethylene Glycol 3350 [Miralax] 17 gm PO DAILY packet 04/19/20 Senna/Docusate Sodium [Senokot-S] 2 tab PO BID tab 04/19/20 Primary Care Physician: Jaclyn Trujillo THERMOPLASTIC TECHNICIAN, THERMOPLASTIC TECHNICIAN-C [Primary Care Provider] - Please follow up with your Primary Care Physician in: in 2 weeks Please Follow Up With: Corey Montero MD When: as scheduled Medical Necessity - Tobacco Use Smoking Status: Former smoker Tobacco Use: Cigarettes Meaningful Use Info Meaningful Use Diagnoses (Choose all that apply): None applicable Inpatient E&M: 33342 Disch Hosp
[2020-04-19 09:55] VITALS: BP 130/60; PULSE 64; RESP 20; TEMP 36.4; O2SAT 99
[2020-04-19 09:56] VITALS: PULSE 64
[2020-04-19] MEDS: Senna/Docusate Sodium 1 Tablet 2 TABLET PO (09:56)
[2020-04-19] MEDS: Furosemide 40 MG Tablet PO (09:56)
[2020-04-19] MEDS: Lisinopril 5 MG Tablet PO (09:56)
[2020-04-19] MEDS: Metoprolol Tartrate 25 MG Tablet 12.5 MG PO (09:56)
[2020-04-19] MEDS: NYSTATIN 500,000 UNIT/5 ML UDC 500000 UNIT PO ×2 (09:58→13:52)
[2020-04-19] MEDS: APIXABAN 5 MG TABLET PO (09:58)
[2020-04-19] MEDS: Acetaminophen 500 MG Tablet 1000 MG PO (10:00)
[2020-04-19] MEDS: BENZOCAINE/MENTHOL 1 LOZENGE MUCOUS MEM (10:01)
[2020-04-19] MEDS: Psyllium 1 PACKET PO (11:13)
[2020-04-19] MEDS: Polyethylene Glycol 3350 17 GM PACKET PO (11:13)
[2020-04-19 11:25] LABS: Bedside Glucose 129 mg/dL (70-110)
--- NOTE | 2020-04-19 11:49 | CASEMGMT ---
Social Work Note Pt is medically cleared for discharge today. GLO faxed completed discharge paperwork to [facility] including transfer to extended care facility, signed medication list, any scripts, negative COVID results, COVID screening tool, LOC results, and PAS/RR to [facility]. Original in SNF folder and copy on pt's chart. GLO spoke with RN, Pt was assist of 2-3 with PT/OT, pt can transport via cot. SW in to speak with pt. Pt states he doesn't need to wear his CPAP during transport as he only wears it during the day in case he falls asleep. GLO placed a call to [facility] and arranged transportation via cot for 2:00pm. Transportation form completed and placed on SNF folder and copy on pt's chart. SW updated RN on transportation time. GLO in to speak with pt and updated him on transportation time. Pt's Natalia Fitch on phone at time and aware of discharge and transportation time to [facility] today. GLO placed a call to Ginny Sams at [facility] and spoke with nurses station to update on discharge and transportation time. GLO placed a call to Chintan at [facility] and updated her on discharge. Plan: [facility] today under LOC with [facility] transporting via cot at 2:00pm Bruna Branham MSW, LOPPER
[2020-04-19 13:49] VITALS: BP 135/51; PULSE 56; RESP 18; TEMP 36.9; O2SAT 97
--- NOTE | 2020-04-19 13:59 | PHA.DC.MR ---
Pharmacy Service has performed discharge medication reconciliation for this patient. The patient's discharge medication list was reviewed for discrepancies and discrepancies were resolved. Home Medications rosuvastatin 5 mg tablet 5 mg PO QHS 03/12/18 Metoprolol Tartrate [Lopressor (beta enrike)] 12.5 mg PO BID 05/04/19 Apixaban [Eliquis] 5 mg PO BID 01/14/20 Furosemide [Lasix] 40 mg PO DAILY 01/14/20 Lisinopril [Zestril] 5 mg PO DAILY 01/14/20 Potassium Chloride [K-Dur] 20 meq PO DAILY 01/14/20 Aspirin E.C. [Ecotrin] 81 mg PO DAILY@0800 01/24/20 Ergocalciferol [Vitamin D] 50,000 unit PO TU 01/24/20 Glimepiride [Amaryl] 2 mg PO DAILY #0 01/26/20 Metformin HCl 1,000 mg PO BID 04/12/20 Acetaminophen [Tylenol] 1,000 mg PO TID PRN PRN tab 04/19/20 Bisacodyl [Dulcolax] 10 mg RECTAL DAILY PRN PRN suppos. 04/19/20 Nystatin 500,000 unit PO 4X/DAY udc 04/19/20 Polyethylene Glycol 3350 [Miralax] 17 gm PO DAILY packet 04/19/20 Senna/Docusate Sodium [Senokot-S] 2 tab PO BID tab 04/19/20
== END 2020-04-19 14:26 | disposition skilled nursing facility (03) | DRG 641 ==
LOC: ED 14:51 → MS3 15:32
PROVIDERS: Emergency Provider Emergency Medicine; PCP Nurse Practitioner Family; Visit Provider Internal Medicine
DX: R62.7 Adult failure to thrive (principal); K56.7 Ileus, unspecified; I48.19 Other persistent atrial fibrillation; I50.32 Chronic diastolic (congestive) heart failure; B37.0 Candidal stomatitis; M47.816 Spondylosis without myelopathy or radiculopathy, lumbar region; L89.322 Pressure ulcer of left buttock, stage 2; M81.0 Age-related osteoporosis without current pathological fracture; I11.0 Hypertensive heart disease with heart failure; E87.6 Hypokalemia; E11.9 Type 2 diabetes mellitus without complications; I25.10 Atherosclerotic heart disease of native coronary artery without angina pectoris; E66.01 Morbid (severe) obesity due to excess calories; E78.00 Pure hypercholesterolemia, unspecified; Z87.891 Personal history of nicotine dependence; M17.0 Bilateral primary osteoarthritis of knee; Z79.02 Long term (current) use of antithrombotics/antiplatelets; Z79.84 Long term (current) use of oral hypoglycemic drugs; Z79.899 Other long term (current) drug therapy; Z68.38 Body mass index [BMI] 38.0-38.9, adult; T50.1X5A Adverse effect of loop [high-ceiling] diuretics, initial encounter; Z74.01 Bed confinement status; G47.33 Obstructive sleep apnea (adult) (pediatric); J44.9 Chronic obstructive pulmonary disease, unspecified; Z23 Encounter for immunization
CPT/HCPCS: 36415; 71045; 73562; 74019; 74177; 80048; 81001; 82962; 83036; 83735; 84484; 85025; 87635; 93005; 97110; 97162; 97166; 97530; 97535; 97802; 97803; 99285; 99406; G0008; J7030; J7050; J7120; Q9967; 90686; A4216; J2405; U0003

== ENCOUNTER 2020-04-20 14:02 | Observation (INO) | payer MEDICARE, SELFPAY ==
[2020-04-20 14:03] VITALS: BP 156/75; PULSE 67; RESP 21; TEMP 37.1; O2SAT 97; BMI 38.0
--- NOTE | 2020-04-20 14:32 | ED.VISSUMM ---
- ER Visit Summary Date of Service: 04/20/20 Chief Complaint: Nausea and vomiting History of Present Illness: The patient is a 70 M who presents with nausea and vomiting that began today. Patient states he has been vomiting up black liquid. Patient denies any melena or hematochezia. Patient denies any abdominal pain. Patient states he had 3 episodes of this prior to arrival. Patient denies any diarrhea. Patient denies any dysuria or hematuria. Patient was discharged from the hospital yesterday after he was admitted for ileus. Patient denies any fevers or chills. Patient denies any lightheadedness or dizziness. Physical Examination: Vital signs are stable. Patient is afebrile. Patient is in no acute distress. Oral mucosa is pink and moist. Neck is supple. Trachea is midline. There is no JVD. Heart was regular with frequent ectopics. Lungs are clear and equal bilaterally. There is adequate respiratory effort noted. Abdomen is soft. Bowel sounds are normal. There is mild diffuse tenderness. There is no rebound or guarding noted. Rectal exam showed good sphincter tone. There is light brown stool. There are no masses noted. Cranial nerves II through XII are intact. There are no focal motor or sensory deficits noted. Test Results: CBC shows a hemoglobin of 12.6 and hematocrit 37.9. Comprehensive metabolic profile shows slightly elevated glucose of 159. Acute abdominal x-rays were obtained. There is a dilated stomach but no evidence of obstruction or ileus. This was interpreted by the radiologist and reviewed by myself. Stool was Hemoccult negative. Emergency Department Course and Treatment: Patient was given Zofran here. Patient did have an emesis which appeared to be black. Stool was brown and Hemoccult negative. Patient was feeling better on reevaluation. Case was discussed with Dr. Barbosa. He is agreeable with keeping the patient here for possible endoscopy. Case was discussed with Dr. Hayes. He will admit the patient to his service. Patient understood and was agreeable with the plan. All questions were answered. Disposition: Admit to hospital Impression: 1. Upper GI bleed This note was generated with [employer] dictation software. It may contain incorrect words, spelling, and punctuation that were not noted in review of the chart prior to signing ED Disposition - Plan for ED Patient: Disposition: Acute Care Hospital [facility] Diagnosis: Upper gastrointestinal bleed Referrals: Jaclyn Trujillo FILLING STATION ATTENDANT, FILLING STATION ATTENDANT-C [Primary Care Provider] -
[2020-04-20] MEDS: Ondansetron 4 MG/2 ML Vial IV (14:40)
[2020-04-20 15:24] LABS: ALB/GLOB Ratio 0.8 RATIO (0.9-2.4); AST(SGOT) 12 U/L (15-37); Alanine Aminotransfer ALT/SGPT 13 U/L (16-61); Albumin, Serum 3.1 g/dL (3.2-5.0); Alkaline Phosphatase 73 U/L (45-117); Anion Gap 6 (5-15); BUN 17 mg/dL (7-18); BUN/Creat Ratio 19.3 RATIO (10-20); Calcium,Total 9.6 mg/dL (8.5-10.1); Chloride 103 mmol/L (98-107); Creatinine, Serum 0.88 mg/dL (0.70-1.30); EST Glomerular Filtration Rate 91 mL/min (>60); Est Glom Filt Rate - Afr Amer 110 mL/min (>60); Estimated Creatinine Clearance 83.28 ml/min; Globulin 4.1 g/dL (2.2-4.2); Glucose 159 mg/dL (74-106); Hematocrit 37.9 % (40-54); Hemoglobin 12.6 g/dL (13.0-16.5); Mean Corp Hgb Conc 33.2 g/dL (32-36); Mean Corpuscular Hgb 31.7 pg (27.0-32.0); Mean Corpuscular Volume 95.5 fL (80-94); Mean Platelet Vol. 9.1 fl (6.2-12.0); NRBC Flagged by Analyzer 0 % (0-5); Platelet Count 312 K/mm3 (150-450); Protein, Total 7.2 g/dL (6.4-8.2); RBC Distribution Width CV 14.5 % (11.6-14.6); RBC Distribution Width SD 50.9 fl (35.1-43.9); Red Blood Count 3.97 M/mm3 (4.6-6.2); Sodium Level 138 mmol/L (136-145)
[2020-04-20 15:34] LABS: Absolute Lymphocyte Count 0.96 X10^3/uL (0.83-4.51); Absolute Neutrophil Count 7.5 X10^3/uL (2.0-7.7); Basophil# 0.03 X10^3/uL; Basophil% 0.3 % (0-1); Eosinophil# 0.06 X10^3/uL; Eosinophils% 0.7 % (0-5); Lymphocyte # 0.96 X10^3/ul (4.0); Lymphocyte % 10.5 % (19-41); Monocyte# 0.51 X10^3/uL; Monocyte% 5.6 % (0-10); Neutrophil # 7.51 X10^3/uL (2.7-7.7); Neutrophil % 82.5 % (47-70)
--- NOTE | 2020-04-20 15:45 | RAD_ITS ---
STUDY: X-RAY - ACUTE ABDOMINAL SERIES REASON FOR EXAM: Male, 70 years old. Vomiting. Nausea. TECHNIQUE: Single view of the chest. Supine, decubitus view(s) of the abdomen were obtained. COMPARISON: Chest x-ray dated 04/12/20. Abdominal x-ray dated 04/17/20. FINDINGS: The lungs are clear. There are no pleural effusions. There is no pneumothorax. The heart is stable in size. There is gaseous distention of the stomach. There is no bowel obstruction. The previously seen dilated loops of bowel have resolved. There is a large amount of stool in the colon, consistent with constipation. There is no free air. There are stable degenerative changes in the spine. RAD/Acute Abdomen Inc Chest IMPRESSION: Clear lungs. No bowel obstruction. Constipation. Gaseous distention of the stomach. Electronically Signed: Forrest Morel, at 16:17 EDT Tel , Service support ,
--- NOTE | 2020-04-20 17:14 | PCM.HP.STD ---
Problem List (1) Ambulatory dysfunction Status: Chronic (2) Degenerative arthritis of knee, bilateral Status: Chronic (3) Debility Status: Chronic (4) Tobacco dependence due to chewing tobacco Status: Chronic (5) Generalized weakness Status: Chronic (6) SBO (small bowel obstruction) Status: Acute (7) Atherosclerotic heart disease of [place] coronary artery without angina pectoris Status: Chronic (8) Pure hypercholesterolemia Status: Chronic (9) Essential (primary) hypertension Status: Chronic (10) SOB (shortness of breath) on exertion Status: Inactive (11) Abnormal stress test Status: Inactive (12) Chronic diastolic heart failure Status: Chronic (13) Persistent atrial fibrillation Status: Chronic (14) COPD with acute exacerbation Status: Inactive (15) PVC's (premature ventricular contractions) Status: Inactive (16) HOLGER (obstructive sleep apnea) Status: Chronic (17) Morbid obesity Status: Chronic (18) Diabetes mellitus type 2, uncontrolled, without complications Status: Chronic History of Present Illness Date of Admission: 04/20/20 Chief Complaint: Nausea, vomiting, coffee-ground emesis. The patient is a 70 year old M who presents to the emergency room from [facility] due to nausea and vomiting with coffee-ground emesis. Patient was discharged earlier today following treatment for small bowel ileus with colonic fecal retention. He denies abdominal pain. Denies other new symptoms. Denies bloating or constipation. 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 Past Medical History Past Medical History (Chronic Problems): Chronic Problems (Last Reviewed 04/12/20 @ 15:[address] Peter Aguirre DO) Ambulatory dysfunction (Chronic) Degenerative arthritis of knee, bilateral (Chronic) Debility (Chronic) Tobacco dependence due to chewing tobacco (Chronic) Generalized weakness (Chronic) Atherosclerotic heart disease of [place] coronary artery without angina pectoris (Chronic) Pure hypercholesterolemia (Chronic) Essential (primary) hypertension (Chronic) Chronic diastolic heart failure (Chronic) Persistent atrial fibrillation (Chronic) HOLGER (obstructive sleep apnea) (Chronic) Morbid obesity (Chronic) Diabetes mellitus type 2, uncontrolled, without complications (Chronic) Medical History: Medical History (Last Reviewed 04/12/20 @ 15:[address] Peter Aguirre DO) Atherosclerotic heart disease of [place] coronary artery without angina pectoris (Chronic) I25.10 Pure hypercholesterolemia (Chronic) E78.00 Essential (primary) hypertension (Chronic) I10 SOB (shortness of breath) on exertion (Inactive) R06.02 Abnormal stress test (Inactive) R94.39 Chronic diastolic heart failure (Chronic) I50.32 Persistent atrial fibrillation (Chronic) I48.1 COPD with acute exacerbation (Inactive) J44.1 PVC's (premature ventricular contractions) (Inactive) I49.3 HOLGER (obstructive sleep apnea) (Chronic) G47.33 Morbid obesity (Chronic) E66.01 Diabetes mellitus type 2, uncontrolled, without complications (Chronic) E11.65 Abdominal pain R10.9 Arthritis M19.90 Depression F32.9 Gout M10.9 Nausea & vomiting R11.2 Weight loss R63.4 Acute respiratory failure with hypoxia (Resolved) J96.01 CHF exacerbation (Resolved) I50.9 Allergies No Known Allergies Allergy (Verified 04/20/20 14:02) Home Medications: Ambulatory Orders Medication Instructions Recorded Acetaminophen 2 tab PO Q8H PRN 04/20/20 Acetaminophen 650 mg NM Q4H PRN 04/20/20 Apixaban [Eliquis] 5 mg PO BID 04/20/20 Ascorbic Acid [Vitamin C] 500 mg PO DAILY 04/20/20 Aspirin [Aspirin, Baby] 81 mg PO DAILY@0800 04/20/20 Atorvastatin Calcium [Lipitor] 10 mg PO QHS 04/20/20 Bisacodyl 10 mg NM PRN PRN 04/20/20 Dextrose [Glucose Gel] 1 dose PO PRN PRN 04/20/20 Ergocalciferol (Vitamin D2) 50,000 unit PO TU 04/20/20 [Vitamin D2] Furosemide [Lasix] 40 mg PO DAILY 04/20/20 Glimepiride [Amaryl] 2 mg PO DAILY 04/20/20 Glucagon,Human Recombinant 1 mg IM PRN PRN 04/20/20 [Glucagon Emergency Kit] Guaifenesin [Robitussin] 10 ml PO Q4H PRN PRN 04/20/20 Lisinopril [Zestril] 5 mg PO DAILY 04/20/20 Mag Hydrox/Aluminum Hyd/Simeth 30 ml PO Q4H PRN 04/20/20 [Antacid Suspension] Magnesium Hydroxide [Milk Of 30 ml PO DAILY PRN PRN 04/20/20 Magnesia] Metoprolol Tartrate 0.5 tab PO BID 04/20/20 Multivit,Stress Formula/Zinc 1 ea PO BID 04/20/20 [Stress Formula with Zinc Tab] Na Phos,M-B/Na Phos,Di-Ba [Fleet 1 bottle RECTAL PRN PRN 04/20/20 Enema] Nystatin 1 tab PO 4X/DAY 04/20/20 Polyethylene Glycol 3350 [Miralax] 17 gm PO DAILY 04/20/20 Potassium Chloride 20 meq PO DAILY 04/20/20 Sennosides/Docusate Sodium 2 tab PO BID 04/20/20 [Senna-Docusate Sodium Tablet] metFORMIN HCl [Glucophage] 1,000 mg PO BIDCM 04/20/20 Surgical History: Surgical History (Last Reviewed 04/20/20 @ 17:26 by Peggy Fierro NP, [employer]-C) History of appendectomy Z90.49 History of exploratory laparotomy Z98.890 History of kidney surgery Z98.890 Surgical History: tonsillectomy Psychiatric History: No pertinent psych hx Lives: Spouse/ Significant Other Smoking Status: Former smoker Alcohol: None Drugs: None - *Family History Paternal Family History: Family History (Last Reviewed 04/20/20 @ 17:27 by Peggy Fierro NP, [employer]-C) Mother CHF (congestive heart failure) Father Cancer History Items: Diabetes Maternal Family History: Family History (Last Reviewed 04/20/20 @ 17:27 by Peggy Fierro NP, [employer]-C) Mother CHF (congestive heart failure) Father Cancer Review of Systems Constitutional: Denies: Chills, Fever, Weight Change HEENT: Denies: Head Aches, Sinus Congestion, Sinus Drainage Cardiovascular: Denies: Chest Pain, Palpitations Respiratory: Denies: Cough, Shortness of breath at rest, Sputum production Gastrointestinal: Reports: Hematemesis, Nausea, Vomiting. Denies: Abdominal Pain Genitourinary: Denies: Dysuria Musculoskeletal: Denies: Joint Pain, Joint Tenderness Skin: Denies: Rash, Wounds Neurological: Denies: Numbness, Tingling, Focal weakness Psychiatric: Denies: Anxiety, Depression, Homicidal Ideations, Suicidal Ideations Hematologic/ Lymphatic: Denies: Easy Bruising, Easy Bleeding VTE Information - Inpt Only VTE Present on Admission: No VTE Mechan Device Prophylaxis: None VTE Pharm Prophylaxis ordered?: No Reason prophylaxis not ordered:: Medical Contraindication Patient Problems: Active and Suspected Problems (Last Reviewed 04/12/20 @ 15:[address] Peter Aguirre, DO) Upper gastrointestinal bleed (Acute) - Physical Exam Vitals/I&O's: Vital Signs Temp Pulse Resp BP Pulse Ox 98.7 F 67 21 H 156/75 H 97 04/20/20 14:03 04/20/20 14:03 04/20/20 14:03 04/20/20 14:03 04/20/20 14:03 Oxygen Delivery Method Room Air Weight: 280 lb 3.32 oz Body Mass Index (BMI) 38.0 General: Alert, Oriented x3, Cooperative HEENT: Atraumatic, PERRLA, EOMI, Normocephalic Neck: Supple, No JVD, Negative Carotid Bruits Lungs: Clear to auscultation, Normal air movement Cardiovascular: Regular rate, No murmurs Abdomen: Bowel Sounds Present, Soft, Non Tender Extremities: No clubbing, No cyanosis, No edema, Capillary Refill Less than 3 Seconds Skin: No rashes, No breakdown Musculoskeletal: No Tenderness to Palpation of Joints or Extremities Neurological: Cranial nerves II-XII grossly intact, Neuro grossly intact Psych/Mental Status: Normal Affect, Appropriate Microbiology Past 72 Hours 04/20/20 14:30 Stool Stool Occult Blood (YAMINI) - Final Laboratory Results 04/20/20 14:53: WBC 9.0, RBC 3.97 L, Hgb 12.6 L, Hct 37.9 L, MCV 95.5 H, MCH 31.7, MCHC 33.2, RDW Std Deviation 50.9 H, RDW Coeff of Shant[place] 14.5, Plt Count 312, MPV 9.1, Immature Gran % (Auto) 0.400, Neut % (Auto) 82.5 H, Lymph % (Auto) 10.5 L, [place] % (Auto) 5.6, Eos % (Auto) 0.7, Baso % (Auto) 0.3, Absolute Neuts (auto) 7.5, Absolute Lymphs (auto) 0.96, Nucleated RBC % 0 04/20/20 14:53: Sodium 138, Potassium 4.0, Chloride 103, Carbon Dioxide 29.0, Anion Gap 6, BUN 17, Creatinine 0.88, Estim Creat Clear Calc 83.28, Est GFR (MDRD) Af Amer 110, Est GFR (MDRD) Non-Af 91, BUN/Creatinine Ratio 19.3, Glucose 159 H, Calcium 9.6, Total Bilirubin 0.60, AST 12 L, ALT 13 L, Alkaline Phosphatase 73, Total Protein 7.2, Albumin 3.1 L, Globulin 4.1, Albumin/Globulin Ratio 0.8 L Assessment/Plan All Active Problems (Last Reviewed 04/12/20 @ 15:[address] Peter Aguirre, DO) SBO (small bowel obstruction) (Acute) Upper gastrointestinal bleed (Acute) Acute respiratory failure with hypoxia (Resolved) CHF exacerbation (Resolved) 1. Upper GI bleed-IV PPI. Trend H&H. N.p.o. Dr. Barbosa consulted for scope. 2. Recent ileus with fecal retention-resolved. 3. Type 2 diabetes [id number] with sliding scale insulin. 4. Atrial fibrillation-hold Eliquis. Continue metoprolol. 5. Chronic heart failure with preserved ejection fraction-stable. 6. Stage II decubitus ulcer left gluteal crease-wound RN consult. Frequent position changes. 7. 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 8. Morbid obesity-encouraged diet and lifestyle modifications. DVT prophylaxis-Eliquis on hold This patient was seen by Peggy Fierro NP-C under the supervision of Dr. Hayes.
--- NOTE | 2020-04-20 17:24 | NURSING ---
DR CALDERON IN ROOM
[2020-04-20 17:25] VITALS: BP 145/67; PULSE 87; RESP 16; TEMP 37.1; O2SAT 96
--- NOTE | 2020-04-20 17:28 | NURSING ---
MED SURG OBS KVNG UPPER GI BLEED
[2020-04-20 17:40] VITALS: BMI 38.0
--- NOTE | 2020-04-20 18:30 | RAD_ITS ---
STUDY: X-RAY - ABDOMEN/PELVIS REASON FOR EXAM: Male, 70 years old. Placement of NG tube TECHNIQUE: 04/20/20 COMPARISON: None. FINDINGS: There is an enteric tube noted with its tip in the stomach. The visualized bowel demonstrates no evidence of obstruction. The visualized osseous structures are within normal limits. RAD/Abdomen Single View (Portable) IMPRESSION: Satisfactory position of the enteric tube. Electronically Signed: Forrest Morel, at 19:11 EDT Tel , Service support ,
[2020-04-20 19:10] VITALS: BMI 35.4
[2020-04-20 19:11] VITALS: BP 134/61; PULSE 100; RESP 18; TEMP 36.4; O2SAT 96
[2020-04-20] MEDS: 0.9% Normal Saline 1,000 ML 75 ML IV (19:30)
[2020-04-20 20:45] LABS: Hematocrit 35.6 % (40-54)
[2020-04-20 21:08] VITALS: PULSE 78
[2020-04-20 21:28] VITALS: PULSE 92
[2020-04-20] MEDS: Metoprolol Tartrate 5 MG/5 ML Vial 2.5 MG IV (21:28)
[2020-04-20 22:00] VITALS: RESP 18
[2020-04-20 23:21] LABS: Bedside Glucose 128 mg/dL (70-110)
[2020-04-20 23:55] LABS: Hematocrit 35.1 % (40-54); Hemoglobin 11.6 g/dL (13.0-16.5)
[2020-04-21] VITALS (7 sets, daily range): BP systolic 121–151; BP diastolic 56–75; PULSE 53–84; RESP 18; TEMP 36.6–37.2; O2SAT 94–97
[2020-04-21 03:36] LABS: Absolute Lymphocyte Count 1.89 X10^3/uL (0.83-4.51); Absolute Neutrophil Count 5.2 X10^3/uL (2.0-7.7); Basophil# 0.03 X10^3/uL; Basophil% 0.4 % (0-1); Eosinophil# 0.29 X10^3/uL; Eosinophils% 3.5 % (0-5); Hematocrit 35.2 % (40-54); Hemoglobin 11.4 g/dL (13.0-16.5); Lymphocyte # 1.89 X10^3/ul (4.0); Mean Corp Hgb Conc 32.4 g/dL (32-36); Mean Corpuscular Hgb 31.7 pg (27.0-32.0); Mean Corpuscular Volume 97.8 fL (80-94); Mean Platelet Vol. 8.9 fl (6.2-12.0); Monocyte# 0.79 X10^3/uL; Monocyte% 9.6 % (0-10); NRBC Flagged by Analyzer 0 % (0-5); Neutrophil # 5.17 X10^3/uL (2.7-7.7); Neutrophil % 63.1 % (47-70); Platelet Count 279 K/mm3 (150-450); RBC Distribution Width CV 14.5 % (11.6-14.6); RBC Distribution Width SD 52.5 fl (35.1-43.9); White Blood Count 8.2 K/mm3 (4.4-11.0)
[2020-04-21 03:56] LABS: Anion Gap 5 (5-15); BUN 17 mg/dL (7-18); Chloride 103 mmol/L (98-107); Creatinine, Serum 0.77 mg/dL (0.70-1.30); EST Glomerular Filtration Rate 105 mL/min (>60); Est Glom Filt Rate - Afr Amer 127 mL/min (>60); Estimated Creatinine Clearance 71.12 ml/min; Glucose 96 mg/dL (74-106); Potassium 3.5 mmol/L (3.5-5.1); Sodium Level 138 mmol/L (136-145)
[2020-04-21 06:10] LABS: Bedside Glucose 95 mg/dL (70-110)
--- NOTE | 2020-04-21 06:54 | PN.SURG_ITS ---
Patient Problems: Active and Suspected Problems (Last Reviewed 04/12/20 @ 15:[address] Peter Aguirre, DO) Upper gastrointestinal bleed (Acute) Subjective: Patient had no issues overnight - Physical Exam Vitals/I&O's: Vital Signs Temp Pulse Resp BP Pulse Ox 98.4 F 54 L 18 121/56 H 94 04/21/20 02:05 04/21/20 02:05 04/21/20 02:25 04/21/20 02:05 04/21/20 02:05 Oxygen Flow Rate (L/min) 2 Oxygen Delivery Method Nasal Cannula Weight: 253 lb 15.56 oz Body Mass Index (BMI) 35.4 Intake and Output for Last 24 Hours 04/19/20 04/20/20 04/21/20 23:59 23:59 23:59 Intake Total 505 / 505 375 / 375 Output Total 900 / 900 500 / 500 Balance -395 / -395 -125 / -125 General: Alert, Oriented x3 Abdomen: Soft, Non Tender, Non-Distended Microbiology Past 72 Hours 04/20/20 14:30 Stool Stool Occult Blood (YAMINI) - Final Laboratory Results 04/20/20 14:53: WBC 9.0, RBC 3.97 L, Hgb 12.6 L, Hct 37.9 L, MCV 95.5 H, MCH 31.7, MCHC 33.2, RDW Std Deviation 50.9 H, RDW Coeff of [place]ant[place] 14.5, Plt Count 312, MPV 9.1, Immature Gran % (Auto) 0.400, Neut % (Auto) 82.5 H, Lymph % (Auto) 10.5 L, [place] % (Auto) 5.6, Eos % (Auto) 0.7, Baso % (Auto) 0.3, Absolute Neuts (auto) 7.5, Absolute Lymphs (auto) 0.96, Nucleated RBC % 0 04/20/20 14:53: Sodium 138, Potassium 4.0, Chloride 103, Carbon Dioxide 29.0, Anion Gap 6, BUN 17, Creatinine 0.88, Estim Creat Clear Calc 83.28, Est GFR (MDRD) Af Amer 110, Est GFR (MDRD) Non-Af 91, BUN/Creatinine Ratio 19.3, Glucose 159 H, Calcium 9.6, Total Bilirubin 0.60, AST 12 L, ALT 13 L, Alkaline Phosphatase 73, Total Protein 7.2, Albumin 3.1 L, Globulin 4.1, Albumin/Globulin Ratio 0.8 L 04/20/20 20:37: Hgb 12.0 L, Hct 35.6 L 04/20/20 23:16: POC Glucose 128 H 04/20/20 23:29: Hgb 11.6 L, Hct 35.1 L 04/21/20 03:20: Hgb Cancelled, Hct Cancelled 04/21/20 03:20: Sodium 138, Potassium 3.5, Chloride 103, Carbon Dioxide 30.0, Anion Gap 5, BUN 17, Creatinine 0.77, Estim Creat Clear Calc 71.12, Est GFR (MDRD) Af Amer 127, Est GFR (MDRD) Non-Af 105, BUN/Creatinine Ratio 22.0 H, Glucose 96, Calcium 9.0 04/21/20 03:20: WBC 8.2, RBC 3.60 L, Hgb 11.4 L, Hct 35.2 L, MCV 97.8 H, MCH 31.7, MCHC 32.4, RDW Std Deviation 52.5 H, RDW Coeff of [place]ant[place] 14.5, Plt Count 279, MPV 8.9, Immature Gran % (Auto) 0.400, Neut % (Auto) 63.1, Lymph % (Auto) 23.0, [place] % (Auto) 9.6, Eos % (Auto) 3.5, Baso % (Auto) 0.4, Absolute Neuts (auto) 5.2, Absolute Lymphs (auto) 1.89, Nucleated RBC % 0 04/21/20 06:01: POC Glucose 95 Current Medications Acetaminophen (Tylenol) 650 mg RECTAL Q4H PRN PRN PRN Reason: fever, pain 1-10 Atorvastatin Calcium (Lipitor) 10 mg PO QHS COUNTS INCLUDE 234 BEDS AT THE [facility] Last Admin: 04/20/20 21:20 Dose: Not Given Documented by: Dextrose (D50w Syringe) 0 gm IV X1 PRN; Protocol PRN Reason: Hypoglycemia Glucagon () 1 mg IM .X1 PRN PRN Reason: Hypoglycemia Sodium Chloride () 1,000 mls @ 75 mls/hr IV .[id number] COUNTS INCLUDE 234 BEDS AT THE [facility] Last Infusion: 04/20/20 22:00 Dose: 75 mls/hr Documented by: Pantoprazole Sodium 40 mg/ (Sodium Chloride) 110 mls @ 330 mls/hr IV Q12 HERMINIA Insulin Human Lispro (Humalog Kwikpen (Bkc)) 0 unit SC Q6 HERMINIA; Protocol Last Admin: 04/21/20 06:11 Dose: Not Given Documented by: Metoprolol Tartrate (Lopressor (Beta Paulette)) 2.5 mg IV Q12 COUNTS INCLUDE 234 BEDS AT THE [facility] Last Admin: 04/20/20 21:28 Dose: 2.5 mg Documented by: Morphine Sulfate () 1 - 2 mg IV Q4H PRN PRN PRN Reason: Pain Score 4-5 Morphine Sulfate () 2 - 4 mg IV Q3H PRN PRN PRN Reason: Pain Score 6-10 Ondansetron HCl (Zofran) 4 mg IV Q8H PRN PRN PRN Reason: NAUSEA/VOMITING Prochlorperazine Edisylate (Compazine Iv) 10 mg IV Q6H PRN PRN PRN Reason: Nausea/Vomiting Sodium Chloride () 10 - 40 ml IV UD PRN PRN Reason: SALINE FLUSH Medical Necessity - Tobacco Use Smoking Status: Former smoker Assessment/Plan All Active Problems (Last Reviewed 04/12/20 @ 15:[address] Peter Aguirre, DO) SBO (small bowel obstruction) (Acute) Upper gastrointestinal bleed (Acute) Acute respiratory failure with hypoxia (Resolved) CHF exacerbation (Resolved) 70-year-old male with upper GI bleed 1. Patient was in the TCU and started having black vomiting. He was brought to the emergency room and NG was placed and coffee-ground material was removed through his NG tube. Currently this morning he is having no abdominal pain or nausea. The NG fluid in the tubing and the canister are murky but clear with no signs of active bleeding. His hemoglobin is stable. He is having no abdominal pain. 2. I discussed EGD versus conservative management with him at this time. The patient would opt for conservative management. At this time I would remove the NG tube and start clear liquids. As long as he does not show any signs of bleeding I will plan for a scope later this week. If the patient starts actively bleeding again I will replace the NG tube and perform an emergent EGD this weekend. Dimitrios Barbosa MD Pager: [facility] [address] [place] [address], [address] [place] [address] Office:
--- NOTE | 2020-04-21 08:23 | NURSING ---
Pt NG tube was dc and he was given some clear liquids which he tolerated well with no distress. He is also placed on his c-pap and does not want to be bothered too much while he naps. Care is clustered.
[2020-04-21] MEDS: 0.9% Normal Saline 1,000 ML 75 ML IV (09:25)
[2020-04-21] MEDS: Senna/Docusate Sodium 1 Tablet 2 TABLET PO ×2 (10:29→20:51)
[2020-04-21] MEDS: Psyllium 1 PACKET PO (10:29)
[2020-04-21] MEDS: Metoprolol Tartrate 25 MG Tablet 12.5 MG PO (10:30)
[2020-04-21] MEDS: Insulin Lispro 100 UNIT/ML INSULN.PEN SC ×2 (11:27→20:52)
[2020-04-21 13:11] LABS: Bedside Glucose 186 mg/dL (70-110)
--- NOTE | 2020-04-21 13:18 | PCM.PROGNOTE ---
<Peggy Fierro FUEL DOCK ATTENDANT - Last Filed: 04/21/20 13:23> Patient Problems: Active and Suspected Problems (Last Reviewed 04/12/20 @ 15:[address] Peter Aguirre DO) Upper gastrointestinal bleed (Acute) Subjective: Patient seen and examined. NG removed this morning and patient denies further nausea, vomiting. Denies abdominal pain. - Physical Exam Vitals/I&O's: Vital Signs Temp Pulse Resp BP Pulse Ox 98.5 F 84 18 151/75 H 97 04/21/20 08:00 04/21/20 10:30 04/21/20 08:00 04/21/20 08:00 04/21/20 08:00 Oxygen Flow Rate (L/min) 2 Oxygen Delivery Method CPAP Weight: 253 lb 15.56 oz Body Mass Index (BMI) 35.4 Intake and Output for Last 24 Hours 04/19/20 04/20/20 04/21/20 23:59 23:59 23:59 Intake Total 505 / 505 2215 / 2215 Output Total 900 / 900 500 / 500 Balance -395 / -395 1715 / 1715 General: Alert, Oriented x3, Cooperative HEENT: Atraumatic, PERRLA, EOMI, Normocephalic Neck: Supple, No JVD, Negative Carotid Bruits Lungs: Clear to auscultation, Normal air movement Cardiovascular: Regular rate, No murmurs Abdomen: Bowel Sounds Present, Soft, Non Tender, Non-Distended Extremities: No clubbing, No cyanosis, No edema, Capillary Refill Less than 3 Seconds Skin: No rashes, No breakdown Musculoskeletal: No Tenderness to Palpation of Joints or Extremities Neurological: Cranial nerves II-XII grossly intact, Neuro grossly intact Psych/Mental Status: Normal Affect, Appropriate Microbiology Past 72 Hours 04/20/20 14:30 Stool Stool Occult Blood (YAMINI) - Final Laboratory Results 04/20/20 14:53: WBC 9.0, RBC 3.97 L, Hgb 12.6 L, Hct 37.9 L, MCV 95.5 H, MCH 31.7, MCHC 33.2, RDW Std Deviation 50.9 H, RDW Coeff of Shantell 14.5, Plt Count 312, MPV 9.1, Immature Gran % (Auto) 0.400, Neut % (Auto) 82.5 H, Lymph % (Auto) 10.5 L, Durham % (Auto) 5.6, Eos % (Auto) 0.7, Baso % (Auto) 0.3, Absolute Neuts (auto) 7.5, Absolute Lymphs (auto) 0.96, Nucleated RBC % 0 04/20/20 14:53: Sodium 138, Potassium 4.0, Chloride 103, Carbon Dioxide 29.0, Anion Gap 6, BUN 17, Creatinine 0.88, Estim Creat Clear Calc 83.28, Est GFR (MDRD) Af Amer 110, Est GFR (MDRD) Non-Af 91, BUN/Creatinine Ratio 19.3, Glucose 159 H, Calcium 9.6, Total Bilirubin 0.60, AST 12 L, ALT 13 L, Alkaline Phosphatase 73, Total Protein 7.2, Albumin 3.1 L, Globulin 4.1, Albumin/Globulin Ratio 0.8 L 04/20/20 20:37: Hgb 12.0 L, Hct 35.6 L 04/20/20 23:16: POC Glucose 128 H 04/20/20 23:29: Hgb 11.6 L, Hct 35.1 L 04/21/20 03:20: Hgb Cancelled, Hct Cancelled 04/21/20 03:20: Sodium 138, Potassium 3.5, Chloride 103, Carbon Dioxide 30.0, Anion Gap 5, BUN 17, Creatinine 0.77, Estim Creat Clear Calc 71.12, Est GFR (MDRD) Af Amer 127, Est GFR (MDRD) Non-Af 105, BUN/Creatinine Ratio 22.0 H, Glucose 96, Calcium 9.0 04/21/20 03:20: WBC 8.2, RBC 3.60 L, Hgb 11.4 L, Hct 35.2 L, MCV 97.8 H, MCH 31.7, MCHC 32.4, RDW Std Deviation 52.5 H, RDW Coeff of Shantell 14.5, Plt Count 279, MPV 8.9, Immature Gran % (Auto) 0.400, Neut % (Auto) 63.1, Lymph % (Auto) 23.0, Durham % (Auto) 9.6, Eos % (Auto) 3.5, Baso % (Auto) 0.4, Absolute Neuts (auto) 5.2, Absolute Lymphs (auto) 1.89, Nucleated RBC % 0 04/21/20 06:01: POC Glucose 95 04/21/20 11:24: POC Glucose 186 H Current Medications Acetaminophen (Tylenol) 650 mg RECTAL Q4H PRN PRN PRN Reason: fever, pain 1-10 Atorvastatin Calcium (Lipitor) 10 mg PO QHS [facility] Last Admin: 04/20/20 21:20 Dose: Not Given Documented by: Dextrose (D50w Syringe) 0 gm IV X1 PRN; Protocol PRN Reason: Hypoglycemia Glucagon () 1 mg IM .X1 PRN PRN Reason: Hypoglycemia Sodium Chloride () 1,000 mls @ 75 mls/hr IV .[id number] [facility] Last Infusion: 04/21/20 10:47 Dose: 75 mls/hr Documented by: Pantoprazole Sodium 40 mg/ (Sodium Chloride) 110 mls @ 330 mls/hr IV Q12 [facility] Last Infusion: 04/21/20 10:47 Dose: Infused Documented by: Insulin Human Lispro (Humalog Kwikpen (Bkc)) 0 unit SC ACHS [facility]; Protocol Metoprolol Tartrate (Lopressor (Beta Paulette)) 12.5 mg PO BID [facility] Last Admin: 04/21/20 10:30 Dose: 12.5 mg Documented by: Morphine Sulfate () 1 - 2 mg IV Q4H PRN PRN PRN Reason: Pain Score 4-5 Morphine Sulfate () 2 - 4 mg IV Q3H PRN PRN PRN Reason: Pain Score 6-10 Ondansetron HCl (Zofran) 4 mg IV Q8H PRN PRN PRN Reason: NAUSEA/VOMITING Prochlorperazine Edisylate (Compazine Iv) 10 mg IV Q6H PRN PRN PRN Reason: Nausea/Vomiting Psyllium Hydrophilic Mucilloid (Metamucil) 1 packet PO DAILY [facility] Last Admin: 04/21/20 10:29 Dose: 1 packet Documented by: Senna/Docusate Sodium (Senokot-S, Elizabeth-Colace) 2 tablet PO BID [facility] Last Admin: 04/21/20 10:29 Dose: 2 tablet Documented by: Sodium Chloride () 10 - 40 ml IV UD PRN PRN Reason: SALINE FLUSH Medical Necessity - Tobacco Use Smoking Status: Former smoker Assessment/Plan All Active Problems (Last Reviewed 04/12/20 @ 15:[address] Peter Aguirre, DO) SBO (small bowel obstruction) (Acute) Upper gastrointestinal bleed (Acute) Acute respiratory failure with hypoxia (Resolved) CHF exacerbation (Resolved) 1. Upper GI bleed-IV PPI. Clear liquid diet. Hemoglobin stable. Dr. Barbosa consulted. Given currently stable with resolve of symptoms, hold off on EGD at this time. Will monitor overnight. 2. Recent ileus with fecal retention-resolved. 3. Type 2 diabetes [id number] with sliding scale insulin. 4. Atrial fibrillation-hold Eliquis. Continue metoprolol. 5. Chronic heart failure with preserved ejection fraction-stable. 6. Stage II decubitus ulcer left gluteal crease-wound RN consult. Frequent position changes. 7. 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 8. Morbid obesity-encouraged diet and lifestyle modifications. DVT prophylaxis-Eliquis on hold This patient was seen by KAYDEN Templeton under the supervision of Dr. Murphy. <Gael Murphy - Last Filed: 04/21/20 13:41> Subjective: Seen and examined. Discussed with the surgeon. Patient had NG in the morning which was removed as there was not much NG output in the canister. Objective: Blood pressure and heart rate are controlled. Physical exam General: Alert, Oriented x3, Cooperative HEENT: Atraumatic, PERRLA, EOMI, Normocephalic Oral: Mild deep oropharyngeal thrush, improving. Neck: Supple, No JVD, Negative Carotid Bruits Lungs: Air entry diminished in bilateral lung bases. No crepitation/rhonchi Cardiovascular: Regular rate, Regular Rhythm, Normal S1, Normal S2, No murmurs Abdomen: Bowel Sounds, gurgling sound present, Soft, Non Tender, Non-Distended : No renal angle tenderness. No suprapubic tenderness. Extremities: No edema, Capillary Refill Less than 3 Seconds Skin: Mckeon pigmentation of both lower extremity. Stage II decubitus ulcer of the left gluteal crease, present on admission Musculoskeletal: No Tenderness to Palpation of Joints or Extremities. Bilateral lower extremity weakness, right more than left Neurological: Cranial nerves II-XII grossly intact, Deep Tendon Reflexes 2+/4 and Symmetrical, Neuro grossly intact Psych/Mental Status: Normal Affect, Appropriate. - Physical Exam Vitals/I&O's: Vital Signs Temp Pulse Resp BP Pulse Ox 98.5 F 84 18 151/75 H 97 04/21/20 08:00 04/21/20 10:30 04/21/20 08:00 04/21/20 08:00 04/21/20 08:00 Oxygen Flow Rate (L/min) 2 Oxygen Delivery Method CPAP Weight: 253 lb 15.56 oz Body Mass Index (BMI) 35.4 Intake and Output for Last 24 Hours 04/19/20 04/20/20 04/21/20 23:59 23:59 23:59 Intake Total 505 / 505 2215 / 2215 Output Total 900 / 900 500 / 500 Balance -395 / -395 1715 / 1715 Microbiology Past 72 Hours 04/20/20 14:30 Stool Stool Occult Blood (YAMINI) - Final Laboratory Results 04/20/20 14:53: WBC 9.0, RBC 3.97 L, Hgb 12.6 L, Hct 37.9 L, MCV 95.5 H, MCH 31.7, MCHC 33.2, RDW Std Deviation 50.9 H, RDW Coeff of Shantell 14.5, Plt Count 312, MPV 9.1, Immature Gran % (Auto) 0.400, Neut % (Auto) 82.5 H, Lymph % (Auto) 10.5 L, Durham % (Auto) 5.6, Eos % (Auto) 0.7, Baso % (Auto) 0.3, Absolute Neuts (auto) 7.5, Absolute Lymphs (auto) 0.96, Nucleated RBC % 0 04/20/20 14:53: Sodium 138, Potassium 4.0, Chloride 103, Carbon Dioxide 29.0, Anion Gap 6, BUN 17, Creatinine 0.88, Estim Creat Clear Calc 83.28, Est GFR (MDRD) Af Amer 110, Est GFR (MDRD) Non-Af 91, BUN/Creatinine Ratio 19.3, Glucose 159 H, Calcium 9.6, Total Bilirubin 0.60, AST 12 L, ALT 13 L, Alkaline Phosphatase 73, Total Protein 7.2, Albumin 3.1 L, Globulin 4.1, Albumin/Globulin Ratio 0.8 L 04/20/20 20:37: Hgb 12.0 L, Hct 35.6 L 04/20/20 23:16: POC Glucose 128 H 04/20/20 23:29: Hgb 11.6 L, Hct 35.1 L 04/21/20 03:20: Hgb Cancelled, Hct Cancelled 04/21/20 03:20: Sodium 138, Potassium 3.5, Chloride 103, Carbon Dioxide 30.0, Anion Gap 5, BUN 17, Creatinine 0.77, Estim Creat Clear Calc 71.12, Est GFR (MDRD) Af Amer 127, Est GFR (MDRD) Non-Af 105, BUN/Creatinine Ratio 22.0 H, Glucose 96, Calcium 9.0 04/21/20 03:20: WBC 8.2, RBC 3.60 L, Hgb 11.4 L, Hct 35.2 L, MCV 97.8 H, MCH 31.7, MCHC 32.4, RDW Std Deviation 52.5 H, RDW Coeff of Shantell 14.5, Plt Count 279, MPV 8.9, Immature Gran % (Auto) 0.400, Neut % (Auto) 63.1, Lymph % (Auto) 23.0, Durham % (Auto) 9.6, Eos % (Auto) 3.5, Baso % (Auto) 0.4, Absolute Neuts (auto) 5.2, Absolute Lymphs (auto) 1.89, Nucleated RBC % 0 04/21/20 06:01: POC Glucose 95 04/21/20 11:24: POC Glucose 186 H Current Medications Acetaminophen (Tylenol) 650 mg RECTAL Q4H PRN PRN PRN Reason: fever, pain 1-10 Atorvastatin Calcium (Lipitor) 10 mg PO QHS [facility] Last Admin: 04/20/20 21:20 Dose: Not Given Documented by: Dextrose (D50w Syringe) 0 gm IV X1 PRN; Protocol PRN Reason: Hypoglycemia Glucagon () 1 mg IM .X1 PRN PRN Reason: Hypoglycemia Sodium Chloride () 1,000 mls @ 75 mls/hr IV .[id number] [facility] Last Infusion: 04/21/20 10:47 Dose: 75 mls/hr Documented by: Pantoprazole Sodium 40 mg/ (Sodium Chloride) 110 mls @ 330 mls/hr IV Q12 [facility] Last Infusion: 04/21/20 10:47 Dose: Infused Documented by: Insulin Human Lispro (Humalog Kwikpen (Bkc)) 0 unit SC ACHS [facility]; Protocol Metoprolol Tartrate (Lopressor (Beta Paulette)) 12.5 mg PO BID [facility] Last Admin: 04/21/20 10:30 Dose: 12.5 mg Documented by: Morphine Sulfate () 1 - 2 mg IV Q4H PRN PRN PRN Reason: Pain Score 4-5 Morphine Sulfate () 2 - 4 mg IV Q3H PRN PRN PRN Reason: Pain Score 6-10 Ondansetron HCl (Zofran) 4 mg IV Q8H PRN PRN PRN Reason: NAUSEA/VOMITING Prochlorperazine Edisylate (Compazine Iv) 10 mg IV Q6H PRN PRN PRN Reason: Nausea/Vomiting Psyllium Hydrophilic Mucilloid (Metamucil) 1 packet PO DAILY [facility] Last Admin: 04/21/20 10:29 Dose: 1 packet Documented by: Senna/Docusate Sodium (Senokot-S, Elizabeth-Colace) 2 tablet PO BID [facility] Last Admin: 04/21/20 10:29 Dose: 2 tablet Documented by: Sodium Chloride () 10 - 40 ml IV UD PRN PRN Reason: SALINE FLUSH Assessment/Plan This patient was seen in conjunction with FUEL DOCK ATTENDANT, Peggy. I have independently interviewed and examined the patient and reviewed pertinent history, examination findings, laboratory and plan of management. I have reviewed the note and agree with the documented findings with the few additional points. In brief, patient is 70-year-old gentleman was readmitted after 1 day patient was admitted for nausea, vomiting with coffee-ground emesis is in [facility]. Patient is moving flatus and bowel movement as he had a small bowel ileus about 4 days ago. Patient on clear liquid diet. Upper GI bleed: H&H is stable between 11 to 12 g%. Discussed with surgeon. If he starts bleeding then will need urgent EGD otherwise routine EGD next week. Other comorbidities include type 2 diabetes mellitus, paroxysmal A. fib, chronic heart failure with preserved EF, stage II decubitus ulcer on left gluteal crease, present on admission and chronic degenerative joint disease with bilateral lower extremity weakness/failure to thrive and morbid obesity: Eliquis on hold. Metoprolol continued. Home medication reconciliation done. I have discussed my assessment with FUEL DOCK ATTENDANTPeggy and orders have been reviewed. Inpatient E&M: 61599 Subs Hosp L2
--- NOTE | 2020-04-21 16:00 | CM.ED ---
Social Work Consult: Return to longterm. Informant: Self Referral Per chart review patient from [facility] under intermediate level of care. Met with patient in room. Introduced self and social service liaison role. Patient agreeable to speaking with this social service liaison. Patient confirming plan for patient to return to [facility] under LOC when patient is medically cleared. Patient with no further questions. Green sheet placed on chart in the event that patient is cleared over the weekend. Medical team updated. Pilar PETERSON, JADES
[2020-04-21 16:31] LABS: Bedside Glucose 127 mg/dL (70-110)
[2020-04-21] MEDS: Atorvastatin Calcium 10 MG Tablet PO (20:51)
[2020-04-21 21:06] LABS: Bedside Glucose 165 mg/dL (70-110)
[2020-04-22 02:40] VITALS: BP 133/68; PULSE 79; RESP 18; TEMP 36.2; O2SAT 96
[2020-04-22 06:24] LABS: Hematocrit 33.7 % (40-54); Hemoglobin 10.7 g/dL (13.0-16.5); Mean Corp Hgb Conc 31.8 g/dL (32-36); Mean Corpuscular Hgb 31.4 pg (27.0-32.0); Mean Corpuscular Volume 98.8 fL (80-94); Mean Platelet Vol. 9.2 fl (6.2-12.0); Platelet Count 268 K/mm3 (150-450); RBC Distribution Width CV 14.4 % (11.6-14.6); RBC Distribution Width SD 52.8 fl (35.1-43.9); Red Blood Count 3.41 M/mm3 (4.6-6.2); White Blood Count 7.4 K/mm3 (4.4-11.0)
[2020-04-22 06:50] LABS: Bedside Glucose 116 mg/dL (70-110)
--- NOTE | 2020-04-22 08:08 | PCM.PN.SRG ---
Patient Problems: Active and Suspected Problems (Last Reviewed 04/12/20 @ 15:[address] Peter Aguirre, DO) Upper gastrointestinal bleed (Acute) Subjective: Patient reports no issues overnight. No blood in the stool. - Physical Exam Vitals/I&O's: Vital Signs Temp Pulse Resp BP Pulse Ox 97.1 F L 79 18 133/68 H 96 04/22/20 02:40 04/22/20 02:40 04/22/20 02:40 04/22/20 02:40 04/22/20 02:40 Oxygen Flow Rate (L/min) 2 Oxygen Delivery Method Room Air Weight: 253 lb 15.56 oz Body Mass Index (BMI) 35.4 Intake and Output for Last 24 Hours 04/20/20 04/21/20 04/22/20 23:59 23:59 23:59 Intake Total 505 / 505 3668.75 / 4208.75 540 / 540 Output Total 900 / 900 1100 / 1250 150 / 150 Balance -395 / -395 2568.75 / 2958.75 390 / 390 General: Alert, Oriented x3 Lungs: Normal air movement Cardiovascular: Regular rate, Regular Rhythm Abdomen: Soft, Non Tender, Non-Distended Microbiology Past 72 Hours 04/20/20 14:30 Stool Stool Occult Blood (YAMINI) - Final Laboratory Results 04/21/20 11:24: POC Glucose 186 H 04/21/20 16:10: POC Glucose 127 H 04/21/20 20:35: POC Glucose 165 H 04/22/20 05:10: WBC 7.4, RBC 3.41 L, Hgb 10.7 L, Hct 33.7 L, MCV 98.8 H, MCH 31.4, MCHC 31.8 L, RDW Std Deviation 52.8 H, RDW Coeff of Shantell 14.4, Plt Count 268, MPV 9.2 04/22/20 06:42: POC Glucose 116 H Current Medications Acetaminophen (Tylenol) 650 mg PO Q4H PRN PRN PRN Reason: FEVER, PAIN 1-10 Atorvastatin Calcium (Lipitor) 10 mg PO QHS [facility] Last Admin: 04/21/20 20:51 Dose: 10 mg Documented by: Dextrose (D50w Syringe) 0 gm IV X1 PRN; Protocol PRN Reason: Hypoglycemia Glucagon () 1 mg IM .X1 PRN PRN Reason: Hypoglycemia Pantoprazole Sodium 40 mg/ (Sodium Chloride) 110 mls @ 330 mls/hr IV Q12 [facility] Last Infusion: 04/21/20 21:12 Dose: Infused Documented by: Insulin Human Lispro (Humalog Kwikpen (Bkc)) 0 unit SC ACHS [facility]; Protocol Last Admin: 04/22/20 06:47 Dose: Not Given Documented by: Metoprolol Tartrate (Lopressor (Beta Paulette)) 12.5 mg PO BID [facility] Last Admin: 04/21/20 20:52 Dose: Not Given Documented by: Morphine Sulfate () 1 - 2 mg IV Q4H PRN PRN PRN Reason: Pain Score 4-5 Morphine Sulfate () 2 - 4 mg IV Q3H PRN PRN PRN Reason: Pain Score 6-10 Ondansetron HCl (Zofran) 4 mg IV Q8H PRN PRN PRN Reason: NAUSEA/VOMITING Prochlorperazine Edisylate (Compazine Iv) 10 mg IV Q6H PRN PRN PRN Reason: Nausea/Vomiting Psyllium Hydrophilic Mucilloid (Metamucil) 1 packet PO DAILY [facility] Last Admin: 04/21/20 10:29 Dose: 1 packet Documented by: Senna/Docusate Sodium (Senokot-S, Elizabeth-Colace) 2 tablet PO BID [facility] Last Admin: 04/21/20 20:51 Dose: 2 tablet Documented by: Sodium Chloride () 10 - 40 ml IV UD PRN PRN Reason: SALINE FLUSH Medical Necessity - Tobacco Use Smoking Status: Former smoker Assessment/Plan All Active Problems (Last Reviewed 04/12/20 @ 15:[address] Peter Aguirre DO) SBO (small bowel obstruction) (Acute) Upper gastrointestinal bleed (Acute) Acute respiratory failure with hypoxia (Resolved) CHF exacerbation (Resolved) 70-year-old male with upper GI bleed 1. Patient tolerated full's with no nausea or vomiting. No bloody bowel movements. No abdominal pain. I will perform an EGD tomorrow to evaluate for the source of the bleed and see if he can go back on his Eliquis. Dimitrios Barbosa MD Pager: [facility] [address] [place] [address], [address] [place] [address] Office:
[2020-04-22 08:40] VITALS: BP 133/63; PULSE 73; RESP 18; TEMP 36.2; O2SAT 98
[2020-04-22] MEDS: Senna/Docusate Sodium 1 Tablet 2 TABLET PO ×2 (09:52→22:07)
[2020-04-22 09:53] VITALS: PULSE 77
[2020-04-22] MEDS: Metoprolol Tartrate 25 MG Tablet 12.5 MG PO ×2 (09:53→22:08)
[2020-04-22] MEDS: Psyllium 1 PACKET PO (09:53)
--- NOTE | 2020-04-22 10:52 | PCM.PROGNOTE ---
<VadimPeggy TELEPHONE CLAIMS REPRESENTATIVE - Last Filed: 04/22/20 10:57> Patient Problems: Active and Suspected Problems (Last Reviewed 04/12/20 @ 15:[address] Peter Aguirre DO) Upper gastrointestinal bleed (Acute) Subjective: Patient seen and examined. Denies nausea, vomiting. Tolerating full liquid diet. Denies blood in bowel movements. - Physical Exam Vitals/I&O's: Vital Signs Temp Pulse Resp BP Pulse Ox 97.1 F L 77 18 133/63 H 98 04/22/20 08:40 04/22/20 09:53 04/22/20 08:40 04/22/20 08:40 04/22/20 08:40 Oxygen Flow Rate (L/min) 2 Oxygen Delivery Method CPAP Weight: 253 lb 15.56 oz Body Mass Index (BMI) 35.4 Intake and Output for Last 24 Hours 04/20/20 04/21/20 04/22/20 23:59 23:59 23:59 Intake Total 505 / 505 3668.75 / 4208.75 540 / 540 Output Total 900 / 900 1100 / 1250 150 / 150 Balance -395 / -395 2568.75 / 2958.75 390 / 390 General: Alert, Oriented x3, Cooperative HEENT: Atraumatic, PERRLA, EOMI, Normocephalic Neck: Supple, No JVD, Negative Carotid Bruits Lungs: Clear to auscultation, Normal air movement Cardiovascular: Regular rate, No murmurs Abdomen: Bowel Sounds Present, Soft, Non Tender, Obese Extremities: No clubbing, No cyanosis, No edema, Capillary Refill Less than 3 Seconds Skin: No rashes, No breakdown Musculoskeletal: No Tenderness to Palpation of Joints or Extremities Neurological: Cranial nerves II-XII grossly intact, Neuro grossly intact Psych/Mental Status: Normal Affect, Appropriate Microbiology Past 72 Hours 04/20/20 14:30 Stool Stool Occult Blood (YAMINI) - Final Laboratory Results 04/21/20 11:24: POC Glucose 186 H 04/21/20 16:10: POC Glucose 127 H 04/21/20 20:35: POC Glucose 165 H 04/22/20 05:10: WBC 7.4, RBC 3.41 L, Hgb 10.7 L, Hct 33.7 L, MCV 98.8 H, MCH 31.4, MCHC 31.8 L, RDW Std Deviation 52.8 H, RDW Coeff of Shantell 14.4, Plt Count 268, MPV 9.2 04/22/20 06:42: POC Glucose 116 H Current Medications Acetaminophen (Tylenol) 650 mg PO Q4H PRN PRN PRN Reason: FEVER, PAIN 1-10 Atorvastatin Calcium (Lipitor) 10 mg PO QHS [facility] Last Admin: 04/21/20 20:51 Dose: 10 mg Documented by: Dextrose (D50w Syringe) 0 gm IV X1 PRN; Protocol PRN Reason: Hypoglycemia Glucagon () 1 mg IM .X1 PRN PRN Reason: Hypoglycemia Pantoprazole Sodium 40 mg/ (Sodium Chloride) 110 mls @ 330 mls/hr IV Q12 [facility] Last Admin: 04/22/20 09:51 Dose: 330 mls/hr Documented by: Insulin Human Lispro (Humalog Kwikpen (Bkc)) 0 unit SC ACHS [facility]; Protocol Last Admin: 04/22/20 06:47 Dose: Not Given Documented by: Metoprolol Tartrate (Lopressor (Beta Paulette)) 12.5 mg PO BID [facility] Last Admin: 04/22/20 09:53 Dose: 12.5 mg Documented by: Morphine Sulfate () 1 - 2 mg IV Q4H PRN PRN PRN Reason: Pain Score 4-5 Morphine Sulfate () 2 - 4 mg IV Q3H PRN PRN PRN Reason: Pain Score 6-10 Ondansetron HCl (Zofran) 4 mg IV Q8H PRN PRN PRN Reason: NAUSEA/VOMITING Prochlorperazine Edisylate (Compazine Iv) 10 mg IV Q6H PRN PRN PRN Reason: Nausea/Vomiting Psyllium Hydrophilic Mucilloid (Metamucil) 1 packet PO DAILY [facility] Last Admin: 04/22/20 09:53 Dose: 1 packet Documented by: Senna/Docusate Sodium (Senokot-S, Elizabeth-Colace) 2 tablet PO BID [facility] Last Admin: 04/22/20 09:52 Dose: 2 tablet Documented by: Sodium Chloride () 10 - 40 ml IV UD PRN PRN Reason: SALINE FLUSH Medical Necessity - Tobacco Use Smoking Status: Former smoker Assessment/Plan All Active Problems (Last Reviewed 04/12/20 @ 15:[address] Peter Aguirre, DO) SBO (small bowel obstruction) (Acute) Upper gastrointestinal bleed (Acute) Acute respiratory failure with hypoxia (Resolved) CHF exacerbation (Resolved) 1. Upper GI bleed-IV PPI. Hemoglobin stable. Dr. Barbosa consulted. Full liquid diet. N.p.o. after midnight for EGD tomorrow. 2. Recent ileus with fecal retention-resolved. 3. Type 2 diabetes [id number]-[id number] with sliding scale insulin. 4. Atrial fibrillation-hold Eliquis. Continue metoprolol. 5. Chronic heart failure with preserved ejection fraction-stable. 6. Stage II decubitus ulcer left gluteal crease-wound RN consult. Frequent position changes. 7. 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 8. Morbid obesity-encouraged diet and lifestyle modifications. DVT prophylaxis-Eliquis on hold This patient was seen by Peggy Fierro NP-C under the supervision of Dr. Murphy. <Gael Murphy - Last Filed: 04/22/20 12:17> Subjective: Patient is tolerating full liquid diet. Patient passing flatus and bowel movement. Patient denies back pain but has chronic lower extremity weakness for more than 4 years which is getting worse. Objective: Physical exam Physical exam General: Alert, Oriented x3, Cooperative HEENT: Atraumatic, PERRLA, EOMI, Normocephalic Oral: Mild deep oropharyngeal thrush, improving. Neck: Supple, No JVD, Negative Carotid Bruits Lungs: Air entry diminished in bilateral lung bases. No crepitation/rhonchi Cardiovascular: Regular rate, Regular Rhythm, Normal S1, Normal S2, No murmurs Abdomen: Bowel Sounds, gurgling sound present, Soft, Non Tender, Non-Distended : No renal angle tenderness. No suprapubic tenderness. Extremities: No edema, Capillary Refill Less than 3 Seconds. No tenderness over lumbar spine. Skin: Mckeon pigmentation of both lower extremity. Stage II decubitus ulcer of the left gluteal crease, present on admission Musculoskeletal: No Tenderness to Palpation of Joints or Extremities. Bilateral lower extremity weakness, right more than left Neurological: Cranial nerves II-XII grossly intact, Deep Tendon Reflexes 2+/4 and Symmetrical, Neuro grossly intact Psych/Mental Status: Normal Affect, Appropriate. - Physical Exam Vitals/I&O's: Vital Signs Temp Pulse Resp BP Pulse Ox 97.1 F L 77 18 133/63 H 98 04/22/20 08:40 04/22/20 09:53 04/22/20 08:40 04/22/20 08:40 04/22/20 08:40 Oxygen Flow Rate (L/min) 2 Oxygen Delivery Method CPAP Weight: 253 lb 15.56 oz Body Mass Index (BMI) 35.4 Intake and Output for Last 24 Hours 04/20/20 04/21/20 04/22/20 23:59 23:59 23:59 Intake Total 505 / 505 3668.75 / 4208.75 650 / 650 Output Total 900 / 900 1100 / 1250 150 / 150 Balance -395 / -395 2568.75 / 2958.75 500 / 500 Microbiology Past 72 Hours 04/20/20 14:30 Stool Stool Occult Blood (YAMINI) - Final Laboratory Results 04/21/20 11:24: POC Glucose 186 H 04/21/20 16:10: POC Glucose 127 H 04/21/20 20:35: POC Glucose 165 H 04/22/20 05:10: WBC 7.4, RBC 3.41 L, Hgb 10.7 L, Hct 33.7 L, MCV 98.8 H, MCH 31.4, MCHC 31.8 L, RDW Std Deviation 52.8 H, RDW Coeff of Shantell 14.4, Plt Count 268, MPV 9.2 04/22/20 06:42: POC Glucose 116 H 04/22/20 11:10: POC Glucose 139 H Current Medications Acetaminophen (Tylenol) 650 mg PO Q4H PRN PRN PRN Reason: FEVER, PAIN 1-10 Atorvastatin Calcium (Lipitor) 10 mg PO QHS [facility] Last Admin: 04/21/20 20:51 Dose: 10 mg Documented by: Dextrose (D50w Syringe) 0 gm IV X1 PRN; Protocol PRN Reason: Hypoglycemia Glucagon () 1 mg IM .X1 PRN PRN Reason: Hypoglycemia Pantoprazole Sodium 40 mg/ (Sodium Chloride) 110 mls @ 330 mls/hr IV Q12 [facility] Last Infusion: 04/22/20 10:11 Dose: Infused Documented by: Insulin Human Lispro (Humalog Kwrosiopen (Bkc)) 0 unit SC ACHS [facility]; Protocol Last Admin: 04/22/20 11:17 Dose: Not Given Documented by: Metoprolol Tartrate (Lopressor (Beta Paulette)) 12.5 mg PO BID [facility] Last Admin: 04/22/20 09:53 Dose: 12.5 mg Documented by: Morphine Sulfate () 1 - 2 mg IV Q4H PRN PRN PRN Reason: Pain Score 4-5 Morphine Sulfate () 2 - 4 mg IV Q3H PRN PRN PRN Reason: Pain Score 6-10 Ondansetron HCl (Zofran) 4 mg IV Q8H PRN PRN PRN Reason: NAUSEA/VOMITING Prochlorperazine Edisylate (Compazine Iv) 10 mg IV Q6H PRN PRN PRN Reason: Nausea/Vomiting Psyllium Hydrophilic Mucilloid (Metamucil) 1 packet PO DAILY [facility] Last Admin: 04/22/20 09:53 Dose: 1 packet Documented by: Senna/Docusate Sodium (Senokot-S, Elizabeth-Colace) 2 tablet PO BID [facility] Last Admin: 04/22/20 09:52 Dose: 2 tablet Documented by: Sodium Chloride () 10 - 40 ml IV UD PRN PRN Reason: SALINE FLUSH Assessment/Plan This patient was seen in conjunction with TELEPHONE CLAIMS REPRESENTATIVE, Peggy. I have independently interviewed and examined the patient and reviewed pertinent history, examination findings, laboratory and plan of management. I have reviewed the note and agree with the documented findings with the few additional points. In brief, patient is 70-year-old gentleman was readmitted after 1 day patient was admitted for nausea, vomiting with coffee-ground emesis is in [facility]. Patient is moving flatus and bowel movement as he had a small bowel ileus about 4 days ago. Patient on clear liquid diet. Upper GI bleed: H&H is stable between 11 to 12 g%. Discussed with surgeon. EGD tomorrow a.m. L1 severe compression deformity with sclerosis: CT scan abdomen and pelvis on 04/17 reported moderately severe compression deformity with sclerosis of L1 vertebral body, new in the interval as compared to the prior CT of January 2018. In the previous CT scan of January 2018 it is mentioned multilevel degenerative changes of the spine with disc height narrowing most severe at L2-L3 and L4-L5. There is lucency with coarsened trabeculation about 3.1 x 2.5 x 2.1 cm in T11 vertebra consistent with hemangioma. Consult Dr. Dao for further opinion. Patient does not have back pain but bilateral lower extremity weakness and had recent small bowel ileus. Other comorbidities include type 2 diabetes mellitus, paroxysmal A. fib, chronic heart failure with preserved EF, stage II decubitus ulcer on left gluteal crease, present on admission and chronic degenerative joint disease with bilateral lower extremity weakness/failure to thrive and morbid obesity: Eliquis on hold. Metoprolol continued. Home medication reconciliation done. I have discussed my assessment with TELEPHONE CLAIMS REPRESENTATIVEPeggy and orders have been reviewed. Inpatient E&M: 52961 Subs Hosp L2
[2020-04-22 11:16] LABS: Bedside Glucose 139 mg/dL (70-110)
[2020-04-22 14:00] VITALS: BP 118/55; PULSE 84; RESP 18; TEMP 37.1; O2SAT 99
[2020-04-22 16:26] LABS: Bedside Glucose 131 mg/dL (70-110)
[2020-04-22 20:15] VITALS: BP 123/58; PULSE 58; RESP 18; TEMP 37; O2SAT 97
[2020-04-22 20:35] LABS: Bedside Glucose 131 mg/dL (70-110)
[2020-04-22] MEDS: 0.9% Saline Lock 10 ML Syringe IV (22:07)
[2020-04-22 22:08] VITALS: PULSE 79
[2020-04-22] MEDS: Atorvastatin Calcium 10 MG Tablet PO (22:08)
[2020-04-23] VITALS (9 sets, daily range): BP systolic 103–142; BP diastolic 54–77; PULSE 49–79; RESP 16–18; TEMP 36.2–37.4; O2SAT 94–100; BMI 35.5
[2020-04-23 06:11] LABS: Hematocrit 33.5 % (40-54); Hemoglobin 10.8 g/dL (13.0-16.5); Mean Corp Hgb Conc 32.2 g/dL (32-36); Mean Corpuscular Hgb 31.9 pg (27.0-32.0); Mean Corpuscular Volume 98.8 fL (80-94); Mean Platelet Vol. 9.4 fl (6.2-12.0); Platelet Count 256 K/mm3 (150-450); RBC Distribution Width CV 14.1 % (11.6-14.6); RBC Distribution Width SD 50.8 fl (35.1-43.9); Red Blood Count 3.39 M/mm3 (4.6-6.2); White Blood Count 6.9 K/mm3 (4.4-11.0)
[2020-04-23 06:40] LABS: Bedside Glucose 122 mg/dL (70-110)
[2020-04-23 07:26] LABS: Anion Gap 4 (5-15); BUN 11 mg/dL (7-18); BUN/Creat Ratio 14.2 RATIO (10-20); Calcium,Total 8.7 mg/dL (8.5-10.1); Chloride 105 mmol/L (98-107); Creatinine, Serum 0.77 mg/dL (0.70-1.30); EST Glomerular Filtration Rate 105 mL/min (>60); Est Glom Filt Rate - Afr Amer 127 mL/min (>60); Estimated Creatinine Clearance 71.12 ml/min; Glucose 122 mg/dL (74-106); Potassium 3.8 mmol/L (3.5-5.1); Sodium Level 136 mmol/L (136-145)
--- NOTE | 2020-04-23 08:21 | OP.EGD_ITS ---
Patient Name: Haile Avalos Procedure Date: 04/23/2020 7:38 AM Date of : 1950 Age: 70 Procedure: Upper GI endoscopy Indications: Coffee-ground emesis Providers: Dimitrios Barbosa MD Medicines: Monitored Anesthesia Care Patient Profile: This is a 70 year old male. Refer to note in patient chart for documentation of history and physical. Complications: No immediate complications. Estimated blood loss: None. Procedure: Pre-Anesthesia Assessment: - Prior to the procedure, a History and Physical was performed, and patient medications and allergies were reviewed. The patient's tolerance of previous anesthesia was also reviewed. The risks and benefits of the procedure and the sedation options and risks were discussed with the patient. All questions were answered, and informed consent was obtained. Prior Anticoagulants: The patient has taken Eliquis (apixaban), last dose was 3 days prior to procedure. After reviewing the risks and benefits, the patient was deemed in satisfactory condition to undergo the procedure. After obtaining informed consent, the endoscope was passed under direct vision. Throughout the procedure, the patient's blood pressure, pulse, and oxygen saturations were monitored continuously. The gastroscope was introduced through the mouth, and advanced to the third part of duodenum. The upper GI endoscopy was accomplished without difficulty. The patient tolerated the procedure well. Scope In: 7:48:40 AM Scope Out: 7:52:01 AM Total Procedure Duration Time 0 hours 3 minutes 21 seconds Findings: The esophagus was normal. The stomach was normal. The examined duodenum was normal. Impression: - Normal esophagus. - Normal stomach. - Normal examined duodenum. - No specimens collected. Recommendation: - [facility]. - Resume previous diet. - Continue present medications. Procedure Code(s): --- Professional --- 62381, Esophagogastroduodenoscopy, flexible, transoral; diagnostic, including collection of specimen(s) by brushing or washing, when performed (separate procedure) Diagnosis Code(s): --- Professional --- K92.0, Hematemesis CPT copyright 2017 [employer]. All rights reserved. The codes documented in this report are preliminary and upon jacket changer review may be revised to meet current compliance requirements. Dimitrios Barbosa MD 04/23/2020 8:20:45 AM This report has been signed electronically. Number of Addenda: 0 Note Initiated On: 04/23/2020 7:38 AM
--- NOTE | 2020-04-23 08:21 | OP.CCLET_ITS ---
04/23/2020 Jaclyn Trujillo Re : Upper GI endoscopy procedure for Haile Avalos Dear Cassandra This procedure was performed on Thursday, April 23, 2020. My impressions and recommendations are as follows: Impressions : - Normal esophagus. - Normal stomach. - Normal examined duodenum. - No specimens collected. Recommendations : - [facility]. - Resume previous diet. - Continue present medications. My findings are described in the full procedure note, which is enclosed. If I can be of further assistance, please feel free to contact me at Doctor phone number(s): , Work: . Sincerely, Dimitrios Barbosa MD 04/23/2020 8:20:45 AM This report has been signed electronically.
--- NOTE | 2020-04-23 08:21 | PCM.PN.BLA ---
Progress Note I performed an EGD this morning. There is no stigmata of bleeding although the patient did have some food still left in his stomach indicating that he likely has gastroparesis. There was no ulcer identified or active bleeding. No stigmata of bleeding in the stomach or duodenum or the esophagus. From my standpoint the patient can resume a regular diet and resume Eliquis to see if bleeding resumes. I did not identify an obvious cause of upper GI bleed. Dimitrios Barbosa MD Pager: [facility] [address] [place] [address] [address] [place] [address] Office: [facility] Vital Signs/Narrative: Vital Signs Temp Pulse Resp BP Pulse Ox 04/23/20 08:13 97.1 F L 72 16 112/75 98 04/23/20 08:08 76 16 105/68 99 04/23/20 08:03 79 16 110/63 96 04/23/20 07:57 97.6 F L 73 16 103/54 L 94 04/23/20 07:06 98.4 F 68 17 131/77 H 98
--- NOTE | 2020-04-23 08:30 | MRI_ITS ---
STUDY: MRI LUMBAR SPINE WITHOUT CONTRAST REASON FOR EXAM: Male, 70 years old. compression deformity, F/U ABNORMAL CT SCAN TECHNIQUE: Standardized fat and water weighted pulse sequences were obtained in the sagittal and axial planes. COMPARISON: CT of abdomen and pelvis dated January [address] of abdomen and pelvis dated April 17, 2020. FINDINGS: An acute compression fracture of the L1 vertebral body is present with 50% loss of height but no significant retropulsion. Air is present in the anterior aspect of the L1 vertebral body fracture fragments from the underlying disc. Diffuse edema is present at this site. No significant epidural fluid collections. Abnormal diffuse L1 vertebral body sclerosis suggest presence of underlying malignant process. There is straightening of the normal lumbar lordosis. Mild to moderate levoscoliosis is present. Normal conus medullaris that terminates at the T12-L1 level. L1-2: Mild disc space narrowing without significant bulging or herniation. Normal bilateral facet joints. Normal central canal and bilateral lateral recesses. Normal bilateral intervertebral neural foramina. L2-3: Moderate to severe disc space narrowing with moderate endplate degenerative changes. A diffuse disc osteophyte complex is also present. Slight retrolisthesis of L2 on L3 of less than 2 mm. Mild central canal stenosis is present. The facet joints are mildly hypertrophied. Normal bilateral lateral recesses. Normal bilateral intervertebral neural foramina. L3-4: Normal endplates. The disc is desiccated. Normal disc height and morphology. Normal bilateral facet joints. Normal central canal and bilateral lateral recesses. Normal bilateral intervertebral neural foramina. L4-5: Moderate disc space narrowing with a posterior disc osteophyte complex. Mild bilateral lateral recess stenosis is present with nerve root compression. Normal central canal. Facet joints are mildly hypertrophied. Normal bilateral intervertebral neural foramina. L5-S1: Normal endplates. Normal disc height and morphology. Normal bilateral facet joints. Normal central canal and bilateral lateral recesses. Normal bilateral intervertebral neural foramina. Normal visualized sacral ala. There is mild paraspinal muscular atrophy. MRI/Spine Lumbar (Routine) IMPRESSION: 1. An acute compression fracture of the L1 vertebral body is present with 50% loss of height but no significant retropulsion. Air is present in the anterior aspect of the L1 vertebral body fracture fragments from the underlying disc. Diffuse edema is present at this site. No significant epidural fluid collections. Abnormal diffuse L1 vertebral body sclerosis suggest presence of underlying malignant process. 2. Correlation with nuclear medicine bone scan is recommended, however allow one to 2 weeks before the bone scan due to the acute compression fracture which may cause abnormal uptake. 3. Multilevel degenerative changes, as described above. Electronically Signed: Emanuel Guadalupe MD at 16:42 EDT , Service support ,
--- NOTE | 2020-04-23 09:46 | CASEMGMT ---
Social Work Note Pt is from [facility] and plan is to return. SW placed a call to Kavita at [facility], pt will need COVID test to return. SW faxed updated clinicals to [facility]. Plan: Return to [facility] once medically cleared Bruna Branham [employer], ELEMENTARY SCIENCE TEACHER
[2020-04-23] MEDS: Senna/Docusate Sodium 1 Tablet 2 TABLET PO (10:59)
[2020-04-23] MEDS: Metoprolol Tartrate 25 MG Tablet 12.5 MG PO (10:59)
[2020-04-23] MEDS: Psyllium 1 PACKET PO (11:00)
[2020-04-23 11:26] LABS: Bedside Glucose 129 mg/dL (70-110)
--- NOTE | 2020-04-23 11:27 | PCM.EXTCARCO ---
<Peggy Fierro AGING DEPARTMENT SUPERVISOR - Last Filed: 04/23/20 12:52> - Diet 04/23/20 08:21 Diet: Consistent Carb - Calorie Controlled Is pt able to select menu?: No How many daily calories?: 1999 calorie - Routine Orders/Code Status Enema Type: Fleetz Enema Frequency: Daily PRN Suppository Type: Dulcolax 10mg Suppository Frequency: Daily PRN O2 Liters per Minute: 2 O2 Frequency: Continuous Keep PO Greater than or Equal to (%): 90 Routine Lab Work: CBC, BMP, - - Q Week Code Status: [facility] - Wound(s) Left gluteal fold Wound Type: Pressure Injury BLE Wound Type: scabs - Suggestions for Active Care Change Position every (hours): 2 Times a day to sit in chair: 3 - Therapies Physical Therapy: Eval and Treat Occupational Therapy: Eval and Treat - Problem/Diagnosis (1) Ambulatory dysfunction Status: Chronic Current Visit: No (2) Degenerative arthritis of knee, bilateral Status: Chronic Current Visit: No (3) Debility Status: Chronic Current Visit: No (4) Tobacco dependence due to chewing tobacco Status: Chronic Current Visit: No (5) Generalized weakness Status: Chronic Current Visit: No (6) SBO (small bowel obstruction) Status: Resolved Current Visit: No (7) Atherosclerotic heart disease of [place] coronary artery without angina pectoris Status: Chronic Current Visit: No (8) Pure hypercholesterolemia Status: Chronic Current Visit: No (9) Essential (primary) hypertension Status: Chronic Current Visit: No (10) SOB (shortness of breath) on exertion Status: Inactive Current Visit: No (11) Abnormal stress test Status: Inactive Current Visit: No (12) Chronic diastolic heart failure Status: Chronic Current Visit: No (13) Persistent atrial fibrillation Status: Chronic Current Visit: No (14) COPD with acute exacerbation Status: Resolved Current Visit: No (15) PVC's (premature ventricular contractions) Status: Inactive Current Visit: No (16) HOLGER (obstructive sleep apnea) Status: Chronic Current Visit: No (17) Morbid obesity Status: Chronic Current Visit: No (18) Diabetes mellitus type 2, uncontrolled, without complications Status: Chronic Current Visit: No (19) GI bleed Status: Acute Current Visit: Yes - Allergies/Procedures Done in Hospital Allergies/Adverse Reactions: Allergies No Known Allergies Allergy (Verified 04/20/20 14:02) Procedures: EGD - Type of Care/Length of Stay Estimated LOS: More Than 30 Days Type of Care Needed: Skilled Rehab Potential: Fair Prognosis: Fair - Additional Orders/Day of Discharge H&P will serve as current which was dated: 04/20/20 Day of Discharge: 04/23/20 - Dietary and Speech Recommendations Dietitian Recommendations/Changes: Advance diet as tolerated to Transitional with goal diet of 2000 calorie/carb-controlled/cardiac as able to advance. - Follow Up Care Primary Care Physician: Jaclyn Trujillo AGING DEPARTMENT SUPERVISOR, AGING DEPARTMENT SUPERVISOR-C [Primary Care Provider] - Please follow up with your Primary Care Physician in: 1 Week Please Follow Up With: Dimitrios Barbosa MD When: Follow up if further bleeding <Gael Murphy - Last Filed: 04/23/20 15:07> - Diet 04/23/20 08:21 Diet: Consistent Carb - Calorie Controlled Is pt able to select menu?: No How many daily calories?: 2000 calorie - Therapies Physical Therapy: Eval and Treat Occupational Therapy: Eval and Treat - Follow Up Care Please Follow Up With: Jose Alejandro Dao DO When: IN 3-4 WEEKS
--- NOTE | 2020-04-23 12:15 | CASEMGMT ---
JAKY LEVI in to discuss [facility] form with patient. RN AMITA explained [employer] form to patient, patient voiced understanding. Patient signed [employer] form. Original filed in chart, patient provided with copy of signed [facility] form. Patient had no further questions or concerns at this time.
--- NOTE | 2020-04-23 12:50 | PCM.DC.SUM ---
<Peggy Fierro ORACLE FUSION DEVELOPER - Last Filed: 04/23/20 12:59> Discharge Date and Diagnosis Date of Admission: 04/20/20 Date of Discharge: 04/23/20 - Primary Discharge Diagnosis Acute Problems: Active Problems (Last Reviewed 04/12/20 @ 15:[address] Peter Aguirre DO) 1. Upper GI bleed 2. Recent ileus with fecal retention, likely underlying gastroparesis 3. Type 2 diabetes mellitus 4. Atrial fibrillation 5. Chronic heart failure with preserved ejection fraction 6. Stage II decubitus ulcer left gluteal crease 7. Failure to thrive/chronic degenerative changes of the lumbar spine/osteoporosis/severe compression deformity with sclerosis of L1 vertebral body 8. Morbid obesity - Secondary Discharge Diagnosis Chronic Problems: Chronic Problems (Last Reviewed 04/12/20 @ 15:[address] 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 No bowel obstruction. Constipation. Gaseous distention of the stomach. Electronically Signed: Forrest Morel, at 16:17 EDT Tel , Service support , KUB X-Ray 04/20/20 18:30 IMPRESSION: Satisfactory position of the enteric tube. Electronically Signed: Forrest Morel, at 19:11 EDT Tel , Service support , Consultations 04/23/20 02:43 Consult: Onc/Wound/cardiovascular technologist Routine Comment: Reason for Consult:: L gluteal pressure ulcer Dr. Dao-spine surgery Dr. Barbosa- general surgery Operations: None Procedures: EGD Summary of Care Provided: The patient is a 70 year old M admitted 04/20/2020 due to nausea/vomiting and coffee-ground emesis. 1. Upper GI bleed-hemoglobin has remained stable. Dr. Barbosa consulted. Patient underwent EGD which showed no obvious cause of upper GI bleed. We will continue PPI twice daily. Okay to resume Eliquis per general surgery. EGD did show food left in the stomach which indicates patient likely has gastroparesis. Follow-up with PCP in 1 week. Follow-up with general surgery if further bleeding. Weekly CBC at [facility]. 2. Recent ileus with fecal retention-resolved. EGD with possible gastroparesis as noted above. Continue bowel regimen at discharge. 3. Type 2 diabetes mellitus-continue home oral and insulin regimen. 4. Atrial fibrillation-Continue metoprolol. Resume Eliquis 5. Chronic heart failure with preserved ejection fraction-stable. 6. Stage II decubitus ulcer left gluteal crease-wound RN consult. Frequent position changes. 7. 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 MRI of lumbar spine ordered by Dr. Dao, spine surgery. Result pending. Outpatient follow-up with Dr. Dao in 2 weeks. 8. Morbid obesity-encouraged diet and lifestyle modifications. General: Alert, Oriented x3, Cooperative HEENT: Atraumatic, PERRLA, EOMI, Normocephalic Neck: Supple, No JVD, Negative Carotid Bruits Lungs: Clear to auscultation, Normal air movement Cardiovascular: Regular rate, No murmurs Abdomen: Bowel Sounds Present, Soft, Non Tender, Obese Extremities: No clubbing, No cyanosis, No edema, Capillary Refill Less than 3 Seconds Skin: No rashes, No breakdown Musculoskeletal: No Tenderness to Palpation of Joints or Extremities Neurological: Cranial nerves II-XII grossly intact, Neuro grossly intact Psych/Mental Status: Normal Affect, Appropriate Patient seen and examined prior to discharge. Physical assessment as noted above. Patient is stable for discharge with follow up recommendations as noted above. This patient was seen by KAYDEN Templeton under the supervision of Dr. Murphy. - Physical Exam Vitals/I&O's: Vital Signs Temp Pulse Resp BP Pulse Ox 98.0 F 79 18 142/65 H 98 04/23/20 08:42 04/23/20 10:59 04/23/20 08:42 04/23/20 08:42 04/23/20 08:42 Oxygen Flow Rate (L/min) 2 Oxygen Delivery Method Nasal Cannula Weight: 255 lb Body Mass Index (BMI) 35.5 Intake and Output for Last 24 Hours 04/21/20 04/22/20 04/23/20 23:59 23:59 23:59 Intake Total 3668.75 / 4208.75 1260 / 1600 450 / 450 Output Total 1100 / 1250 400 / 750 600 / 600 Balance 2568.75 / 2958.75 860 / 850 -150 / -150 Microbiology Past 72 Hours 04/20/20 14:30 Stool Stool Occult Blood (YAMINI) - Final Laboratory Results 04/22/20 16:19: POC Glucose 131 H 04/22/20 20:31: POC Glucose 131 H 04/23/20 05:10: WBC 6.9, RBC 3.39 L, Hgb 10.8 L, Hct 33.5 L, MCV 98.8 H, MCH 31.9, MCHC 32.2, RDW Std Deviation 50.8 H, RDW Coeff of Shantell 14.1, Plt Count 256, MPV 9.4 04/23/20 05:10: Sodium 136, Potassium 3.8, Chloride 105, Carbon Dioxide 27.0, Anion Gap 4 L, BUN 11, Creatinine 0.77, Estim Creat Clear Calc 71.12, Est GFR (MDRD) Af Amer 127, Est GFR (MDRD) Non-Af 105, BUN/Creatinine Ratio 14.2, Glucose 122 H, Calcium 8.7 04/23/20 06:33: POC Glucose 122 H 04/23/20 11:22: POC Glucose 129 H Current Medications Acetaminophen (Tylenol) 650 mg PO Q4H PRN PRN PRN Reason: FEVER, PAIN 1-10 Atorvastatin Calcium (Lipitor) 10 mg PO QHS [facility] Last Admin: 04/22/20 22:08 Dose: 10 mg Documented by: Dextrose (D50w Syringe) 0 gm IV X1 PRN; Protocol PRN Reason: Hypoglycemia Glucagon () 1 mg IM .X1 PRN PRN Reason: Hypoglycemia Insulin Human Lispro (Humalog Kwikpen (Bkc)) 0 unit SC ACHS [facility]; Protocol Last Admin: 04/23/20 11:22 Dose: Not Given Documented by: Metoprolol Tartrate (Lopressor (Beta Paulette)) 12.5 mg PO BID [facility] Last Admin: 04/23/20 10:59 Dose: 12.5 mg Documented by: Ondansetron HCl (Zofran) 4 mg IV Q8H PRN PRN PRN Reason: NAUSEA/VOMITING Pantoprazole Sodium (Protonix) 40 mg PO BID [facility] Prochlorperazine Edisylate (Compazine Iv) 10 mg IV Q6H PRN PRN PRN Reason: Nausea/Vomiting Psyllium Hydrophilic Mucilloid (Metamucil) 1 packet PO DAILY [facility] Last Admin: 04/23/20 11:00 Dose: 1 packet Documented by: Senna/Docusate Sodium (Senokot-S, Elizabeth-Colace) 2 tablet PO BID [facility] Last Admin: 04/23/20 10:59 Dose: 2 tablet Documented by: Sodium Chloride () 10 - 40 ml IV UD PRN PRN Reason: SALINE FLUSH Last Admin: 04/22/20 22:07 Dose: 10 ml Documented by: Home Medications: Medications to take at Discharge Acetaminophen 1,000 mg PO Q8H PRN 04/20/20 Acetaminophen 650 mg [place] Q4H PRN 04/20/20 Apixaban [Eliquis] 5 mg PO BID 04/20/20 Ascorbic Acid [Vitamin C] 500 mg PO DAILY 04/20/20 Aspirin [Aspirin, Baby] 81 mg PO DAILY@0800 04/20/20 Atorvastatin Calcium [Lipitor] 10 mg PO QHS 04/20/20 Bisacodyl 10 mg [place] PRN PRN 04/20/20 Dextrose [Glucose Gel] 1 dose PO PRN PRN 04/20/20 Ergocalciferol (Vitamin D2) [Vitamin D2] 50,000 unit PO TU 04/20/20 Furosemide [Lasix] 40 mg PO DAILY 04/20/20 Glimepiride [Amaryl] 2 mg PO DAILY 04/20/20 Glucagon,Human Recombinant [Glucagon Emergency Kit] 1 mg IM PRN PRN 04/20/20 Guaifenesin [Robitussin] 10 ml PO Q4H PRN PRN 04/20/20 Lisinopril [Zestril] 5 mg PO DAILY 04/20/20 Mag Hydrox/Aluminum Hyd/Simeth [Antacid Suspension] 30 ml PO Q4H PRN 04/20/20 Magnesium Hydroxide [Milk Of Magnesia] 30 ml PO DAILY PRN PRN 04/20/20 Metoprolol Tartrate 12.5 mg PO BID 04/20/20 Multivit,Stress Formula/Zinc [Stress Formula with Zinc Tab] 1 ea PO BID 04/20/20 Na Phos,M-B/Na Phos,Di-Ba [Fleet Enema] 1 bottle RECTAL PRN PRN 04/20/20 Nystatin 1 tab PO 4X/DAY 04/20/20 Polyethylene Glycol 3350 [Miralax] 17 gm PO DAILY 04/20/20 Potassium Chloride 20 meq PO DAILY 04/20/20 Sennosides/Docusate Sodium [Senna-Docusate Sodium Tablet] 2 tab PO BID 04/20/20 metFORMIN HCl [Glucophage] 1,000 mg PO BIDCM 04/20/20 Pantoprazole Sodium [Protonix] 40 mg PO BID tab 04/23/20 Primary Care Physician: Jaclyn Trujillo ORACLE FUSION DEVELOPER, ORACLE FUSION DEVELOPER-C [Primary Care Provider] - Please follow up with your Primary Care Physician in: 1 Week Please Follow Up With: Dimitrios Barbosa MD When: Follow up if further bleeding Please Follow Up With: Jose Alejandro Dao DO When: 2 Weeks Disposition: [facility] facility Minutes spent on discharge:: 35 Patient Condition:: Stable Medical Necessity - Tobacco Use Smoking Status: Former smoker Meaningful Use Info Meaningful Use Diagnoses (Choose all that apply): None applicable <Gael Murphy - Last Filed: 04/23/20 15:14> Discharge Date and Diagnosis - Secondary Discharge Diagnosis Chronic Problems: Chronic Problems (Last Reviewed 04/12/20 @ 15:[address] 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) Pure hypercholesterolemia (Chronic) Essential (primary) hypertension (Chronic) Chronic diastolic heart failure (Chronic) Persistent atrial fibrillation (Chronic) HOLGER (obstructive sleep apnea) (Chronic) Morbid obesity (Chronic) Diabetes mellitus type 2, uncontrolled, without complications (Chronic) Hospital Course and Treatment Imaging Results: 04/23/20 08:30 Spine Lumbar (Routine) [MRI] Routine Consultations 04/23/20 02:43 Consult: Onc/Wound/cardiovascular technologist Routine Comment: Reason for Consult:: L gluteal pressure ulcer Summary of Care Provided: This patient was seen in conjunction with Peggy ADAMSON. I have independently interviewed and examined the patient and reviewed pertinent history, examination findings, laboratory and plan of management. I have reviewed the note and agree with the documented findings with the few additional points. In brief, patient is 70-year-old gentleman was readmitted after 1 day patient was admitted for nausea, vomiting with coffee-ground emesis is in SNF. Patient is moving flatus and bowel movement as he had a small bowel ileus about 4 days ago. Patient on clear liquid diet. Upper GI bleed: H&H is stable between 11 to 12 g%. Discussed with surgeon. EGD tomorrow a.m. L1 severe compression deformity with sclerosis: CT scan abdomen and pelvis on 04/17 reported moderately severe compression deformity with sclerosis of L1 vertebral body, new in the interval as compared to the prior CT of January 2018. In the previous CT scan of January 2018 it is mentioned multilevel degenerative changes of the spine with disc height narrowing most severe at L2-L3 and L4-L5. There is lucency with coarsened trabeculation about 3.1 x 2.5 x 2.1 cm in T11 vertebra consistent with hemangioma. Lumbar spine MRI was ordered by Dr. Dao. Report is pending. Follow with Dr. Dao as an outpatient. Patient does not have back pain but bilateral lower extremity weakness and had recent small bowel ileus. Other comorbidities include type 2 diabetes mellitus, paroxysmal A. fib, chronic heart failure with preserved EF, stage II decubitus ulcer on left gluteal crease, present on admission and chronic degenerative joint disease with bilateral lower extremity weakness/failure to thrive and morbid obesity: Metoprolol continued. Eliquis resumed. I have discussed my assessment with Peggy ADAMSON and orders have been reviewed. [] Discharge medication reconciliation done. Discharge follow-up instructions completed. Discharge process discussed with the patient and all questions were answered to patient's satisfaction. Total time spent, exact 35 minutes on discharge meds reconciliation, examination, coordination of care with nurses and ancillary staff, review of imaging and blood test and discussion with the patient on follow-up instructions Objective: Heart rate and blood pressure are controlled. Patient had EGD in the morning normal esophagus, stomach and duodenum. There was some food residue present in the stomach suggestive of gastroparesis. No stigmata of bleeding. Physical exam General: Alert, Oriented x3, Cooperative HEENT: Atraumatic, PERRLA, EOMI, Normocephalic Oral: Oropharyngeal thrush improved. Neck: Supple, No JVD, Negative Carotid Bruits Lungs: Air entry diminished in bilateral lung bases. No crepitation/rhonchi Cardiovascular: Regular rate, Regular Rhythm, Normal S1, Normal S2, No murmurs Abdomen: Bowel Sounds, gurgling sound present, Soft, Non Tender, Non-Distended : No renal angle tenderness. No suprapubic tenderness. Extremities: No edema, Capillary Refill Less than 3 Seconds. No tenderness over lumbar spine. Skin: Mckeon pigmentation of both lower extremity. Stage II decubitus ulcer of the left gluteal crease, present on admission Musculoskeletal: No Tenderness to Palpation of Joints or Extremities. Bilateral lower extremity weakness, right more than left Spine: No spinal tenderness at lumbar spine. Neurological: Cranial nerves II-XII grossly intact, Deep Tendon Reflexes 2+/4 and Symmetrical, Neuro grossly intact Psych/Mental Status: Normal Affect, Appropriate. - Physical Exam Vitals/I&O's: Vital Signs Temp Pulse Resp BP Pulse Ox 99.3 F H 49 L 18 118/60 100 04/23/20 14:34 04/23/20 14:34 04/23/20 14:34 04/23/20 14:34 04/23/20 14:34 Oxygen Flow Rate (L/min) 2 Oxygen Delivery Method Room Air Weight: 255 lb Body Mass Index (BMI) 35.5 Intake and Output for Last 24 Hours 04/21/20 04/22/20 04/23/20 23:59 23:59 23:59 Intake Total 3668.75 / 4208.75 1260 / 1600 450 / 450 Output Total 1100 / 1250 400 / 750 600 / 600 Balance 2568.75 / 2958.75 860 / 850 -150 / -150 Microbiology Past 72 Hours 04/20/20 14:30 Stool Stool Occult Blood (YAMINI) - Final Laboratory Results 04/22/20 16:19: POC Glucose 131 H 04/22/20 20:31: POC Glucose 131 H 04/23/20 05:10: WBC 6.9, RBC 3.39 L, Hgb 10.8 L, Hct 33.5 L, MCV 98.8 H, MCH 31.9, MCHC 32.2, RDW Std Deviation 50.8 H, RDW Coeff of Shantell 14.1, Plt Count 256, MPV 9.4 04/23/20 05:10: Sodium 136, Potassium 3.8, Chloride 105, Carbon Dioxide 27.0, Anion Gap 4 L, BUN 11, Creatinine 0.77, Estim Creat Clear Calc 71.12, Est GFR (MDRD) Af Amer 127, Est GFR (MDRD) Non-Af 105, BUN/Creatinine Ratio 14.2, Glucose 122 H, Calcium 8.7 04/23/20 06:33: POC Glucose 122 H 04/23/20 11:22: POC Glucose 129 H 04/23/20 13:05: COVID-19 (ROSALINDA) Pending Current Medications Acetaminophen (Tylenol) 650 mg PO Q4H PRN PRN PRN Reason: FEVER, PAIN 1-10 Atorvastatin Calcium (Lipitor) 10 mg PO QHS [facility] Last Admin: 04/22/20 22:08 Dose: 10 mg Documented by: Dextrose (D50w Syringe) 0 gm IV X1 PRN; Protocol PRN Reason: Hypoglycemia Glucagon () 1 mg IM .X1 PRN PRN Reason: Hypoglycemia Insulin Human Lispro (Humalog Kwikpen (Bkc)) 0 unit SC ACHS [facility]; Protocol Last Admin: 04/23/20 11:22 Dose: Not Given Documented by: Metoprolol Tartrate (Lopressor (Beta Paulette)) 12.5 mg PO BID [facility] Last Admin: 04/23/20 10:59 Dose: 12.5 mg Documented by: Ondansetron HCl (Zofran) 4 mg IV Q8H PRN PRN PRN Reason: NAUSEA/VOMITING Pantoprazole Sodium (Protonix) 40 mg PO BID [facility] Prochlorperazine Edisylate (Compazine Iv) 10 mg IV Q6H PRN PRN PRN Reason: Nausea/Vomiting Psyllium Hydrophilic Mucilloid (Metamucil) 1 packet PO DAILY [facility] Last Admin: 04/23/20 11:00 Dose: 1 packet Documented by: Senna/Docusate Sodium (Senokot-S, Elizabeth-Colace) 2 tablet PO BID [facility] Last Admin: 04/23/20 10:59 Dose: 2 tablet Documented by: Sodium Chloride () 10 - 40 ml IV UD PRN PRN Reason: SALINE FLUSH Last Admin: 04/22/20 22:07 Dose: 10 ml Documented by: Inpatient E&M: [id number] Disch Hosp
--- NOTE | 2020-04-23 15:10 | CHAPLAIN ---
Type of Pastoral Visit _x__ Initial Visit ___ Follow-up Visit ___ On-call Visit ___ General Patient Visit ___ Spiritual Assessment ___ Family Conference ___ Bereavement ___ Rapid Response ___ Code Blue ___ Other (describe below) Pastoral Care Referral From _x__ Patient ___ Family ___ Nurse ___ Physician ___ Health Plan Manager ___ Development Professional ___ Other (describe below) Sacrament/Intervention _x__ Active listening ___ Anointing ___ Baptist ___ Bereavement ___ Communion ___ Marlyn exploration ___ _x__ Life review ___ Prayer ___ Reconciliation ___ Sacrament of Sick _x__ Supportive presence ___ Wedding ___ Other (describe below) Pastoral Comments patient and spouse are in room at time of visit; both give a description of current situation; both state that they are the main support for each other; spouse says she has family for extra support herself; pt is waiting to go back to [facility] and states he has no other worries;
--- NOTE | 2020-04-23 15:41 | CASEMGMT ---
Social Work Note Pt is able to discharge back to [facility] today. COVID results are back and pt is negative. SW faxed completed discharge paperwork to [facility] including transfer to extended care facility, signed medication list, any scripts, COVID screening tool and negative COVID test. Original in SNF folder and copy on pt's chart. SW spoke with RN, pt is able to transport via cot. SW [facility] and arranged transportation via cot for 5:00pm. Transportation form on SNF folder and copy on pt's chart. SW updated RN on transportation time. SW in to speak with pt and updated him on discharge and transportation time. Pt states he will call his to update. Plan: Return to [facility] under intermediate LOC [facility] via [facility] at 5:00pm Bruna PETERSON, GETTER OPERATOR
== END 2020-04-23 17:30 | disposition skilled nursing facility (03) ==
LOC: ED 17:25 → MS3 18:11
PROVIDERS: Family Medicine; Nurse Practitioner Family; Surgery; Admitting Provider Internal Medicine; Emergency Provider Emergency Medicine; PCP Nurse Practitioner Family; Visit Provider Internal Medicine
PROC: 0DJ08ZZ Inspection of Upper Intestinal Tract, Via Natural or Artificial Opening Endoscopic (ICD-10-PCS; CPT 43235; principal; 2020-04-23 11:25)
DX: K92.2 Gastrointestinal hemorrhage, unspecified (principal); K56.609 Unspecified intestinal obstruction, unspecified as to partial versus complete obstruction; E11.65 Type 2 diabetes mellitus with hyperglycemia; I11.0 Hypertensive heart disease with heart failure; L89.322 Pressure ulcer of left buttock, stage 2; E66.01 Morbid (severe) obesity due to excess calories; R62.7 Adult failure to thrive; Z68.35 Body mass index [BMI] 35.0-35.9, adult; M17.0 Bilateral primary osteoarthritis of knee; F17.220 Nicotine dependence, chewing tobacco, uncomplicated; I50.32 Chronic diastolic (congestive) heart failure; I25.10 Atherosclerotic heart disease of native coronary artery without angina pectoris; E78.00 Pure hypercholesterolemia, unspecified; J44.9 Chronic obstructive pulmonary disease, unspecified; G47.33 Obstructive sleep apnea (adult) (pediatric); I49.3 Ventricular premature depolarization; I48.20 Chronic atrial fibrillation, unspecified; Z79.899 Other long term (current) drug therapy; Z79.82 Long term (current) use of aspirin; Z79.84 Long term (current) use of oral hypoglycemic drugs; Z79.01 Long term (current) use of anticoagulants
CPT/HCPCS: 43235; 36415; 72148; 74018; 74022; 80048; 80053; 82274; 82962; 85014; 85018; 85025; 85027; 87635; 96361; 96365; 96366; 96375; 97802; 99218; 99285; 99406; J7030; J7040; A4216; G0378; J2405; U0003

== ENCOUNTER 2020-05-18 10:41 | Emergency (ER) | payer MEDICARE, SELFPAY ==
[2020-04-23 07:06] VITALS: BMI 35.5
[2020-05-18 10:42] VITALS: BP 104/61; PULSE 80; RESP 18; TEMP 36.1; O2SAT 99; BMI 35.2
--- NOTE | 2020-05-18 11:31 | RAD_ITS ---
STUDY: X-RAY CHEST REASON FOR EXAM: Male, 70 years old. BILATERAL LOWER LEG EDEMA WITH WOUNDS TECHNIQUE: Single AP portable view of the chest. COMPARISON: 04/20/2020 FINDINGS: The lungs are clear and expanded. There is no demonstrated pleural abnormality. Normal size heart. Normal mediastinum and gurvinder. Normal visualized pulmonary arteries. Normal visualized aortic arch and descending thoracic aorta. Normal visualized thoracic spine. Normal visualized ribs, clavicles, and shoulders. There is no demonstrated abnormality of the visualized soft tissue structures of the upper abdomen. RAD/Chest 1 View (Portable) IMPRESSION: Normal x-ray examination of the chest. Electronically Signed: Monty Randle MD at 12:13 EST Tel , Service support ,
--- NOTE | 2020-05-18 11:31 | EKG12_ITS ---
Test Reason : EDEMA Blood Pressure : / mmHG Vent. Rate : 075 BPM Atrial Rate : 340 BPM P-R Int : 000 ms QRS Dur : 086 ms QT Int : 384 ms P-R-T Axes : 000 039 032 degrees QTc Int : 428 ms Atrial fibrillation with premature ventricular or aberrantly conducted complexes Abnormal ECG Confirmed by CORONA RAMOS, JENNIFER ([id number]), slot editor JD VÁZQUEZ ([id number]) on 05/21/2020 2:31:33 PM Referred By: MR Confirmed By:JENNIFER JETER MD
--- NOTE | 2020-05-18 11:31 | ED.DCSUM_ITS ---
History of Present Illness Chief Complaint: Edema Informant: Patient Narrative: 70-year-old male presents with leg swelling. He states he has a history of leg swelling and history of CHF. He has atrial fibrillation and is anticoagulated on Eliquis. He denies any shortness of breath but states that he does not get up and walk because he cannot support his own weight. His home health care nurse came for the first time today and saw his legs were swollen and sent him to the emergency room. He states that his legs do hurt. He has not had a cough, shortness of breath, fever, chills. He has been able to eat and drink normally. He has had no change in his Lasix. He does not have chest pain. - Past Medical History (1) GI bleed Status: Chronic (2) Chronic diastolic heart failure Status: Chronic (3) Diabetes mellitus type 2, uncontrolled, without complications Status: Chronic Past Medical History - Allergies and Home Meds Allergies/Adverse Reactions: Allergies No Known Allergies Allergy (Verified 05/18/20 10:42) Primary Care Physician: Jaclyn Trujillo NP, MARKET ASSET PROTECTION MANAGER-C [Primary Care Provider] - Prior records reviewed: Yes Past Medical History: - - CHF, atrial fibrillation Surgical History: tonsillectomy Lives: Alone Smoking Status: Former smoker Alcohol: None Drugs: None - Family History Paternal Family History: Family History (Last Reviewed 04/20/20 @ 17:27 by Peggy Fierro NP, MARKET ASSET PROTECTION MANAGER-C) Mother CHF (congestive heart failure) Father Cancer Family History: Reports: Diabetes Review of Systems General: Denies: Chills, Fever, Sweats Eyes: Denies: Visual changes - bilaterally, Diplopia ENT: Denies: Rhinorrhea, Sore throat Cardiovascular: Denies: Chest pain, Palpitations Respiratory: Denies: Dyspnea, Cough, Dyspnea on exertion Gastrointestinal: Denies: Abdominal pain, Nausea, Vomiting, Diarrhea, Melena, Hematochezia Genitourinary: Denies: Dysuria, Hematuria, Frequency Musculoskeletal: Reports: - - Bilateral leg swelling and pain with seeping. Skin: Reports: Abrasions - Abrasion to left tibial area Neurological: Denies: Headache, Weakness Physical Exam Vital Signs/Narrative: Vital Signs Temp Pulse Resp BP Pulse Ox 05/18/20 10:42 97.0 F L 80 18 104/61 99 Inital Vital Signs reviewed: Yes General: Obese, No Acute Distress Head: Normocephalic, Atraumatic Eyes: Perrl, EOMI ENT: Moist mucous membranes, No rhinorrhea Cardiovascular: Regular rate, Regular rhythm Respiratory: No distress, CTA bilaterally Abdomen: Soft, Nontender Back: Nontender, Normal Inspection Extremities: Tenderness, Edema, - - Being of bilateral legs. There is a seeping abrasion to the left tibia. Skin: - - Documented above Neurological: Alert, Oriented x3 Psychological: Normal affect, Normal Mood Diagnostic/Tx/Re-eval Clinical Impression(s) from Imaging Studies Chest X-Ray 05/18/20 11:31 IMPRESSION: Normal x-ray examination of the chest. Electronically Signed: Monty Randle MD at 12:13 EST Tel , Service support , Laboratory Data 05/18/20 05/18/20 05/18/20 12:40 12:40 12:40 WBC 6.9 RBC 3.55 L Hgb 11.2 L Hct 34.7 L MCV 97.7 H MCH 31.5 MCHC 32.3 RDW Std Deviation 49.1 H RDW Coeff of Shantell 13.5 Plt Count 204 MPV 9.3 Immature Gran % (Auto) 0.600 Neut % (Auto) 64.3 Lymph % (Auto) 20.3 [place] % (Auto) 9.2 Eos % (Auto) 5.2 H Baso % (Auto) 0.4 Absolute Neuts (auto) 4.5 Absolute Lymphs (auto) 1.41 Nucleated RBC % 0 Sodium 139 Potassium 3.8 Chloride 103 Carbon Dioxide 33.0 H Anion Gap 3 L BUN 9 Creatinine 0.82 Estim Creat Clear Calc 89.38 Est GFR (MDRD) Af Amer 119 Est GFR (MDRD) Non-Af 98 BUN/Creatinine Ratio 11.0 Glucose 164 H Calcium 9.1 Troponin I < 0.015 B-Natriuretic Peptide 60.6 - EKG Initial EKG Interpretation: No Acute Injury Pattern, Atrial Fibrillation - Medical Decision Making 70-year-old male presenting with leg edema. He is anticoagulated so I feel DVT is unlikely. Not complaining of any shortness of breath however he is not very ambulatory. I did work him up and his labs are normal. Troponins negative. BNP is low. Chest x-ray is normal. EKG is controlled A. fib at 75 bpm. Given that he has a wound on his kent I will cover him with antibiotics. I placed a dressing over his kent and put compression stockings on him. I made multiple attempts to call his primary care however I never need to return call. He does have wound care that comes out to his house. He is given return precautions. Impression: 1. Lower extremity edema 2. Left kent wound ED Disposition - Plan for ED Patient: Disposition: Home or Assisted Living Instructions: Cellulitis, ED Peripheral Edema, Bilateral Prescriptions: Doxycycline 100 mg PO BID #20 cap [id number] Referrals: Jaclyn Trujillo NP, MARKET ASSET PROTECTION MANAGER-C [Primary Care Provider] -
[2020-05-18 12:51] LABS: Absolute Lymphocyte Count 1.41 X10^3/uL (0.83-4.51); Absolute Neutrophil Count 4.5 X10^3/uL (2.0-7.7); Basophil# 0.03 X10^3/uL; Basophil% 0.4 % (0-1); Eosinophil# 0.36 X10^3/uL; Eosinophils% 5.2 % (0-5); Hematocrit 34.7 % (40-54); Hemoglobin 11.2 g/dL (13.0-16.5); Lymphocyte # 1.41 X10^3/ul (4.0); Lymphocyte % 20.3 % (19-41); Mean Corp Hgb Conc 32.3 g/dL (32-36); Mean Corpuscular Hgb 31.5 pg (27.0-32.0); Mean Corpuscular Volume 97.7 fL (80-94); Mean Platelet Vol. 9.3 fl (6.2-12.0); Monocyte# 0.64 X10^3/uL; Monocyte% 9.2 % (0-10); NRBC Flagged by Analyzer 0 % (0-5); Neutrophil # 4.45 X10^3/uL (2.7-7.7); Neutrophil % 64.3 % (47-70); Platelet Count 204 K/mm3 (150-450); RBC Distribution Width CV 13.5 % (11.6-14.6); RBC Distribution Width SD 49.1 fl (35.1-43.9); Red Blood Count 3.55 M/mm3 (4.6-6.2); White Blood Count 6.9 K/mm3 (4.4-11.0)
[2020-05-18] MEDS: Aspirin 81 MG TAB.CHEW 324 MG PO (13:02)
[2020-05-18 13:04] VITALS: BP 118/87; PULSE 87; RESP 14; O2SAT 99
[2020-05-18 13:10] LABS: Anion Gap 3 (5-15); BUN 9 mg/dL (7-18); Calcium,Total 9.1 mg/dL (8.5-10.1); Chloride 103 mmol/L (98-107); Creatinine, Serum 0.82 mg/dL (0.70-1.30); EST Glomerular Filtration Rate 98 mL/min (>60); Est Glom Filt Rate - Afr Amer 119 mL/min (>60); Estimated Creatinine Clearance 89.38 ml/min; Glucose 164 mg/dL (74-106); Potassium 3.8 mmol/L (3.5-5.1); Sodium Level 139 mmol/L (136-145)
[2020-05-18 13:16] LABS: BNP,B-Type NATRIURETIC PEPTIDE 60.6 pg/mL (0-100)
[2020-05-18 15:00] VITALS: BP 124/79; PULSE 74; RESP 16; O2SAT 97
[2020-05-18] MEDS: Doxycycline 100 MG CAPSULE PO (15:59)
[2020-05-18 16:10] VITALS: BP 112/79; PULSE 68; RESP 16; O2SAT 97
== END 2020-05-18 19:00 | disposition home or self-care (01) ==
PROVIDERS: Emergency Provider Student in an Organized Health Care Education/Training Program; PCP Nurse Practitioner Family
DX: R60.0 Localized edema (principal); S80.812A Abrasion, left lower leg, initial encounter; X58.XXXA Exposure to other specified factors, initial encounter; Y93.9 Activity, unspecified; Y92.9 Unspecified place or not applicable; Y99.9 Unspecified external cause status; I50.32 Chronic diastolic (congestive) heart failure; E11.65 Type 2 diabetes mellitus with hyperglycemia; I48.91 Unspecified atrial fibrillation; Z79.01 Long term (current) use of anticoagulants; Z79.84 Long term (current) use of oral hypoglycemic drugs; Z79.899 Other long term (current) drug therapy
CPT/HCPCS: 71045; 80048; 83880; 84484; 85025; 93005; 99285

== ENCOUNTER 2020-09-05 13:31 | Observation (INO) | payer MEDICARE, SELFPAY ==
[2020-09-05] VITALS (15 sets, daily range): BP systolic 133–160; BP diastolic 59–97; PULSE 86–100; RESP 14–21; TEMP 36.6–37.2; O2SAT 93–100; BMI 42.7; BMI 42.8; BMI 41.4
--- NOTE | 2020-09-05 14:17 | EKG12_ITS ---
Test Reason : WEAKNESS Blood Pressure : / mmHG Vent. Rate : 098 BPM Atrial Rate : 076 BPM P-R Int : 000 ms QRS Dur : 090 ms QT Int : 370 ms P-R-T Axes : 000 030 -05 degrees QTc Int : 472 ms Atrial fibrillation with premature ventricular or aberrantly conducted complexes Low voltage QRS Nonspecific ST and T wave abnormality Abnormal ECG Confirmed by BOUBACAR RAMOS, MARIBEL ([id number]), writer editor FAVIOLA CUNHA ([id number]) on 09/10/2020 7:55:19 AM Referred By: OLGA LIDIA Confirmed By:CARLIE HAMLIN MD
--- NOTE | 2020-09-05 14:20 | RAD_ITS ---
STUDY: X-RAY CHEST REASON FOR EXAM: Male, 70 years old. CONCERNED ABOUT THE WOUND ON HIS LLE, STATES HE HAS NOT BEEN OUT OF BEEN FOR 1-2 YEARS, CELLULITIS AND FOUL ODOR B/L LOWER EXTREMITIES. NO CHEST COMPLAINTS. -- HX COPD, CHF AND AFIB TECHNIQUE: Single AP portable view of the chest. COMPARISON: Comparison is made with prior study dated 05/18/2020. FINDINGS: Hyperinflation. The lungs are clear. There is no demonstrated pleural abnormality. Normal size heart. Fullness of the upper mediastinum most likely secondary to enlarged thyroid. Normal visualized pulmonary arteries. There is atherosclerotic calcification of the aortic arch with tortuosity. Normal visualized thoracic spine. Normal visualized ribs, clavicles, and shoulders. There is no demonstrated abnormality of the visualized soft tissue structures of the upper abdomen. RAD/Chest 1 View (Portable) IMPRESSION: Hyperinflation. No acute abnormality is seen. Possible thyroid enlargement. Electronically Signed: Ryan Sood MD at 14:46 EST , Service support ,
[2020-09-05 14:25] LABS: Absolute Lymphocyte Count 1.08 X10^3/uL (0.83-4.51); Absolute Neutrophil Count 5.4 X10^3/uL (2.0-7.7); Basophil# 0.04 X10^3/uL; Basophil% 0.5 % (0-1); Eosinophil# 0.21 X10^3/uL; Eosinophils% 2.8 % (0-5); Hematocrit 37.3 % (40-54); Hemoglobin 11.8 g/dL (13.0-16.5); Lymphocyte # 1.08 X10^3/ul (4.0); Lymphocyte % 14.3 % (19-41); Mean Corp Hgb Conc 31.6 g/dL (32-36); Mean Corpuscular Hgb 29.1 pg (27.0-32.0); Mean Corpuscular Volume 91.9 fL (80-94); Mean Platelet Vol. 8.4 fl (6.2-12.0); Monocyte# 0.72 X10^3/uL; Monocyte% 9.6 % (0-10); NRBC Flagged by Analyzer 0 % (0-5); Neutrophil # 5.44 X10^3/uL (2.7-7.7); Neutrophil % 72.3 % (47-70); Platelet Count 273 K/mm3 (150-450); RBC Distribution Width CV 13.2 % (11.6-14.6); RBC Distribution Width SD 44.8 fl (35.1-43.9); Red Blood Count 4.06 M/mm3 (4.6-6.2); White Blood Count 7.5 K/mm3 (4.4-11.0)
[2020-09-05 14:48] LABS: International Normalized Ratio 1.2; Prothrombin Time (Protime)PT. 14.6 SECONDS (11.7-14.9)
[2020-09-05 14:49] LABS: Partial Thromboplast Time 33.6 Seconds (24.1-36.2)
[2020-09-05 14:50] LABS: ALB/GLOB Ratio 0.7 RATIO (0.9-2.4); AST(SGOT) 18 U/L (15-37); Alanine Aminotransfer ALT/SGPT 14 U/L (16-61); Albumin, Serum 3.1 g/dL (3.2-5.0); Alkaline Phosphatase 72 U/L (45-117); Anion Gap 7 (5-15); BUN 11 mg/dL (7-18); BUN/Creat Ratio 14.6 RATIO (10-20); Calcium,Total 9.3 mg/dL (8.5-10.1); Chloride 99 mmol/L (98-107); Creatinine, Serum 0.75 mg/dL (0.70-1.30); EST Glomerular Filtration Rate 108 mL/min (>60); Est Glom Filt Rate - Afr Amer 131 mL/min (>60); Estimated Creatinine Clearance 71.12 ml/min; Globulin 4.3 g/dL (2.2-4.2); Glucose 83 mg/dL (74-106); Lactic Acid 2.2 mmol/L (0.4-1.9); Potassium 2.7 mmol/L (3.5-5.1); Protein, Total 7.4 g/dL (6.4-8.2); Sodium Level 138 mmol/L (136-145)
[2020-09-05] MEDS: 0.9% Normal Saline 1,000 ML 150 ML IV (14:50)
--- NOTE | 2020-09-05 14:53 | ED.VISSUMM ---
- ER Visit Summary Date of Service: 09/05/20 Chief Complaint: Skin broke loose on my leg. History of Present Illness: The patient is a 70 M who goes to the [facility]. He has a history of type 2 diabetes and atrial fibrillation. He is on Eliquis and took his last dose this morning. He reports that the skin on his left leg broke open yesterday. Patient reports that he has generalized weakness and has been unable to walk for the past 2 months. He lives at home with his spouse who can no longer take care of him. Patient denies any fever or chills. He denies sore throat or cough. No chest pain or shortness of breath. No abdominal pain, nausea, vomiting, or diarrhea. Physical Examination: Vitals: Stable. Afebrile. General: Well-nourished and well-developed. Unkempt. Head: Normocephalic atraumatic. Neck: Supple, no lymphadenopathy. No JVD. Nontender. Cardiovascular: Irregular rhythm with a 2 out of 6 systolic murmur. Respiratory: No respiratory distress. Clear to auscultation bilaterally. Abdominal: Soft, nontender, nondistended, normal bowel sounds. No guarding, rebound, or peritoneal signs. Back: Nontender. Extremities: Chronic venous stasis changes to his lower extremities bilaterally with thickening of the skin and scaling. There are 2 small ulcers on the anterior surface of his left leg. There is minimal surrounding erythema. He has erythema and an ulcer on the medial side of his right great toe. There is also an ulcer under his right third toe. He has feces all over his feet. No palpable dorsalis pedis pulse bilaterally. Skin: Normal color, no rash. Neurologic: Alert and oriented ?3. Cranial nerves II through XII are intact. Normal strength and sensation. Psych: Normal affect. Test Results: EKG is A. fib at 96 with PVCs. Is unchanged from May 2020. Lactic acid is 2.2. Chem-7 shows a potassium of 2.7. CBC shows an H&H 11.37.3, segmented neutrophils 72, lymphocytes of 14. LFTs show an albumin of 3.1 and globulin of 4.3. ALT is 14. COVID-19 is negative. Clinical Impression(s) from Imaging Studies Chest X-Ray 09/05/20 14:20 IMPRESSION: Hyperinflation. No acute abnormality is seen. Possible thyroid enlargement. Electronically Signed: Ryan Sood MD at 14:46 EST , Service support , Emergency Department Course and Treatment: Had an IV placed. He was given a liter normal saline. He was given Zosyn and vancomycin IV. He was given K-Dur p.o. He was discussed with case management. Treatment Plan: Patient clearly cannot care for himself at home. He also has ulcers and infection to his right foot. He will be discussed with the hospitalist and admitted for further evaluation and treatment. Disposition: Admitted in improved condition. Impression: 1. Sepsis. 2. Hypokalemia. 3. Cellulitis right foot. 4. Ulcers left leg. 5. Noninsulin-dependent diabetes mellitus. This note was generated with [employer] dictation software. It may contain incorrect words, spelling, and punctuation that were not noted in review of the chart prior to signing ED Disposition - Plan for ED Patient: Referrals: NOT,DEFINED [Primary Care Provider] -
[2020-09-05] MEDS: 0.9% Normal Saline 1,000 ML 999 ML IV (15:04)
[2020-09-05] MEDS: Potassium Chloride Oral Tablet 20 MEQ 60 MEQ PO (15:10)
--- NOTE | 2020-09-05 15:19 | ED.RN ---
COMPUTER NOT ALLOWING NURSE TO SCAN ZOSYN OR POTASSIUM IN ROOM. PT VERIFIED BY NAME, , AND M#. ADMINISTERED MEDICATIONS AT 1510.
[2020-09-05 15:47] LABS: Bacteria 0 SEEN /hpf (None Seen); Mucous, Urine 0 SEEN /hpf (<or=2+); Red Blood Cells-Urine 0 SEEN /hpf (0-5); White Blood Cells 0 SEEN /hpf (0-5)
[2020-09-05 16:16] LABS: Color, Urine Yellow (Yellow); Glucose, Dipstick Normal (Normal); Ketone-Dipstick Negative (Negative); Leukocyte Esterase-Dipstick Negative /ul (Negative); Nitrite-Dipstick Negative (Negative); Occult Blood-Urine Negative /ul (Negative); Protein-Dipstick Negative (Negative); Urine Bilirubin Dipstick Negative (Negative); Urine Clarity Clear (Clear); Urine Urobilinogen 1 mg/dl (Normal)
--- NOTE | 2020-09-05 16:57 | NURSING ---
MED SURG ASHELF DIABETIC FOOT ULCER, SEPSIS
--- NOTE | 2020-09-05 17:02 | HP.PCM_ITS ---
Problem List (1) Degenerative arthritis of knee, bilateral Status: Chronic (2) Pure hypercholesterolemia Status: Chronic (3) Essential (primary) hypertension Status: Chronic (4) Chronic diastolic heart failure Status: Chronic (5) Persistent atrial fibrillation Status: Chronic (6) Diabetes mellitus type 2, uncontrolled, without complications Status: Chronic History of Present Illness Date of Admission: 09/05/20 Chief Complaint: Leg ulcers, weakness. The patient is a 70 year old M with past medical history as mentioned above presented to the emergency room because of left leg ulcers and weakness. The patient mentioned that his asked him to come to the emergency department. He stated that skin broke on his left leg yesterday. He reported weakness and fatigue with difficulty ambulating. He had no specific symptoms. He denied ch est pain or shortness of breath. He denied fever or chills. His mentioned to him that his left foot is swollen and red. He had a history of type 2 diabetes mellitus, has been on Metformin and glimepiride and his blood glucose has been under control, hemoglobin A1c was 5.5% on April,. He had a history of chronic atrial fibrillation, has been on Eliquis for anticoagulation and metoprolol for rate control. He had a history of hypertension which has been under control with Lasix and metoprolol. In the emergency department, he was afebrile, heart rate was above 90, respiratory rate was in the 20s, pulse ox was 100% on room air. Routine blood work was remarkable for hemoglobin of 11.8 which is chronic, potassium 2.7. LFT was unremarkable. Lactic acid was 2.2. Chest x-ray showed no acute findings. Urinalysis showed no evidence of acute cystitis. He is being admitted for sepsis secondary to right big toe/right foot cellulitis with bilateral diabetic probably infected ulcers of both legs and also found to have severe hypokalemia. Past Medical History Past Medical History (Chronic Problems): Chronic Problems (Last Updated 09/05/20 @ 17:[address] Marjorie Guerrero MD) Ambulatory dysfunction (Chronic) Degenerative arthritis of knee, bilateral (Chronic) Debility (Chronic) Tobacco dependence due to chewing tobacco (Chronic) Generalized weakness (Chronic) Upper gastrointestinal bleed (Chronic) Atherosclerotic heart disease of [place] coronary artery without angina pectoris (Chronic) Pure hypercholesterolemia (Chronic) Essential (primary) hypertension (Chronic) Chronic diastolic heart failure (Chronic) Persistent atrial fibrillation (Chronic) HOLGER (obstructive sleep apnea) (Chronic) Morbid obesity (Chronic) Diabetes mellitus type 2, uncontrolled, without complications (Chronic) Medical History: Medical History (Last Updated 09/05/20 @ 17:[address] Marjorie Guerrero MD) Atherosclerotic heart disease of [place] coronary artery without angina pectoris (Chronic) I25.10 Pure hypercholesterolemia (Chronic) E78.00 Essential (primary) hypertension (Chronic) I10 Chronic diastolic heart failure (Chronic) I50.32 Persistent atrial fibrillation (Chronic) I48.1 HOLGER (obstructive sleep apnea) (Chronic) G47.33 Morbid obesity (Chronic) E66.01 Diabetes mellitus type 2, uncontrolled, without complications (Chronic) E11.65 Abdominal pain R10.9 Arthritis M19.90 Depression F32.9 Gout M10.9 Nausea & vomiting R11.2 Weight loss R63.4 Abnormal stress test (Inactive) R94.39 Allergies No Known Allergies Allergy (Verified 09/05/20 13:39) Home Medications: Ambulatory Orders Medication Instructions Recorded Acetaminophen 500 - 1,000 mg PO Q8H PRN 04/20/20 Apixaban [Eliquis] 5 mg PO BID 04/20/20 Aspirin [Aspirin, Baby] 81 mg PO DAILY@0800 04/20/20 Ergocalciferol (Vitamin D2) 50,000 unit PO TU 04/20/20 [Vitamin D2] Furosemide [Lasix] 40 mg PO DAILY 04/20/20 Glimepiride [Amaryl] 4 mg PO BID 04/20/20 Metoprolol Tartrate 12.5 mg PO BID 04/20/20 Potassium Chloride 20 meq PO DAILY 04/20/20 metFORMIN HCl [Glucophage] 1,000 mg PO BIDCM 04/20/20 Rosuvastatin Calcium 5 mg PO QHS 09/05/20 Surgical History: Surgical History (Last Reviewed 04/20/20 @ 17:26 by Peggy Fierro NP, [facility]ATH[facility]LLER-C) History of appendectomy Z90.49 History of exploratory laparotomy Z98.890 History of kidney surgery Z98.890 Surgical History: tonsillectomy Psychiatric History: No pertinent psych hx Lives: Spouse/ Significant Other Smoking Status: Former smoker Alcohol: None Drugs: None - *Family History Paternal Family History: Family History (Last Reviewed 04/20/20 @ 17:27 by Peggy Fierro NP, [facility]LLER-C) Mother CHF (congestive heart failure) Father Cancer History Items: Diabetes Review of Systems Constitutional: Reports: Weakness. Denies: Anorexia, Chills, Fever Eyes: Denies: Blurred vision, Double vision, Drainage, Redness HEENT: Denies: Difficulty Hearing, Ear Pain, Eye Pain, Nasal Congestion, Sore Throat Cardiovascular: Denies: Chest Pain, Chest Pressure, Edema, Heaviness, Palpitations, Syncope Respiratory: Denies: Cough, Pleuritic Pain, Shortness of Breath, Sputum production, Wheezing Gastrointestinal: Denies: Abdominal Pain, Constipation, Diarrhea, Nausea, Vomiting Genitourinary: Denies: Dysuria, Frequency, Hematuria Musculoskeletal: Denies: Arm Pain, Back Pain, Foot Pain Skin: Reports: - - Skin ulcers of the left leg.. Denies: Dryness Neurological: Denies: Balance problems, Double vision, Change in Speech, Slurred speech, Headaches, Incoordination, Numbness Psychiatric: Denies: Anxiety, Depression Endocrine: Denies: Change in Body Habitus, Polydipsia, Polyuria VTE Information - Inpt Only VTE Present on Admission: No VTE Mechan Device Prophylaxis: None VTE Pharm Prophylaxis ordered?: Yes - Physical Exam Vitals/I&O's: Vital Signs Temp Pulse Resp BP Pulse Ox 98.7 F 98 18 160/76 H 99 09/05/20 16:53 09/05/20 16:53 09/05/20 16:53 09/05/20 16:53 09/05/20 16:53 Oxygen Delivery Method Room Air Weight: 306 lb 14.135 oz Body Mass Index (BMI) 42.7 Intake and Output for Last 24 Hours 09/03/20 09/04/20 09/05/20 23:59 23:59 23:59 Intake Total 1135 / 1135 Balance 1135 / 1135 General: Alert, Oriented x3, Cooperative, No apparent distress, - - Poor hygiene. HEENT: Atraumatic, PERRLA, EOMI, Normocephalic Oral: Moist Mucosa, No Gingival or Mucosal Lesions/ Ulcerations Neck: Supple, No JVD, Negative Carotid Bruits, Trachea Midline, Thyroid Normal Size and Texture Lungs: Clear to auscultation, No rhonchi, No wheeze, No rales, Diminished Cardiovascular: Normal S1, Normal S2, PMI Normal, Irregular Rate Abdomen: Bowel Sounds Present, Soft, Non Tender, Non-Distended, No Hepato-splenomegaly, Obese Extremities: No clubbing, No cyanosis, Edema, - - Right lower extremity: Erythema and swelling of the right big toe, diffuse erythema of the right foot and lower right leg, stasis dermatitis, lymphedema. Left lower extremity: Skin ulcers on the medial aspect of the left leg, stasis dermatitis, mild erythema. Skin: Ulcer/ Wound, - - Mild erythema of the coccyx, no open wounds. Lymphatic: No Cervical, Supraclavicular, or Inguinal Adenopathy Neurological: Cranial nerves II-XII grossly intact, Motor Exam 5/5 strength throughout Psych/Mental Status: Normal Affect, Appropriate, Alert and oriented to time, place, person, mood and affect Microbiology Past 72 Hours 09/05/20 14:40 Mucosa - Nose SARS-CoV-2 Antigen (Rapid) - Final Laboratory Results 09/05/20 14:15: WBC 7.5, RBC 4.06 L, Hgb 11.8 L, Hct 37.3 L, MCV 91.9, MCH 29.1, MCHC 31.6 L, RDW Std Deviation 44.8 H, RDW Coeff of Shantell 13.2, Plt Count 273, MPV 8.4, Immature Gran % (Auto) 0.500, Neut % (Auto) 72.3 H, Lymph % (Auto) 14.3 L, [place] % (Auto) 9.6, Eos % (Auto) 2.8, Baso % (Auto) 0.5, Absolute Neuts (auto) 5.4, Absolute Lymphs (auto) 1.08, Nucleated RBC % 0 09/05/20 14:15: PT 14.6, INR 1.2, APTT 33.6 09/05/20 14:15: Sodium 138, Potassium 2.7 L*, Chloride 99, Carbon Dioxide 32.0, Anion Gap 7, BUN 11, Creatinine 0.75, Estim Creat Clear Calc 71.12, Est GFR (MDRD) Af Amer 131, Est GFR (MDRD) Non-Af 108, BUN/Creatinine Ratio 14.6, Glucose 83, Calcium 9.3, Total Bilirubin 0.60, AST 18, ALT 14 L, Alkaline Phosphatase 72, Total Protein 7.4, Albumin 3.1 L, Globulin 4.3 H, Albumin/Globulin Ratio 0.7 L 09/05/20 14:15: Lactic Acid 2.2 H* 09/05/20 15:37: Urine Color Yellow, Urine Clarity Clear, Urine pH 7.0, Ur Specific [place] 1.010, Urine Protein Negative, Urine Glucose (UA) Normal, Urine Ketones Negative, Urine Occult Blood Negative, Urine Nitrite Negative, Urine Bilirubin Negative, Urine Urobilinogen 1 H, Ur Leukocyte Esterase Negative, Urine RBC Pending, Urine WBC Pending, Ur Squamous Epith Cells Pending, Urine Bacteria Pending, Urine Mucus Pending Clinical Impression(s) from Imaging Studies Chest X-Ray 09/05/20 14:20 IMPRESSION: Hyperinflation. No acute abnormality is seen. Possible thyroid enlargement. Electronically Signed: Ryan Sood MD at 14:46 EST , Service support , Current Medications Sodium Chloride () 1,000 mls @ 150 mls/hr IV .Q6H40M HERMINIA Last Infusion: 09/05/20 16:52 Dose: 150 mls/hr Documented by: Vancomycin HCl 2,000 mg/ (Sodium Chloride) 540 mls @ 250 mls/hr IV X1 ONE Stop: 09/05/20 17:39 Last Admin: 09/05/20 16:25 Dose: 250 mls/hr Documented by: Assessment/Plan This is a 70 years old male patient presented to the emergency room because of weakness, left leg ulcers, found to have swollen right big toe, diffuse mild erythema of the both legs which is apparently chronic, found to have sepsis secondary to right big toe/right foot cellulitis in addition to diabetic left left leg ulcers with possible infection, found to have severe hypokalemia and he is being admitted for evaluation and treatment. #1 acute right big toe/right foot cellulitis/bilateral leg diabetic mild cellulitis/ulcers with possible secondary infection/sepsis: Lactic acid is elevated, no leukocytosis, no fever but mild tachycardia and tachypnea. COVID- 19 antigen was negative. Plan: Admit to [facility] floor, telemetry monitoring, blood culture, urine culture, wound culture, wound care nurse consult, start IV vancomycin and Zosyn, repeat CBC and BMP tomorrow morning, PT OT evaluation and treatment. #2 severe hypokalemia: Admission potassium 2.7, patient does have chronic hypokalemia. He has been on Lasix. Plan: Replace potassium with IV potassium chloride, check serum magnesium, TSH, repeat BMP tomorrow morning. #3 physical debility/functional decline/poor hygiene: Patient lives at house with his . He has been having difficulty ambulating, poor hygiene. Plan for PT OT evaluation and treatment, patient may need [facility]. #4 type 2 diabetes mellitus: ADA diet, Accu-Cheks, insulin sliding scale, continue glimepiride and Metformin. #5 hypertension: Blood pressure stable, continue metoprolol and Lasix. #6 chronic diastolic CHF: Compensated, stable. Continue Lasix and metoprolol. #7 chronic atrial fibrillation: Currently, rate is stable. EKG reviewed, showed A. fib with PVCs, no acute changes. Plan to continue metoprolol for rate control, continue Eliquis for anticoagulation, check INR. #8 DVT prophylaxis: Continue Eliquis. This note was generated with [employer] dictation software. It may contain incorrect words, spelling, and punctuation that were not noted in checking the note before signing. Inpatient E&M: 89822 Init Hosp L3
[2020-09-05 17:10] LABS: Squamous Epithelial Cells - UA 0-5 SEEN /hpf (0-5)
[2020-09-05 17:11] LABS: Renal Epithelial Cells 0-5 SEEN /hpf (0-5)
--- NOTE | 2020-09-05 17:11 | ED.RN ---
PT REFUSED TO PUT ON GOWN FOR ADMISSION. DRAINED 1.5 LITERS FROM CATHETER BAG.
--- NOTE | 2020-09-05 17:35 | NURSING ---
NEW ROOM [id number]
[2020-09-05 18:21] LABS: Reflex Lactate? Y
--- NOTE | 2020-09-05 19:17 | PCM.RX.CS ---
Consult Pharmacy has been consulted to manage selected antiobiotic: Vancomycin Type of Consult: New start Suspected Infection: Skin/Soft tissue Labs: Sodium 138 mmol/L (136-145) 09/05/20 14:15 Potassium 2.7 mmol/L (3.5-5.1) L* 09/05/20 14:15 Chloride 99 mmol/L (98-107) 09/05/20 14:15 Carbon Dioxide 32.0 mmol/L (21.0-32.0) 09/05/20 14:15 Anion Gap 7 (5-15) 09/05/20 14:15 BUN 11 mg/dL (7-18) 09/05/20 14:15 Creatinine 0.75 mg/dL (0.70-1.30) 09/05/20 14:15 Est GFR (MDRD) Af Amer 131 mL/min (>60) 09/05/20 14:15 Est GFR (MDRD) Non-Af 108 mL/min (>60) 09/05/20 14:15 BUN/Creatinine Ratio 14.6 RATIO (10-20) 09/05/20 14:15 Glucose 83 mg/dL (74-106) 09/05/20 14:15 Microbiology: Microbiology 09/05/20 14:40 Mucosa - Nose SARS-CoV-2 Antigen (Rapid) - Final Goal Trough: 15-20 mcg/mL Pharmacy Plan for Drug Dosing: NEW START IV VANCOMYCIN Consulting Physician:Dr. Guerrero Indication: Diabetic wounds, SSTI Goal Trough: 15-20 SrCr: 0.75 CrCl: 71 mL/min Comments: Initial dose of 2000mg IV x1 in ED 09/05 @1625 Vancomcyin Dose: 1000mg IV Q8hr to start 09/06/20 @0100 Pending Level: 09/06/20 @1630, prior to 4th total dose per protocol Pharmacy Service will continue to monitor and adjust dosing as required.
[2020-09-05 19:47] LABS: Magnesium 1.5 mg/dL (1.6-2.6); Thyroid Stim Hormone (TSH) 0.63 uIU/mL (0.358-3.74)
[2020-09-05 19:52] LABS: International Normalized Ratio 1.2; Lactic Acid 1.1 mmol/L (0.4-1.9); Prothrombin Time (Protime)PT. 14.9 SECONDS (11.7-14.9)
[2020-09-05] MEDS: metFORMIN HCl 1,000 MG Tablet 1000 MG PO (20:02)
[2020-09-05] MEDS: Metoprolol Tartrate 25 MG Tablet 12.5 MG PO (23:03)
[2020-09-05] MEDS: Atorvastatin Calcium 10 MG Tablet PO (23:03)
[2020-09-05] MEDS: APIXABAN 5 MG TABLET PO (23:08)
[2020-09-05] MEDS: Nystatin Powder 15gm Bottle 1 APPLIC TOPICAL (23:08)
[2020-09-05 23:20] LABS: Bedside Glucose 79 mg/dL (70-110)
[2020-09-06] VITALS (13 sets, daily range): BP systolic 113–153; BP diastolic 52–77; PULSE 63–95; RESP 18–33; TEMP 36.6–37.1; O2SAT 93–98
[2020-09-06] MEDS: Vancomycin IV 1,000 MG/200 ML BAG 200 MG IV ×3 (00:45→17:23)
[2020-09-06] MEDS: 0.9% Saline Lock 10 ML Syringe IV ×2 (00:45→13:28)
--- NOTE | 2020-09-06 04:05 | CPS ---
pt using sleep lab machine, he forgot his water chamber to his own machine. using own tubing and nasal pillows on a filter attached to sleep labs machine.
[2020-09-06] MEDS: Nystatin Powder 15gm Bottle 1 APPLIC TOPICAL ×3 (05:08→21:19)
[2020-09-06 06:08] LABS: Absolute Neutrophil Count 3.9 X10^3/uL (2.0-7.7); Basophil# 0.04 X10^3/uL; Basophil% 0.7 % (0-1); Eosinophil# 0.25 X10^3/uL; Eosinophils% 4.1 % (0-5); Hematocrit 31.6 % (40-54); Hemoglobin 10.2 g/dL (13.0-16.5); Lymphocyte % 19.8 % (19-41); Mean Corp Hgb Conc 32.3 g/dL (32-36); Mean Corpuscular Hgb 29.5 pg (27.0-32.0); Mean Corpuscular Volume 91.3 fL (80-94); Mean Platelet Vol. 8.7 fl (6.2-12.0); Monocyte# 0.64 X10^3/uL; Monocyte% 10.6 % (0-10); NRBC Flagged by Analyzer 0 % (0-5); Neutrophil % 64.3 % (47-70); Platelet Count 246 K/mm3 (150-450); RBC Distribution Width CV 13.2 % (11.6-14.6); Red Blood Count 3.46 M/mm3 (4.6-6.2); White Blood Count 6.1 K/mm3 (4.4-11.0)
[2020-09-06 06:35] LABS: Bedside Glucose 78 mg/dL (70-110)
[2020-09-06 06:40] LABS: Anion Gap 5 (5-15); BUN 10 mg/dL (7-18); BUN/Creat Ratio 16.1 RATIO (10-20); Calcium,Total 8.7 mg/dL (8.5-10.1); Chloride 106 mmol/L (98-107); Creatinine, Serum 0.62 mg/dL (0.70-1.30); EST Glomerular Filtration Rate 135 mL/min (>60); Est Glom Filt Rate - Afr Amer 163 mL/min (>60); Estimated Creatinine Clearance 71.12 ml/min; Glucose 79 mg/dL (74-106); Magnesium 1.8 mg/dL (1.6-2.6); Potassium 3.6 mmol/L (3.5-5.1); Sodium Level 140 mmol/L (136-145)
--- NOTE | 2020-09-06 07:22 | PCM.PN.HOSP ---
Reason for Visit: Follow-up for leg ulcer and weakness. Objective: Patient afebrile. Heart rate and blood pressure controlled. Admitted with left foot ulcer. Repeat potassium 3.6. Lactic acid repeat normal 1.1. Patient also has a scab on the right foot. Physical exam General: Alert, Oriented x3, Cooperative HEENT: Atraumatic, PERRLA, EOMI, Normocephalic Oral: No Gingival or Mucosal Lesions/ Ulcerations Neck: Supple, No JVD, Negative Carotid Bruits Lungs: Air entry diminished in bilateral lung bases. Bilateral expiratory rhonchi. On CPAP. Cardiovascular: Chronic A. fib, Normal S1, Normal S2, No murmurs Abdomen: Bowel Sounds Present, Soft, Non Tender, Non-Distended. Lower midline surgical scar old : No renal angle tenderness. No suprapubic tenderness. Extremities: Mild bilateral leg edema, Capillary Refill Less than 3 Seconds Skin: Grayish pigmentation of both lower lobes suggestive of stasis dermatitis. Dry skin. Multiple scabbed over right great toe, small left plantar ulcer, left second toenail, superficial left leg suggestive of venous ulcer Musculoskeletal: Weakness of both legs at hip and knee joints. ROM restricted Neurological: Cranial nerves II-XII grossly intact, no sensation over the greater toe, loss of position sense. Sensation intact in fifth toe. Psych/Mental Status: Normal Affect, Appropriate. Vitals/I&O's: Vital Signs Temp Pulse Resp BP Pulse Ox 98.7 F 95 18 113/52 L 94 09/06/20 05:05 09/06/20 05:21 09/06/20 05:05 09/06/20 05:05 09/06/20 05:05 Oxygen Delivery Method CPAP Weight: 297 lb 6.457 oz Body Mass Index (BMI) 41.4 Intake and Output for Last 24 Hours 09/04/20 09/05/20 09/06/20 23:59 23:59 23:59 Intake Total 2630.67 / 2830.67 781.92 / 781.92 Output Total 250 / 525 525 / 525 Balance 2380.67 / 2305.67 256.92 / 256.92 Microbiology Past 72 Hours 09/05/20 14:40 Mucosa - Nose SARS-CoV-2 Antigen (Rapid) - Final Laboratory Results 09/05/20 14:15: WBC 7.5, RBC 4.06 L, Hgb 11.8 L, Hct 37.3 L, MCV 91.9, MCH 29.1, MCHC 31.6 L, RDW Std Deviation 44.8 H, RDW Coeff of [place] 13.2, Plt Count 273, MPV 8.4, Immature Gran % (Auto) 0.500, Neut % (Auto) 72.3 H, Lymph % (Auto) 14.3 L, [place] % (Auto) 9.6, Eos % (Auto) 2.8, Baso % (Auto) 0.5, Absolute Neuts (auto) 5.4, Absolute Lymphs (auto) 1.08, Nucleated RBC % 0 09/05/20 14:15: PT 14.6, INR 1.2, APTT 33.6 09/05/20 14:15: Sodium 138, Potassium 2.7 L*, Chloride 99, Carbon Dioxide 32.0, Anion Gap 7, BUN 11, Creatinine 0.75, Estim Creat Clear Calc 71.12, Est GFR (MDRD) Af Amer 131, Est GFR (MDRD) Non-Af 108, BUN/Creatinine Ratio 14.6, Glucose 83, Calcium 9.3, Total Bilirubin 0.60, AST 18, ALT 14 L, Alkaline Phosphatase 72, Total Protein 7.4, Albumin 3.1 L, Globulin 4.3 H, Albumin/Globulin Ratio 0.7 L 09/05/20 14:15: Lactic Acid 2.2 H* 09/05/20 14:15: Magnesium 1.5 L, TSH 0.63 09/05/20 15:37: Urine Color Yellow, Urine Clarity Clear, Urine pH 7.0, Ur Specific [place] 1.010, Urine Protein Negative, Urine Glucose (UA) Normal, Urine Ketones Negative, Urine Occult Blood Negative, Urine Nitrite Negative, Urine Bilirubin Negative, Urine Urobilinogen 1 H, Ur Leukocyte Esterase Negative, Urine RBC 0 SEEN, Urine WBC 0 SEEN, Ur Squamous Epith Cells 0-5 SEEN, Ur Renal Epithelial Cell 0-5 SEEN, Urine Bacteria 0 SEEN, Urine Mucus 0 SEEN 09/05/20 19:17: Lactic Acid 1.1 09/05/20 19:17: PT 14.9, INR 1.2 09/05/20 23:10: POC Glucose 79 09/06/20 05:54: WBC 6.1, RBC 3.46 L, Hgb 10.2 L, Hct 31.6 L, MCV 91.3, MCH 29.5, MCHC 32.3, RDW Std Deviation 44.0 H, RDW Coeff of [place] 13.2, Plt Count 246, MPV 8.7, Immature Gran % (Auto) 0.500, Neut % (Auto) 64.3, Lymph % (Auto) 19.8, [place] % (Auto) 10.6 H, Eos % (Auto) 4.1, Baso % (Auto) 0.7, Absolute Neuts (auto) 3.9, Absolute Lymphs (auto) 1.20, Nucleated RBC % 0 09/06/20 05:54: Sodium 140, Potassium 3.6, Chloride 106, Carbon Dioxide 29.0, Anion Gap 5, BUN 10, Creatinine 0.62 L, Estim Creat Clear Calc 71.12, Est GFR (MDRD) Af Amer 163, Est GFR (MDRD) Non-Af 135, BUN/Creatinine Ratio 16.1, Glucose 79, Calcium 8.7, Magnesium 1.8 09/06/20 06:24: POC Glucose 78 Current Medications Acetaminophen (Acetaminophen 325 Mg Tablet) 650 mg PO Q6H PRN PRN PRN Reason: Pain Score 1-10/Temp > 100.7 F Apixaban (Apixaban 5 Mg Tablet) 5 mg PO BID [facility] Last Admin: 09/05/20 23:08 Dose: 5 mg Documented by: Aspirin (Aspirin 81 Mg Tab.Chew) 81 mg PO DAILY@0800 [facility] Atorvastatin Calcium (Atorvastatin Calcium 10 Mg Tablet) 10 mg PO QHS [facility] Last Admin: 09/05/20 23:03 Dose: 10 mg Documented by: Furosemide (Furosemide 40 Mg Tablet) 40 mg PO DAILY [facility] Glimepiride ([facility] 4 Mg [facility]t) [facility] Potassium Chloride/Sodium Chloride () 1,000 mls @ 100 mls/hr IV .Q10H [facility] Last Infusion: 09/06/20 01:45 Dose: 100 mls/hr Documented by: Piperacillin Sod/Tazobactam (Sod 3.375 gm/ Sodium Chloride) 50 mls @ 12.5 mls/hr IV Q8 [facility] Last Admin: 09/06/20 05:07 Dose: 12.5 mls/hr Documented by: Vancomycin IV Pharmacy to Dose (1 ea/ Sodium Chloride) 500 mls @ 250 mls/hr IV PRN PRN; Protocol PRN Reason: Rx to Dose Vancomycin HCl (Vancomycin) 1,000 mg in 200 mls @ 200 mls/hr IV Q8H [facility] Last Infusion: 09/06/20 01:45 Dose: Infused Documented by: Sodium Chloride () 250 mls @ 15 mls/hr IV .[id number] PRN PRN Reason: Saline Flush Last Infusion: 09/06/20 05:07 Dose: 0 mls/hr Documented by: Sodium Chloride () 250 mls @ 15 mls/hr IV .[id number] PRN PRN Reason: Additional IVPB Infusion Insulin Human Lispro (Insulin Lispro 100 Unit/Ml Insuln.Pen) 0 unit SC [facility]; Protocol Last Admin: 09/06/20 06:45 Dose: Not Given Documented by: Metformin HCl (Metformin Hcl 1,000 Mg Tablet) [facility] Last Admin: 09/05/20 20:02 Dose: 1,000 mg Documented by: Metoprolol Tartrate (Metoprolol Tartrate 25 Mg Tablet) 12.5 mg PO BID [facility] Last Admin: 09/05/20 23:03 Dose: 12.5 mg Documented by: Nystatin (Nystatin Powder 15gm Bottle) 1 applic TOPICAL TID [facility]; Protocol Last Admin: 09/06/20 05:08 Dose: 1 applicatio Documented by: Ondansetron HCl (Ondansetron 4 Mg/2 Ml Vial) 4 mg IV Q8H PRN PRN PRN Reason: NAUSEA/VOMITING Potassium Chloride (Potassium Chloride Oral Tablet 20 Meq) [facility] Senna/Docusate Sodium (Senna/Docusate Sodium 1 Tablet) 2 tablet PO BID PRN PRN PRN Reason: Constipation Sodium Chloride (0.9% Saline Lock 10 Ml Syringe) 10 - 40 ml IV UD PRN PRN Reason: SALINE FLUSH Last Admin: 09/06/20 00:45 Dose: 10 ml Documented by: Zolpidem Tartrate (Zolpidem Tartrate 5 Mg Tablet) 5 mg PO QHS PRN PRN PRN Reason: INSOMNIA STROKE Vital Signs/Narrative: Vital Signs Temp Pulse Resp BP Pulse Ox 09/06/20 05:21 95 09/06/20 05:05 98.7 F 83 18 113/52 L 94 Medical Necessity - Tobacco Use Smoking Status: Former smoker Assessment/Plan This is a 70 years old male patient presented to the emergency room because of weakness, left leg ulcers, found to have swollen right big toe, diffuse mild erythema of the both legs which is apparently chronic, found to have sepsis secondary to right big toe/right foot cellulitis in addition to diabetic left left leg ulcers with possible infection, found to have severe hypokalemia and he is being admitted for evaluation and treatment. #1 acute right big toe/right foot cellulitis/bilateral leg diabetic mild cellulitis/ulcers with possible secondary infection/sepsis: Lactic acid is elevated, no leukocytosis, no fever but mild tachycardia and tachypnea. COVID-19 antigen was negative. 09/06: Repeat lactic acid normal. On IV vancomycin and Zosyn. Podiatry is consulted. Wound culture pending. PT and OT evaluation and treatment. #2 severe hypokalemia: Admission potassium 2.7, patient does have chronic hypokalemia. He has been on Lasix. : Magnesium 1.8. Repeat K3.6. Potassium supplemented. Follow-up electrolytes. #3 physical debility/functional decline/poor hygiene: Patient lives at house with his . He has been having difficulty ambulating, poor hygiene. #4 type 2 diabetes mellitus: ADA diet, Accu-Cheks, insulin sliding scale 09/06: Hold Metformin as patient had lactic acidosis. Glimepiride decreased to 2 mg twice daily with holding parameter as glucoses in BMP is 79. #5 hypertension: Blood pressure stable, continue metoprolol and Lasix. #6 chronic diastolic CHF: Compensated, stable. Continue Lasix and metoprolol. #7 chronic atrial fibrillation: Currently, rate is stable. EKG reviewed, showed A. fib with PVCs, no acute changes. Plan to continue metoprolol for rate control, continue Eliquis for anticoagulation, check INR. #8 DVT prophylaxis: Continue Eliquis. Inpatient E&M: [id number] [facility] L2
[2020-09-06] MEDS: Aspirin 81 MG TAB.CHEW PO (08:16)
[2020-09-06] MEDS: metFORMIN HCl 1,000 MG Tablet 1000 MG PO (08:16)
[2020-09-06] MEDS: Glimepiride 4 MG Tablet PO (08:16)
[2020-09-06] MEDS: Potassium Chloride Oral Tablet 20 MEQ PO (08:17)
[2020-09-06] MEDS: Metoprolol Tartrate 25 MG Tablet 12.5 MG PO ×2 (10:25→21:19)
[2020-09-06] MEDS: APIXABAN 5 MG TABLET PO ×2 (10:25→21:19)
[2020-09-06] MEDS: Furosemide 40 MG Tablet PO (10:25)
--- NOTE | 2020-09-06 10:55 | NURSING ---
wound photo: left lower leg
--- NOTE | 2020-09-06 10:56 | NURSING ---
skin photo: left foot
--- NOTE | 2020-09-06 10:58 | NURSING ---
wound photo: left plantar heel
--- NOTE | 2020-09-06 10:59 | NURSING ---
wound photo: right great toe
[2020-09-06 11:31] LABS: Bedside Glucose 96 mg/dL (70-110)
--- NOTE | 2020-09-06 11:40 | CASEMGMT ---
JAKY LEVI Face to Face with patient for initial transition planning/care coordination assessment. RN AMITA introduced self and role at [facility]. Patient lying in bed, alert and oriented. Patient willing to participate in assessment and is able to answer all questions appropriately. Care providers, pharmacy, and demographics verified. Patient is unsure of where he will go after hospital stay. Requests JAKY LEVI to speak to patient's today when she arrives. Patient states he has no further needs or concerns at this time. CM to follow for discharge planning needs that may arise. PCP: Specialists: [place], cardiology Preferred Pharmacy: [facility] Insurance: [employer] Medicare Prescription Benefit: yes Living Will/HPOA: yes LNOK: Living Arrangements: Patient lives with in a single story home with no steps to enter. Patient reports his assists him with bathing and dressing. Transportation: DME/HHC: Patient reports he has a BSC, walker, w/c and cpap machine at home. Denies need for further DME. He previously has been in [facility] but states he will not go back there. Denies any previous HHC. Disposition Plan: Pt is unsure of dc plan. Requests JAKY LEVI to speak with .
--- NOTE | 2020-09-06 14:37 | CASEMGMT ---
JAKY LEVI in to discuss discharge planning with patient. Therapy recommending SNF at discharge. RN CM discussed progress with therapy and patient agreeable to SNF. Patient was provided a list of SNF providers including quality and resource use data and consistent with the patient?s preferred geographic region, medical needs, and insurance network. Patient to review providers with and give preferences for SNFs. Patient requested RN CM call to discuss discharge planning. RN CM called to discuss discharge planning. agreeable that patient should discharge to SNF. RN AMITA reviewed in-network list with with 's permission. states her first choice is [place]. RN AMITA updated [facility].
--- NOTE | 2020-09-06 15:13 | CASEMGMT ---
Social Work Note SW received referral for SNF placement. Pt and pt's Natalia Fitch agreeable to [facility]. SW placed a call to Estelita at [facility] and provided referral. SW faxed referral. Plan: [facility] pending acceptance and pre-cert [facility] ORIGINATION SPECIALIST, [employer]
--- NOTE | 2020-09-06 15:30 | CON.PCM_ITS ---
Problem List (1) Cellulitis of right foot Status: Acute (2) Ulcer of right foot with fat layer exposed Status: Acute (3) Ulcer of left lower extremity with fat layer exposed Status: Chronic (4) Edema of both lower extremities Status: Chronic (5) Other specified peripheral vascular diseases Status: Suspected (6) Tinea unguium Status: Chronic (7) Type 2 diabetes mellitus with diabetic polyneuropathy Status: Chronic Reason for Consult Date of Consultation: 09/06/20 Reason for Consultation: Right great toe cellulitis and left leg ulcers History of Present Illness: The patient is a 70 year old M with significant past medical history of diabetes, congestive heart failure, atrial fibrillation, hypertension and debility presented to the emergency room with concern of lower extremity infection and weakness. He was personally unaware that he had wounds to his right lower extremity at this time and he thinks the wound on his left leg has been intermittently present for at least 4 years. He is also unaware of any other injuries to the toes. He relates he has not ambulated in several years. He does seem to have rest pain worse to the left lower extremity than the right lower extremity. He has chronic leg swelling. He has difficulty caring for himself at home and he relates his is unable to help him. Past Medical History Past Medical History (Chronic Problems): Chronic Problems (Last Updated 09/05/20 @ 17:[address] Marjorie Guerrero MD) Ulcer of left lower extremity with fat layer exposed (Chronic) Edema of both lower extremities (Chronic) Tinea unguium (Chronic) Type 2 diabetes mellitus with diabetic polyneuropathy (Chronic) Ambulatory dysfunction (Chronic) Degenerative arthritis of knee, bilateral (Chronic) Debility (Chronic) Tobacco dependence due to chewing tobacco (Chronic) Generalized weakness (Chronic) Upper gastrointestinal bleed (Chronic) Atherosclerotic heart disease of [place] coronary artery without angina pectoris (Chronic) Pure hypercholesterolemia (Chronic) Essential (primary) hypertension (Chronic) Chronic diastolic heart failure (Chronic) Persistent atrial fibrillation (Chronic) HOLGER (obstructive sleep apnea) (Chronic) Morbid obesity (Chronic) Diabetes mellitus type 2, uncontrolled, without complications (Chronic) Medical History: Medical History (Last Updated 09/05/20 @ 17:[address] Marjorie Guerrero MD) Atherosclerotic heart disease of [place] coronary artery without angina pectoris (Chronic) I25.10 Pure hypercholesterolemia (Chronic) E78.00 Essential (primary) hypertension (Chronic) I10 Chronic diastolic heart failure (Chronic) I50.32 Persistent atrial fibrillation (Chronic) I48.1 HOLGER (obstructive sleep apnea) (Chronic) G47.33 Morbid obesity (Chronic) E66.01 Diabetes mellitus type 2, uncontrolled, without complications (Chronic) E11.65 Abdominal pain R10.9 Arthritis M19.90 Depression F32.9 Gout M10.9 Nausea & vomiting R11.2 Weight loss R63.4 Abnormal stress test (Inactive) R94.39 Allergies No Known Allergies Allergy (Verified 09/05/20 13:39) Home Medications: Ambulatory Orders Medication Instructions Recorded Acetaminophen 500 - 1,000 mg PO Q8H PRN 04/20/20 Apixaban [Eliquis] 5 mg PO BID 04/20/20 Aspirin [Aspirin, Baby] 81 mg PO DAILY@0800 04/20/20 Ergocalciferol (Vitamin D2) 50,000 unit PO TU 04/20/20 [Vitamin D2] Furosemide [Lasix] 40 mg PO DAILY 04/20/20 Glimepiride [Amaryl] 4 mg PO BID 04/20/20 Metoprolol Tartrate 12.5 mg PO BID 04/20/20 Potassium Chloride 20 meq PO DAILY 04/20/20 metFORMIN HCl [Glucophage] 1,000 mg PO BIDCM 04/20/20 Rosuvastatin Calcium 5 mg PO QHS 09/05/20 Surgical History: Surgical History (Last Reviewed 04/20/20 @ 17:26 by Peggy Fierro MACHINE HOOP MAKER, [employer]-C) History of appendectomy Z90.49 History of exploratory laparotomy Z98.890 History of kidney surgery Z98.890 Surgical History: tonsillectomy Psychiatric History: No pertinent psych hx Lives: Spouse/ Significant Other Smoking Status: Former smoker Alcohol: None Drugs: None - *Family History Paternal Family History: Family History (Last Reviewed 04/20/20 @ 17:27 by Peggy Fierro NP, [employer]) Mother CHF (congestive heart failure) Father Cancer History Items: Diabetes Review of Systems Constitutional: Reports: Fatigue. Denies: Chills, Fever Cardiovascular: Reports: Orthopnea. Denies: Claudication Gastrointestinal: Denies: Nausea, Vomiting Skin: Reports: Skin Changes, Wounds Neurological: Reports: Incoordination, Numbness Endocrine: Reports: Change in Body Habitus Patient Problems: Active and Suspected Problems (Last Updated 09/05/20 @ 17:[address] Marjorie Guerrero MD) Cellulitis of right foot (Acute) Ulcer of right foot with fat layer exposed (Acute) Other specified peripheral vascular diseases (Suspected) - Physical Exam Vitals/I&O's: Vital Signs Temp Pulse Resp BP Pulse Ox 98.3 F 73 18 128/69 H 94 09/06/20 12:38 09/06/20 14:00 09/06/20 12:38 09/06/20 12:38 09/06/20 12:38 Oxygen Delivery Method CPAP Weight: 134.9 kg Body Mass Index (BMI) 41.4 Intake and Output for Last 24 Hours 09/04/20 09/05/20 09/06/20 23:59 23:59 23:59 Intake Total 2630.67 / 2830.67 2127.01 / 2127.01 Output Total 250 / 525 1000 / 1000 Balance 2380.67 / 2305.67 1127.01 / 1127.01 General: Alert, Oriented x3, Cooperative HEENT: Atraumatic Extremities: No cyanosis, Capillary Refill Less than 3 Seconds - All digits bilateral lower extremities, No Calf Tenderness - Negative Alejandra sign bilateral, Diminished Peripheral Pulses - Nonpalpable PT and DP pulses bilateral lower extremities, Edema - Bilateral lower extremity edema noted with anterior leg hyperpigmentation Skin: Ulcer/ Wound - Dry eschar plantar medial right hallux stable and well adhered with faint erythema extending the entire location of the hallux. There is no drainage, purulence or odor at this right lower extremity, - - Left lower extremity: There is a small skin discontinuity to the plantar heel with scant serous drainage. Recently epithelialized second toenail bed with no drainage or purulence. There is a skin discontinuity to the anterior leg with granular base with no cellulitis, purulence or odor deep tissue Musculoskeletal: Muscle Wasting, Tenderness - Hypersensitivity with limb elevation and manipulation. No skin tenting. Compartments of bilateral lower extremities remain soft to palpate Neurological: - - Lack of normal epicritic sensation light touch to bilateral foot Psych/Mental Status: Normal Affect, Appropriate Microbiology Past 72 Hours 09/05/20 23:30 Wound - Leg Gram Stain - Final 09/05/20 23:30 Wound - Leg Wound Culture - Preliminary Gram positive organism 09/05/20 15:37 Urine Catheter - Catheter Urine Culture - Preliminary Culture exhibits no growth. 09/05/20 14:40 Mucosa - Nose SARS-CoV-2 Antigen (Rapid) - Final Laboratory Results 09/05/20 14:15: Magnesium 1.5 L, TSH 0.63 09/05/20 15:37: Urine Color Yellow, Urine Clarity Clear, Urine pH 7.0, Ur Specific [place] 1.010, Urine Protein Negative, Urine Glucose (UA) Normal, Urine Ketones Negative, Urine Occult Blood Negative, Urine Nitrite Negative, Urine Bilirubin Negative, Urine Urobilinogen 1 H, Ur Leukocyte Esterase Negative, Urine RBC 0 SEEN, Urine WBC 0 SEEN, Ur Squamous Epith Cells 0-5 SEEN, Ur Renal Epithelial Cell 0-5 SEEN, Urine Bacteria 0 SEEN, Urine Mucus 0 SEEN 09/05/20 19:17: Lactic Acid 1.1 09/05/20 19:17: PT 14.9, INR 1.2 09/05/20 23:10: POC Glucose 79 09/06/20 05:54: WBC 6.1, RBC 3.46 L, Hgb 10.2 L, Hct 31.6 L, MCV 91.3, MCH 29.5, MCHC 32.3, RDW Std Deviation 44.0 H, RDW Coeff of Sh[place] 13.2, Plt Count 246, MPV 8.7, Immature Gran % (Auto) 0.500, Neut % (Auto) 64.3, Lymph % (Auto) 19.8, [place] % (Auto) 10.6 H, Eos % (Auto) 4.1, Baso % (Auto) 0.7, Absolute Neuts (auto) 3.9, Absolute Lymphs (auto) 1.20, Nucleated RBC % 0 09/06/20 05:54: Sodium 140, Potassium 3.6, Chloride 106, Carbon Dioxide 29.0, Anion Gap 5, BUN 10, Creatinine 0.62 L, Estim Creat Clear Calc 71.12, Est GFR (MDRD) Af Amer 163, Est GFR (MDRD) Non-Af 135, BUN/Creatinine Ratio 16.1, Glucose 79, Calcium 8.7, Magnesium 1.8 09/06/20 06:24: POC Glucose 78 09/06/20 11:14: POC Glucose 96 Current Medications Acetaminophen (Acetaminophen 325 Mg Tablet) 650 mg PO Q6H PRN PRN PRN Reason: Pain Score 1-10/Temp > 100.7 F Apixaban (Apixaban 5 Mg Tablet) 5 mg PO BID [facility] Last Admin: 09/06/20 10:25 Dose: 5 mg Documented by: Aspirin (Aspirin 81 Mg Tab.Chew) 81 mg PO DAILY@0800 [facility] Last Admin: 09/06/20 08:16 Dose: 81 mg Documented by: Atorvastatin Calcium (Atorvastatin Calcium 10 Mg Tablet) 10 mg PO QHS [facility] Last Admin: 09/05/20 23:03 Dose: 10 mg Documented by: Furosemide (Furosemide 40 Mg Tablet) 40 mg PO DAILY [facility] Last Admin: 09/06/20 10:25 Dose: 40 mg Documented by: [facility] Potassium Chloride/Sodium Chloride () 1,000 mls @ 100 mls/hr IV .Q10H [facility] Last Infusion: 09/06/20 10:08 Dose: 100 mls/hr Documented by: Piperacillin Sod/Tazobactam (Sod 3.375 gm/ Sodium Chloride) 50 mls @ 12.5 mls/hr IV Q8 [facility] Last Admin: 09/06/20 13:27 Dose: 12.5 mls/hr Documented by: Vancomycin IV Pharmacy to Dose (1 ea/ Sodium Chloride) 500 mls @ 250 mls/hr IV PRN PRN; Protocol PRN Reason: Rx to Dose Vancomycin HCl (Vancomycin) 1,000 mg in 200 mls @ 200 mls/hr IV Q8H [facility] Last Infusion: 09/06/20 10:08 Dose: Infused Documented by: Sodium Chloride () 250 mls @ 15 mls/hr IV .[id number] PRN PRN Reason: Saline Flush Last Infusion: 09/06/20 12:54 Dose: 0 mls/hr Documented by: Sodium Chloride () 250 mls @ 15 mls/hr IV .[id number] PRN PRN Reason: Additional IVPB Infusion Insulin Human Lispro (Insulin Lispro 100 Unit/Ml Insuln.Pen) 0 unit [facility]; Protocol Last Admin: 09/06/20 12:10 Dose: Not Given Documented by: Metoprolol Tartrate (Metoprolol Tartrate 25 Mg Tablet) 12.5 mg PO BID [facility] Last Admin: 09/06/20 10:25 Dose: 12.5 mg Documented by: Nystatin (Nystatin Powder 15gm Bottle) 1 applic TOPICAL TID [facility]; Protocol Last Admin: 09/06/20 13:27 Dose: 1 applicatio Documented by: Ondansetron HCl (Ondansetron 4 Mg/2 Ml Vial) 4 mg IV Q8H PRN PRN PRN Reason: NAUSEA/VOMITING Potassium Chloride (Potassium Chloride Oral Tablet 20 Meq) 40 meq PO DAILYCM [facility] Senna/Docusate Sodium (Senna/Docusate Sodium 1 Tablet) 2 tablet PO BID PRN PRN PRN Reason: Constipation Sodium Chloride (0.9% Saline Lock 10 Ml Syringe) 10 - 40 ml IV UD PRN PRN Reason: SALINE FLUSH Last Admin: 09/06/20 13:28 Dose: 10 ml Documented by: Zolpidem Tartrate (Zolpidem Tartrate 5 Mg Tablet) 5 mg PO QHS PRN PRN PRN Reason: INSOMNIA Assessment/Plan All Active Problems (Last Updated 09/05/20 @ 17:[address] Marjorie Guerrero MD) Cellulitis of right foot (Acute) Ulcer of right foot with fat layer exposed (Acute) Edema of lower eyelid of both eyes (Acute) Right toe and foot cellulitis Ulcer right hallux, stable eschar (grade 1) Left leg ulcer, no cellulitis Plantar left heel ulcer (grade 1) Left second toe injury healed with no current wound Lower extremity edema (potential etiologies include cardiac, venous insufficiency) Peripheral vascular disease lower extremities suspected Diabetes with neuropathy Other comorbidities Reviewed and discussed his case. His diagnostic data was also reviewed. He is afebrile at this time. His white blood cell count today is 6.1. Lactic acid improved to 1.1. It is noted he was admitted with sepsis status and is stabilizing. Multiple cultures were obtained including blood and urine. The left leg culture was obtained and that is demonstrating gram-positive organisms so far. Culture of the right toe was not obtained because there is only a dry eschar with no active drainage. He was started on vancomycin and Zosyn. Lower extremity surgery is not recommended at this time. He appears to be initially responding to his treatment course well. I am concerned about his recurrent ulcers over the past several years and recommend screening for peripheral vascular disease. Noninvasive vascular studies were ordered. Eschar was debrided on the right hallux with a 15 blade without any active wound drainage or infection drainage identified. I recommend changing the site daily with collagenase. This order was placed. The left leg ulcer site was debrided with a 15 blade scalpel after verbal consent was obtained to remove fibrous tissue, devitalized subcutaneous tissue, biofilm, slough. He tolerated this well and pressure was applied to maintain hemostasis. I recommend changing this daily with hydrogel and Adaptic. The predebridement measurement was 6.6 x 1.9 x 0.1 cm in which 25% of this area was debrided because this is a cluster. The post debridement measurement included 6.9 x 2.0 x 0.1 cm. The dressings were applied to the site as well. To continue bilateral Ray wrap application to control edema. It is noted he has debility and is a non ambulator. He will continue to work with PT and OT for debility prevention. Medical management DVT prophylaxis per primary team is noted. Thank you for the consultation. I will continue to follow him closely while in house. Mecca Irving DPM, [facility] [phone]
--- NOTE | 2020-09-06 15:32 | ART_ITS ---
Reason For Study: ulcer Procedure A bilateral lower extremity continuous wave Doppler with analog waveform analysis,segmental pressures,and ankle brachial indexes without exercise. Left Segmental Pressures Left posterior tibial artery = 156mmHg. Left dorsalis pedis artery = 171mmHg. Left digit = 67 mmHg. The left dorsalis pedis waveforms are monophasic. The left posterior tibial artery waveforms are monophasic. Right Segmental Pressures Right brachial= 154mmHg. Right digit = 55 mmHg. METER MECHANIC and DPA are noncompressible. The right dorsalis pedis waveforms are monophasic. The right posterior tibial artery waveforms are monophasic. Indices The right digital-brachial index is .36. The left ankle brachial index by the dorsalis pedis is 1.11. The left ankle brachial index by the posterior tibial artery is 1.01. The left digital- brachial index is .44. Interpretation Summary Monophasic Doppler waveforms are noted at ankle level bilaterally. Pulse-volume recordings appear satisfactory bilaterally. The resting right ankle-brachial index could not be determined due to the non-compressibility of the vasculature at ankle level on the right. The resting left ankle-brachial index is normal. Digital-brachial indices are moderately diminished bilaterally. There is evidence of arterial calcification at ankle level on the right. Therefore, the resting right ankle-brachial index could not be determined. The resting left ankle-brachial index is normal, though may be artifactually elevated due to arterial calcification. In this regard, clinicl correlation is advised. There is evidence of moderate, distal, small-vessel arterial occlusive disease at digital level bilaterally. Ordering Physician: Mecca Irving Performed By: FILIBERTO FRIAS T
[2020-09-06 17:11] LABS: Bedside Glucose 52 mg/dL (70-110)
[2020-09-06] MEDS: Glimepiride 4 MG Tablet 2 MG PO (17:24)
[2020-09-06 17:38] LABS: Vancomycin, Trough Level 17.9 ug/mL (5.0-15.0)
--- NOTE | 2020-09-06 20:12 | PCM.RX.CS ---
Consult Pharmacy has been consulted to manage selected antiobiotic: Vancomycin Type of Consult: Follow-up Suspected Infection: Skin/Soft tissue Prior Doses of Antibiotics Received/Current Regimen: Currently on 1gm iv q8h. Labs: Sodium 140 mmol/L (136-145) 09/06/20 05:54 Potassium 3.6 mmol/L (3.5-5.1) 09/06/20 05:54 Chloride 106 mmol/L (98-107) 09/06/20 05:54 Carbon Dioxide 29.0 mmol/L (21.0-32.0) 09/06/20 05:54 Anion Gap 5 (5-15) 09/06/20 05:54 BUN 10 mg/dL (7-18) 09/06/20 05:54 Creatinine 0.62 mg/dL (0.70-1.30) L 09/06/20 05:54 Est GFR (MDRD) Af Amer 163 mL/min (>60) 09/06/20 05:54 Est GFR (MDRD) Non-Af 135 mL/min (>60) 09/06/20 05:54 BUN/Creatinine Ratio 16.1 RATIO (10-20) 09/06/20 05:54 Glucose 79 mg/dL (74-106) 09/06/20 05:54 Vancomycin Trough 17.9 ug/mL (5.0-15.0) H 09/06/20 16:15 Microbiology: Microbiology 09/05/20 23:30 Wound - Leg Gram Stain - Final 09/05/20 23:30 Wound - Leg Wound Culture - Preliminary Gram positive organism 09/05/20 15:37 Urine Catheter - Catheter Urine Culture - Preliminary Culture exhibits no growth. 09/05/20 14:40 Mucosa - Nose SARS-CoV-2 Antigen (Rapid) - Final Weight used for dosin.9 kg Estimated Creatinine Clearance: >100ml/min Goal Trough: 15-20 mcg/mL Pharmacy Plan for Drug Dosing: Vancomycin trough today 17.9 ~7 hrs post previous dose. Level in goal range of 15-20mcg/ml, therefore will continue same dose. A repeat trough level has been ordered for prior to another 4th dose per protocol. Pharmacy Service will continue to monitor and adjust dosing as required. Follow-Up Labs: Trough Vancomycin - 2.26.21 @1630 before 1700 dose
[2020-09-06] MEDS: Atorvastatin Calcium 10 MG Tablet PO (21:19)
[2020-09-06 22:51] LABS: Bedside Glucose 62 mg/dL (70-110)
[2020-09-06 22:51] LABS: Bedside Glucose 52 mg/dL (70-110)
[2020-09-06 23:30] LABS: Bedside Glucose 62 mg/dL (70-110)
[2020-09-07] VITALS (15 sets, daily range): BP systolic 138–150; BP diastolic 57–83; PULSE 67–83; RESP 15–18; TEMP 36.3–36.9; O2SAT 97–98
[2020-09-07] MEDS: Dextrose 50%-Water 25 GM/50 ML DISP.SYRIN IV (00:04)
[2020-09-07] MEDS: Vancomycin IV 1,000 MG/200 ML BAG 200 MG IV ×3 (01:05→17:15)
[2020-09-07 01:16] LABS: Bedside Glucose 84 mg/dL (70-110)
[2020-09-07 05:14] LABS: Absolute Lymphocyte Count 1.26 X10^3/uL (0.83-4.51); Absolute Neutrophil Count 4.8 X10^3/uL (2.0-7.7); Basophil# 0.04 X10^3/uL; Basophil% 0.6 % (0-1); Eosinophil# 0.36 X10^3/uL; Hematocrit 32.4 % (40-54); Hemoglobin 10.3 g/dL (13.0-16.5); Lymphocyte # 1.26 X10^3/ul (4.0); Lymphocyte % 17.6 % (19-41); Mean Corp Hgb Conc 31.8 g/dL (32-36); Mean Corpuscular Hgb 29.4 pg (27.0-32.0); Mean Corpuscular Volume 92.6 fL (80-94); Mean Platelet Vol. 8.5 fl (6.2-12.0); Monocyte# 0.64 X10^3/uL; Monocyte% 8.9 % (0-10); NRBC Flagged by Analyzer 0 % (0-5); Neutrophil # 4.83 X10^3/uL (2.7-7.7); Neutrophil % 67.5 % (47-70); Platelet Count 250 K/mm3 (150-450); RBC Distribution Width CV 13.2 % (11.6-14.6); RBC Distribution Width SD 45.1 fl (35.1-43.9); White Blood Count 7.2 K/mm3 (4.4-11.0)
[2020-09-07 05:38] LABS: Anion Gap 6 (5-15); BUN 10 mg/dL (7-18); BUN/Creat Ratio 14.5 RATIO (10-20); Calcium,Total 8.8 mg/dL (8.5-10.1); Chloride 104 mmol/L (98-107); Creatinine, Serum 0.69 mg/dL (0.70-1.30); EST Glomerular Filtration Rate 120 mL/min (>60); Est Glom Filt Rate - Afr Amer 145 mL/min (>60); Estimated Creatinine Clearance 71.12 ml/min; Glucose 47 mg/dL (74-106); Magnesium 1.5 mg/dL (1.6-2.6); Potassium 3.3 mmol/L (3.5-5.1); Sodium Level 138 mmol/L (136-145)
[2020-09-07] MEDS: Nystatin Powder 15gm Bottle 1 APPLIC TOPICAL ×3 (06:40→21:48)
[2020-09-07 07:01] LABS: Bedside Glucose 48 mg/dL (70-110)
[2020-09-07] MEDS: Furosemide 40 MG Tablet PO (07:59)
[2020-09-07] MEDS: Aspirin 81 MG TAB.CHEW PO (07:59)
[2020-09-07] MEDS: Glimepiride 4 MG Tablet 2 MG PO (08:00)
[2020-09-07] MEDS: Potassium Chloride Oral Tablet 20 MEQ 40 MEQ PO ×2 (08:00→17:17)
[2020-09-07] MEDS: APIXABAN 5 MG TABLET PO ×2 (08:00→21:48)
[2020-09-07] MEDS: Metoprolol Tartrate 25 MG Tablet 12.5 MG PO ×2 (08:01→21:49)
--- NOTE | 2020-09-07 08:01 | CASEMGMT ---
Social Work Note SW received message from Estelita at [facility] stating they are able to accept pt and will submit for pre-cert. Plan: [facility] pending pre-cert Bruna Branham [employer], [employer]
--- NOTE | 2020-09-07 08:23 | PN_ITS ---
Patient Problems: Active and Suspected Problems (Last Updated 09/05/20 @ 17:[address] Marjorie Guerrero MD) Cellulitis of right foot (Acute) Ulcer of right foot with fat layer exposed (Acute) Other specified peripheral vascular diseases (Suspected) Subjective: The patient is a 70 year old M with significant past medical history of diabetes, congestive heart failure, atrial fibrillation, hypertension and debility was seen bedside for follow-up of right great toe wound with cellulitis and left lower extremity ulcers as well. He denies fever, chill, nausea, vomiting, loss of appetite. He reports pain to lower extremities when moved or elevated, otherwise denies ulcer pain. He had his vascular studies completed yesterday and would like to review the results. He continues on antibiotics. - Physical Exam Vitals/I&O's: Vital Signs Temp Pulse Resp BP Pulse Ox 97.3 F L 83 16 138/57 H 98 09/07/20 08:14 09/07/20 08:22 09/07/20 08:14 09/07/20 08:14 09/07/20 08:14 Oxygen Delivery Method CPAP Weight: 134.9 kg Body Mass Index (BMI) 41.4 Intake and Output for Last 24 Hours 09/05/20 09/06/20 09/07/20 23:59 23:59 23:59 Intake Total 2630.67 / 2830.67 3625.34 / 3625.34 1813 / 1813 Output Total 250 / 525 2350 / 2350 1250 / 1250 Balance 2380.67 / 2305.67 1275.34 / 1275.34 563 / 563 General: Alert, Oriented x3, Cooperative HEENT: Atraumatic Extremities: Capillary Refill Less than 3 Seconds, No Calf Tenderness, Diminished Peripheral Pulses - Nonpalpable PT and DP pulses lateral, Edema - Bilateral lower extremities Skin: Ulcer/ Wound - Dry superficial eschar to plantar medial right hallux with resolved erythema. There is no purulence, streaking or odor to this foot. To her heel ulcer and anterior leg ulcers have mainly granular base and are superficial without localized signs of infection or odor, - - Bilateral lower extremity skin is hairless, atrophic, and dry Musculoskeletal: No Tenderness to Palpation of Joints or Extremities, Muscle Wasting Neurological: - - Lack of normal epicritic sensation light touch to bilateral feet Psych/Mental Status: Normal Affect, Appropriate Microbiology Past 72 Hours 09/05/20 23:30 Wound - Leg Gram Stain - Final 09/05/20 23:30 Wound - Leg Wound Culture - Preliminary Gram positive organism 09/05/20 23:30 Wound - Leg Anaerobic Culture - Preliminary No anaerobic bacteria isolated. 09/05/20 15:37 Urine Catheter - Catheter Urine Culture - Preliminary Culture exhibits no growth. 09/05/20 14:40 Mucosa - Nose SARS-CoV-2 Antigen (Rapid) - Final Laboratory Results 09/06/20 11:14: POC Glucose 96 09/06/20 16:15: Vancomycin Trough 17.9 H 09/06/20 16:54: POC Glucose 52 L 09/06/20 21:13: POC Glucose 52 L 09/06/20 22:45: POC Glucose 62 L 09/06/20 23:27: POC Glucose 62 L 09/07/20 01:08: POC Glucose 84 09/07/20 04:50: WBC 7.2, RBC 3.50 L, Hgb 10.3 L, Hct 32.4 L, MCV 92.6, MCH 29.4, MCHC 31.8 L, RDW Std Deviation 45.1 H, RDW Coeff of Shantell 13.2, Plt Count 250, MPV 8.5, Immature Gran % (Auto) 0.400, Neut % (Auto) 67.5, Lymph % (Auto) 17.6 L, [place] % (Auto) 8.9, Eos % (Auto) 5.0, Baso % (Auto) 0.6, Absolute Neuts (auto) 4.8, Absolute Lymphs (auto) 1.26, Nucleated RBC % 0 09/07/20 04:50: Sodium 138, Potassium 3.3 L, Chloride 104, Carbon Dioxide 28.0, Anion Gap 6, BUN 10, Creatinine 0.69 L, Estim Creat Clear Calc 71.12, Est GFR (MDRD) Af Amer 145, Est GFR (MDRD) Non-Af 120, BUN/Creatinine Ratio 14.5, Glucose 47 L, Calcium 8.8, Magnesium 1.5 L 09/07/20 06:46: POC Glucose 48 L Current Medications Acetaminophen (Acetaminophen 325 Mg Tablet) 650 mg PO Q6H PRN PRN PRN Reason: Pain Score 1-10/Temp > 100.7 F Apixaban (Apixaban 5 Mg Tablet) 5 mg PO BID [facility] Last Admin: 09/07/20 08:00 Dose: 5 mg Documented by: Aspirin (Aspirin 81 Mg Tab.Chew) 81 mg PO DAILY@0800 [facility] Last Admin: 09/07/20 07:59 Dose: 81 mg Documented by: Atorvastatin Calcium (Atorvastatin Calcium 10 Mg Tablet) 10 mg PO QHS [facility] Last Admin: 09/06/20 21:19 Dose: 10 mg Documented by: Collagenase (Collagenase 30gm Tube) 1 applic TOPICAL DAILY [facility]; Protocol Dextrose (Dextrose 50%-Water 25 Gm/50 Ml Disp.Syrin) 0 gm IV X1 PRN; Protocol PRN Reason: Hypoglycemia Last Admin: 09/07/20 00:04 Dose: 25 gm Documented by: Furosemide (Furosemide 40 Mg Tablet) 40 mg PO DAILY [facility] Last Admin: 09/07/20 07:59 Dose: 40 mg Documented by: Glimepiride (Glimepiride 4 Mg Tablet) 2 mg PO BIDCM [facility] Last Admin: 09/07/20 08:00 Dose: 2 mg Documented by: Glucagon (Glucagon 1 Mg/Ml Syringe) 1 mg IM .X1 PRN PRN Reason: Hypoglycemia Potassium Chloride/Sodium Chloride () 1,000 mls @ 100 mls/hr IV .Q10H [facility] Last Admin: 09/07/20 06:40 Dose: 100 mls/hr Documented by: Piperacillin Sod/Tazobactam (Sod 3.375 gm/ Sodium Chloride) 50 mls @ 12.5 mls/hr IV Q8 [facility] Last Admin: 09/07/20 06:40 Dose: 12.5 mls/hr Documented by: Vancomycin IV Pharmacy to Dose (1 ea/ Sodium Chloride) 500 mls @ 250 mls/hr IV PRN PRN; Protocol PRN Reason: Rx to Dose Vancomycin HCl (Vancomycin) 1,000 mg in 200 mls @ 200 mls/hr IV Q8H [facility] Last Infusion: 09/07/20 02:07 Dose: Infused Documented by: Sodium Chloride () 250 mls @ 15 mls/hr IV .[id number] PRN PRN Reason: Saline Flush Last Infusion: 09/07/20 08:07 Dose: Infused Documented by: Sodium Chloride () 250 mls @ 15 mls/hr IV .[id number] PRN PRN Reason: Additional IVPB Infusion Insulin Human Lispro (Insulin Lispro 100 Unit/Ml Insuln.Pen) 0 unit SC ACHS [facility]; Protocol Last Admin: 09/07/20 06:47 Dose: Not Given Documented by: Metoprolol Tartrate (Metoprolol Tartrate 25 Mg Tablet) 12.5 mg PO BID [facility] Last Admin: 09/07/20 08:01 Dose: 12.5 mg Documented by: Nystatin (Nystatin Powder 15gm Bottle) 1 applic TOPICAL TID [facility]; Protocol Last Admin: 09/07/20 06:40 Dose: 1 applicatio Documented by: Ondansetron HCl (Ondansetron 4 Mg/2 Ml Vial) 4 mg IV Q8H PRN PRN PRN Reason: NAUSEA/VOMITING Potassium Chloride (Potassium Chloride Oral Tablet 20 Meq) [facility] Stop: 09/09/20 08:01 Last Admin: 09/07/20 08:00 Dose: 40 meq Documented by: Senna/Docusate Sodium (Senna/Docusate Sodium 1 Tablet) 2 tablet PO BID PRN PRN PRN Reason: Constipation Sodium Chloride (0.9% Saline Lock 10 Ml Syringe) 10 - 40 ml IV UD PRN PRN Reason: SALINE FLUSH Last Admin: 09/06/20 13:28 Dose: 10 ml Documented by: Zolpidem Tartrate (Zolpidem Tartrate 5 Mg Tablet) 5 mg PO QHS PRN PRN PRN Reason: INSOMNIA Medical Necessity - Tobacco Use Smoking Status: Former smoker Assessment/Plan All Active Problems (Last Updated 09/05/20 @ 17:[address] Marjorie Guerrero MD) Cellulitis of right foot (Acute) Ulcer of right foot with fat layer exposed (Acute) Edema of lower eyelid of both eyes (Acute) Right toe and foot cellulitis Ulcer right hallux, stable eschar Left leg ulcer, no cellulitis (culture obtained) Plantar left heel ulcer (grade 1) Left second toe injury healed with no current wound Lower extremity edema (potential etiologies include cardiac, venous insuffic iency) Peripheral vascular disease lower extremities suspected Diabetes with neuropathy Other comorbidities Reviewed and discussed his case. His diagnostic data was also reviewed. He is afebrile at this time. His white blood cell count today is 7.2. The left leg culture was obtained and that is demonstrating Staph aureus and a potential second organism so far. Culture of the right toe was not obtained because there is only a dry eschar with no active drainage. Continues on vancomycin and Zosyn. He is clinically improving with resolution of cellulitis. There is no purulence or deep tissue exposure to the lower extremities. I am concerned about his recurrent ulcers over the past several years and recommend screening for peripheral vascular disease. Noninvasive vascular studies were ordered and the results were discussed today. He has noncompressible vessels. Left NICK is 1.11, right digital brachial index is 0.36, left digital brachial index is 0.44, bilateral PT and DP monophasic waveforms noted. I recommended vascular surgery referral outpatient with Dr. Perez. Dressings were applied today with Santyl to the right hallux applied nickel thickness. Adaptic was applied to the left plantar heel and anterior leg. Secondary dressings were applied with additional bilateral lower extremity Ray wraps. It is noted he has debility and is a non ambulator. He will continue to work with PT and OT for debility prevention. Medical management DVT prophylaxis per primary team is noted. Discussed case with Dr. Murphy. Please do not hesitate to call if you have any questions. I will continue to follow him while in house. After discharge I recommend he follows up with vascular surgery. He is amenable to see Dr. Perez in the [place] area on Thursday. I also recommend that he follows up at the wound healing center. Mecca Irving DPM, [facility] [phone]
[2020-09-07] MEDS: Collagenase 30gm Tube 1 APPLIC TOPICAL (09:10)
[2020-09-07 11:05] LABS: Bedside Glucose 77 mg/dL (70-110)
--- NOTE | 2020-09-07 11:25 | DCINST_ITS ---
Discharge Activity: May Shower Weight Bearing Status: - - He is a non ambulator Call your doctor if your incision/area has: Continuous Slow Oozing, Sudden Increased Bleeding, Increased Pain/ Swelling, Increased Redness, Foul Smelling Discharge Call your doctor if you observe: Fever of 101 or Higher, Calf discomfort, Uncontrolled pain Cleanse incision/area with: Soap & Water Additional Dressing/Incision Instructions:: Change right hallux dressing daily with santyl (applied nickel thickness), gauze, shaka roll, ANUSHA (applied foot to proximal leg). Change left heel and leg dressing daily with hydrogel and adaptic, gauze, kerlix, ANUSHA (applied foot to proximal leg). Apply lotion peripheral (not on ulcers). Wash limbs with antibacterial soap and water. Allergies/Adverse Reactions: Allergies No Known Allergies Allergy (Verified 09/05/20 13:39) Medications to take at Discharge Acetaminophen 500 - 1,000 mg PO Q8H PRN 04/20/20 Apixaban [Eliquis] 5 mg PO BID 04/20/20 Aspirin [Aspirin, Baby] 81 mg PO DAILY@0800 04/20/20 Ergocalciferol (Vitamin D2) [Vitamin D2] 50,000 unit PO TU 04/20/20 Furosemide [Lasix] 40 mg PO DAILY 04/20/20 Glimepiride [Amaryl] 4 mg PO BID 04/20/20 Metoprolol Tartrate 12.5 mg PO BID 04/20/20 Potassium Chloride 20 meq PO DAILY 04/20/20 metFORMIN HCl [Glucophage] 1,000 mg PO BIDCM 04/20/20 Rosuvastatin Calcium 5 mg PO QHS 09/05/20 Primary Care Physician: NOT,DEFINED [NON-STAFF] - Test Results: Test results from this visit will be discussed in further detail at your follow- up appointment, if applicable. Please Follow Up With: Clinic,Wound When: next week. Call [phone] to schedule Please Follow Up With: Angel Perez MD When: w/in 2-3 weeks. Call [phone]. Proposed Discharge Date: 09/08/20
--- NOTE | 2020-09-07 12:03 | CASEMGMT ---
Social Work Precert has been obtained to go to [facility]. Dr. Murphy notified and discharge planned for tomorrow. GLO met with pt and in pt room and informed that [facility] can accept and insurance has given preauth. Per physician, likely discharge on Thursday. Pt and agreeable. states she cannot transport pt as he cannot get in and out of her car. SW informed if pt does not qualify for cot, pt will be responsible for cost of WC transport. Pt agreeable. [id number] form completed. Plan: [facility], when medically ready ESTEBAN Whitaker
[2020-09-07] MEDS: Acetaminophen 325 MG Tablet 650 MG PO (12:38)
--- NOTE | 2020-09-07 13:06 | CON.PCM_ITS ---
Problem List (1) Edema of both lower extremities Status: Chronic Reason for Consult: cellulitis Consulted by: Dr. Murphy History of Present Illness: The patient is a 70 year old M with DM neuropathy, obesity, HOLGER, presented to ED with 5 days of progressive L lower leg redness, swelling, redness. No fever or chills, no abx prior to admit. No inciting event. Came to ED, admitted on vanc/zosyn, seen by podiatry, leg cx pending. Feeling a little better. Full ROS performed and neg except as noted above. - Medical History Past Medical History (Chronic Problems): Chronic Problems (Last Updated 09/05/20 @ 17:[address] Marjorie Guerrero MD) Ulcer of left lower extremity with fat layer exposed (Chronic) Edema of both lower extremities (Chronic) Tinea unguium (Chronic) Type 2 diabetes mellitus with diabetic polyneuropathy (Chronic) Ambulatory dysfunction (Chronic) Degenerative arthritis of knee, bilateral (Chronic) Debility (Chronic) Tobacco dependence due to chewing tobacco (Chronic) Generalized weakness (Chronic) Upper gastrointestinal bleed (Chronic) Atherosclerotic heart disease of [place] coronary artery without angina pectoris (Chronic) Pure hypercholesterolemia (Chronic) Essential (primary) hypertension (Chronic) Chronic diastolic heart failure (Chronic) Persistent atrial fibrillation (Chronic) HOLGER (obstructive sleep apnea) (Chronic) Morbid obesity (Chronic) Diabetes mellitus type 2, uncontrolled, without complications (Chronic) Allergies/Adverse Reactions: Allergies No Known Allergies Allergy (Verified 09/05/20 13:39) Home Medications: Ambulatory Orders Medication Instructions Recorded Acetaminophen 500 - 1,000 mg PO Q8H PRN 04/20/20 Apixaban [Eliquis] 5 mg PO BID 04/20/20 Aspirin [Aspirin, Baby] 81 mg PO DAILY@0800 04/20/20 Ergocalciferol (Vitamin D2) 50,000 unit PO TU 04/20/20 [Vitamin D2] Furosemide [Lasix] 40 mg PO DAILY 04/20/20 Glimepiride [Amaryl] 4 mg PO BID 04/20/20 Metoprolol Tartrate 12.5 mg PO BID 04/20/20 Potassium Chloride 20 meq PO DAILY 04/20/20 metFORMIN HCl [Glucophage] 1,000 mg PO BIDCM 04/20/20 Rosuvastatin Calcium 5 mg PO QHS 09/05/20 - Social History SMOKING STATUS:: Former smoker Vital Signs Temp Pulse Resp BP Pulse Ox 97.3 F L 83 16 138/57 H 98 09/07/20 08:14 09/07/20 08:22 09/07/20 08:14 09/07/20 08:14 09/07/20 08:14 Oxygen Delivery Method CPAP Weight: 134.9 kg Body Mass Index (BMI) 41.4 Microbiology Past 72 Hours 09/05/20 15:37 Urine Culture - Final Urine Catheter - Catheter Culture exhibits no growth. 09/05/20 23:30 Gram Stain - Final Wound - Leg Wound Culture - Preliminary Staphylococcus aureus Anaerobic Culture - Preliminary No anaerobic bacteria isolated. 09/05/20 14:49 Blood Culture - Preliminary Blood Culture (Wb) - Anticubital Left No growth in 48 hours. 09/05/20 14:15 Blood Culture - Preliminary Blood Culture (Wb) - Anticubital Right No growth in 48 hours. 09/05/20 14:40 SARS-CoV-2 Antigen (Rapid) - Final Mucosa - Nose Laboratory Tests Past 24 Hrs 09/06/20 09/07/20 09/07/20 16:15 04:50 04:50 WBC 7.2 RBC 3.50 L Hgb 10.3 L Hct 32.4 L MCV 92.6 MCH 29.4 MCHC 31.8 L RDW Std Deviation 45.1 H RDW Coeff of Shantell 13.2 Plt Count 250 MPV 8.5 Immature Gran % (Auto) 0.400 Neut % (Auto) 67.5 Lymph % (Auto) 17.6 L [place]cher % (Auto) 8.9 Eos % (Auto) 5.0 Baso % (Auto) 0.6 Absolute Neuts (auto) 4.8 Absolute Lymphs (auto) 1.26 Nucleated RBC % 0 Sodium 138 Potassium 3.3 L Chloride 104 Carbon Dioxide 28.0 Anion Gap 6 BUN 10 Creatinine 0.69 L Estim Creat Clear Calc 71.12 Est GFR (MDRD) Af Amer 145 Est GFR (MDRD) Non-Af 120 BUN/Creatinine Ratio 14.5 Glucose 47 L Calcium 8.8 Magnesium 1.5 L Vancomycin Trough 17.9 H MRSA (PCR) 09/07/20 12:30 WBC RBC Hgb Hct MCV MCH MCHC RDW Std Deviation RDW Coeff of Shantell Plt Count MPV Immature Gran % (Auto) Neut % (Auto) Lymph % (Auto) [place]cher % (Auto) Eos % (Auto) Baso % (Auto) Absolute Neuts (auto) Absolute Lymphs (auto) Nucleated RBC % Sodium Potassium Chloride Carbon Dioxide Anion Gap BUN Creatinine Estim Creat Clear Calc Est GFR (MDRD) Af Amer Est GFR (MDRD) Non-Af BUN/Creatinine Ratio Glucose Calcium Magnesium Vancomycin Trough MRSA (PCR) Pending - Other Studies Radiology: [] reviewed Other Studies: [] Route of nutrition/ use of supplements: [] Nutritional Intake: [] IV Site: [] Romano Catheter: [] - Physical Exam General: Alert, Oriented x3, Cooperative, No apparent distress HEENT: Atraumatic, PERRLA, EOMI Neck: Supple, No Nodes Lungs: Clear to auscultation, Normal air movement Cardiovascular: Regular rate, Regular Rhythm Abdomen: Soft, Non Tender, Non-Distended, Obese Extremities: Edema Skin: Ulcer/ Wound - reviewed photos of BLE IV Site: Peripheral, without redness Musculoskeletal: No Tenderness to Palpation of Joints or Extremities Neurological: Cranial nerves II-XII grossly intact - Assessment/Plan Antibiotics: [] Assessment/Plan: [] Active and Suspected Problems (Last Updated 09/05/20 @ 17:[address] Marjorie Guerrero MD) Cellulitis of right foot (Acute) Ulcer of right foot with fat layer exposed (Acute) Other specified peripheral vascular diseases (Suspected) L lower leg cellulitis with DM neuropathy - on vanc/zosyn. Seen by podiatry. Wound cx with staph aureus and a 2nd organism. Normal wbc, no fever, no sign of deeper involvement at this time. Will narrow zosyn to unasyn. Likely will be able to go on 5-7 day po course of abx, like doxy and augmentin, depending on further cx results. Will follow, thank you
[2020-09-07 14:56] LABS: M R Staph aureus DNA By PCR Negative (Negative); Probe Check PASS; Specimen Processing Control PASS
--- NOTE | 2020-09-07 15:13 | PN_ITS ---
Patient Problems: Active and Suspected Problems (Last Updated 09/05/20 @ 17:[address] Marjorie Guerrero MD) Cellulitis of right foot (Acute) Ulcer of right foot with fat layer exposed (Acute) Other specified peripheral vascular diseases (Suspected) Reason for Visit: Follow-up for leg wound/ulcer. Objective: Heart rate and blood pressure are normal. Pulse ox 97% on room air. Patient we are CPAP. Bilateral Ray wrap bandage. Physical exam General: Alert, Oriented x3, Cooperative HEENT: Atraumatic, PERRLA, EOMI, Normocephalic Oral: No Gingival or Mucosal Lesions/ Ulcerations Neck: Supple, No JVD, Negative Carotid Bruits Lungs: Air entry diminished in bilateral lung bases. Bilateral expiratory rhonchi. On CPAP. Cardiovascular: Chronic A. fib, Normal S1, Normal S2, No murmurs Abdomen: Bowel Sounds Present, Soft, Non Tender, Non-Distended. Lower midline surgical scar old : No renal angle tenderness. No suprapubic tenderness. Extremities: Mild bilateral leg edema, Capillary Refill Less than 3 Seconds Skin: Grayish pigmentation of both lower lobes suggestive of stasis dermatitis.Multiple scabbed over right great toe, small left plantar ulcer, left second toenail, superficial left leg suggestive of venous ulcer Musculoskeletal: Weakness of both legs at hip and knee joints. ROM restricted Neurological: Cranial nerves II-XII grossly intact, no sensation over the greater toe, loss of position sense. Sensation intact in fifth toe. Psych/Mental Status: Normal Affect, Appropriate. Vitals/I&O's: Vital Signs Temp Pulse Resp BP Pulse Ox 98.2 F 67 16 150/83 H 97 09/07/20 14:20 09/07/20 14:27 09/07/20 14:20 09/07/20 14:20 09/07/20 14:20 Oxygen Delivery Method Room Air Weight: 297 lb 6.457 oz Body Mass Index (BMI) 41.4 Intake and Output for Last 24 Hours 09/05/20 09/06/20 09/07/20 23:59 23:59 23:59 Intake Total 2630.67 / 2830.67 3625.34 / 3625.34 2728.33 / 2728.33 Output Total 250 / 525 2350 / 2350 2175 / 2175 Balance 2380.67 / 2305.67 1275.34 / 1275.34 553.33 / 553.33 Microbiology Past 72 Hours 09/05/20 15:37 Urine Catheter - Catheter Urine Culture - Final Culture exhibits no growth. 09/05/20 23:30 Wound - Leg Gram Stain - Final 09/05/20 23:30 Wound - Leg Wound Culture - Preliminary Staphylococcus aureus 09/05/20 23:30 Wound - Leg Anaerobic Culture - Preliminary No anaerobic bacteria isolated. 09/05/20 14:49 Blood Culture (Wb) - Anticubital Left Blood Culture - Preliminary No growth in 48 hours. 09/05/20 14:15 Blood Culture (Wb) - Anticubital Right Blood Culture - Preliminary No growth in 48 hours. 09/05/20 14:40 Mucosa - Nose SARS-CoV-2 Antigen (Rapid) - Final Laboratory Results 09/06/20 16:15: Vancomycin Trough 17.9 H 09/06/20 16:54: POC Glucose 52 L 09/06/20 21:13: POC Glucose 52 L 09/06/20 22:45: POC Glucose 62 L 09/06/20 23:27: POC Glucose 62 L 09/07/20 01:08: POC Glucose 84 09/07/20 04:50: WBC 7.2, RBC 3.50 L, Hgb 10.3 L, Hct 32.4 L, MCV 92.6, MCH 29.4, MCHC 31.8 L, RDW Std Deviation 45.1 H, RDW Coeff of Shantell 13.2, Plt Count 250, MPV 8.5, Immature Gran % (Auto) 0.400, Neut % (Auto) 67.5, Lymph % (Auto) 17.6 L, [place] % (Auto) 8.9, Eos % (Auto) 5.0, Baso % (Auto) 0.6, Absolute Neuts (auto) 4.8, Absolute Lymphs (auto) 1.26, Nucleated RBC % 0 09/07/20 04:50: Sodium 138, Potassium 3.3 L, Chloride 104, Carbon Dioxide 28.0, Anion Gap 6, BUN 10, Creatinine 0.69 L, Estim Creat Clear Calc 71.12, Est GFR (MDRD) Af Amer 145, Est GFR (MDRD) Non-Af 120, BUN/Creatinine Ratio 14.5, Glucose 47 L, Calcium 8.8, Magnesium 1.5 L 09/07/20 06:46: POC Glucose 48 L 09/07/20 11:02: POC Glucose 77 09/07/20 12:30: MRSA (PCR) Negative Current Medications Acetaminophen (Acetaminophen 325 Mg Tablet) 650 mg PO Q6H PRN PRN PRN Reason: Pain Score 1-10/Temp > 100.7 F Last Admin: 09/07/20 12:38 Dose: 650 mg Documented by: Apixaban (Apixaban 5 Mg Tablet) 5 mg PO BID [facility] Last Admin: 09/07/20 08:00 Dose: 5 mg Documented by: Aspirin (Aspirin 81 Mg Tab.Chew) 81 mg PO DAILY@0800 [facility] Last Admin: 09/07/20 07:59 Dose: 81 mg Documented by: Atorvastatin Calcium (Atorvastatin Calcium 10 Mg Tablet) 10 mg PO QHS [facility] Last Admin: 09/06/20 21:19 Dose: 10 mg Documented by: Collagenase (Collagenase 30gm Tube) 1 applic TOPICAL DAILY [facility]; Protocol Last Admin: 09/07/20 09:10 Dose: 1 applicatio Documented by: Dextrose (Dextrose 50%-Water 25 Gm/50 Ml Disp.Syrin) 0 gm IV X1 PRN; Protocol PRN Reason: Hypoglycemia Last Admin: 09/07/20 00:04 Dose: 25 gm Documented by: Furosemide (Furosemide 40 Mg Tablet) 40 mg PO DAILY [facility] Last Admin: 09/07/20 07:59 Dose: 40 mg Documented by: Glimepiride (Glimepiride 4 Mg Tablet) 2 mg PO BIDCM [facility] Last Admin: 09/07/20 08:00 Dose: 2 mg Documented by: Glucagon (Glucagon 1 Mg/Ml Syringe) 1 mg IM .X1 PRN PRN Reason: Hypoglycemia Potassium Chloride/Sodium Chloride () 1,000 mls @ 100 mls/hr IV .Q10H [facility] Last Infusion: 09/07/20 11:06 Dose: 100 mls/hr Documented by: Vancomycin IV Pharmacy to Dose (1 ea/ Sodium Chloride) 500 mls @ 250 mls/hr IV PRN PRN; Protocol PRN Reason: Rx to Dose Vancomycin HCl (Vancomycin) 1,000 mg in 200 mls @ 200 mls/hr IV Q8H [facility] Last Infusion: 09/07/20 10:12 Dose: Infused Documented by: Sodium Chloride () 250 mls @ 15 mls/hr IV .[id number] PRN PRN Reason: Saline Flush Last Infusion: 09/07/20 08:07 Dose: Infused Documented by: Sodium Chloride () 250 mls @ 15 mls/hr IV .[id number] PRN PRN Reason: Additional IVPB Infusion Ampicillin Sodium/Sulbactam (Sodium 3 gm/ Sodium Chloride) 112 mls @ 150 mls/hr IV Q8 [facility] Last Infusion: 09/07/20 15:01 Dose: Infused Documented by: Insulin Human Lispro (Insulin Lispro 100 Unit/Ml Insuln.Pen) 0 unit SC ACHS [facility]; Protocol Last Admin: 09/07/20 11:06 Dose: Not Given Documented by: Metoprolol Tartrate (Metoprolol Tartrate 25 Mg Tablet) 12.5 mg PO BID [facility] Last Admin: 09/07/20 08:01 Dose: 12.5 mg Documented by: Nystatin (Nystatin Powder 15gm Bottle) 1 applic TOPICAL TID [facility]; Protocol Last Admin: 09/07/20 14:09 Dose: 1 applicatio Documented by: Ondansetron HCl (Ondansetron 4 Mg/2 Ml Vial) 4 mg IV Q8H PRN PRN PRN Reason: NAUSEA/VOMITING Potassium Chloride (Potassium Chloride Oral Tablet 20 Meq) 40 meq PO BIDCM [facility] Stop: 09/09/20 08:01 Last Admin: 09/07/20 08:00 Dose: 40 meq Documented by: Senna/Docusate Sodium (Senna/Docusate Sodium 1 Tablet) 2 tablet PO BID PRN PRN PRN Reason: Constipation Sodium Chloride (0.9% Saline Lock 10 Ml Syringe) 10 - 40 ml IV UD PRN PRN Reason: SALINE FLUSH Last Admin: 09/06/20 13:28 Dose: 10 ml Documented by: Zolpidem Tartrate (Zolpidem Tartrate 5 Mg Tablet) 5 mg PO QHS PRN PRN PRN Reason: INSOMNIA STROKE Vital Signs/Narrative: Vital Signs Temp Pulse Resp BP Pulse Ox 09/07/20 14:27 67 09/07/20 14:20 98.2 F 76 16 150/83 H 97 Medical Necessity - Tobacco Use Smoking Status: Former smoker Assessment/Plan All Active Problems (Last Updated 09/05/20 @ 17:[address] Marjorie Guerrero MD) Cellulitis of right foot (Acute) Ulcer of right foot with fat layer exposed (Acute) Edema of lower eyelid of both eyes (Acute) This is a 70 years old male patient presented to the emergency room because of weakness, left leg ulcers, found to have swollen right big toe, diffuse mild erythema of the both legs which is apparently chronic, found to have sepsis secondary to right big toe/right foot cellulitis in addition to diabetic left left leg ulcers with possible infection, found to have severe hypokalemia and he is being admitted for evaluation and treatment. #1 acute right big toe/right foot cellulitis/bilateral leg diabetic mild cellulitis/ulcers with possible secondary infection/sepsis: Lactic acid is elevated, no leukocytosis, no fever but mild tachycardia and tachypnea. COVID- 19 antigen was negative. 09/06: Repeat lactic acid normal. On IV vancomycin and Zosyn. Podiatry is consulted. Wound culture pending. PT and OT evaluation and treatment. 09/07: Full wound culture is still pending but preliminary shows staph aureus 2+. MRSA PCR negative. Seen by ID. Antibiotic changed from Zosyn to Unasyn. Continue vancomycin. May narrow down antibiotic further depending on final culture report. #2 severe hypokalemia: Admission potassium 2.7, patient does have chronic hypokalemia. He has been on Lasix. 09/06: Magnesium 1.8. Repeat K3.6. Potassium supplemented. Follow-up electrolytes. 09/07: K3.3 potassium replaced. #3 physical debility/functional decline/poor hygiene: Patient lives at house with his . He has been having difficulty ambulating, poor hygiene. #4 type 2 diabetes mellitus: ADA diet, Accu-Cheks, insulin sliding scale 09/06: Hold Metformin as patient had lactic acidosis. Glimepiride decreased to 2 mg twice daily with holding parameter as glucoses in BMP is 79. 09/07: Hypoglycemia glucose was 48 in [employer]. Repeat glucose 77. Discontinue glimepiride. #5 hypertension: Blood pressure stable, continue metoprolol and Lasix. #6 chronic diastolic CHF: Compensated, stable. Continue Lasix and metoprolol. #7 chronic atrial fibrillation: Currently, rate is stable. EKG reviewed, showed A. fib with PVCs, no acute changes. Plan to continue metoprolol for rate control, continue Eliquis for anticoagulation, check INR. #8 DVT prophylaxis: Continue Eliquis. Inpatient E&M: 08924 Subs Hosp L2
[2020-09-07 16:11] LABS: Bedside Glucose 58 mg/dL (70-110)
--- NOTE | 2020-09-07 19:06 | PCM.RX.CS ---
Consult Pharmacy has been consulted to manage selected antiobiotic: Vancomycin Type of Consult: Follow-up Suspected Infection: Skin/Soft tissue Labs: Sodium 138 mmol/L (136-145) 09/07/20 04:50 Potassium 3.3 mmol/L (3.5-5.1) L 09/07/20 04:50 Chloride 104 mmol/L (98-107) 09/07/20 04:50 Carbon Dioxide 28.0 mmol/L (21.0-32.0) 09/07/20 04:50 Anion Gap 6 (5-15) 09/07/20 04:50 BUN 10 mg/dL (7-18) 09/07/20 04:50 Creatinine 0.69 mg/dL (0.70-1.30) L 09/07/20 04:50 Est GFR (MDRD) Af Amer 145 mL/min (>60) 09/07/20 04:50 Est GFR (MDRD) Non-Af 120 mL/min (>60) 09/07/20 04:50 BUN/Creatinine Ratio 14.5 RATIO (10-20) 09/07/20 04:50 Glucose 47 mg/dL (74-106) L 09/07/20 04:50 Vancomycin Trough 25.0 ug/mL (5.0-15.0) H 09/07/20 16:04 Microbiology: Microbiology 09/05/20 15:37 Urine Catheter - Catheter Urine Culture - Final Culture exhibits no growth. 09/05/20 23:30 Wound - Leg Gram Stain - Final 09/05/20 23:30 Wound - Leg Wound Culture - Preliminary Staphylococcus aureus 09/05/20 23:30 Wound - Leg Anaerobic Culture - Preliminary No anaerobic bacteria isolated. 09/05/20 14:49 Blood Culture (Wb) - Anticubital Left Blood Culture - Preliminary No growth in 48 hours. 09/05/20 14:15 Blood Culture (Wb) - Anticubital Right Blood Culture - Preliminary No growth in 48 hours. 09/05/20 14:40 Mucosa - Nose SARS-CoV-2 Antigen (Rapid) - Final Goal Trough: 15-20 mcg/mL Pharmacy Plan for Drug Dosing: VANCOMYCIN LEVEL RECEIVED Current Vancomycin Dose: 1000mg IV Q8hr Number of Doses Received: 6 (5 prior to trough draw, 1 after) Vancomycin Level: 25 Hours Since Last Dose: 7hrs Renal Function: 0.69 Renal Function Trend: stable Lab/Micro: WCx growing staph (no sens data yet) Vancomycin Plan/Comments: Patient had a trough drawn which resulted in a value of 35 (drawn ~7hrs from last administered dose). The trough was drawn appropriately. The patient also had another dose this evening, prior to the trough coming back. Will HOLD subsequent vancomycin doses and get a trough level tomorrow morning to assess dosing at that time. Pending Level: *RANDOM* level 09/08/20 with AM labs Pharmacy Service will continue to monitor and adjust dosing as required.
[2020-09-07] MEDS: Atorvastatin Calcium 10 MG Tablet PO (21:48)
[2020-09-07 22:05] LABS: Bedside Glucose 55 mg/dL (70-110)
[2020-09-08] VITALS (12 sets, daily range): BP systolic 153–155; BP diastolic 65–74; PULSE 50–85; RESP 18–28; TEMP 36.8–36.9; O2SAT 94–98
[2020-09-08 02:16] LABS: Bedside Glucose 62 mg/dL (70-110)
[2020-09-08] MEDS: Dextrose 50%-Water 25 GM/50 ML DISP.SYRIN IV (02:50)
[2020-09-08] MEDS: Nystatin Powder 15gm Bottle 1 APPLIC TOPICAL (06:44)
[2020-09-08 06:55] LABS: Bedside Glucose 92 mg/dL (70-110)
[2020-09-08 07:44] LABS: Anion Gap 5 (5-15); BUN 9 mg/dL (7-18); BUN/Creat Ratio 13.2 RATIO (10-20); Chloride 105 mmol/L (98-107); Creatinine, Serum 0.68 mg/dL (0.70-1.30); EST Glomerular Filtration Rate 121 mL/min (>60); Est Glom Filt Rate - Afr Amer 147 mL/min (>60); Estimated Creatinine Clearance 71.12 ml/min; Glucose 90 mg/dL (74-106); Potassium 4.1 mmol/L (3.5-5.1); Sodium Level 138 mmol/L (136-145)
[2020-09-08 07:54] LABS: Vancomycin, Random Level 19.9 ug/mL (0.0-15.0)
[2020-09-08 09:11] LABS: Hemoglobin A1c 5.5 % (3.8-5.6)
[2020-09-08] MEDS: Aspirin 81 MG TAB.CHEW PO (09:16)
[2020-09-08] MEDS: APIXABAN 5 MG TABLET PO (09:16)
[2020-09-08] MEDS: Furosemide 40 MG Tablet PO (09:16)
[2020-09-08] MEDS: Potassium Chloride Oral Tablet 20 MEQ 40 MEQ PO (09:16)
[2020-09-08] MEDS: Metoprolol Tartrate 25 MG Tablet 12.5 MG PO (09:17)
[2020-09-08] MEDS: Collagenase 30gm Tube 1 APPLIC TOPICAL (09:19)
--- NOTE | 2020-09-08 10:02 | PCM.TXEXTCAR ---
- Diet 09/05/20 18:53 Diet: Cardiac - Heart Healthy Food consistency:: Regular Liquid Consistency:: Regular/Thin Dietary Modifications:: Consistent Carbohydrate Type of Dietary Supplement:: Hugo Diet Comments: Hugo 1pkt BID w/ L&D. - Routine Orders/Code Status Suppository Type: Dulcolax 10mg Suppository Frequency: Daily PRN Routine Lab Work: CBC, BMP - weekly while on antibiotic - Wound(s) B/L LOWER EXTREMITY Wound Type: cellulitis buttocks Wound Type: Pressure Injury left lower leg Wound Type: cluster of open blisters Dressing Change: Adaptic left plantar heel Wound Type: Neuropathic/Diabetic Foot Ulcer Dressing Change: Adaptic right medial great toe Wound Type: Neuropathic/Diabetic Foot Ulcer Dressing Change: santyl with dry dressing - Therapies Weight Bearing: Weight bearing as tolerated Extremity Affected:: Bilateral Lower Physical Therapy: Eval and Treat Occupational Therapy: Eval and Treat Speech Therapy: Eval and Treat - Allergies/Procedures Done in Hospital Allergies/Adverse Reactions: Allergies No Known Allergies Allergy (Verified 09/05/20 13:39) - Type of Care/Length of Stay Estimated LOS: Convalescent Care Less Than 30 days Type of Care Needed: Skilled Rehab Potential: Good Prognosis: Good - Additional Orders/Day of Discharge Day of Discharge: 09/08/20 - Dietary and Speech Recommendations Dietitian Recommendations/Changes: Will provide Cardiac:CHO consistent diet & Hugo 1 pkt BID w/ meals. - Follow Up Care Primary Care Physician: NOT,DEFINED [NON-STAFF] - Please Follow Up With: Clinic,Wound When: next week. Call [phone] to schedule, Dr Irving Please Follow Up With: Angel Perez MD When: w/in 2-3 weeks. Call [phone].
--- NOTE | 2020-09-08 10:07 | DS.PCM_ITS ---
Discharge Date and Diagnosis - Problem List Patient Problems: Active and Suspected Problems (Last Updated 09/05/20 @ 17:[address] Marjorie Guerrero MD) Cellulitis of right foot (Acute) Ulcer of right foot with fat layer exposed (Acute) Other specified peripheral vascular diseases (Suspected) Date of Admission: 09/05/20 Date of Discharge: 09/08/20 - Primary Discharge Diagnosis Acute Problems: Active Problems (Last Updated 09/05/20 @ 17:[address] Marjorie Guerrero MD) Cellulitis of right foot (Acute) Ulcer of right foot with fat layer exposed (Acute) Suspected Problems: Suspected Problems (Last Updated 09/05/20 @ 17:[address] Marjorie Guerrero MD) Other specified peripheral vascular diseases (Suspected) - Secondary Discharge Diagnosis Chronic Problems: Chronic Problems (Last Updated 09/05/20 @ 17:[address] Marjorie Guerrero MD) Ulcer of left lower extremity with fat layer exposed (Chronic) Edema of both lower extremities (Chronic) Tinea unguium (Chronic) Type 2 diabetes mellitus with diabetic polyneuropathy (Chronic) Ambulatory dysfunction (Chronic) Degenerative arthritis of knee, bilateral (Chronic) Debility (Chronic) Tobacco dependence due to chewing tobacco (Chronic) Generalized weakness (Chronic) Upper gastrointestinal bleed (Chronic) Atherosclerotic heart disease of [place] coronary artery without angina pectoris (Chronic) Pure hypercholesterolemia (Chronic) Essential (primary) hypertension (Chronic) Chronic diastolic heart failure (Chronic) Persistent atrial fibrillation (Chronic) HOLGER (obstructive sleep apnea) (Chronic) Morbid obesity (Chronic) Diabetes mellitus type 2, uncontrolled, without complications (Chronic) Hospital Course and Treatment Consultations 09/05/20 18:53 Consult: Onc/Wound/vocational director Routine Comment: Operations: None Summary of Care Provided: [] This is a 70 years old male patient presented to the emergency room because of weakness, left leg ulcers, found to have swollen right big toe, diffuse mild erythema of the both legs which is apparently chronic, found to have sepsis secondary to right big toe/right foot cellulitis in addition to diabetic left left leg ulcers with possible infection, found to have severe hypokalemia and he is being admitted for evaluation and treatment. #1 acute right big toe/right foot cellulitis/bilateral leg diabetic mild cellulitis/ulcers with possible secondary infection/sepsis: Lactic acid is elevated, no leukocytosis, no fever but mild tachycardia and tachypnea. COVID- 19 antigen was negative. 09/06: Repeat lactic acid normal. On IV vancomycin and Zosyn. Business Development Engineer was consulted. PT and OT evaluation and treatment. Final wound culture shows MSSA, 2+. Initially patient was started on IV vancomycin and Zosyn. ID was consulted. ID changed Zosyn to Unasyn. Based on final culture, patient is discharged on Augmentin for 5 more days to complete a total of 8 days. MRSA PCR negative. Patient had subcutaneous excisional debridement of right hallux with no active wound drainage. #2 severe hypokalemia due to Lasix: Admission potassium 2.7, patient does have chronic hypokalemia. Potassium was replaced. Final serum K 4.1. #3 physical debility/functional decline/poor hygiene: Patient lives at house with his . He has been having difficulty ambulating, poor hygiene. #4 type 2 diabetes mellitus with hyperglycemia: ADA diet, Accu-Cheks, insulin sliding scale: Metformin was held. Glimepiride was decreased from 4 mg twice daily to 1 mg twice daily with holding parameter to hold for glucose less than 130 mg/dL. Patient required D5 half NS. Last Accu-Chek glucose 94 mg/dL. #5 hypertension: Blood pressure stable, continue metoprolol and Lasix. #6 chronic diastolic CHF: Compensated, stable. Continue Lasix and metoprolol. #7 chronic atrial fibrillation: Currently, rate is stable. EKG reviewed, showed A. fib with PVCs, no acute changes. Plan to continue metoprolol for rate control, continue Eliquis for anticoagulation, check INR. #8 DVT prophylaxis: Continue Eliquis. Discharge medication reconciliation done. Discharge follow-up instructions completed. Discharge process discussed with the patient and all questions were answered to patient's satisfaction. Discharged to SNF. Total time spent, exact 35 minutes on discharge meds reconciliation, examination, coordination of care with nurses and ancillary staff, review of imaging and blood test and discussion with the patient on follow-up instructions Patient Problems: Active and Suspected Problems (Last Updated 09/05/20 @ 17:[address] Marjorie Guerrero MD) Cellulitis of right foot (Acute) Ulcer of right foot with fat layer exposed (Acute) Other specified peripheral vascular diseases (Suspected) Objective: Seen and examined. Heart rate and blood pressure controlled. Patient blood sugar was low yesterday 55 and 62 but improved to 92 and 94. Glimepiride was held. Patient also had poor appetite and IV fluid D5 half NS was given Physical exam General: Alert, Oriented x3, Cooperative, morbid obesity 41.5 kg/m? HEENT: Atraumatic, PERRLA, EOMI, Normocephalic Oral: No Gingival or Mucosal Lesions/ Ulcerations Neck: Supple, No JVD, Negative Carotid Bruits Lungs: Air entry diminished in bilateral lung bases. On CPAP at baseline. No crepitation/rhonchi Cardiovascular: Regular rate, Regular Rhythm, Normal S1, Normal S2, No murmurs Abdomen: Bowel Sounds Present, Soft, Non Tender, Non-Distended : No renal angle tenderness. No suprapubic tenderness. Extremities: No edema, Capillary Refill Less than 3 Seconds Skin: stasis dermatitis.Multiple scabbed over right great toe, small left plantar ulcer, left second toenail, superficial left leg suggestive of venous ulcer, cleaned up and dressing done. Musculoskeletal: No Tenderness to Palpation of Joints or Extremities Neurological: Cranial nerves II-XII grossly intact, Deep Tendon Reflexes 2+/4 and Symmetrical, Neuro grossly intact Psych/Mental Status: Normal Affect, Appropriate. - Physical Exam Vitals/I&O's: Vital Signs Temp Pulse Resp BP Pulse Ox 98.4 F 60 18 155/74 H 96 09/08/20 07:40 09/08/20 09:17 09/08/20 07:40 09/08/20 09:17 09/08/20 07:51 Oxygen Delivery Method Bi-pap Weight: 297 lb 6.457 oz Body Mass Index (BMI) 41.4 Intake and Output for Last 24 Hours 09/06/20 09/07/20 09/08/20 23:59 23:59 23:59 Intake Total 3625.34 / 3625.34 4570.33 / 4570.33 1852 / 1852 Output Total 2350 / 2350 5325 / 5325 1300 / 1300 Balance 1275.34 / 1275.34 -754.67 / -754.67 552 / 552 Microbiology Past 72 Hours 09/05/20 23:30 Wound - Leg Gram Stain - Final 09/05/20 23:30 Wound - Leg Wound Culture - Preliminary Staphylococcus aureus 09/05/20 23:30 Wound - Leg Anaerobic Culture - Final No anaerobic bacteria isolated. 09/05/20 15:37 Urine Catheter - Catheter Urine Culture - Final Culture exhibits no growth. 09/05/20 14:49 Blood Culture (Wb) - Anticubital Left Blood Culture - Preliminary No growth in 48 hours. 09/05/20 14:15 Blood Culture (Wb) - Anticubital Right Blood Culture - Prel iminary No growth in 48 hours. 09/05/20 14:40 Mucosa - Nose SARS-CoV-2 Antigen (Rapid) - Final Laboratory Results 09/07/20 11:02: POC Glucose 77 09/07/20 12:30: MRSA (PCR) Negative 09/07/20 15:54: POC Glucose 58 L 09/07/20 16:04: Vancomycin Trough 25.0 H 09/07/20 21:43: POC Glucose 55 L 09/08/20 02:06: POC Glucose 62 L 09/08/20 06:48: POC Glucose 92 09/08/20 07:23: Sodium 138, Potassium 4.1, Chloride 105, Carbon Dioxide 28.0, Anion Gap 5, BUN 9, Creatinine 0.68 L, Estim Creat Clear Calc 71.12, Est GFR (MDRD) Af Amer 147, Est GFR (MDRD) Non-Af 121, BUN/Creatinine Ratio 13.2, Glucose 90, Calcium 9.0 09/08/20 07:23: Random Vancomycin 19.9 H 09/08/20 07:23: Hemoglobin A1c 5.5 09/08/20 07:23: ACTH Pending 09/08/20 07:23: Cortisol Pending Current Medications Acetaminophen (Acetaminophen 325 Mg Tablet) 650 mg PO Q6H PRN PRN PRN Reason: Pain Score 1-10/Temp > 100.7 F Last Admin: 09/07/20 12:38 Dose: 650 mg Documented by: Apixaban (Apixaban 5 Mg Tablet) 5 mg PO BID [facility] Last Admin: 09/08/20 09:16 Dose: 5 mg Documented by: Aspirin (Aspirin 81 Mg Tab.Chew) 81 mg PO DAILY@0800 [facility] Last Admin: 09/08/20 09:16 Dose: 81 mg Documented by: Atorvastatin Calcium (Atorvastatin Calcium 10 Mg Tablet) 10 mg PO QHS [facility] Last Admin: 09/07/20 21:48 Dose: 10 mg Documented by: Collagenase (Collagenase 30gm Tube) 1 applic TOPICAL DAILY [facility]; Protocol Last Admin: 09/08/20 09:19 Dose: 1 applicatio Documented by: Dextrose (Dextrose 50%-Water 25 Gm/50 Ml Disp.Syrin) 0 gm IV X1 PRN; Protocol PRN Reason: Hypoglycemia Last Admin: 09/07/20 00:04 Dose: 25 gm Documented by: Furosemide (Furosemide 40 Mg Tablet) 40 mg PO DAILY [facility] Last Admin: 09/08/20 09:16 Dose: 40 mg Documented by: Glucagon (Glucagon 1 Mg/Ml Syringe) 1 mg IM .X1 PRN PRN Reason: Hypoglycemia Vancomycin IV Pharmacy to Dose (1 ea/ Sodium Chloride) 500 mls @ 250 mls/hr IV PRN PRN; Protocol PRN Reason: Rx to Dose Sodium Chloride () 250 mls @ 15 mls/hr IV .[id number] PRN PRN Reason: Saline Flush Last Admin: 09/08/20 02:03 Dose: 15 mls/hr Documented by: Sodium Chloride () 250 mls @ 15 mls/hr IV .[id number] PRN PRN Reason: Additional IVPB Infusion Ampicillin Sodium/Sulbactam (Sodium 3 gm/ Sodium Chloride) 112 mls @ 150 mls/hr IV Q8 [facility] Last Infusion: 09/08/20 07:29 Dose: Infused Documented by: Sodium Chloride 8.5 meq/Potassium Chloride 2.5 meq/Dextrose 253.375 mls @ 40 mls/hr IV .[id number] [facility] Last Admin: 09/08/20 08:50 Dose: 40 mls/hr Documented by: Insulin Human Lispro (Insulin Lispro 100 Unit/Ml Insuln.Pen) 0 unit SC ACHS [facility]; Protocol Last Admin: 09/08/20 06:48 Dose: Not Given Documented by: Metoprolol Tartrate (Metoprolol Tartrate 25 Mg Tablet) 12.5 mg PO BID [facility] Last Admin: 09/08/20 09:17 Dose: 12.5 mg Documented by: Nystatin (Nystatin Powder 15gm Bottle) 1 applic TOPICAL TID [facility]; Protocol Last Admin: 09/08/20 06:44 Dose: 1 applicatio Documented by: Ondansetron HCl (Ondansetron 4 Mg/2 Ml Vial) 4 mg IV Q8H PRN PRN PRN Reason: NAUSEA/VOMITING Potassium Chloride (Potassium Chloride Oral Tablet 20 Meq) [facility] Stop: 09/09/20 08:01 Last Admin: 09/08/20 09:16 Dose: 40 meq Documented by: Senna/Docusate Sodium (Senna/Docusate Sodium 1 Tablet) 2 tablet PO BID PRN PRN PRN Reason: Constipation Sodium Chloride (0.9% Saline Lock 10 Ml Syringe) 10 - 40 ml IV UD PRN PRN Reason: SALINE FLUSH Last Admin: 09/06/20 13:28 Dose: 10 ml Documented by: Zolpidem Tartrate (Zolpidem Tartrate 5 Mg Tablet) 5 mg PO QHS PRN PRN PRN Reason: INSOMNIA Discharge Activity: May Shower Weight Bearing Status: - - He is a non ambulator Call your doctor if your incision/area has: Continuous Slow Oozing, Sudden Increased Bleeding, Increased Pain/ Swelling, Increased Redness, Foul Smelling Discharge Call your doctor if you observe: Fever of 101 or Higher, Calf discomfort, Uncontrolled pain Cleanse incision/area with: Soap & Water Additional Dressing/Incision Instructions:: Change right hallux dressing daily with santyl (applied nickel thickness), gauze, shaka roll, ANUSHA (applied foot to proximal leg). Change left heel and leg dressing daily with hydrogel and adaptic, gauze, kerlix, ANUSHA (applied foot to proximal leg). Apply lotion per ipheral (not on ulcers). Wash limbs with antibacterial soap and water. Home Medications: Medications to take at Discharge Acetaminophen 500 - 1,000 mg PO Q8H PRN 04/20/20 Apixaban [Eliquis] 5 mg PO BID 04/20/20 Aspirin [Aspirin, Baby] 81 mg PO DAILY@0800 04/20/20 Ergocalciferol (Vitamin D2) [Vitamin D2] 50,000 unit PO TU 04/20/20 Furosemide [Lasix] 40 mg PO DAILY 04/20/20 Metoprolol Tartrate 12.5 mg PO BID 04/20/20 Potassium Chloride 20 meq PO DAILY 04/20/20 Rosuvastatin Calcium 5 mg PO QHS 09/05/20 Amoxicillin/Potassium Clav [Augmentin 875-125 Tablet] 1 ea PO BID #10 tab 09/08/20 Collagenase [Santyl] 1 applic TOPICAL DAILY tube 09/08/20 Glimepiride [Amaryl] 1 mg PO BID #0 09/08/20 Insulin Lispro [Humalog KwikPen] See Protocol SC ACHS insuln.pen 09/08/20 Nystatin Powder [Mycostatin Powder] 1 applic TOPICAL TID bottle 09/08/20 metFORMIN HCl [Glucophage] 1,000 mg PO BIDCM #0 09/08/20 Following Prescriptions Were Given to Patient: Amoxicillin/Potassium Clav [Augmentin 875-125 Tablet] 1 ea PO BID #10 tab Transmission Status: Received by [id number] Primary Care Physician: NOT,DEFINED [NON-STAFF] - Please Follow Up With: Clinic,Wound When: next week. Call [phone] to schedule, Dr Irving Please Follow Up With: Angel Perez MD When: w/in 2-3 weeks. Call [phone]. Medical Necessity - Tobacco Use Smoking Status: Former smoker Meaningful Use Info Meaningful Use Diagnoses (Choose all that apply): None applicable Inpatient E&M: 02632 Disch Hosp
[2020-09-08] MEDS: Senna/Docusate Sodium 1 Tablet 2 TABLET PO (10:52)
--- NOTE | 2020-09-08 11:06 | NURSING ---
Transportation set up with [facility] ambulance for 13:00. All appropriate dc documents faxed to [facility]. Aware primary RN to notify pt and family.
[2020-09-08 11:26] LABS: Bedside Glucose 94 mg/dL (70-110)
--- NOTE | 2020-09-08 11:35 | NURSING ---
REPORT CALLED TO CARROLL DUVAL
--- NOTE | 2020-09-08 11:40 | NURSING ---
SPOKE TO 'S , ASHLEE - UPDATED ON PT DC TODAY
[2020-09-10 15:50] LABS: Adrenocorticotropic Hormone 33.7 pg/mL (7.2-63.3)
== END 2020-09-08 13:12 | disposition skilled nursing facility (03) | DRG 854 ==
LOC: ED 16:49 → MS3 09-06 06:21
PROVIDERS: Family Medicine; Admitting Provider Hospitalist; Emergency Provider Emergency Medicine; Visit Provider Internal Medicine
DX: L03.031 Cellulitis of right toe (principal); E11.51 Type 2 diabetes mellitus with diabetic peripheral angiopathy without gangrene; L97.512 Non-pressure chronic ulcer of other part of right foot with fat layer exposed; L03.116 Cellulitis of left lower limb; E11.42 Type 2 diabetes mellitus with diabetic polyneuropathy; E11.621 Type 2 diabetes mellitus with foot ulcer; I25.10 Atherosclerotic heart disease of native coronary artery without angina pectoris; I48.19 Other persistent atrial fibrillation; I11.0 Hypertensive heart disease with heart failure; I50.32 Chronic diastolic (congestive) heart failure; Z68.41 Body mass index [BMI] 40.0-44.9, adult; E66.01 Morbid (severe) obesity due to excess calories; G47.33 Obstructive sleep apnea (adult) (pediatric); E87.6 Hypokalemia; E11.622 Type 2 diabetes mellitus with other skin ulcer; E11.65 Type 2 diabetes mellitus with hyperglycemia; B35.1 Tinea unguium; L97.821 Non-pressure chronic ulcer of other part of left lower leg limited to breakdown of skin; M17.0 Bilateral primary osteoarthritis of knee; L03.115 Cellulitis of right lower limb; E78.00 Pure hypercholesterolemia, unspecified; B95.61 Methicillin susceptible Staphylococcus aureus infection as the cause of diseases classified elsewhere; E87.2 Acidosis; L97.422 Non-pressure chronic ulcer of left heel and midfoot with fat layer exposed; T50.1X5A Adverse effect of loop [high-ceiling] diuretics, initial encounter; Y92.9 Unspecified place or not applicable; I49.3 Ventricular premature depolarization; E11.649 Type 2 diabetes mellitus with hypoglycemia without coma; Z79.899 Other long term (current) drug therapy; Z79.01 Long term (current) use of anticoagulants; Z79.84 Long term (current) use of oral hypoglycemic drugs; Z79.82 Long term (current) use of aspirin; Z87.891 Personal history of nicotine dependence
CPT/HCPCS: 11042; 36415; 51702; 71045; 80048; 80053; 80202; 81001; 82024; 82533; 82962; 83036; 83605; 83735; 84443; 85025; 85610; 85730; 87040; 87070; 87075; 87077; 87086; 87186; 87205; 87426; 87641; 93005; 93923; 94002; 94660; 96361; 96365; 96366; 96367; 96375; 96376; 97110; 97162; 97166; 97530; 97535; 97802; 99218; 99251; 99285; J7030; J7040; J7050; A4216; G0378; G0463; J0295

== ENCOUNTER 2020-11-30 10:23 | Outpatient (RCR) | payer MEDICARE, SELFPAY ==
[2020-09-05 17:57] VITALS: BMI 41.4
[2020-11-30 10:56] LABS: Absolute Lymphocyte Count 1.79 X10^3/uL (0.83-4.51); Absolute Neutrophil Count 3.7 X10^3/uL (2.0-7.7); Basophil# 0.05 X10^3/uL; Basophil% 0.8 % (0-1); Eosinophil# 0.33 X10^3/uL; Eosinophils% 5.1 % (0-5); Hematocrit 37.6 % (40-54); Hemoglobin 12.3 g/dL (13.0-16.5); Lymphocyte # 1.79 X10^3/ul (0.83-4.51); Lymphocyte % 27.8 % (19-41); Mean Corp Hgb Conc 32.7 g/dL (32-36); Mean Corpuscular Hgb 30.1 pg (27.0-32.0); Mean Corpuscular Volume 91.9 fL (80-94); Monocyte# 0.52 X10^3/uL; Monocyte% 8.1 % (0-10); NRBC Flagged by Analyzer 0 % (0-5); Neutrophil # 3.72 X10^3/uL (2.7-7.7); Neutrophil % 57.9 % (47-70); Platelet Count 226 K/mm3 (150-450); RBC Distribution Width CV 13.9 % (11.6-14.6); RBC Distribution Width SD 47.3 fl (35.1-43.9); Red Blood Count 4.09 M/mm3 (4.6-6.2); White Blood Count 6.4 K/mm3 (4.4-11.0)
[2020-11-30 11:05] LABS: Albumin, Serum 2.9 g/dL (3.2-5.0); BUN 16 mg/dL (7-18); BUN/Creat Ratio 18.9 RATIO (10-20); Creatinine, Serum 0.85 mg/dL (0.70-1.30); EST Glomerular Filtration Rate 94 mL/min (>60); Est Glom Filt Rate - Afr Amer 114 mL/min (>60); Glucose 125 mg/dL (74-106); Protein, Total 6.5 g/dL (6.4-8.2)
[2020-11-30 11:06] LABS: ALB/GLOB Ratio 0.8 RATIO (0.9-2.4); AST(SGOT) 9 U/L (15-37); Alanine Aminotransfer ALT/SGPT 12 U/L (16-61); Alkaline Phosphatase 70 U/L (45-117); Anion Gap 3 (5-15); Calcium,Total 9.1 mg/dL (8.5-10.1); Chloride 103 mmol/L (98-107); Cholesterol 116 mg/dL (200); Globulin 3.6 g/dL (2.2-4.2); High Density Lipoprotein 45 mg/dL; Potassium 3.7 mmol/L (3.5-5.1); Sodium Level 139 mmol/L (136-145); Triglycerides 85 mg/dL; Very Low Density Lipoprotein 17 mg/dL (5-40)
[2020-11-30 11:36] LABS: Hemoglobin A1c 5.8 % (3.8-5.6)
[2020-12-04 10:09] LABS: Vitamin B12 281 pg/mL (211-911)
[2020-12-06 12:46] LABS: Vitamin D,25 Hydroxy 56.1 ng/mL
== END 2020-11-30 18:00 | disposition home or self-care (01) ==
LOC: HHLAB 10:23
DX: I25.10 Atherosclerotic heart disease of native coronary artery without angina pectoris (principal); I11.0 Hypertensive heart disease with heart failure; I50.32 Chronic diastolic (congestive) heart failure
CPT/HCPCS: 80053; 80061; 82306; 82607; 83036; 85025; 87070; 87077; 87186; 87205

== ENCOUNTER 2021-08-30 13:53 | Inpatient (IN) | payer MEDICARE, SELFPAY ==
[2021-08-30] VITALS (9 sets, daily range): BP systolic 113–182; BP diastolic 61–106; PULSE 64–81; RESP 17–23; TEMP 36.6–37.1; O2SAT 97–99; BMI 43.7; BMI 41.9
--- NOTE | 2021-08-30 14:29 | CT_ITS ---
STUDY: CT BRAIN WITHOUT CONTRAST REASON FOR EXAM: Male, 71 years old. Mental status change RADIATION DOSAGE (If Supplied By Facility): CTDIvol = ( 44.99 ) mGy, DLP = ( 796.11 ) mGycm TECHNIQUE: Transaxial CT imaging of the brain was performed without administration of intravenous contrast material. Individualized dose optimization techniques were used for this CT. COMPARISON: Comparison is made with prior examination dated 05/04/2019. FINDINGS: Normal soft tissue structures. Normal calvarium. There is mild cerebral atrophy with widening of the extra-axial spaces and ventricular dilatation. There are areas of decreased attenuation within the white matter tracts of the supratentorial brain, consistent with microvascular disease changes. Normal basal ganglia and thalami. Normal brainstem. Normal cerebellum. There is no intracranial hemorrhage. There are no findings of an acute ischemic infarction. Atherosclerotic calcification of the cavernous portions of the internal carotid arteries bilaterally. Mild degree of mucosal thickening of the ethmoid sinuses and right sphenoid sinus. Nasal septal deviation to the left side of the midline. CT/Brain/Head without Contrast IMPRESSION: Chronic involutional changes of the brain. Electronically Signed: Ryan Sood MD at 15:40 EST ,
--- NOTE | 2021-08-30 14:29 | EKG12_ITS ---
Test Reason : ALT LOC Blood Pressure : / mmHG Vent. Rate : 064 BPM Atrial Rate : 082 BPM P-R Int : 000 ms QRS Dur : 090 ms QT Int : 422 ms P-R-T Axes : 000 044 029 degrees QTc Int : 435 ms Atrial fibrillation Nonspecific ST and T wave abnormality Abnormal ECG Confirmed by BOUBACAR ARMOS, MARIBEL ([id number]), acquisitions editor FAVIOLA CUNHA ([id number]) on 09/04/2021 12:31:47 P M Referred By: KENNETH Confirmed By:CARLIE HAMLIN MD
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
--- NOTE | 2021-08-30 15:10 | RAD_ITS ---
STUDY: X-RAY CHEST REASON FOR EXAM: Male, 71 years old. Weakness TECHNIQUE: Single AP portable view of the chest. COMPARISON: Comparison is made with prior study dated 09/05/2020. FINDINGS: EKG electrodes are seen. The lungs are clear and expanded. There is no demonstrated pleural abnormality. There is moderate cardiac enlargement. Normal mediastinum and gurvinder. Normal visualized pulmonary arteries. There is atherosclerotic tortuosity of the aortic arch and descending thoracic aorta. There are diffuse degenerative changes of the visualized thoracic spine. Normal visualized ribs, clavicles, and shoulders. There is no demonstrated abnormality of the visualized soft tissue structures of the upper abdomen. RAD/Chest 1 View (Portable) IMPRESSION: Cardiomegaly. The lungs are clear. Electronically Signed: Ryan Sood MD at 15:24 EST ,
[2021-08-30 15:24] LABS: Absolute Lymphocyte Count 1.04 X10^3/uL (0.83-4.51); Basophil# 0.05 X10^3/uL; Basophil% 0.6 % (0-1); Eosinophil# 0.17 X10^3/uL; Eosinophils% 1.9 % (0-5); Hematocrit 41.2 % (40-54); Hemoglobin 14.2 g/dL (13.0-16.5); Lymphocyte # 1.04 X10^3/ul (0.83-4.51); Lymphocyte % 11.7 % (19-41); Mean Corp Hgb Conc 34.5 g/dL (32-36); Mean Corpuscular Hgb 30.9 pg (27.0-32.0); Mean Corpuscular Volume 89.8 fL (80-94); Mean Platelet Vol. 8.8 fl (6.2-12.0); Monocyte% 6.8 % (0-10); NRBC Flagged by Analyzer 0 % (0-5); Neutrophil # 6.97 X10^3/uL (2.7-7.7); Neutrophil % 78.5 % (47-70); Platelet Count 300 K/mm3 (150-450); RBC Distribution Width SD 45.8 fl (35.1-43.9); Red Blood Count 4.59 M/mm3 (4.6-6.2); White Blood Count 8.9 K/mm3 (4.4-11.0)
[2021-08-30 15:39] LABS: Lactic Acid 1.7 mmol/L (0.4-1.9)
[2021-08-30 15:43] LABS: ALB/GLOB Ratio 0.7 RATIO (0.9-2.4); AST(SGOT) 34 U/L (15-37); Alanine Aminotransfer ALT/SGPT 15 U/L (16-61); Albumin, Serum 2.9 g/dL (3.2-5.0); Alkaline Phosphatase 72 U/L (45-117); Anion Gap 8 (5-15); BUN 11 mg/dL (7-18); BUN/Creat Ratio 12.6 RATIO (10-20); Calcium,Total 8.4 mg/dL (8.5-10.1); Chloride 93 mmol/L (98-107); Creatinine, Serum 0.87 mg/dL (0.70-1.30); EST Glomerular Filtration Rate 91 mL/min (>60); Est Glom Filt Rate - Afr Amer 110 mL/min (>60); Globulin 4.1 g/dL (2.2-4.2); Glucose 54 mg/dL (74-106); Potassium 2.6 mmol/L (3.5-5.1); Sodium Level 136 mmol/L (136-145); Troponin-I HS 21 pg/mL (3.0-78.0)
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
--- NOTE | 2021-08-30 16:08 | NURSING ---
DR YANICK SPARKS
--- NOTE | 2021-08-30 16:19 | NURSING ---
PCU YANICK MENTAL STATUS CHANGE, HYPOKALEMIA, HYPOGLYCEMIA, FAILURE TO THRIVE
[2021-08-30] MEDS: Potassium Chloride 10mEq/100mL 10 MEQ/100 ML IV.SOLN. 100 MEQ IV BOLUS ×4 (16:30→20:36)
[2021-08-30] MEDS: 0.9% Normal Saline 1,000 ML 150 ML IV (16:30)
[2021-08-30 16:42] LABS: Bacteria 0 SEEN /hpf (None Seen); Mucous, Urine 0 SEEN /hpf (<or=2+); Red Blood Cells-Urine 0 SEEN /hpf (0-5); Squamous Epithelial Cells - UA 0 SEEN /hpf (0-5); White Blood Cells 0 SEEN /hpf (0-5)
[2021-08-30] MEDS: Dextrose 10%-Water 250 ML 999 ML IV ×2 (16:46→22:15)
[2021-08-30 16:53] LABS: Color, Urine Yellow (Yellow); Glucose, Dipstick Normal (Normal); Ketone-Dipstick Negative (Negative); Leukocyte Esterase-Dipstick Negative /ul (Negative); Nitrite-Dipstick Negative (Negative); Occult Blood-Urine Negative /ul (Negative); Protein-Dipstick Negative (Negative); Urine Bilirubin Dipstick Negative (Negative); Urine Clarity Clear (Clear); Urine Urobilinogen Normal (Normal); Urine pH 6.5 (5.0 - 8.0)
--- NOTE | 2021-08-30 17:29 | PCM.HP.STD ---
HPI - General General Date of Admission: 08/30/21 Date of Service: 08/30/21 Chief Complaint: Confusion HPI Narrative MINOO CHEN, is a 71 M who presented to the emergency department at [facility] on 08/30/2021 with his at the bedside for confusion. The patient is gives all the history as the patient is alert and awake and follows commands is confused on his current location and recent events. The states that he had been his normal self up until about 2 weeks ago. He was started on Cymbalta about 3 weeks ago and she noticed about a week after initiating the medication he was having some increased confusion and started having hallucinations about 2 days ago. She states she thought initially the symptoms would go away as he got used to being on the Cymbalta however they have persisted and actually worsened. He has chronic debility and is unable to ambulate at baseline. She states she is no longer able to care for him and is requesting admission based on his mental status change and for placement. She states he had an episode of emesis about 2 days ago and his oral intake has decreased however he is drinking normally. He has been taking his medications without any difficulty. In the emergency department his vitals are stable and he is having a little bit of elevated blood pressure intermittently. His oxygen saturations are 97% on room air. His CBC is unremarkable. His CMP shows marked hypokalemia with a potassium of 2.6 and a chronically elevated serum bicarb. His renal function and liver function are normal. High-sensitivity troponin was obtained and found to be normal at 21. His blood glucose was 54 on his presenting lab. I suspect this is related to his continued taking of his oral antihyperglycemic agents and decreased p.o. intake. A CT of his brain was performed and no acute findings were noted. A UA was obtained and it is not consistent with infection. His chest x-ray shows stable cardiomegaly with out any acute findings in the lung diaz. His EKG shows persistent atrial fibrillation that is low voltage but no ST-T wave changes consistent with ischemia are noted. In the emergency department he was treated with IV fluids and given some dextrose given his hypoglycemia as well as a 40 mill equivalent bolus of potassium and request for admission was made based on the information above. [facility] Medical History Abdominal pain Abnormal stress test Arthritis Atherosclerotic heart disease of [place] coronary artery without angina pectoris Chronic diastolic heart failure CPAP (continuous positive airway pressure) dependence Depression Diabetes Diabetes mellitus type 2, uncontrolled, without complications Essential (primary) hypertension Former smoker Gout Morbid obesity Nausea & vomiting HOLGER (obstructive sleep apnea) Persistent atrial fibrillation Pure hypercholesterolemia Sleep apnea Weight loss Home Medications apixaban 5 mg PO BID 04/20/20 [History Last Taken 09/05/20] aspirin 81 mg PO DAILY@0800 04/20/20 [History Last Taken 09/05/20] furosemide 40 mg PO DAILY 04/20/20 [History Last Taken 09/04/20] metoprolol tartrate 12.5 mg PO BID 04/20/20 [History Last Taken 1 Week Ago ~08/29/20] rosuvastatin 5 mg PO QHS 09/05/20 [History Last Taken 1 Week Ago ~08/29/20] metformin 1,000 mg PO BIDCM #0 09/08/20 [Rx Last Taken 09/05/20] cholecalciferol (vitamin D3) 50,000 unit PO WE 08/30/21 [History Last Taken Unknown] duloxetine 20 mg PO BID 08/30/21 [History Last Taken Unknown] glimepiride 2 mg PO BID 08/30/21 [History Last Taken Unknown] Allergy/AdvReac Type Severity Reaction Status Date / Time No Known Allergies Allergy Verified 08/30/21 14:02 Family History Mother CHF (congestive heart failure) Father Cancer Lung Surgical History History of appendectomy History of exploratory laparotomy History of kidney surgery Social History Smoking Status: Former smoker alcohol intake: current details: Rare ROS Review of Systems ROS Unobtainable: due to mental condition Vital Signs Vital Signs Vital Signs: 08/30/21 13:54 08/30/21 16:50 Temperature 98.7 F 98.8 F Temperature Source Oral Temporal Pulse Rate 75 74 Respiratory Rate 18 17 Blood Pressure 147/75 H 176/106 H Blood Pressure Mean 99 129 Pulse Ox 97 99 Oxygen Delivery Method Room Air Nasal Cannula Oxygen Flow Rate (L/min) 2 Weight Weight: 146.1 kg Body Mass Index (BMI) 43.7 Physical Exam Const alert Constitutional Narrative: Very alert, super morbidly obese, disheveled white male lying in bed, at bedside, patient is confused and oriented to self and is aware he is at the hospital but unable to give me the location of the hospital and is disoriented to month and year, appears nontoxic, patient is somewhat odiferous HEENT normocephalic, head/scalp atraumatic, hearing grossly normal bilaterally and moist oral mucous membranes HEENT Narrative: Mallampati is 3-4, no thrush, dentition is fair for age, meza with old food Eyes PERRL, EOMs intact bilaterally and conjunctivae normal Neck no lymphadenopathy, supple and no JVD Neck Narrative: Short thick neck, no bruits auscultated but exam was difficult Resp normal respiratory effort, no retractions, no use of accessory muscles and clear to auscultation bilaterally Resp Narrative: Diffusely diminished but no adventitious sounds-exam limited secondary to body habitus Auscultation: Negative for crackles, rales, rhonchi or wheezes Cardio regular rate, S1 normal heart sound, S2 normal heart sound, no murmurs, no rub, no gallops, no clicks and no JVD Cardio Narrative: Irregular rhythm with regular rate, distant heart tones secondary to body habitus GI normal to inspection, nondistended, normoactive bowel sounds, soft to palpation, non-tender and non-distended GI Narrative: Large protuberant abdomen, significant erythema on scrotum consistent with candidiasis Extremity Extremity Narrative: Bilateral lower extremity edema trace to 1+, no cyanosis or clubbing, cap refill is 2+ Skin no rashes or lesions noted, no wounds, skin turgor normal, no jaundice, no petechiae and no mottling Skin Narrative: Pretibial area bilateral lower extremities and feet consistent with chronic venous stasis changes Neuro CN's II-XII intact bilaterally, moves all extremities and no focal motor deficits Neuro Narrative: Oriented to self only at this time, significant weakness bilateral lower extremities but reports this is chronic Sensorium / Orientation: awake and alert Speech: speech normal Psych Psych Narrative: Patient with strange affect having intermittent hallucinations and confused Results Lab / Micro Data Attestation: I reviewed the patient's lab results. Result Diagrams: 08/30/21 14:05 08/30/21 14:05 Labs: Laboratory Results - last 24 hr 08/30/21 14:05: WBC 8.9, RBC 4.59 L, Hgb 14.2, Hct 41.2, MCV 89.8, MCH 30.9, MCHC 34.5, RDW Std Deviation 45.8 H, RDW Coeff of Shantell 14.0, Plt Count 300, MPV 8.8, Immature Gran % (Auto) 0.500, Neut % (Auto) 78.5 H, Lymph % (Auto) 11.7 L, [place] % (Auto) 6.8, Eos % (Auto) 1.9, Baso % (Auto) 0.6, Absolute Neuts (auto) 7.0, Absolute Lymphs (auto) 1.04, Nucleated RBC % 0 08/30/21 14:05: Sodium 136, Potassium 2.6 L*, Chloride 93 L, Carbon Dioxide 35.0 H, Anion Gap 8, BUN 11, Creatinine 0.87, Estim Creat Clear Calc 83.00, Est GFR (MDRD) Af Amer 110, Est GFR (MDRD) Non-Af 91, BUN/Creatinine Ratio 12.6, Glucose 54 L, Calcium 8.4 L, Total Bilirubin 1.10 H, AST 34, ALT 15 L, Alkaline Phosphatase 72, Troponin I High Sens 21, Total Protein 7.0, Albumin 2.9 L, Globulin 4.1, Albumin/Globulin Ratio 0.7 L 08/30/21 14:50: Lactic Acid 1.7 08/30/21 16:31: Urine Color Yellow, Urine Clarity Clear, Urine pH 6.5, Ur Specific [place] 1.010, Urine Protein Negative, Urine Glucose (UA) Normal, Urine Ketones Negative, Urine Occult Blood Negative, Urine Nitrite Negative, Urine Bilirubin Negative, Urine Urobilinogen Normal, Ur Leukocyte Esterase Negative, Urine RBC 0 SEEN, Urine WBC 0 SEEN, Ur Squamous Epith Cells 0 SEEN, Urine Bacteria 0 SEEN, Urine Mucus 0 SEEN Micro: Microbiology 08/30/21 14:55 Nasal Secretion SARS-CoV-2 Antigen (Rapid) - Final Radiology Impression Brain CT 08/30/21 14:29 IMPRESSION: Chronic involutional changes of the brain. Electronically Signed: Ryan Sood MD at 15:40 EST , Chest X-Ray 08/30/21 15:10 IMPRESSION: Cardiomegaly. The lungs are clear. Electronically Signed: Ryan Sood MD at 15:24 EST , Assessment & Plan Assessment/Plan (1) Acute metabolic encephalopathy: (2) Hypokalemia: (3) Generalized weakness: PLAN: Acute toxic/metabolic encephalopathy -Suspect multifactorial--> Cymbalta/mild hypoglycemia/decreased p.o. intake -UA is unremarkable for any signs of infection -CT of the head only shows chronic involutional changes of the brain -Patient is alert but fairly confused and having intermittent hallucinations -Hold Cymbalta and correct hypoglycemia -Monitor closely clinically -Use as needed Haldol for any agitation through the night Acute on chronic hypokalemia -Patient takes chronic potassium at home however the has run out and has been unable to refill the prescription--> she states that this has been renewed but at the [facility] pharmacy -40 mEq IV given in the emergency department -We will give another 60 p.o. -Check a.m. magnesium level -Monitor on telemetry given his potassium was 2.6 on admission Debility/generalized weakness - is indicating she is no longer to take care of him at home -Patient is immobile and is unable to ambulate--> this is a chronic condition secondary to bilateral lower extremity pain and weakness - is accepting for placement at this time -PT/OT consultation -Consult case management/social work -Likely be here through early next week DM-2 -Patient on oral medications at home -Hypoglycemic on admission as I suspect his p.o. intake is poor and he is continue to take his oral agents -Hold oral agents -Carb controlled diet -Moderate dose sliding scale -Accu-Cheks AC Permanent atrial fibrillation -Continue metoprolol -Continue home apixaban Hyperlipidemia -Continue statin Hypertension -Continue metoprolol -As needed hydralazine available for systolic pressure greater than 160 -Pressures are elevated but will monitor may need the addition of another agent -Continue home Lasix dose HOLGER -Continue home CPAP Depression -Duloxetine started -We will discontinue as the has a suspicion that this may be the inciting factor for his confusion -Monitor clinically Vitamin D deficiency -Hold weekly ergocalciferol and restart at discharge Morbid obesity -Complicates treatment, prognosis, outcomes -Recommend weight loss DVT prophylaxis -Continue apixaban CODE STATUS -Full code as per discussion with the in the emergency department -Patient was not decisional at this time Charges/Coding Visit Charges Inpatient E&M: 96149 Init Hosp L3
[2021-08-30] MEDS: Potassium Chloride Oral Tablet 20 MEQ 60 MEQ PO (18:59)
--- NOTE | 2021-08-30 20:37 | CPS ---
patient waiting to bring in own CPAP machine for use at night. Wanting to just use oxygen at night until family member can bring it in.
[2021-08-30] MEDS: Metoprolol Tartrate 25 MG Tablet 12.5 MG PO (22:23)
[2021-08-30] MEDS: APIXABAN 5 MG TABLET PO (22:23)
[2021-08-30] MEDS: Atorvastatin Calcium 10 MG Tablet PO (22:24)
[2021-08-30] MEDS: Nystatin Powder 15gm Bottle 1 APPLIC TOPICAL (22:26)
[2021-08-30 22:46] LABS: Bedside Glucose 148 mg/dL (70-110)
[2021-08-30 22:46] LABS: Bedside Glucose 45 mg/dL (70-110)
[2021-08-31] VITALS (12 sets, daily range): BP systolic 152–167; BP diastolic 63–89; PULSE 71–111; RESP 18–28; TEMP 36.6–36.8; O2SAT 93–96
[2021-08-31 03:16] LABS: Bedside Glucose 62 mg/dL (70-110)
[2021-08-31 03:31] LABS: Bedside Glucose 73 mg/dL (70-110)
[2021-08-31] MEDS: Dextrose 5%/0.9% NaCl 1,000 ML 75 ML IV (03:58)
[2021-08-31 05:50] LABS: Absolute Lymphocyte Count 1.38 X10^3/uL (0.83-4.51); Absolute Neutrophil Count 4.6 X10^3/uL (2.0-7.7); Basophil# 0.05 X10^3/uL; Basophil% 0.7 % (0-1); Eosinophil# 0.35 X10^3/uL; Hematocrit 36.9 % (40-54); Hemoglobin 12.8 g/dL (13.0-16.5); Lymphocyte # 1.38 X10^3/ul (0.83-4.51); Lymphocyte % 19.5 % (19-41); Mean Corp Hgb Conc 34.7 g/dL (32-36); Mean Corpuscular Hgb 30.8 pg (27.0-32.0); Mean Corpuscular Volume 88.7 fL (80-94); Mean Platelet Vol. 8.8 fl (6.2-12.0); Monocyte# 0.66 X10^3/uL; Monocyte% 9.3 % (0-10); NRBC Flagged by Analyzer 0 % (0-5); Neutrophil # 4.59 X10^3/uL (2.7-7.7); Neutrophil % 65.1 % (47-70); Platelet Count 275 K/mm3 (150-450); RBC Distribution Width CV 13.8 % (11.6-14.6); RBC Distribution Width SD 45.1 fl (35.1-43.9); Red Blood Count 4.16 M/mm3 (4.6-6.2); White Blood Count 7.1 K/mm3 (4.4-11.0)
[2021-08-31 06:31] LABS: ALB/GLOB Ratio 0.8 RATIO (0.9-2.4); AST(SGOT) 28 U/L (15-37); Alanine Aminotransfer ALT/SGPT 16 U/L (16-61); Albumin, Serum 2.7 g/dL (3.2-5.0); Alkaline Phosphatase 64 U/L (45-117); Anion Gap 5 (5-15); BUN 9 mg/dL (7-18); BUN/Creat Ratio 11.9 RATIO (10-20); Calcium,Total 7.9 mg/dL (8.5-10.1); Chloride 95 mmol/L (98-107); Creatinine, Serum 0.76 mg/dL (0.70-1.30); EST Glomerular Filtration Rate 108 mL/min (>60); Est Glom Filt Rate - Afr Amer 130 mL/min (>60); Estimated Creatinine Clearance 72.21 ml/min; Globulin 3.6 g/dL (2.2-4.2); Glucose 63 mg/dL (74-106); Magnesium 1.2 mg/dL (1.6-2.6); Phosphorus 2.7 mg/dL (2.5-4.9); Potassium 3.1 mmol/L (3.5-5.1); Protein, Total 6.3 g/dL (6.4-8.2); Sodium Level 135 mmol/L (136-145); Thyroid Stim Hormone (TSH) 0.87 uIU/mL (0.358-3.74)
[2021-08-31] MEDS: Potassium Chloride Oral Tablet 20 MEQ 60 MEQ PO (06:58)
[2021-08-31 07:01] LABS: Bedside Glucose 63 mg/dL (70-110)
[2021-08-31 07:01] LABS: Bedside Glucose 71 mg/dL (70-110)
[2021-08-31] MEDS: Magnesium Sulfate 4gm/100mL 4 GM/100 ML IV.SOLN. IV (07:07)
[2021-08-31 08:51] LABS: Bedside Glucose 82 mg/dL (70-110)
[2021-08-31] MEDS: Aspirin 81 MG TAB.CHEW PO (11:44)
[2021-08-31] MEDS: APIXABAN 5 MG TABLET PO ×2 (11:45→20:59)
[2021-08-31] MEDS: Nystatin Powder 15gm Bottle 1 APPLIC TOPICAL ×2 (11:46→20:57)
[2021-08-31] MEDS: Furosemide 40 MG Tablet PO (11:46)
[2021-08-31] MEDS: Metoprolol Tartrate 25 MG Tablet 12.5 MG PO ×2 (11:49→20:59)
[2021-08-31 13:11] LABS: Bedside Glucose 129 mg/dL (70-110)
--- NOTE | 2021-08-31 14:46 | PN.HOSP_ITS ---
Subjective Subjective Patient still with significant confusion however p.o. intake was better this morning. He did have some hypoglycemia overnight for which D5 normal saline was initiated. He is alert and awake but remains on oriented. He had no significant agitation overnight and required no Haldol. Objective Data Objective Data Vital Signs: Vital Signs Temp Pulse Resp BP Pulse Ox 98.1 F 111 H 18 152/68 H 96 08/31/21 08:30 08/31/21 11:49 08/31/21 08:30 08/31/21 11:49 08/31/21 08:30 Oxygen Flow Rate (L/min) 2 Oxygen Delivery Method Room Air Weight: 140.3 kg Body Mass Index (BMI) 41.9 Intake & Output: Intake and Output for Last 24 Hours 08/29/21 08/30/21 08/31/21 23:59 23:59 23:59 Intake Total 2019 / 2019 858.75 / 858.75 Output Total 275 / 275 300 / 300 Balance 1745 / 1745 558.75 / 558.75 Lab / Micro Data Result Diagrams: 08/31/21 05:15 08/31/21 05:15 Labs: Laboratory Results - last 24 hr 08/30/21 14:05: WBC 8.9, RBC 4.59 L, Hgb 14.2, Hct 41.2, MCV 89.8, MCH 30.9, MC HC 34.5, RDW Std Deviation 45.8 H, RDW Coeff of Shantell 14.0, Plt Count 300, MPV 8.8, Immature Gran % (Auto) 0.500, Neut % (Auto) 78.5 H, Lymph % (Auto) 11.7 L, Chaves % (Auto) 6.8, Eos % (Auto) 1.9, Baso % (Auto) 0.6, Absolute Neuts (auto) 7.0, Absolute Lymphs (auto) 1.04, Nucleated RBC % 0 08/30/21 14:05: Sodium 136, Potassium 2.6 L*, Chloride 93 L, Carbon Dioxide 35.0 H, Anion Gap 8, BUN 11, Creatinine 0.87, Estim Creat Clear Calc 83.00, Est GFR (MDRD) Af Amer 110, Est GFR (MDRD) Non-Af 91, BUN/Creatinine Ratio 12.6, Glucose 54 L, Calcium 8.4 L, Total Bilirubin 1.10 H, AST 34, ALT 15 L, Alkaline Phosphatase 72, Troponin I High Sens 21, Total Protein 7.0, Albumin 2.9 L, Globulin 4.1, Albumin/Globulin Ratio 0.7 L 08/30/21 14:50: Lactic Acid 1.7 08/30/21 16:31: Urine Color Yellow, Urine Clarity Clear, Urine pH 6.5, Ur Specific [place] 1.010, Urine Protein Negative, Urine Glucose (UA) Normal, Urine Ketones Negative, Urine Occult Blood Negative, Urine Nitrite Negative, Urine Bilirubin Negative, Urine Urobilinogen Normal, Ur Leukocyte Esterase Negative, Urine RBC 0 SEEN, Urine WBC 0 SEEN, Ur Squamous Epith Cells 0 SEEN, Urine Bacteria 0 SEEN, Urine Mucus 0 SEEN 08/30/21 22:07: POC Glucose 45 L 08/30/21 22:41: POC Glucose 148 H 08/31/21 03:00: POC Glucose 62 L 08/31/21 03:24: POC Glucose 73 08/31/21 05:15: WBC 7.1, RBC 4.16 L, Hgb 12.8 L, Hct 36.9 L, MCV 88.7, MCH 30.8, MCHC 34.7, RDW Std Deviation 45.1 H, RDW Coeff of Shantell 13.8, Plt Count 275, MPV 8.8, Immature Gran % (Auto) 0.400, Neut % (Auto) 65.1, Lymph % (Auto) 19.5, Chaves % (Auto) 9.3, Eos % (Auto) 5.0, Baso % (Auto) 0.7, Absolute Neuts (auto) 4.6, Absolute Lymphs (auto) 1.38, Nucleated RBC % 0 08/31/21 05:15: Sodium 135 L, Potassium 3.1 L, Chloride 95 L, Carbon Dioxide 35.0 H, Anion Gap 5, BUN 9, Creatinine 0.76, Estim Creat Clear Calc 72.21, Est GFR (MDRD) Af Amer 130, Est GFR (MDRD) Non-Af 108, BUN/Creatinine Ratio 11.9, Glucose 63 L, Calcium 7.9 L, Phosphorus 2.7, Magnesium 1.2 L, Total Bilirubin 0.90, AST 28, ALT 16, Alkaline Phosphatase 64, Total Protein 6.3 L, Albumin 2.7 L, Globulin 3.6, Albumin/Globulin Ratio 0.8 L, TSH 0.87 08/31/21 06:31: POC Glucose 63 L 08/31/21 06:54: POC Glucose 71 08/31/21 08:43: POC Glucose 82 08/31/21 11:56: POC Glucose 129 H Micro: Microbiology 08/30/21 16:31 Urine Catheter - Catheter Urine Culture - Preliminary Culture exhibits no growth. 08/30/21 14:55 Nasal Secretion SARS-CoV-2 Antigen (Rapid) - Final Radiography Diagnostic Testing: Radiology Impression Brain CT 08/30/21 14:29 IMPRESSION: Chronic involutional changes of the brain. Electronically Signed: Ryan Sood MD at 15:40 EST , Chest X-Ray 08/30/21 15:10 IMPRESSION: Cardiomegaly. The lungs are clear. Electronically Signed: Ryan Sood MD at 15:24 EST , Physical Exam Const alert Constitutional Narrative: Very alert, super morbidly obese, patient is confused and oriented to self and is aware he is at the hospital but unable to give me the location of the hospital and is disoriented to month and year, appears nontoxic Nutritional Appearance: morbidly obese HEENT normocephalic, head/scalp atraumatic, hearing grossly normal bilaterally and moist oral mucous membranes HEENT Narrative: Mallampati 4, no thrush Head and Scalp: normocephalic Resp normal respiratory effort, no retractions, no use of accessory muscles and clear to auscultation bilaterally Resp Narrative: Diffusely diminished but no adventitious sounds-exam limited secondary to body habitus Auscultation: Negative for crackles, rales, rhonchi or wheezes Cardio regular rate, S1 normal heart sound, S2 normal heart sound, no murmurs, no rub, no gallops, no clicks and no JVD Cardio Narrative: Irregular rhythm with regular rate, distant heart tones secondary to body habitus GI normal to inspection, nondistended, normoactive bowel sounds, soft to palpation, non-tender and non-distended GI Narrative: Large protuberant abdomen, significant erythema on scrotum consistent with candidiasis Extremity Extremity Narrative: Bilateral lower extremity edema trace to 1+, no cyanosis or clubbing, cap refill is 2+ Neuro CN's II-XII intact bilaterally, moves all extremities and no focal motor deficits Neuro Narrative: Oriented to self only at this time, significant weakness bilateral lower extremities but reports this is chronic Sensorium / Orientation: awake and alert Speech: speech normal Assessment & Plan Assessment/Plan (1) Acute metabolic encephalopathy: (2) Hypokalemia: (3) Generalized weakness: PLAN: Acute toxic/metabolic encephalopathy -Suspect multifactorial--> Cymbalta/mild hypoglycemia/decreased p.o. intake -UA is unremarkable for any signs of infection -urine cx with no growth -Blood cx -CT of the head only shows chronic involutional changes of the brain -Patient is alert but still fairly confused -will give pt more time to clear -Hold Cymbalta and correct hypoglycemia -Monitor closely clinically -Use as needed Haldol for any agitation through the night Acute on chronic hypokalemia -Patient takes chronic potassium at home however the has run out and has been unable to refill the prescription--> she states that this has been renewed but at the [facility] pharmacy -Improved --> 3.3 today -repeat 60 mEq PO -Check a.m. magnesium level Debility/generalized weakness - is indicating she is no longer to take care of him at home -Patient is immobile and is unable to ambulate--> this is a chronic condition secondary to bilateral lower extremity pain and weakness - is accepting for placement at this time -PT/OT consultation -Consult case management/social work -Likely be here through early next week DM-2 with hypoglycemia -Patient on oral medications at home -Hypoglycemic on admission as I suspect his p.o. intake is poor and he is continue to take his oral agents -P.o. intake is improved -Maintain D5 half-normal until blood sugars are more stabilized -Continue to hold oral agents -Carb controlled diet -Moderate dose sliding scale -Accu-Cheks AC Permanent atrial fibrillation -Continue metoprolol -Continue home apixaban Hyperlipidemia -Continue statin Hypertension -Continue metoprolol -add lisinopril 20 mg daily as blood pressures remain elevated -As needed hydralazine available for systolic pressure greater than 160 -Continue home Lasix dose HOLGER -Continue home CPAP Depression -Duloxetine started -We will discontinue as the has a suspicion that this may be the inciting factor for his confusion -Monitor clinically Vitamin D deficiency -Hold weekly ergocalciferol and restart at discharge Morbid obesity -Complicates treatment, prognosis, outcomes -Recommend weight loss DVT prophylaxis -Continue apixaban CODE STATUS -Full code as per discussion with the in the emergency department -Patient was not decisional at this time Charges/Coding Visit Charges Inpatient E&M: 34981 Subs Hosp L2
--- NOTE | 2021-08-31 15:50 | CM.ED ---
Addendum entered by Helen Cheema 08/31/21 20:24: GLO faxed referral to [facility]. Fax confirmation received. Helen DENISE Original Note: GLO Note Referral Source: JAKY LEVI Referral Reason: Discharge planning GLO met with patient and his , Natalia. SW did the assessment with patient and his Natalia however answered most of the questions regarding patient's care. Patient has no living will or HCPOA. Per patient would be interested in HCPOA. Patient has a FEED MIXER through a home health agency [facility] phone number [phone]. Patient has no specialist. Patient has Medicare and [employer] insurance. Pharmacy that is used is [facility]. Patient resides with his in a one story house that is [place]. No steps into the home per . said that patient can't walk at home but there is a ramp at the home. reports patient does not do any of his ADL and it's all me. stated that the FEED MIXER comes to the home but patient does not go anywhere else. Patient has a BSC, cane, hospital beds, lift chair, walker, rollator and wheel chair. said that the [facility] lift was to come on Thursday but I think I will cancel that. said that patient has the items but does not use any of them. Patient has cpap from [facility] reports patient is against [facility] but she would like patient to go to [facility]. told patient that she could not continue to take care of him and needed a break. said dI am not doing a good job of taking care of you at home. SW asked why has said this an said because you were dirty when you came in. Patient said you take good care of me. Patient voiced that he understood that he needed to go somewhere at discharge. Patient was in agreement with referral to [facility]. Glo provided patient with Advanced Directives that include HCPOA and Living Will. GLO called Estelita at [facility]. She has open beds. GLO will fax referral to [facility] this afternoon. Plan: [facility] DENISE
[2021-08-31 16:40] LABS: Bedside Glucose 122 mg/dL (70-110)
[2021-08-31] MEDS: Lisinopril 20 MG Tablet PO (17:22)
--- NOTE | 2021-08-31 20:33 | CM.ED ---
GLO started HENS for patient. Helen DENISE
[2021-08-31] MEDS: Menthol/Lanolin/Calamine/Znox 113 GM Tube 1 APPLIC TOPICAL (20:55)
[2021-08-31] MEDS: Atorvastatin Calcium 10 MG Tablet PO (20:59)
--- NOTE | 2021-08-31 21:04 | NURSING ---
2200 medications given early per pt request to get ready for bed.
[2021-08-31 21:11] LABS: Bedside Glucose 144 mg/dL (70-110)
--- NOTE | 2021-08-31 23:30 | CPS ---
Pt was unable to tolerate CPAP
[2021-09-01] VITALS (7 sets, daily range): BP systolic 134–159; BP diastolic 78–98; PULSE 70–88; RESP 17–20; TEMP 36.5–37.2; O2SAT 93–95
[2021-09-01 06:56] LABS: Bedside Glucose 159 mg/dL (70-110)
[2021-09-01 07:44] LABS: Anion Gap 8 (5-15); BUN 10 mg/dL (7-18); BUN/Creat Ratio 13.4 RATIO (10-20); Calcium,Total 8.7 mg/dL (8.5-10.1); Chloride 95 mmol/L (98-107); Creatinine, Serum 0.74 mg/dL (0.70-1.30); EST Glomerular Filtration Rate 109 mL/min (>60); Est Glom Filt Rate - Afr Amer 132 mL/min (>60); Estimated Creatinine Clearance 72.21 ml/min; Glucose 152 mg/dL (74-106); Magnesium 1.8 mg/dL (1.6-2.6); Potassium 3.9 mmol/L (3.5-5.1); Sodium Level 134 mmol/L (136-145)
[2021-09-01] MEDS: Lisinopril 20 MG Tablet PO (09:04)
[2021-09-01] MEDS: Furosemide 40 MG Tablet PO (09:04)
[2021-09-01] MEDS: APIXABAN 5 MG TABLET PO ×2 (09:05→20:40)
[2021-09-01] MEDS: Nystatin Powder 15gm Bottle 1 APPLIC TOPICAL ×2 (09:05→20:41)
[2021-09-01] MEDS: Aspirin 81 MG TAB.CHEW PO (09:05)
[2021-09-01] MEDS: Menthol/Lanolin/Calamine/Znox 113 GM Tube 1 APPLIC TOPICAL ×2 (09:05→20:40)
[2021-09-01] MEDS: Metoprolol Tartrate 25 MG Tablet 12.5 MG PO ×2 (09:17→20:42)
[2021-09-01] MEDS: Insulin Lispro 100 UNIT/ML INSULN.PEN SC (11:10)
[2021-09-01 11:11] LABS: Bedside Glucose 189 mg/dL (70-110)
--- NOTE | 2021-09-01 12:28 | PN.HOSP_ITS ---
Subjective Subjective Mental status seems to be a little bit better today. He is alert to location self and month however he was confused on year and president of [facility]. He had no issues overnight. Electrolytes and blood sugar are much improved. P.o. intake is still not great. Still with some hallucinations overnight. No a s needed Haldol required. Objective Data Objective Data Vital Signs: Vital Signs Temp Pulse Resp BP Pulse Ox 98.9 F 70 20 H 159/78 H 95 09/01/21 09:00 09/01/21 09:17 09/01/21 09:00 09/01/21 09:17 09/01/21 09:00 Oxygen Flow Rate (L/min) 2 Oxygen Delivery Method Room Air Weight: 140.3 kg Body Mass Index (BMI) 41.9 Intake & Output: Intake and Output for Last 24 Hours 08/30/21 08/31/21 09/01/21 23:59 23:59 23:59 Intake Total 2019 / 2019 2258.75 / 2258.75 240 / 240 Output Total 275 / 275 1700 / 1700 950 / 950 Balance 1745 / 1745 558.75 / 558.75 -710 / -710 Lab / Micro Data Result Diagrams: 08/31/21 05:15 09/01/21 05:38 Labs: Laboratory Results - last 24 hr 08/31/21 11:56: POC Glucose 129 H 08/31/21 16:35: POC Glucose 122 H 08/31/21 20:54: POC Glucose 144 H 09/01/21 05:38: Sodium 134 L, Potassium 3.9, Chloride 95 L, Carbon Dioxide 31.0, Anion Gap 8, BUN 10, Creatinine 0.74, Estim Creat Clear Calc 72.21, Est GFR (MDRD) Af Amer 132, Est GFR (MDRD) Non-Af 109, BUN/Creatinine Ratio 13.4, Glucose 152 H, Calcium 8.7, Magnesium 1.8 09/01/21 06:27: POC Glucose 159 H 09/01/21 11:03: POC Glucose 189 H Micro: Microbiology 08/30/21 16:31 Urine Catheter - Catheter Urine Culture - Final Mixed Gram Positive Organisms 08/30/21 14:55 Blood Culture (Wb) - Right Wrist Blood Culture - Preliminary No growth in 48 hours. 08/30/21 14:50 Blood Culture (Wb) - Anticubital Left Blood Culture - Preliminary No growth in 48 hours. 08/30/21 14:55 Nasal Secretion SARS-CoV-2 Antigen (Rapid) - Final Physical Exam Const alert Constitutional Narrative: Very alert, super morbidly obese, patient is oriented to self, location, and month however is unable to tell me the year and tells me that 1941 and tells me the president is Carlo Pike Exam Limitations: altered mental status Nutritional Appearance: morbidly obese HEENT normocephalic, head/scalp atraumatic, hearing grossly normal bilaterally and moist oral mucous membranes HEENT Narrative: Mallampati is 4, no thrush Head and Scalp: normocephalic Resp normal respiratory effort, no retractions, no use of accessory muscles and clear to auscultation bilaterally Resp Narrative: Diffusely diminished but no adventitious sounds-exam limited secondary to body habitus Auscultation: Negative for crackles, rales, rhonchi or wheezes Cardio regular rate, S1 normal heart sound, S2 normal heart sound, no murmurs, no rub, no gallops, no clicks and no JVD Cardio Narrative: Irregular rhythm with regular rate, distant heart tones secondary to body habitus GI normal to inspection, nondistended, normoactive bowel sounds, soft to palpation, non-tender and non-distended GI Narrative: Large protuberant abdomen Extremity Extremity Narrative: Bilateral lower extremity edema trace to 1+, no cyanosis or clubbing, cap refill is 2+ Skin Skin Narrative: Pretibial area bilateral lower extremities and feet consistent with chronic venous stasis changes Neuro CN's II-XII intact bilaterally, moves all extremities and no focal motor deficits Neuro Narrative: Orientation seems to be improving slowly Sensorium / Orientation: awake and alert Speech: speech normal Assessment & Plan Assessment/Plan (1) Acute metabolic encephalopathy: (2) Hypokalemia: (3) Generalized weakness: PLAN: Acute toxic/metabolic encephalopathy -Suspect multifactorial--> Cymbalta/mild hypoglycemia/decreased p.o. intake -Seems to be clearing slowly -UA is unremarkable for any signs of infection -urine cx with no significant growth -Blood cx -CT of the head only shows chronic involutional changes of the brain -Patient is alert and confusion seems to be improving -Continue to hold Cymbalta -Hypoglycemia has resolved -Lactic lower abnormalities have resolved -Monitor closely clinically -Use as needed Haldol for any agitation through the night Acute on chronic hypokalemia -Patient takes chronic potassium at home however the has run out and has been unable to refill the prescription--> she states that this has been renewed but at the [facility] pharmacy -Resolved Debility/generalized weakness - is indicating she is no longer to take care of him at home -Patient is immobile and is unable to ambulate--> this is a chronic condition secondary to bilateral lower extremity pain and weakness - is accepting for placement at this time -PT/OT consultation -Consult case management/social work -Likely be here through early next week DM-2 with hypoglycemia -Patient on oral medications at home -Hypoglycemic on admission as I suspect his p.o. intake is poor and he is continue to take his oral agents -P.o. intake is improved some however still not great -Continue to hold oral agents -Carb controlled diet -Moderate dose sliding scale -Accu-Cheks AC -Patient is no longer requiring dextrose to maintain blood sugars Permanent atrial fibrillation -Continue metoprolol -Continue home apixaban Hyperlipidemia -Continue statin Hypertension -Continue metoprolol -added lisinopril 20 mg daily on 09/01/2021 -A need to uptitrate medications however will evaluate after 24 hours of data today -As needed hydralazine available for systolic pressure greater than 160 -Continue home Lasix dose HOLGER -Continue home CPAP Depression -Duloxetine started -We will discontinue as the has a suspicion that this may be the inciting factor for his confusion -Monitor clinically Vitamin D deficiency -Hold weekly ergocalciferol and restart at discharge Morbid obesity -Complicates treatment, prognosis, outcomes -Recommend weight loss DVT prophylaxis -Continue apixaban CODE STATUS -Full code as per discussion with the in the emergency department -Patient was not decisional at this time
[2021-09-01 16:31] LABS: Bedside Glucose 139 mg/dL (70-110)
[2021-09-01] MEDS: Atorvastatin Calcium 10 MG Tablet PO (20:42)
[2021-09-02] VITALS (9 sets, daily range): BP systolic 100–168; BP diastolic 54–86; PULSE 65–90; RESP 12–20; TEMP 36–36.8; O2SAT 91–97
[2021-09-02 00:51] LABS: Bedside Glucose 117 mg/dL (70-110)
[2021-09-02 06:26] LABS: Bedside Glucose 122 mg/dL (70-110)
[2021-09-02 06:47] LABS: Absolute Lymphocyte Count 1.42 X10^3/uL (0.83-4.51); Absolute Neutrophil Count 5.4 X10^3/uL (2.0-7.7); Basophil# 0.04 X10^3/uL; Basophil% 0.5 % (0-1); Eosinophils% 4.9 % (0-5); Hematocrit 40.6 % (40-54); Lymphocyte # 1.42 X10^3/ul (0.83-4.51); Lymphocyte % 17.4 % (19-41); Mean Corp Hgb Conc 34.5 g/dL (32-36); Mean Platelet Vol. 8.6 fl (6.2-12.0); Monocyte# 0.85 X10^3/uL; Monocyte% 10.4 % (0-10); NRBC Flagged by Analyzer 0 % (0-5); Neutrophil % 66.4 % (47-70); Platelet Count 276 K/mm3 (150-450); RBC Distribution Width CV 13.6 % (11.6-14.6); RBC Distribution Width SD 44.6 fl (35.1-43.9); Red Blood Count 4.51 M/mm3 (4.6-6.2); White Blood Count 8.1 K/mm3 (4.4-11.0)
[2021-09-02 07:16] LABS: ALB/GLOB Ratio 0.7 RATIO (0.9-2.4); AST(SGOT) 28 U/L (15-37); Alanine Aminotransfer ALT/SGPT 18 U/L (16-61); Albumin, Serum 2.7 g/dL (3.2-5.0); Alkaline Phosphatase 69 U/L (45-117); Anion Gap 7 (5-15); BUN 11 mg/dL (7-18); BUN/Creat Ratio 16.4 RATIO (10-20); Calcium,Total 8.9 mg/dL (8.5-10.1); Chloride 96 mmol/L (98-107); Creatinine, Serum 0.67 mg/dL (0.70-1.30); EST Glomerular Filtration Rate 123 mL/min (>60); Est Glom Filt Rate - Afr Amer 149 mL/min (>60); Estimated Creatinine Clearance 72.21 ml/min; Glucose 115 mg/dL (74-106); Potassium 3.4 mmol/L (3.5-5.1); Protein, Total 6.7 g/dL (6.4-8.2); Sodium Level 133 mmol/L (136-145)
[2021-09-02] MEDS: Lisinopril 20 MG Tablet PO (08:29)
[2021-09-02] MEDS: APIXABAN 5 MG TABLET PO ×2 (08:29→22:32)
[2021-09-02] MEDS: Nystatin Powder 15gm Bottle 1 APPLIC TOPICAL ×2 (08:30→22:59)
[2021-09-02] MEDS: Menthol/Lanolin/Calamine/Znox 113 GM Tube 1 APPLIC TOPICAL ×2 (08:30→22:59)
[2021-09-02] MEDS: Furosemide 40 MG Tablet PO (08:30)
[2021-09-02] MEDS: Aspirin 81 MG TAB.CHEW PO (08:30)
--- NOTE | 2021-09-02 09:12 | CASEMGMT ---
GLO received a call from Estelita with [facility]. [facility] can accept patient. GLO expressed concern with patient getting approved as therapy's notes all say bedbound and non ambulatory. GLO told her SW will send her updated notes this am. GLO will also have to talk with patient's about a back up plan. Chloé Merritt MSW [facility]
--- NOTE | 2021-09-02 09:21 | CASEMGMT ---
Updates faxed to Estelita with [facility]. SW also asked her to please start the pre-cert. SW to talk with patient's about plan if patient is denied. Chloé DOOLEY
--- NOTE | 2021-09-02 09:43 | CASEMGMT ---
Social Work SW called Natalia, to speak w/her about the discharge plan for pt. SW explained the concern that insurance may not authorize pt to go to [facility], as he is minimally participating in therapy. SW explained that insurance covers someone in a skilled nursing for participating in therapy. If pt is not participating, they may not cover it. SW inquired what she would like to do if insurance does not cover the cost of skilled nursing for rehab. states that pt needs to be somewhere where someone else can take of him. is looking at exterminator placement for pt. She states she can no longer care for him at home, she asked what to do if insurance does not cover the cost. SW educated that if insurance does not cover, or even if they cover for a couple of weeks, after that it would be private pay or we can look into applying for Medicaid. states is okay w/pt's social security going toward his care at the skilled nursing, but after that was vague in regard to their financial situation. states, what do I do if they won't pay for it? SW explained will find out the cost of [facility] per day, explained most facilities in this area are between $200-$300/day. SW again explained we can look into applying for Medicaid. SW let know that Medicaid still allows for her to have money to live on at home, SW does not know exactly how this is calculated however. SW asked if she would like to speak w/Estelita from [facility] directly, she states she would. SW explained will let her know if we hear anything back in regard to [employer] covering for pt to go to [facility] initially. states understanding. SW called [facility], message left to call pt's to review options. SW able to assist w/completing Medicaid application if warranted. SW will continue to follow. ALBINO Hurd
[2021-09-02] MEDS: Insulin Lispro 100 UNIT/ML INSULN.PEN SC ×2 (11:33→17:23)
[2021-09-02] MEDS: Metoprolol Tartrate 25 MG Tablet 12.5 MG PO ×2 (11:34→22:32)
[2021-09-02 11:41] LABS: Bedside Glucose 177 mg/dL (70-110)
--- NOTE | 2021-09-02 12:41 | PCM.PN.HOSP ---
Subjective Subjective Patient is a 71-year-old gentleman admitted with altered mental status. An assessment of acute toxic/metabolic encephalopathy made admitted to monitored bed for subsequent management Objective Data Objective Data Vital Signs: Vital Signs Temp Pulse Resp BP Pulse Ox 97.6 F L 86 20 H 116/54 L 95 09/02/21 08:18 09/02/21 11:34 09/02/21 08:18 09/02/21 11:34 09/02/21 09:39 Oxygen Flow Rate (L/min) 2 Oxygen Delivery Method Room Air Weight: 140.3 kg Body Mass Index (BMI) 41.9 Intake & Output: Intake and Output for Last 24 Hours 08/31/21 09/01/21 09/02/21 23:59 23:59 23:59 Intake Total 2258.75 / 2258.75 660 / 660 Output Total 1700 / 1700 1550 / 1850 300 / 300 Balance 558.75 / 558.75 -890 / -1190 -300 / -300 Lab / Micro Data Result Diagrams: 09/02/21 05:28 09/02/21 05:28 Labs: Laboratory Results - last 24 hr 09/01/21 16:28: POC Glucose 139 H 09/01/21 20:37: POC Glucose 117 H 09/02/21 05:28: Sodium 133 L, Potassium 3.4 L, Chloride 96 L, Carbon Dioxide 30.0, Anion Gap 7, BUN 11, Creatinine 0.67 L, Estim Creat Clear Calc 72.21, Est GFR (MDRD) Af Amer 149, Est GFR (MDRD) Non-Af 123, BUN/Creatinine Ratio 16.4, Glucose 115 H, Calcium 8.9, Total Bilirubin 1.20 H, AST 28, ALT 18, Alkaline Phosphatase 69, Total Protein 6.7, Albumin 2.7 L, Globulin 4.0, Albumin/Globulin Ratio 0.7 L 09/02/21 05:28: WBC 8.1, RBC 4.51 L, Hgb 14.0, Hct 40.6, MCV 90.0, MCH 31.0, MCHC 34.5, RDW Std Deviation 44.6 H, RDW Coeff of Shantell 13.6, Plt Count 276, MPV 8.6, Immature Gran % (Auto) 0.400, Neut % (Auto) 66.4, Lymph % (Auto) 17.4 L, [place] % (Auto) 10.4 H, Eos % (Auto) 4.9, Baso % (Auto) 0.5, Absolute Neuts (auto) 5.4, Absolute Lymphs (auto) 1.42, Nucleated RBC % 0 09/02/21 06:18: POC Glucose 122 H 09/02/21 11:31: POC Glucose 177 H Micro: Microbiology 08/30/21 16:31 Urine Catheter - Catheter Urine Culture - Final Mixed Gram Positive Organisms 08/30/21 14:55 Blood Culture (Wb) - Right Wrist Blood Culture - Preliminary No growth in 48 hours. 08/30/21 14:50 Blood Culture (Wb) - Anticubital Left Blood Culture - Preliminary No growth in 48 hours. 08/30/21 14:55 Nasal Secretion SARS-CoV-2 Antigen (Rapid) - Final Physical Exam Narrative GENERAL: cooperative HEENT: Atraumatic; EYES; Anicteric, Normal Conjunctiva NECK; supple, normal thyroid, RESPIRATORY: Diminished to auscultation CARDIOVASCULAR: Regular S1 S2, GI: soft, normoactive bowel sounds, : No Renal angle tenderness; EXTREMITIES: No edema, no clubbing, MUSCULOSKELETAL: no muscle wasting NEURO: Awake; no lateralizing signs. SKIN: No Rash PSYCH; Flat affect Assessment & Plan Assessment/Plan (1) Acute metabolic encephalopathy: (2) Hypokalemia: (3) Generalized weakness: PLAN: Patient is a 71-year-old gentleman admitted with altered mental status. An assessment of acute toxic/metabolic encephalopathy made admitted to monitored bed for subsequent management 1. Acute toxic/metabolic encephalopathy ?This was suspected to be secondary to combination of patient medications Cymbalta as well as mild hypoglycemia as a result of decreased oral intake. Suspected offending medications held. Patient hypoglycemia has since resolved patient appears to be back to baseline 2. Hypokalemia -Corrected per protocol 3. Diabetes mellitus type 2 ?Patient presented with complications including hypoglycemia. patient's oral hypoglycemics held. Placed on Accu-Cheks a.c. and at bedtime and covered with sliding scale insulin 4. Chronic A. fib ?Rate control with metoprolol and systemic anticoagulation with apixaban 5. Physical deconditioning - Requested for PT OT eval and social service coordinator to assist with discharge planning 6. Dyslipidemia -Patient is on statin therapy, continued at home dose 7. Hypertension - Blood pressure controlled, home medications continued with dose adjustment as needed 8. Class III obesity with BMI of 41.9 ?Weight loss advised 9. Vitamin D deficiency ?Patient is on ergocalciferol 10. Depression ?Patient was on Cymbalta this was discontinued due to confusion 11. DVT prophylaxis ?On apixaban Charges/Coding Visit Charges Inpatient E&M: 87257 Subs Hosp L2
--- NOTE | 2021-09-02 15:07 | CASEMGMT ---
GLO spoke with Estelita with [facility] and she did start the pre-cert request for patient. Chloé Merritt CONTACT CENTER REPRESENTATIVE [facility]
[2021-09-02 17:06] LABS: Bedside Glucose 156 mg/dL (70-110)
[2021-09-02] MEDS: Potassium Chloride Oral Tablet 20 MEQ PO (17:23)
[2021-09-02] MEDS: Atorvastatin Calcium 10 MG Tablet PO (22:32)
[2021-09-02 22:40] LABS: Bedside Glucose 195 mg/dL (70-110)
[2021-09-03 05:00] VITALS: BP 143/91; PULSE 72; RESP 18; TEMP 37; O2SAT 97
[2021-09-03 06:45] LABS: Bedside Glucose 140 mg/dL (70-110)
--- NOTE | 2021-09-03 07:41 | PCM.PN.HOSP ---
Subjective Subjective Patient seen had a relatively uneventful night. Diagnostic data reviewed significant for potassium of 3.4 Objective Data Objective Data Vital Signs: Vital Signs Temp Pulse Resp BP Pulse Ox 98.6 F 72 18 143/91 H 97 09/03/21 05:00 09/03/21 05:00 09/03/21 05:00 09/03/21 05:00 09/03/21 05:00 Oxygen Flow Rate (L/min) 2 Oxygen Delivery Method Room Air Weight: 140.3 kg Body Mass Index (BMI) 41.9 Intake & Output: Intake and Output for Last 24 Hours 09/01/21 09/02/21 09/03/21 23:59 23:59 23:59 Intake Total 660 / 660 100 / 100 0 / 0 Output Total 1550 / 1850 975 / 975 300 / 300 Balance -890 / -1190 -875 / -875 -300 / -300 Lab / Micro Data Result Diagrams: 09/02/21 05:28 09/02/21 05:28 Labs: Laboratory Results - last 24 hr 09/02/21 11:31: POC Glucose 177 H 09/02/21 17:00: POC Glucose 156 H 09/02/21 22:30: POC Glucose 195 H 09/03/21 06:42: POC Glucose 140 H Micro: Microbiology 08/30/21 16:31 Urine Catheter - Catheter Urine Culture - Final Mixed Gram Positive Organisms 08/30/21 14:55 Blood Culture (Wb) - Right Wrist Blood Culture - Preliminary No growth in 48 hours. 08/30/21 14:50 Blood Culture (Wb) - Anticubital Left Blood Culture - Preliminary No growth in 48 hours. 08/30/21 14:55 Nasal Secretion SARS-CoV-2 Antigen (Rapid) - Final Physical Exam Narrative GENERAL: cooperative HEENT: Atraumatic; EYES; Anicteric, Normal Conjunctiva NECK; supple, normal thyroid, RESPIRATORY: Diminished to auscultation CARDIOVASCULAR: Regular S1 S2, GI: soft, normoactive bowel sounds, : No Renal angle tenderness; EXTREMITIES: No edema, no clubbing, MUSCULOSKELETAL: no muscle wasting NEURO: Awake; no lateralizing signs. SKIN: No Rash PSYCH; Flat affect Assessment & Plan Assessment/Plan (1) Acute metabolic encephalopathy: (2) Hypokalemia: (3) Generalized weakness: PLAN: Patient is a 71-year-old gentleman admitted with altered mental status. An assessment of acute toxic/metabolic encephalopathy made admitted to monitored bed for subsequent management 1. Acute toxic/metabolic encephalopathy ?This was suspected to be secondary to combination of patient medications Cymbalta as well as mild hypoglycemia as a result of decreased oral intake. Suspected offending medications held. Patient hypoglycemia has since resolved patient appears to be back to baseline ?09/03/2021. Awaiting placement in a intermediate facility 2. Hypokalemia -Corrected per protocol 3. Diabetes mellitus type 2 ?Patient presented with complications including hypoglycemia. patient's oral hypoglycemics held. Placed on Accu-Cheks a.c. and at bedtime and covered with sliding scale insulin 4. Chronic A. fib ?Rate control with metoprolol and systemic anticoagulation with apixaban 5. Physical deconditioning - Requested for PT OT eval and case management social worker to assist with discharge planning 6. Dyslipidemia -Patient is on statin therapy, continued at home dose 7. Hypertension - Blood pressure controlled, home medications continued with dose adjustment as needed 8. Class III obesity with BMI of 41.9 ?Weight loss advised 9. Vitamin D deficiency ?Patient is on ergocalciferol 10. Depression ?Patient was on Cymbalta this was discontinued due to confusion 11. DVT prophylaxis ?On apixaban Charges/Coding Visit Charges Inpatient E&M: 18736 Subs Hosp L2
[2021-09-03] MEDS: Potassium Chloride Oral Tablet 20 MEQ 40 MEQ PO (08:33)
[2021-09-03] MEDS: Aspirin 81 MG TAB.CHEW PO (08:34)
[2021-09-03] MEDS: APIXABAN 5 MG TABLET PO (08:34)
[2021-09-03] MEDS: Potassium Chloride Oral Tablet 20 MEQ PO (08:34)
[2021-09-03 08:35] VITALS: PULSE 88
[2021-09-03] MEDS: Metoprolol Tartrate 25 MG Tablet 12.5 MG PO (08:35)
[2021-09-03] MEDS: Furosemide 40 MG Tablet PO (08:36)
[2021-09-03] MEDS: Lisinopril 20 MG Tablet PO (08:36)
[2021-09-03] MEDS: Menthol/Lanolin/Calamine/Znox 113 GM Tube 1 APPLIC TOPICAL (08:37)
[2021-09-03] MEDS: Nystatin Powder 15gm Bottle 1 APPLIC TOPICAL (08:37)
[2021-09-03 08:39] VITALS: BP 98/79; PULSE 88; RESP 16; TEMP 36.4; O2SAT 96
--- NOTE | 2021-09-03 09:51 | CASEMGMT ---
GLO called Estelita and let her know GLO faxed PT/OT from yesterday. She did get GLO's message about reaching out to patient's regarding private pay vs Medicaid. [facility] said their business office is going to reach out to her. GLO asked if [facility] would be able to accept patient on pending Medicaid. She said it depends on what the business office finds out. Chloé Merritt ARBORICULTURIST [employer]OU[employer]
[2021-09-03 09:59] VITALS: O2SAT 95
[2021-09-03] MEDS: Insulin Lispro 100 UNIT/ML INSULN.PEN SC (11:10)
[2021-09-03 11:16] LABS: Bedside Glucose 172 mg/dL (70-110)
--- NOTE | 2021-09-03 13:26 | CASEMGMT ---
Addendum entered by Chloé Merritt 09/03/21 13:58: Physician will discharge patient to [facility] today. SW left a message for Estelita at [facility] letting her know. Await orders. GLO completed a 7000 in [facility]. Chloé DOOLEY Original Note: GLO received a phone call from [facility] and patient was approved. GLO told her SW will find out if he is ready today. GLO sent physician a message that patient was approved. Awaiting response to see if patient will go today. Chloé DOOLEY
--- NOTE | 2021-09-03 13:52 | TREXTCAR_ITS ---
Diet 08/30/21 17:57 Diet: Cardiac: Calorie-Controlled Food consistency:: Regular Liquid Consistency:: Regular/Thin Dietary Modifications:: Consistent Carbohydrate Sodium Restricted How many daily calories?: 2000 calorie Routine Orders/Code Status Code Status: Full Code Therapies Physical Therapy: Eval and Treat Occupational Therapy: Eval and Treat Speech Therapy: Eval and Treat Problem/Diagnosis (1) Acute metabolic encephalopathy: Status: Acute (2) Hypokalemia: Status: Acute (3) Generalized weakness: Status: Chronic Allergies/Procedures Done in Hospital Allergies No Known Allergies Allergy (Verified 08/30/21 14:02) Type of Care/Length of Stay Estimated LOS: Convalescent Care Less Than 30 days Type of Care Needed: Skilled Rehab Potential: Fair Prognosis: Fair Additional Orders/Day of Discharge Day of Discharge: 09/03/21 Dietary and Speech Recommendations Dietitian Recommendations/Changes: Will adjust diet to 2000 calorie/consistent carbohydrate; cardiac/sodium-restricted---order fluid restriction as needed. ONS as needed if PO fails at meals. Discharge Plan Admission Admit Date/Time: 08/30/21 16:09 Attending Provider: Jesse Aquino Primary Care Provider: Care Physician,Tonia Primary Discharge Orders/Prescriptions Prescriptions: New acetaminophen [Tylenol] 325 mg Tablet 650 mg PO Q6H PRN PRN (Reason: Pain Score 1-10/Temp > 100.7 F) Qty: 0 RF: 0 lisinopril 20 mg Tablet 20 mg PO DAILY Qty: 0 RF: 0 sennosides-docusate sodium [Stool Softener-Stimulant Laxat] 8.6-50 mg Tablet 2 tab PO BID PRN PRN (Reason: Constipation) Qty: 0 RF: 0 potassium chloride [Klor-Con M20] 20 mEq Tablet,Er Particles/Crystals 20 meq PO BIDCM Qty: 0 RF: 0 nystatin [Nyamyc] 100,000 unit/gram Powder 1 applic topical BID Qty: 0 RF: 0 insulin lispro [Humalog KwikPen Insulin] 100 unit/mL Insulin Pen See Protocol unit subcut TIDAC Qty: 0 RF: 0 menthol-zinc oxide [Calmoseptine] 0.44-20.6 % Ointment 1 applic topical BID Qty: 0 RF: 0 Continued furosemide 40 MG tablet 40 mg PO DAILY RF: 0 aspirin 81 MG tablet,chewable 81 mg PO DAILY@0800 RF: 0 metoprolol tartrate 25 MG tablet 12.5 mg PO BID RF: 0 apixaban 5 MG tablet 5 mg PO BID RF: 0 rosuvastatin 5 MG tablet 5 mg PO QHS RF: 0 metformin 1,000 MG tablet 1,000 mg PO BIDCM Qty: 0 RF: 0 cholecalciferol (vitamin D3) 1,250 mcg (50,000 unit) capsule 50,000 unit PO WE RF: 0 Discontinued duloxetine 20 mg capsule,delayed release(DR/EC) 20 mg PO BID RF: 0 glimepiride 2 MG tablet 2 mg PO BID RF: 0 Referrals / Follow Up: Care Physician,No Primary [Primary Care Provider] - Disposition Disposition (needs filled in before D/C Order can be placed): [facility] Facility
--- NOTE | 2021-09-03 14:01 | DS.PCM_ITS ---
Providers Date of Admission: 08/30/21 Primary Care Physician: Tonia Primary Care Phys Reason For Visit: ACUTE METABOLIC/TOXIC ENCEPHALOPATHY/HYPOKALEMIA Diagnosis Discharge Diagnosis (1) Acute metabolic encephalopathy: Status: Acute Code(s): G93.41 - Metabolic encephalopathy (2) Hypokalemia: Status: Acute Code(s): E87.6 - Hypokalemia (3) Generalized weakness: Status: Chronic Code(s): R53.1 - Weakness Medications at Discharge Home Medications apixaban 5 mg PO BID 04/20/20 aspirin 81 mg PO DAILY@0800 04/20/20 furosemide 40 mg PO DAILY 04/20/20 metoprolol tartrate 12.5 mg PO BID 04/20/20 rosuvastatin 5 mg PO QHS 09/05/20 metformin 1,000 mg PO BIDCM #0 09/08/20 cholecalciferol (vitamin D3) 50,000 unit PO WE 08/30/21 acetaminophen [Tylenol] 650 mg PO Q6H PRN PRN #0 tab 09/03/21 insulin lispro [Humalog KwikPen Insulin] See Protocol SUBCUT TIDAC #0 ml 09/03/21 lisinopril 20 mg PO DAILY #0 tab 09/03/21 menthol-zinc oxide [Calmoseptine] 1 applic TOPICAL BID #0 g 09/03/21 nystatin [Nyamyc] 1 applic TOPICAL BID #0 g 09/03/21 potassium chloride [Klor-Con M20] 20 meq PO BIDCM #0 tab 09/03/21 sennosides-docusate sodium [Stool Softener-Stimulant Laxat] 2 tab PO BID PRN PRN #0 tab 09/03/21 Hospital Course Summary of Care Provided Minutes Spent on Discharge: 40 Hospital Course: Patient is a 71-year-old gentleman admitted with altered mental status. An assessment of acute toxic/metabolic encephalopathy made admitted to monitored bed for subsequent management 1. Acute toxic/metabolic encephalopathy ?This was suspected to be secondary to combination of patient medications Cymbalta as well as mild hypoglycemia as a result of decreased oral intake. Suspected offending medications held. Patient hypoglycemia has since resolved patient appears to be back to baseline 2. Hypokalemia -Corrected per protocol 3. Diabetes mellitus type 2 ?Patient presented with complications including hypoglycemia. patient's oral hypoglycemics held. Placed on Accu-Cheks a.c. and at bedtime and covered with sliding scale insulin 4. Chronic A. fib ?Rate control with metoprolol and systemic anticoagulation with apixaban 5. Physical deconditioning - Requested for PT OT eval and bilingual social worker to assist with discharge planning 6. Dyslipidemia -Patient is on statin therapy, continued at home dose 7. Hypertension - Blood pressure controlled, home medications continued with dose adjustment as needed 8. Class III obesity with BMI of 41.9 ?Weight loss advised 9. Vitamin D deficiency ?Patient is on ergocalciferol 10. Depression ?Patient was on Cymbalta this was discontinued due to confusion 11. DVT prophylaxis ?On apixaban Physical Exam Narrative GENERAL: cooperative HEENT: Atraumatic; EYES; Anicteric, Normal Conjunctiva NECK; supple, normal thyroid, RESPIRATORY: Diminished to auscultation CARDIOVASCULAR: Regular S1 S2, GI: soft, normoactive bowel sounds, : No Renal angle tenderness; EXTREMITIES: No edema, no clubbing, MUSCULOSKELETAL: no muscle wasting NEURO: Awake; no lateralizing signs. SKIN: No Rash PSYCH; Flat affect Weight / BMI Weight Weight: 140.3 kg Body Mass Index (BMI) 41.9 ABG / Lab / Microbiology Data Result Diagrams: 09/02/21 05:28 09/02/21 05:28 Laboratory: Laboratory Results - last 24 hr 09/02/21 17:00: POC Glucose 156 H 09/02/21 22:30: POC Glucose 195 H 09/03/21 06:42: POC Glucose 140 H 09/03/21 11:09: POC Glucose 172 H Microbiology: Microbiology 08/30/21 16:31 Urine Catheter - Catheter Urine Culture - Final Mixed Gram Positive Organisms 08/30/21 14:55 Blood Culture (Wb) - Right Wrist Blood Culture - Preliminary No growth in 48 hours. 08/30/21 14:50 Blood Culture (Wb) - Anticubital Left Blood Culture - Preliminary No growth in 48 hours. 08/30/21 14:55 Nasal Secretion SARS-CoV-2 Antigen (Rapid) - Final Meaningful Use Info Meaningful Use Diagnoses (Choose all that apply): None applicable Discharge Plan Admission Admit Date/Time: 08/30/21 16:09 Attending Provider: Jesse Aquino Primary Care Provider: Care Physician,No Primary Discharge Orders/Prescriptions Prescriptions: New acetaminophen [Tylenol] 325 mg Tablet 650 mg PO Q6H PRN PRN (Reason: Pain Score 1-10/Temp > 100.7 F) Qty: 0 RF: 0 lisinopril 20 mg Tablet 20 mg PO DAILY Qty: 0 RF: 0 sennosides-docusate sodium [Stool Softener-Stimulant Laxat] 8.6-50 mg Tablet 2 tab PO BID PRN PRN (Reason: Constipation) Qty: 0 RF: 0 potassium chloride [Klor-Con M20] 20 mEq Tablet,Er Particles/Crystals 20 meq PO BIDCM Qty: 0 RF: 0 nystatin [Nyamyc] 100,000 unit/gram Powder 1 applic topical BID Qty: 0 RF: 0 insulin lispro [Humalog KwikPen Insulin] 100 unit/mL Insulin Pen See Protocol unit subcut TIDAC Qty: 0 RF: 0 menthol-zinc oxide [Calmoseptine] 0.44-20.6 % Ointment 1 applic topical BID Qty: 0 RF: 0 Continued furosemide 40 MG tablet 40 mg PO DAILY RF: 0 aspirin 81 MG tablet,chewable 81 mg PO DAILY@0800 RF: 0 metoprolol tartrate 25 MG tablet 12.5 mg PO BID RF: 0 apixaban 5 MG tablet 5 mg PO BID RF: 0 rosuvastatin 5 MG tablet 5 mg PO QHS RF: 0 metformin 1,000 MG tablet 1,000 mg PO BIDCM Qty: 0 RF: 0 cholecalciferol (vitamin D3) 1,250 mcg (50,000 unit) capsule 50,000 unit PO WE RF: 0 Discontinued duloxetine 20 mg capsule,delayed release(DR/EC) 20 mg PO BID RF: 0 glimepiride 2 MG tablet 2 mg PO BID RF: 0 Referrals / Follow Up: Care Physician,No Primary [Primary Care Provider] - Disposition Disposition (needs filled in before D/C Order can be placed): [facility] Charges/Coding Visit Charges Inpatient E&M: 83997 Disch Hosp
--- NOTE | 2021-09-03 14:24 | CASEMGMT ---
Addendum entered by Chloé Merritt 09/03/21 15:23: GLO arranged for patient to get picked up at 430p via cot by [facility]. SW faxed negative COVID and pickers material handlers time to [facility]. [facility] then called and asked if they could pickers material handlers patient now and RN and SW were okay with this. GLO called Estelita and let her know that [facility] their way to pickers material handlers patient now. She will notify [facility]. Plan: d/c to [facility] under skilled level of care on a convalescent stay. [facility] transported via cot. Chléo merritt FLEXOGRAPHIC PRINTING PRESS OPERATOR TRANSITION [employer] Original Note: GOL faxed orders to [facility]. GLO completed 7000 in [facility]. GLO called patient's and let her know patient was approved and he will go to [facility] today. GLO asked if she would like SW to call her when SW has a time. She said that is not necessary as she cannot drive after dark anyway. Await COVID test and GLO will arrange transport. Plan: d/c to [facility] under skilled level of care on a convalescent stay. Chloé Merritt FLEXOGRAPHIC PRINTING PRESS OPERATOR TRANSITION MGR
== END 2021-09-03 16:10 | disposition skilled nursing facility (03) | DRG 637 ==
LOC: ED 16:19 → PCU 16:29
PROVIDERS: Admitting Provider Internal Medicine; Emergency Provider Emergency Medicine; Visit Provider Internal Medicine
DX: E11.649 Type 2 diabetes mellitus with hypoglycemia without coma (principal); G92.8 Other toxic encephalopathy; I48.19 Other persistent atrial fibrillation; I50.32 Chronic diastolic (congestive) heart failure; Z68.41 Body mass index [BMI] 40.0-44.9, adult; R62.7 Adult failure to thrive; I11.0 Hypertensive heart disease with heart failure; E66.01 Morbid (severe) obesity due to excess calories; Z79.4 Long term (current) use of insulin; E87.6 Hypokalemia; I25.10 Atherosclerotic heart disease of native coronary artery without angina pectoris; E78.5 Hyperlipidemia, unspecified; G47.33 Obstructive sleep apnea (adult) (pediatric); E55.9 Vitamin D deficiency, unspecified; E78.00 Pure hypercholesterolemia, unspecified; T43.215A Adverse effect of selective serotonin and norepinephrine reuptake inhibitors, initial encounter; F32.A Depression, unspecified; R53.1 Weakness; R53.81 Other malaise; Z79.01 Long term (current) use of anticoagulants; Z79.82 Long term (current) use of aspirin; Z79.84 Long term (current) use of oral hypoglycemic drugs; Z79.899 Other long term (current) drug therapy; Z87.891 Personal history of nicotine dependence
CPT/HCPCS: 36415; 70450; 71045; 80048; 80053; 81001; 82962; 83605; 83735; 84100; 84443; 84484; 85025; 87040; 87086; 87088; 87426; 93005; 94660; 97110; 97162; 97166; 97530; 97535; 97802; 99251; 99285; J7030; A4216; G0463